=== PATIENT | male | born 1950 | race Caucasian/White ===

== ENCOUNTER 2016-10-12 15:13 | Inpatient (IN) | payer MEDICARE, MEDICAID ==
[~2016-10-12] VITALS: Ht 172.7 cm; Wt 69.0 kg
[~2016-10-12 15:13] MED LIST: ACET325 PO; CLIN1CAP5 PO; DEPA500T3 PO; DIVA500 PO; GENT TOPICAL; HALO20TA PO; HALO5 PO; RANI150 PO; RISP1 PO; RISP2TAB2 PO; TRIH5TAB2 PO
[2016-10-12 16:02] VITALS: BP 131/63; PULSE 50; RESP 16; TEMP 98; O2SAT 97
--- NOTE | 2016-10-12 16:13 | PD ---
HPI Chief Complaint: Psychiatric Symptoms Time Seen by Provider: 16:12 Travel History International Travel<30 days: No Contact w/Intl Traveler<30days: No Traveled to known affect area: No History of Present Illness HPI 66-year-old male was sent from his [place] [facility] [place] [facility] to [facility] for not taking care of himself and taking his psych medication. He has history of schizophrenia. He has been acting bizarre. At [facility] they noticed that he had swollen scrotum and sent him to the emergency room to be evaluated medically. Patient was brought in as a Meehan act by EMS at this point. Patient is awake and talking but not making any sense. He looks extremely disheveled and not taking care of himself. He has a very poor hygienic condition. Patient was bradycardic but rest of his vitals were stable. [facility] Past Medical History Narrative Medical List of his past medical, surgical, social and family history is reviewed from the nursing note. Medical History: Unable to Obtain Arthritis: No Asthma: No Autoimmune Disease: No Blood Disorders: No Anxiety: No Depression: No Heart Rhythm Problems: No High Cholesterol: No Chemotherapy: No Chest Pain: No Congestive Heart Failure: No COPD: No Cerebrovascular Accident: No Diminished Hearing: No Endocrine: Yes Gastrointestinal Disorders: Yes (hep b) GERD: No Glaucoma: No Genitourinary: No Hepatitis: Yes (hx. of hep B per medical record) Hiatal Hernia: No Hypertension: Yes Immune Disorder: No Kidney Stones: No Musculoskeletal: No Neurologic: Yes (parkinson's) Parkinson's Disease: Yes Psychiatric: Yes Reproductive: No Respiratory: No Myocardial Infarction: No Radiation Therapy: No Renal Failure: No Schizophrenia: Yes (PARANOID) Sickle Cell Disease: No Sleep Apnea: No Thyroid Disease: No Ulcer: No Influenza Vaccination: No Past Surgical History Abdominal Surgery: No AICD: No Cardiac Surgery: No Ear Surgery: No Endocrine Surgery: No Eye Surgery: No Genitourinary Surgery: No Gynecologic Surgery: No Joint Replacement: No Neurologic Surgery: No Oral Surgery: No Pacemaker: No Thoracic Surgery: No Tonsillectomy: Yes Other Surgery: Yes Social History Alcohol Use: No Tobacco Use: No (ONE PPD X 46 YEARS; uto if still does) Substance Use: No Allergies-Medications (Allergen,Severity, Reaction): Coded Allergies: Tetanus Toxoid (Verified Allergy, Severe, swelling, 10/13/16) Per SHANNON Aguilar, Gisselle Torres [phone] & Jolie, (Admin?) Gisselle Torres. *MDRO Multi-Drug Resistant Organism (Verified Adverse Reaction, Unknown, ) MRSA (buttock wound) 2004 MRSA PCR Screen negative 03/15/15 and 03/17/15. Cleared per Infection Control. Comments List of his allergies reviewed from the nursing note. Reported Meds & Prescriptions Reported Meds & Active Scripts Active Reported Diphenhydramine HCl (Diphenhydramine HCl (Sleep)) 50 Mg Tab 1 Cap PO HS PRN Ibuprofen 800 Mg Tab 800 Mg PO TID Mapap (Acetaminophen) 500 Mg Cap 500 Mg PO Q4HR PRN Seroquel (Quetiapine Fumarate) 200 Mg Tab 200 Mg PO BID Depakote ER (Divalproex Sodium) 500 Mg Blaire 1,000 Mg PO BID Fluphenazine (Fluphenazine HCl) 10 Mg Tab 20 Mg PO BID Trihexyphenidyl (Trihexyphenidyl HCl) 5 Mg Tab 5 Mg PO BID Narrative Medication List of his home medications reviewed from the nursing note. Review of Systems Except as stated in HPI: all other systems reviewed are Neg Physical Exam Narrative GENERAL: Awake, alert, disheveled, poor skin hygiene, not making any sense when talking SKIN: Focused skin assessment warm/dry. HEAD: Atraumatic. Normocephalic. EYES: Pupils equal and round. No scleral icterus. No injection or drainage. ENT: No nasal bleeding or discharge. Mucous membranes pink and moist. NECK: Trachea midline. No JVD. CARDIOVASCULAR: Regular rate and rhythm. No murmur appreciated. RESPIRATORY: No accessory muscle use. Clear to auscultation. Breath sounds equal bilaterally. GASTROINTESTINAL: Abdomen soft, non-tender, nondistended. Hepatic and splenic margins not palpable. Enlarged scrotum with massive left inguinal hernia MUSCULOSKELETAL: No obvious deformities. No clubbing. No cyanosis. No edema. NEUROLOGICAL: Awake and alert. Lower jaw again, psychotic, no obvious motor deficit PSYCHIATRIC: Psychotic, poor insight and judgment Data Data Last Documented VS Vital Signs Date Time Temp Pulse Resp B/P Pulse Ox O2 Delivery O2 Flow Rate FiO2 10/13/16 10:01 77 16 142/78 100 Room Air 10/12/16 16:02 98.0 Orders Complete Blood Count With Diff (10/12/16 16:13) Comprehensive Metabolic Panel (10/12/16 16:13) Psych Screen (10/12/16 16:13) Drug Screen, Random Urine (10/12/16 16:13) Alcohol (Ethanol) (10/12/16 16:13) Haloperidol Inj (Haldol Inj) (10/12/16 16:30) Lorazepam Inj (Ativan Inj) (10/12/16 16:30) Diphenhydramine Inj (Benadryl Inj) (10/12/16 16:30) Restraints Violent (10/12/16 16:23) Ct Brain W/O Iv Contrast(Rout) (10/12/16 ) Electrocardiogram (10/12/16 ) Troponin I (10/12/16 18:33) Admit Order (Ed Use Only) (10/13/16 ) Admit To Inpatient Psych (10/13/16 ) Code Status (10/13/16 13:49) Vital Signs (Adult) [id number] (10/13/16 13:49) Activity Oob Ad Justa (10/13/16 13:49) Level Of Observation (Psych) (10/13/16 13:49) Aims-Abnormal Invol Move Scale ONCE (10/13/16 13:49) Acetaminophen (Tylenol) (10/13/16 14:00) Magnesium Hydroxide Liq (Milk Of Magnesi (10/13/16 14:00) Al-Mag Hy-Si 40-40-4 Mg/Ml Liq (Mag-Al P (10/13/16 14:00) Basic Metabolic Panel (Bmp) (10/14/16 06:00) Lipid Profile (10/14/16 06:00) Hemoglobin (Hgb) A1c (10/14/16 06:00) Valproic Acid (Depakene) (10/14/16 06:00) Labs Laboratory Tests Test 10/12/16 10/12/16 16:40 20:00 White Blood Count 5.0 TH/MM3 Red Blood Count 3.34 MIL/MM3 Hemoglobin 12.0 GM/DL Hematocrit 35.2 % Mean Corpuscular Volume 105.3 FL Mean Corpuscular Hemoglobin 36.0 PG Mean Corpuscular Hemoglobin 34.2 % Concent Red Cell Distribution Width 13.9 % Platelet Count 209 TH/MM3 Mean Platelet Volume 8.3 FL Neutrophils (%) (Auto) 59.6 % Lymphocytes (%) (Auto) 21.0 % Monocytes (%) (Auto) 16.5 % Eosinophils (%) (Auto) 2.4 % Basophils (%) (Auto) 0.5 % Neutrophils # (Auto) 3.0 TH/MM3 Lymphocytes # (Auto) 1.0 TH/MM3 Monocytes # (Auto) 0.8 TH/MM3 Eosinophils # (Auto) 0.1 TH/MM3 Basophils # (Auto) 0.0 TH/MM3 CBC Comment DIFF FINAL Differential Comment Sodium Level 134 MEQ/L Potassium Level 3.8 MEQ/L Chloride Level 97 MEQ/L Carbon Dioxide Level 29.0 MEQ/L Anion Gap 8 MEQ/L Blood Urea Nitrogen 10 MG/DL Creatinine 0.70 MG/DL Estimat Glomerular Filtration 112 ML/MIN Rate Random Glucose 100 MG/DL Calcium Level 8.7 MG/DL Total Bilirubin 0.7 MG/DL Aspartate Amino Transf 19 U/L (AST/SGOT) Alanine Aminotransferase 23 U/L (ALT/SGPT) Alkaline Phosphatase 79 U/L Troponin I LESS THAN 0.02 NG/ML Total Protein 6.7 GM/DL Albumin 3.1 GM/DL Ethyl Alcohol Level 6 MG/DL Urine Opiates Screen NEG Urine Barbiturates Screen NEG Urine Amphetamines Screen NEG Urine Benzodiazepines Screen NEG Urine Cocaine Screen NEG Urine Cannabinoids Screen NEG MDM Medical Decision Making Medical Screen Exam Complete: Yes Emergency Medical Condition: Yes Medical Record Reviewed: Yes Differential Diagnosis Psychosis, substance abuse, intracranial abnormality Narrative Course 5:11 PM patient had to be tranquilized with IM Haldol, Ativan and Benadryl since she was getting very escalating and violent. Awaiting for the blood test to be done. Case has been signed over to the oncoming ER physician. I'll order a head CT as well. Procedures EKG Prior to Arrival: Khanh Robledo MD Oct 12, 2016 16:13
[2016-10-12] MEDS ORDERED: HALOPERIDOL LACTATE 5 MG/ML AMP IM ONE (16:30)
[2016-10-12] MEDS ORDERED: LORazepam 2 MG/ML VIAL IM ONE (16:30)
[2016-10-12] MEDS ORDERED: diphenhydrAMINE HCL 50 MG/ML VIAL IM ONE (16:30)
[2016-10-12 17:18] LABS: BASOPHIL % 0.5 % (0.0-2.0); EOSINOPHIL # 0.1 TH/MM3 (0-0.4); EOSINOPHIL % 2.4 % (0.0-4.0); HEMATOCRIT 35.2 % (39.0-51.0); HEMO FLAGS DIFF FINAL; MEAN CELL VOLUME 105.3 FL (80.0-100.0); MEAN CORPUSCULAR HGB CONC 34.2 % (32.0-36.0); MONO % 16.5 % (0.0-8.0); NEUT % 59.6 % (16.0-70.0); PLATELET COUNT 209 TH/MM3 (150-450); RED BLOOD COUNT 3.34 MIL/MM3 (4.50-5.90); RED CELL DISTRIBUTION WIDTH 13.9 % (11.6-17.2)
[2016-10-12 17:35] LABS: ANION GAP 8 MEQ/L (5-15); AST (GOT) 19 U/L (15-37); BLOOD UREA NITROGEN 10 MG/DL (7-18); CHLORIDE 97 MEQ/L (98-107); GLOMERULAR FILTRATION RATE 112 ML/MIN (>89); POTASSIUM 3.8 MEQ/L (3.5-5.1); SODIUM (NA) 134 MEQ/L (136-145)
[2016-10-12 17:38] LABS: ALKALINE PHOSPHATASE 79 U/L (45-117); ALT (GPT) 23 U/L (12-78); TOTAL BILIRUBIN ADULT 0.7 MG/DL (0.2-1.0)
--- NOTE | 2016-10-12 17:55 | RADRPT ---
EXAM DATE/TIME: 10/12/2016 17:29 [place] COMPARISON: CT BRAIN W/O CONTRAST, October 25, 2012, 18:52. INDICATIONS : Altered mental status. RADIATION DOSE: 52.06 CTDIvol (mGy) MEDICAL HISTORY : Non-responsive. SURGICAL HISTORY : Non-responsive. ENCOUNTER: Initial ACUITY: 1 day PAIN SCALE: Non-responsive LOCATION: cranial TECHNIQUE: Multiple contiguous axial images were obtained of the head. Using automated exposure control and adj ustment of the mA and/or kV according to patient size, radiation dose was kept as low as reasonably a chievable to obtain optimal diagnostic quality images. FINDINGS: CEREBRUM: The ventricles are normal for age. No evidence of midline shift, mass lesion, hemorrhage or acute in farction. No extra-axial fluid collections are seen. POSTERIOR FOSSA: The cerebellum and brainstem are intact. The 4th ventricle is midline. The cerebellopontine angle i s unremarkable. EXTRACRANIAL: The visualized portion of the orbits is intact. SKULL: The calvaria is intact. No evidence of skull fracture. CONCLUSION: Normal examination. Alonso Castellon Jr., MD on October 12, 2016 at 17:49 Board Certified Radiologist. This report was verified electronically.
--- NOTE | 2016-10-12 18:23 | PD ---
Data Data Last Documented VS Vital Signs Date Time Temp Pulse Resp B/P Pulse Ox O2 Delivery O2 Flow Rate FiO2 10/12/16 19:57 55 22 10/12/16 19:57 136/72 96 Room Air 10/12/16 16:02 98.0 Orders Complete Blood Count With Diff (10/12/16 16:13) Comprehensive Metabolic Panel (10/12/16 16:13) Psych Screen (10/12/16 16:13) Drug Screen, Random Urine (10/12/16 16:13) Alcohol (Ethanol) (10/12/16 16:13) Haloperidol Inj (Haldol Inj) (10/12/16 16:30) Lorazepam Inj (Ativan Inj) (10/12/16 16:30) Diphenhydramine Inj (Benadryl Inj) (10/12/16 16:30) Restraints Violent (10/12/16 16:23) Ct Brain W/O Iv Contrast(Rout) (10/12/16 ) Electrocardiogram (10/12/16 ) Troponin I (10/12/16 18:33) Labs Laboratory Tests Test 10/12/16 10/12/16 16:40 20:00 White Blood Count 5.0 TH/MM3 Red Blood Count 3.34 MIL/MM3 Hemoglobin 12.0 GM/DL Hematocrit 35.2 % Mean Corpuscular Volume 105.3 FL Mean Corpuscular Hemoglobin 36.0 PG Mean Corpuscular Hemoglobin 34.2 % Concent Red Cell Distribution Width 13.9 % Platelet Count 209 TH/MM3 Mean Platelet Volume 8.3 FL Neutrophils (%) (Auto) 59.6 % Lymphocytes (%) (Auto) 21.0 % Monocytes (%) (Auto) 16.5 % Eosinophils (%) (Auto) 2.4 % Basophils (%) (Auto) 0.5 % Neutrophils # (Auto) 3.0 TH/MM3 Lymphocytes # (Auto) 1.0 TH/MM3 Monocytes # (Auto) 0.8 TH/MM3 Eosinophils # (Auto) 0.1 TH/MM3 Basophils # (Auto) 0.0 TH/MM3 CBC Comment DIFF FINAL Differential Comment Sodium Level 134 MEQ/L Potassium Level 3.8 MEQ/L Chloride Level 97 MEQ/L Carbon Dioxide Level 29.0 MEQ/L Anion Gap 8 MEQ/L Blood Urea Nitrogen 10 MG/DL Creatinine 0.70 MG/DL Estimat Glomerular Filtration 112 ML/MIN Rate Random Glucose 100 MG/DL Calcium Level 8.7 MG/DL Total Bilirubin 0.7 MG/DL Aspartate Amino Transf 19 U/L (AST/SGOT) Alanine Aminotransferase 23 U/L (ALT/SGPT) Alkaline Phosphatase 79 U/L Troponin I LESS THAN 0.02 NG/ML Total Protein 6.7 GM/DL Albumin 3.1 GM/DL Ethyl Alcohol Level 6 MG/DL Urine Opiates Screen NEG Urine Barbiturates Screen NEG Urine Amphetamines Screen NEG Urine Benzodiazepines Screen NEG Urine Cocaine Screen NEG Urine Cannabinoids Screen NEG MDM Supervised Visit with NADEEN: Yes Narrative Course Patient care assumed from Dr. Parnell at 1900. Patient was placed under a Meehan act taken to [facility] act and then referred to our facility for left scrotal swelling. Patient has a left direct inguinal hernia which is partially reduced by me. He does have EKG consistent with early repolarization. Troponin negative. Labs are reassuring. He is medically stable for psychiatric evaluation and disposition. As far as his hernia he can follow up outpatient with general surgeon. For his abnormal EKG can follow-up with primary care provider. Diagnosis Primary Impression: Inguinal hernia Qualified Code: K40.90 - Unilateral inguinal hernia without obstruction or gangrene, recurrence not specified Additional Impression: Medical clearance for psychiatric admission Scripts Unable to Obtain Active Prescriptions or Reported Meds Condition: Stable Terell Garner MD Oct 12, 2016 18:23
[2016-10-12 19:57] VITALS: BP 136/72; PULSE 55; RESP 22; O2SAT 96
[2016-10-12 21:12] LABS: AMPHETAMINE, URINE NEG (NEG); BARBITURATES, URINE NEG (NEG); COCAINE, URINE NEG (NEG)
[2016-10-13 10:01] VITALS: BP 142/78; PULSE 77; RESP 16; O2SAT 100
[2016-10-13] MEDS ORDERED: TRIH5TAB2 PO (13:26)
--- NOTE | 2016-10-13 13:26 | PD ---
History of Present Illness Chief Complaint: Psychiatric Symptoms Time Seen by Provider: 13:10 Travel History International Travel<30 Days: No Contact w/Intl Traveler<30days: No Known affected area: No Legal Status Legal Status: Meehan Act Meehan Act Comment: BY: DR OLMAN CARREON AT [facility] History of Present Illness: History of Present Illness 66-year-old male with hx of schizophrenia who was sent from his custodial, [facility] to [facility] for not taking care of himself, aggressive towards staff , increase in auditory hallucinations, and refusing to take his medications for several days. At [facility] they noticed that he had swollen scrotum and sent him to the emergency room to be evaluated medically. Patient is under a BA. Patient was bradycardic while in Ed but rest of his vitals were stable. He was medically cleared and transferred to [facility]. The patient is awake. He has a long evans and long hair. He is extremely disheveled with dirty black feet. He is awake. responds to his name but is unable to engage in conversation. His speech is nonsensical. He has not been aggresive or agitated here in [facility]. I am unable to obtain any clinical information from this patient. EMR is reviewed. He has had at least 12 admissions to [facility] since [facility]. His last admission was in Feb 2015. He has had admissions to the [facility] as well. As per his record he has a remote history of substance use. Current toxicology is negative. [facility] Past Medical History Medical History: Unable to Obtain Arthritis: No Asthma: No Autoimmune Disease: No Blood Disorders: No Anxiety: No Depression: No Heart Rhythm Problems: No High Cholesterol: No Chemotherapy: No Chest Pain: No Congestive Heart Failure: No COPD: No Cerebrovascular Accident: No Diminished Hearing: No Endocrine: Yes Gastrointestinal Disorders: Yes (hep b) GERD: No Glaucoma: No Genitourinary: No Hepatitis: Yes (hx. of hep B per medical record) Hiatal Hernia: No Hypertension: Yes Immune Disorder: No Kidney Stones: No Musculoskeletal: No Neurologic: Yes (parkinson's) Parkinson's Disease: Yes Psychiatric: Yes Reproductive: No Respiratory: No Myocardial Infarction: No Radiation Therapy: No Renal Failure: No Schizophrenia: Yes (PARANOID) Sickle Cell Disease: No Sleep Apnea: No Thyroid Disease: No Ulcer: No Influenza Vaccination: No Past Surgical History Abdominal Surgery: No AICD: No Cardiac Surgery: No Ear Surgery: No Endocrine Surgery: No Eye Surgery: No Genitourinary Surgery: No Gynecologic Surgery: No Joint Replacement: No Neurologic Surgery: No Oral Surgery: No Pacemaker: No Thoracic Surgery: No Tonsillectomy: Yes Other Surgery: Yes Psychiatric History Psychiatric History Hx Psychiatric Treatment: Patient is known to us here at [facility] dating back to 2004.Patient has a reported diagnosis of Schizophrenia and has been diagnosis with Dementia with psychosis in the past. Patient resides in an [facility] placement which provides on sight mental health services. Patient has a history of non-compliant with medication, services and treatment. History of Inpatient Treatment: Yes (multiple) Guns or firearms in home: No Social History As per record single and has never . Lives in a custodial. Hx Alcohol Use: No Hx Tobacco Use: No (ONE PPD X 46 YEARS; uto if still does) Hx Substance Use: No Substance Use Type: Nicotine/Cigarettes Hx of Substance Use Treatment: No Family Psychiatric History unable to obtain Allergies-Medications (Allergen,Severity, Reaction): Coded Allergies: Tetanus Toxoid (Verified Allergy, Severe, swelling, 10/12/16) *MDRO Multi-Drug Resistant Organism (Verified Adverse Reaction, Unknown, ) MRSA (buttock wound) 2004 MRSA PCR Screen negative 03/15/15 and 03/17/15. Cleared per Infection Control. Reported Meds & Prescriptions Reported Meds & Active Scripts Active Active Prescriptions or Reported Medications Unobtainable Review of Systems ROS Limitations: Psychotic Integumentary: COMPLAINS OF: Abnormal pigmentation (left foot) Psychiatric: COMPLAINS OF: Hallucinations Exam Alert: Yes Haugen: Person (responds to name only) Mood: Calm Affect: Other (inapropriatte) Speech: Illogical Eye Contact: None Memory Intact: Comment (unable to assess) Hallucinations: Auditory (appears to be responding tointernal stimuli) Delusions: No Suicidal: Ideation (unable to determine) Homicidal: Ideation (unable to determine) Insight/Judgement non existent. impaired MDM Medical Decision Making Medical Record Reviewed: Yes Assessment/Plan 66 year old male with hx of schizophrenia , resident of a custodial who is under a BA for inability to care for self, aggressive behavior, increase in hallucinations, refusing medications. At this time this patient requires increase in level of care provided on inpatient psychiatric unit in order to restart medication, stabilize current symptoms and maintain his safety. Orders Complete Blood Count With Diff (10/12/16 16:13) Comprehensive Metabolic Panel (10/12/16 16:13) Psych Screen (10/12/16 16:13) Drug Screen, Random Urine (10/12/16 16:13) Alcohol (Ethanol) (10/12/16 16:13) Haloperidol Inj (Haldol Inj) (10/12/16 16:30) Lorazepam Inj (Ativan Inj) (10/12/16 16:30) Diphenhydramine Inj (Benadryl Inj) (10/12/16 16:30) Restraints Violent (10/12/16 16:23) Ct Brain W/O Iv Contrast(Rout) (10/12/16 ) Electrocardiogram (10/12/16 ) Troponin I (10/12/16 18:33) Results Vital Signs Date Time Temp Pulse Resp B/P Pulse Ox O2 Delivery O2 Flow Rate FiO2 10/13/16 10:01 77 16 142/78 100 Room Air 10/12/16 19:57 55 22 10/12/16 19:57 55 22 136/72 96 Room Air 10/12/16 16:02 98.0 50 16 131/63 97 Laboratory Tests Test 10/12/16 10/12/16 16:40 20:00 White Blood Count 5.0 Red Blood Count 3.34 Hemoglobin 12.0 Hematocrit 35.2 Mean Corpuscular Volume 105.3 Mean Corpuscular Hemoglobin 36.0 Mean Corpuscular Hemoglobin 34.2 Concent Red Cell Distribution Width 13.9 Platelet Count 209 Mean Platelet Volume 8.3 Neutrophils (%) (Auto) 59.6 Lymphocytes (%) (Auto) 21.0 Monocytes (%) (Auto) 16.5 Eosinophils (%) (Auto) 2.4 Basophils (%) (Auto) 0.5 Neutrophils # (Auto) 3.0 Lymphocytes # (Auto) 1.0 Monocytes # (Auto) 0.8 Eosinophils # (Auto) 0.1 Basophils # (Auto) 0.0 CBC Comment DIFF FINAL Differential Comment Sodium Level 134 Potassium Level 3.8 Chloride Level 97 Carbon Dioxide Level 29.0 Anion Gap 8 Blood Urea Nitrogen 10 Creatinine 0.70 Estimat Glomerular Filtration 112 Rate Random Glucose 100 Calcium Level 8.7 Total Bilirubin 0.7 Aspartate Amino Transf 19 (AST/SGOT) Alanine Aminotransferase 23 (ALT/SGPT) Alkaline Phosphatase 79 Troponin I LESS THAN 0.02 Total Protein 6.7 Albumin 3.1 Ethyl Alcohol Level 6 Urine Opiates Screen NEG Urine Barbiturates Screen NEG Urine Amphetamines Screen NEG Urine Benzodiazepines Screen NEG Urine Cocaine Screen NEG Urine Cannabinoids Screen NEG Diagnosis Primary Impression: Inguinal hernia Additional Impression: Schizophrenia Admitting Information Admitting Physician Requests: Admit Condition: Stable Problem Qualifiers Primary Impression: Inguinal hernia Qualified Code: K40.90 - Unilateral inguinal hernia without obstruction or gangrene, recurrence not specified Additional Impression: Schizophrenia Qualified Code: F20.0 - Paranoid schizophrenia Courtney Muller Oct 13, 2016 13:26
[2016-10-13] MEDS ORDERED: FLUP10TA PO (13:27)
[2016-10-13] MEDS ORDERED: DEPA500T3 PO (13:28)
[2016-10-13] MEDS ORDERED: SERO200T PO (13:29)
[2016-10-13] MEDS ORDERED: MAPA500C PO (13:30)
[2016-10-13] MEDS ORDERED: IBUP800T23 PO (13:31)
[2016-10-13] MEDS ORDERED: DIPH50TA3 PO (13:38)
[2016-10-13] MEDS ORDERED: MAGNESIUM HYDROXIDE SUSP 30 ML CUP PO PRN (14:00)
[2016-10-13] MEDS ORDERED: ACETAMINOPHEN 325 MG TAB PO PRN (14:00)
[2016-10-13] MEDS ORDERED: ALUMINUM/MAGNESIUM/SIMETH 30 ML CUP PO PRN (14:00)
--- NOTE | 2016-10-13 16:53 | EKG ---
Date Performed: 10/12/2016 Time Performed: 18:17:37 PTAGE: 66 years EKG: SINUS BRADYCARDIA POSSIBLE RIGHT VENTRICULAR CONDUCTION DELAY SEPTAL MYOCARDIAL INFARCTION ABNORMAL ECG INTERPRETATION BASED ON A DEFAULT AGE OF 40 YEARS Compared to prior tracing no significa nt change PREVIOUS TRACING : 03/11/2015 08.46 DOCTOR: Duong Moses Interpretating Date/Time 10/13/2016 16:52:27
[2016-10-13 18:36] VITALS: BP 133/61; PULSE 56; RESP 18; TEMP 97.7; O2SAT 100
[2016-10-14 06:36] VITALS: BP 149/74; PULSE 59; RESP 18; TEMP 97.4; O2SAT 99
[2016-10-14 07:31] LABS: HDL CHOLESTEROL 62.8 MG/DL (40.0-60.0)
[2016-10-14 07:32] LABS: ANION GAP 7 MEQ/L (5-15); BICARBONATE 29.5 MEQ/L (21.0-32.0); BLOOD UREA NITROGEN 4 MG/DL (7-18); CHLORIDE 100 MEQ/L (98-107); GLOMERULAR FILTRATION RATE 145 ML/MIN (>89); LDL CHOLESTEROL 72 MG/DL (0-99); POTASSIUM 4.2 MEQ/L (3.5-5.1); SODIUM (NA) 136 MEQ/L (136-145)
[2016-10-14] MEDS ORDERED: LORazepam 2 MG/ML VIAL IM PRN (11:30)
[2016-10-14] MEDS ORDERED: HALOPERIDOL LACTATE 5 MG/ML AMP IM PRN (11:30)
[2016-10-14] MEDS ORDERED: diphenhydrAMINE HCL 50 MG/ML VIAL IM PRN (11:30)
--- NOTE | 2016-10-14 12:26 | MH ---
cc: CCList DATE OF ADMISSION: 10/13/2016 ADMISSION DIAGNOSES 1. Schizophrenia, disorganized type, acute exacerbation LEGAL STATUS: The patient is presently not capacitated to consent for admission or for medications. I have initiated a petition for involuntary psychiatric hospitalization and have requested a healthcare surrogate and guardian advocate. HISTORY OF PRESENT ILLNESS Mr. Pineda is 66-year-old male with a history of schizophrenia who presents in transfer from his [facility] facility under a [facility] ACT initiated by Dr. Bandar Pedro alleging that the patient is delusional and has been refusing medications. The patient was evaluated yesterday by the psychiatric nurse practitioner in the emergency department who recommended ongoing psychiatric hospitalization. Reviewing the electronic medical record, I note the patient was admitted most recently in February into March [address] Ho and before that in [address] Christie. It appears that he has previously stabilized on Depakote and Haldol along with Artane for a side effect management. The patient seen and examined with nurse. Chart reviewed. Case discussed with nursing staff. There is no documentation from the patient's facility on the chart to indicate prior to admission medications. On my evaluation today, I note the patient has a oral lingual dyskinesias. He is extremely disorganized. He says "ATP she had highly suspicious of that. I need my heart meds to be corrected." He repeatedly covers and uncover as his head in a disorganized fashion. He says "treat me for my heart and gonorrhea and will talk." He appears frankly internally stimulated. Somewhat paranoid. No real affective symptoms at this time. Psychiatric interview is somewhat limited because of the patient's degree of thought disorganization. PAST PSYCHIATRIC HISTORY The patient is unable to provide much in the way of details regarding his history. He says when I inquire about his diagnosis, he says "my father owns a [facility], I can go there." The patient has prior medication trials as noted above. FAMILY HISTORY The patient is really unable to provide saying "I had Gonorrhea over a [facility]." When I ask about his family history of psychiatric illness. CHEMICAL DEPENDENCY HISTORY: The patient denies any abuse of drugs or alcohol. Toxicology was negative and alcohol level was six on arrival here. SOCIAL HISTORY The patient is at [facility]. Beyond that, I am unable to obtain from the patient any meaningful social history. PAST MEDICAL HISTORY: It appears that the patient may have a history of hepatitis as well as some degree of parkinsonism although it is unclear if this is medication induced. REVIEW OF SYSTEMS Unable to obtain from the patient today any meaningful detail because of his thought disorganization. PHYSICAL EXAMINATION VITAL SIGNS: Temperature 97.4, pulse 59, respirations 18, blood pressure 149/74, pulse oximetry 99% on room air. IN GENERAL: Physical examination completed by the ED provider. On my examination today, the patient appears to be in no acute physical distress. He is extremely disheveled. He does have the whirling will dyskinesias. No other motor abnormalities noted. LABORATORY Reviewed: CBC is significant for macrocytic anemia with a hemoglobin of 12. CMP is significant for mildly decreased for mildly low glucose at 66. He hemoglobin A1c is pending. Toxicological results as above. Depakote level 54. RADIOLOGIC: Head CT is read as normal examination. Electrocardiogram sinus bradycardia with QTC OF 374 Milliseconds. MENTAL STATUS EXAM The patient is in hospital gown. He is disheveled. He is awake, alert and oriented to person at least. Motor exam as above. Speech is rambling and disjointed. Language and fund of knowledge are difficult to assess. Mood difficult to assess because of thought disorganization. Affect is somewhat blunted. Thought process disorganized. Associations loose. Possibly some paranoid delusions present. The patient appears frankly internally preoccupied. Unable to contract for safety or denies suicidal or homicidal ideation. Insight and judgment presently quite poor. ASSESSMENT/PLAN This is 66-year-old male with psychiatric history as detailed above who presents under Meehan ACT. The patient presents to me as frankly disorganized. He is unable to provide much in the way of meaningful history. He certainly requires psychiatric hospitalization at this time for safety, observation and stabilization. Admit inpatient. Involuntary status. I have completed first opinion. Consult for second opinion. Request health care surrogate and guardian advocate. I will consult hospitalist to assess the patient's medical status. I will resume this haloperidol and Depakote as these were reportedly previously efficacious for the patient. Liver function tests and platelets okay. QTC is not prolonged. Ativan as needed for anxiety, Benadryl as needed for sleep for EPS. Vitals every shift. Counselor to see. PT bing. Disposition planning. Estimated length of stay: 9-13 days. Thank you very much for this dictation. Tyrel Lebron /11:24 AM /11:44 AM MTDPeter
--- NOTE | 2016-10-14 14:04 | PD.CONS ---
[facility] By Psychiatry team Reason for Consult Assist with medical management, lesion on left great toe Primary Care Physician Unknown Diagnoses: History of Present Illness Patient is a 66-year-old male with primary medical history of HTN, DM, seizure, Parkinson's, hep B, schizophrenia who was sent from his care home to [facility] for not taking care of himself and taking his psych medication. As per records, patient has been acting desire at [facility] they noticed that he had swollen scrotum and sent him to the emergency room to have evaluated medically. In the ED, patient has escalating agitation and violence. He was given Haldol, Ativan, and Benadryl. Patient is now admitted to inpatient psychiatry unit. Consulted for medical management. Patient seen today. Agitated. Talking to himself. Does not respond to any questions or commands. Review of Systems ROS Limitations: Psychotic Past Family Social History Allergies: Coded Allergies: Tetanus Toxoid (Verified Allergy, Severe, swelling, 10/13/16) Per SHANNON Aguilar, [facility] [phone] & Jolie, (Admin?) Gisselle Torres. *MDRO Multi-Drug Resistant Organism (Verified Adverse Reaction, Unknown, ) MRSA (buttock wound) 2004 MRSA PCR Screen negative 03/15/15 and 03/17/15. Cleared per Infection Control. Past Medical History Review of records Parkinson's Seizure HTN DM 2 Schizophrenia Past Surgical History Review of records left side nose skin cancer removed Active Ordered Medications Last Impressions Head CT 10/12/16 0000 Signed Impressions: Service Date/Time: September 17:29 - CONCLUSION: Normal examination. Alonso Castellon Jr., MD Family History Unable to obtain Social History As per review of records, 2014 patient is a smoker 1 pack per day 46 years, questionable if he had quit Physical Exam Vital Signs Vital Signs Date Time Temp Pulse Resp B/P Pulse Ox O2 Delivery O2 Flow Rate FiO2 10/14/16 06:36 97.4 59 18 149/74 99 10/13/16 18:36 97.7 56 18 133/61 100 Physical Exam GENERAL: This is a male, on older than stated age, disheveled, in no apparent distress. SKIN: Left great toe and second toe with scab wounds. HEAD: Normocephalic EYES: No scleral icterus. No injection or drainage. ENT: Nose without bleeding. Airway patent. NECK: Trachea midline. CARDIOVASCULAR: Regular rate and rhythm without murmurs, gallops, or rubs. RESPIRATORY: Moderate air entry. Coarse breath sounds. GASTROINTESTINAL: Abdomen soft, non-tender, nondistended. Bowel sounds active 4. : Unilateral inguinal hernia MUSCULOSKELETAL: Extremities without clubbing, cyanosis, or edema. No joint tenderness, effusion, or edema noted. NEUROLOGICAL: Awake and alert. Unable to follow commands, unable to have meaningful conversation. Patient is agitated talking to himself hyperactive inside the room. Laboratory Laboratory Tests Test 10/14/16 05:50 Sodium Level 136 Potassium Level 4.2 Chloride Level 100 Carbon Dioxide Level 29.5 Anion Gap 7 Blood Urea Nitrogen 4 Creatinine 0.56 Estimat Glomerular Filtration 145 Rate Random Glucose 66 Calcium Level 9.3 Triglycerides Level 76 Cholesterol Level 150 LDL Cholesterol 72 HDL Cholesterol 62.8 Cholesterol/HDL Ratio 2.38 Valproic Acid (Depakene) Level 54 Result Diagram: 10/12/16 1640 10/14/16 0550 Assessment and Plan Problem List: (1) Schizophrenia ICD Code: F20.9 Status: Chronic Assessment and Plan Patient is a 66-year-old male with primary medical history of HTN, seizure, Parkinson's, hep B, schizophrenia who was sent from his care home to [facility] for not taking care of himself and taking his psych medication. As per records, patient has been acting desire at [facility] they noticed that he had swollen scrotum and sent him to the emergency room to have evaluated medically. In the ED, patient has escalating agitation and violence. He was given Haldol, Ativan, and Benadryl. Patient is now admitted to inpatient psychiatry unit. Consulted for medical management. Schizophrenia, agitation - managed by psychiatry team - CT of the head showed normal examination Macrocytic anemia - thiamine and folate - Chronic Unilateral inguinal hernia - Reduced in the ED Seizure Parkinson's - Continue Depakote HTN - No BP meds. BP appears to be within normal. - Monitor BP trend. Bradycardia - Heart rate 50-68 - Possibly secondary to psychotropic medication and anxiolytics. - Monitor heart rate. DVT prop ambulatory Written by Sofiya Uribe, acting as scribe for Dr. Greene on 10/14/16 at 17:57. All or portions of this note were transcribed by elif Uribe. I, Dr. Pradeep Greene personally performed the history, physical exam, and medical decision making; and confirmed the accuracy of the information in the transcribed note. Authenticated by Dr. Pradeep Greene on 10/14/16 at 18:48. Code Status Full code Discussed Condition With Patient, nursing Problem Qualifiers (1) Schizophrenia: Qualified Code: F20.0 - Paranoid schizophrenia Sofiya Jeong Oct 14, 2016 14:04 Pradeep Greene MD Oct 14, 2016 18:48
[2016-10-14 16:24] LABS: BLOOD, URINE NEG (NEG); GLUCOSE,URINE NEG (NEG); KETONE, URINE NEG (NEG); MUCUS URINE FEW /lpf (OCC); NITRITE,URINE NEG (NEG); PH, URINE 8.5 (5.0-8.5); URINE COLOR YELLOW (YELLW/STRAW)
[2016-10-14 16:25] LABS: COMMENT (UR) CULT NOT INDICATED; CULTURE IF INDICATED CULT NOT INDICATED
[2016-10-14 17:23] VITALS: BP 107/62; PULSE 68; RESP 17; TEMP 98.3; O2SAT 97
[2016-10-14] MEDS ORDERED: DIVALPROEX SODIUM E.R. 500 MG TAB PO SCH (21:00)
[2016-10-15] MEDS: THIAMINE HCL 100 MG TAB PO SCH ×2 (08:33→08:35)
[2016-10-15] MEDS: FOLIC ACID 1 MG TAB PO SCH ×2 (08:33→08:35)
[2016-10-15 10:42] LABS: HEMOGLOBIN A1b 0.7 %; HEMOGLOBIN Ao 86.5 %; HEMOGLOBIN F 1.1 %; HEMOGLOBIN LA1C 1.6 %; HEMOGLOBIN P3 3.4 %
[2016-10-15] MEDS: DIVALPROEX SODIUM E.R. 500 MG TAB PO SCH (12:55)
--- NOTE | 2016-10-15 14:16 | PD.CONS ---
Provisional Diagnosis Admission Date Oct 13, 2016 at 13:53 [place] I. Schizophrenia, Disorganized type History of Present Illness Service Psychiatry Consult Requested By Psychiatry Reason for Consult 2nd opinion Primary Care Physician Unknown HPI Pt is a 66 YOWM with a hx of schizophrenia who was admitted to [facility] under a BA alleging that pt had stopped taking psychiatric medications at [facility] and decompensated. Pt was seen and discussed with RN and chart was reviewed. Upon approach for interview, pt pulls covers over his head and because engaging in bizarre movements. He is disorganized in thought process and behaviors. He engages in echolalia at times and then growls fiercely when asked if he would be willing to allow MD and RN to see his face. RN reports that pt has been urinating in room and actively responding to internal stimuli. He has been aggressive recently. Review of Systems Psychiatric: COMPLAINS OF: Hallucinations Past Family Social History Coded Allergies: Tetanus Toxoid (Verified Allergy, Severe, swelling, 10/13/16) Per SHANNON Aguilar, Gisselle Torres [phone] & Jolie, (Admin?) Gisselle Torres. *MDRO Multi-Drug Resistant Organism (Verified Adverse Reaction, Unknown, ) MRSA (buttock wound) 2004 MRSA PCR Screen negative 03/15/15 and 03/17/15. Cleared per Infection Control. Past Medical History hx of seizures Reported Medications Diphenhydramine HCl (Sleep) (Diphenhydramine HCl)50 Mg Tab1 Cap PO HS PRN ( INSOMNIA) 10/13/16 Ibuprofen 800 Mg Ajj514 Mg PO TID Ref 0 10/13/16 Acetaminophen (Mapap)500 Mg Mem063 Mg PO Q4HR PRN (PAIN) Ref 0 10/13/16 Quetiapine (Seroquel)200 Mg Fks812 Mg PO BID 10/13/16 Divalproex ER (Depakote ER)500 Mg Taber1,000 Mg PO BID 10/13/16 Fluphenazine 10 Mg Tab20 Mg PO BID 10/13/16 Trihexyphenidyl 5 Mg Tab5 Mg PO BID 10/13/16 Current Medications Medications (Trade) Dose Ordered Sig/Marce Route Start Time Stop Time Status Last Admin (Tylenol) 650 mg Q4H PRN PO 10/13/16 14:00 (Milk Of Magnesia Liq) 30 ml DAILY PRN PO 10/13/16 14:00 (Mag-Al Plus Susp Liq) 30 ml Q6H PRN PO 10/13/16 14:00 (Ativan) 1 mg Q6H PRN PO 10/14/16 11:30 (Ativan Inj) 1 mg Q6H PRN IM 10/14/16 11:30 (Benadryl) 50 mg Q6H PRN PO 10/14/16 11:30 (Benadryl Inj) 50 mg Q6H PRN IM 10/14/16 11:30 (Haldol) 5 mg Taper BID PO 10/14/16 21:00 10/26/16 20:59 (Haldol Inj) 7.5 mg Taper BID PRN IM 10/14/16 11:30 10/26/16 11:29 (Folate) 1 mg DAILY PO 10/15/16 09:00 (Vitamin B1) 100 mg DAILY PO 10/15/16 09:00 (Depakote Er) 1,000 mg DAILY PO 10/15/16 12:00 10/15/16 12:55 Social History Lives at [facility]. Adult brother is involved in care Patient's Strengths (min. 2) family involvement, access to care Physical Exam Vital Signs Vital Signs Date Time Temp Pulse Resp B/P Pulse Ox O2 Delivery O2 Flow Rate FiO2 10/14/16 17:23 98.3 68 17 107/62 97 10/13/16 10:01 Room Air Mental Status Examination Pt covers self with blanket during interview. Appearance disheveled matted hair peeking under blanket. Speech: Incoherent Orientation: Person Memory: Impaired (describe) (unable to complete formal assessment due to severe disorganization of thought process) Thought Process: Other (disorganized) Thought Content: Bizarre thinking, Other Language echolalia, growls and hisses Hallucination Type: Auditory Attention and Concentration: Easily Distracted (very poor) Suicidal Ideation: No (none voiced, unable to assess fully due to disorganization) Homicidal Ideation: No (none voiced, unable to assess fully due to disorganzation. ) Insight: Poor Judgement: Poor Affect: Other (unable to assess as pt keeps face covered with blanket) Mood: Irritable (as evidenced by bartolo fiercely at MD) Motor Activity: Normal gait Assessment & Plan Problem List: (1) Disorganized schizophrenia ICD Code: F20.1 Assessment & Plan I agree that pt meets BA criteria. 2nd opinion paper work completed. Estimated LOS: days Claudette Vivas MD Oct 15, 2016 14:16
[2016-10-15 18:36] VITALS: BP 124/59; PULSE 51; RESP 16; TEMP 98.4; O2SAT 97
[2016-10-15] MEDS ORDERED: DIVALPROEX SODIUM E.R. 500 MG TAB PO SCH (21:00)
[2016-10-15] MEDS: HALOPERIDOL 5 MG TAB PO SCH ×2 (21:23→21:26)
[2016-10-16] MEDS: FOLIC ACID 1 MG TAB PO SCH (09:00)
[2016-10-16] MEDS: HALOPERIDOL 5 MG TAB PO SCH ×2 (09:00→20:07)
[2016-10-16] MEDS: DIVALPROEX SODIUM E.R. 500 MG TAB PO SCH (09:00)
[2016-10-16] MEDS: THIAMINE HCL 100 MG TAB PO SCH (09:00)
--- NOTE | 2016-10-16 10:50 | HHI.PYPN ---
Subjective Remarks Patient seen and examined with nurse. Chart reviewed. Case discussed with nursing staff. Patient refused oral Haldol overnight but was not administered IM Haldol as ordered. He is accepting the Depakote and did accept oral Haldol this morning. For me today, patient is disorganized and rambling. Behavior remains disorganized as well. He says "I don't need no psych meds. Glucose diabetes." Irritable and unable to tolerate extended interview. Says, "we're done" and covers his head with an air of finality. No evident side effects from meds. Review of Systems ROS Limitations: Psychotic, Poor Historian Except as stated in HPI: all other systems reviewed are Neg Objective Alert: Yes [place]: Person Mood: Other (irritable) Affect: Restricted Memory Intact: Comment (Not formally assessed) Hallucinations: Other (internally stimulated) Delusions: No Delusion Type: Other (None elicited) Suicidal: Ideation (No SI voiced) Homicidal: Ideation (No HI voiced) Insight/Judgement Poor Remarks TP disorganized. Speech rambling. Grooming and hygiene poor. Labs Labs reviewed. Vitals/IOs Vital Signs Date Time Temp Pulse Resp B/P Pulse Ox O2 Delivery O2 Flow Rate FiO2 10/15/16 18:36 98.4 51 16 124/59 97 10/13/16 10:01 Room Air Assessment & Plan Problem List: (1) Disorganized schizophrenia ICD Code: F20.1 Assessment & Plan Continue Haldol titration to target psychosis. Continue Depakote as ordered; plan to check a level mid-week. Continue to monitor on the inpatient unit. Continue other medications and care as ordered. Justification for Cont. Inpt. Impairment in reality construction. Impairment social function. Impairment in self-care. High risk for decompensation pending psychiatric stabilization. Discharge Planning Return to facility once psychiatrically stabilized Request HC Surrog/Guard Advoc?: Yes Tyrel Yap MD Oct 16, 2016 10:50
[2016-10-17 05:57] VITALS: BP 131/92; PULSE 66; RESP 18; TEMP 97.4
[2016-10-17] MEDS: HALOPERIDOL 5 MG TAB PO SCH ×2 (09:46→20:26)
[2016-10-17] MEDS: FOLIC ACID 1 MG TAB PO SCH (09:46)
[2016-10-17] MEDS: DIVALPROEX SODIUM E.R. 500 MG TAB PO SCH (09:46)
[2016-10-17] MEDS: THIAMINE HCL 100 MG TAB PO SCH (09:47)
--- NOTE | 2016-10-17 12:18 | HHI.PYPN ---
Subjective Remarks Patient seen and examined with nurse. Chart reviewed. Case discussed in treatment team with nurse, counselor and occupational therapist. Per nursing staff, patient remains disorganized and is exhibiting polyuria and urinary incontinence. On my examination today, patient remains disorganized and rambling. He insists that a small scab on the side of his nose, which was present at admission, was caused by the Haldol. Speech is difficult to follow at times. He does endorse polyuria and urinary incontinence. He is visibly disheveled. No evidence side effects from medications. Review of Systems Except as stated in HPI: all other systems reviewed are Neg Objective Alert: Yes [place]: Person Mood: Other (remains a little irritable) Affect: Restricted Memory Intact: Comment (Not formally assessed) Hallucinations: Other (remains internally stimulated) Delusions: No Delusion Type: Other (None elicited) Suicidal: Ideation (No SI voiced) Homicidal: Ideation (No HI voiced) Insight/Judgement Poor Remarks No new motor abnormalities noted. Thought process disorganized. Speech rambling. Labs Labs reviewed. Vitals/IOs Vital Signs Date Time Temp Pulse Resp B/P Pulse Ox O2 Delivery O2 Flow Rate FiO2 10/17/16 05:57 97.4 66 18 131/92 10/15/16 18:36 97 10/13/16 10:01 Room Air Assessment & Plan Problem List: (1) Disorganized schizophrenia ICD Code: F20.1 Assessment & Plan Continue Haldol and Depakote as ordered. Depakote and ammonia level ordered for tomorrow evening. Consult to the hospitalist for complaints of polyuria. Check a urinalysis. Continue to monitor on the high acuity unit. Continue other medications and care as ordered. Justification for Cont. Inpt. Impairment in self-care. Impairment in reality construction. High risk for decompensation pending psychiatric stabilization. Discharge Planning I have asked the counselor to reach out the patient's facility to get a better sense of what his recent psychiatric baseline is like so that we will know when he is close to being ready for discharge. Request HC Surrog/Guard Advoc?: Yes Tyrel Yap MD Oct 17, 2016 12:18
--- NOTE | 2016-10-17 16:50 | HHI.PR ---
Subjective Remarks Follow-up visit HTN, schizophrenia. Patient seen today. Continues to be agitated. Complaints of difficulty urinating, reports dribbling, and burning sensation when he urinates. Denies fevers. As per staff, patient is complaining today of dysuria, continues to be combative and agitated when approached. Objective Vitals Vital Signs Date Time Temp Pulse Resp B/P Pulse Ox O2 Delivery O2 Flow Rate FiO2 10/17/16 05:57 97.4 66 18 131/92 Result Diagram: 10/14/16 0550 Imaging Last Impressions Head CT 10/12/16 0000 Signed Impressions: Service Date/Time: September 17:29 - CONCLUSION: Normal examination. Alonso Castellon Jr., MD Objective Remarks GENERAL: This is a male, on older than stated age, disheveled, agitated. SKIN: Left great toe and second toe with scab wounds. HEAD: Normocephalic EYES: No scleral icterus. No injection or drainage. ENT: Nose without bleeding. Airway patent. NECK: Trachea midline. CARDIOVASCULAR: Regular rate and rhythm without murmurs, gallops, or rubs. RESPIRATORY: Moderate air entry. Coarse breath sounds. GASTROINTESTINAL: Abdomen soft, non-tender, nondistended. Bowel sounds active 4. : Refused to be examined MUSCULOSKELETAL: Extremities without clubbing, cyanosis, or edema. No joint tenderness, effusion, or edema noted. NEUROLOGICAL: Awake and alert. Patient is agitated but answers questions. A/P Problem List: (1) Schizophrenia ICD Code: F20.9 Status: Chronic Assessment and Plan Patient is a 66-year-old male with primary medical history of HTN, seizure, Parkinson's, hep B, schizophrenia who was sent from his [place] [facility] to [facility] for not taking care of himself and taking his psych medication. As per records, patient has been acting desire at [facility] they noticed that he had swollen scrotum and sent him to the emergency room to have evaluated medically. In the ED, patient has escalating agitation and violence. He was given Haldol, Ativan, and Benadryl. Patient is now admitted to inpatient psychiatry unit. Consulted for medical management. Schizophrenia, agitation - managed by psychiatry team - CT of the head showed normal examination UTI symptoms, possible UTI - UA and CS, follow-up cultures. However, patient is most of the time agitated and combative with staff, may not get sample - We'll start treatment, Cipro 7 days Urobilinogen with normal LFTs. Denies abdominal pain. Monitor Macrocytic anemia - thiamine and folate - Chronic Unilateral inguinal hernia - Reduced in the ED Seizure Parkinson's - Continue Depakote HTN - No BP meds. BP appears to be within normal. - Monitor BP trend. Bradycardia - Heart rate 50-68 - Possibly secondary to psychotropic medication and anxiolytics. - Monitor heart rate. DVT prop ambulatory Written by Sofiya Uribe, acting as scribe for Dr. Greene on 10/17/16 at 16:50. All or portions of this note were transcribed by scrcate Sofiya Uribe. I, Dr. Pradeep Greene personally performed the history, physical exam, and medical decision making; and confirmed the accuracy of the information in the transcribed note. Authenticated by Dr. Pradeep Greene on 10/17/16 at 17:37. Problem Qualifiers (1) Schizophrenia: Qualified Code: F20.0 - Paranoid schizophrenia Sofiya Jeong Oct 17, 2016 16:50 Pradeep Greene MD Oct 17, 2016 17:37
[2016-10-17 17:39] LABS: BLOOD, URINE NEG (NEG); COMMENT (UR) CULT NOT INDICATED; CULTURE IF INDICATED CULT NOT INDICATED; GLUCOSE,URINE NEG (NEG); KETONE, URINE NEG (NEG); NITRITE,URINE NEG (NEG); URINE COLOR YELLOW (YELLW/STRAW)
[2016-10-17 17:49] VITALS: BP 111/59; PULSE 74; RESP 18; TEMP 98.2; O2SAT 92
[2016-10-17] MEDS ORDERED: CIPROFLOXACIN 250 MG TAB PO SCH (21:00)
[2016-10-18 06:23] VITALS: BP 138/76; PULSE 49; RESP 16; TEMP 98; O2SAT 99
[2016-10-18] MEDS: THIAMINE HCL 100 MG TAB PO SCH (09:34)
[2016-10-18] MEDS: FOLIC ACID 1 MG TAB PO SCH (09:34)
[2016-10-18] MEDS: HALOPERIDOL 5 MG TAB PO SCH ×2 (09:34→20:31)
[2016-10-18] MEDS: DIVALPROEX SODIUM E.R. 500 MG TAB PO SCH (09:34)
--- NOTE | 2016-10-18 10:45 | HHI.PYPN ---
Subjective Remarks Patient seen and examined with nurse. Chart reviewed. Case discussed with nursing staff. No reported issues with incontinence overnight. On my examination today, patient insists "Haldol hurts me physically," but here again he is referring only to the small lesion, a scab really, on the bridge of his nose. No other reported side effects from medications. I try to discuss alternatives, since patient seems to have an animus to Haldol, but all patient will say on the matter is "Dr. Christie prescribe dme Riboflavin!" Thought process more organized. Speech remains a little rambling. Review of Systems ROS Limitations: Poor Historian Except as stated in HPI: all other systems reviewed are Neg Objective Alert: Yes [place]: Person, Place Mood: Anxious (irritable) Affect: Restricted Memory Intact: Comment (Not formally assessed) Hallucinations: Other (again somewhat internally stimulated) Delusions: No Delusion Type: Other (none) Suicidal: Ideation (No SI voiced) Homicidal: Ideation (No HI voiced) Insight/Judgement Poor Remarks Grooming and hygiene poor. No new motoric abnormalities noted. Labs Labs reviewed. Repeat urinalysis is bland. Vitals/IOs Vital Signs Date Time Temp Pulse Resp B/P Pulse Ox O2 Delivery O2 Flow Rate FiO2 10/18/16 06:23 98.0 49 16 138/76 99 Assessment & Plan Problem List: (1) Disorganized schizophrenia ICD Code: F20.1 Assessment & Plan Continue oral Haldol and Depakote as ordered. Check a Depakote level tomorrow morning. Patient does seem to be deriving some benefit from the Haldol. Consider Haldol Decanoate. Continue to monitor on the inpatient psychiatric unit. Appreciate hospitalist network security consultant input. Continue other medications and care as ordered. Justification for Cont. Inpt. Impairment in self-care. Impairment in social function. High risk for decompensation in a less restrictive environment. Discharge Planning Return to facility once psychiatrically stabilized. Request HC Surrog/Guard Advoc?: Yes Tyrel Yap MD Oct 18, 2016 10:45
--- NOTE | 2016-10-18 14:45 | HHI.PR ---
Subjective Remarks Follow-up on patient with hypertension and schizophrenia. Patient seen and examined today. Patient remains agitated. Reports he no longer has any issues with urination. Denies any other complaints. States he does not want to talk today. Refuses examination. Discussed with nursing staff, patient urinating well. Objective Vitals Vital Signs Date Time Temp Pulse Resp B/P Pulse Ox O2 Delivery O2 Flow Rate FiO2 10/18/16 06:23 98.0 49 16 138/76 99 10/17/16 17:49 98.2 74 18 111/59 92 Result Diagram: 10/14/16 0550 Imaging Last Impressions Head CT 10/12/16 0000 Signed Impressions: Service Date/Time: September 17:29 - CONCLUSION: Normal examination. Alonso Castellon Jr., MD Objective Remarks GENERAL: This is a male, on older than stated age, disheveled. Sleeping but arousable. He became agitated after waking. Pulls covers up over his head. Refuses examination. Medications and IVs Current Medications Medications (Trade) Dose Ordered Sig/Marce Route Start Time Stop Time Status Last Admin (Tylenol) 650 mg Q4H PRN PO 10/13/16 14:00 (Milk Of Magnesia Liq) 30 ml DAILY PRN PO 10/13/16 14:00 (Mag-Al Plus Susp Liq) 30 ml Q6H PRN PO 10/13/16 14:00 (Ativan) 1 mg Q6H PRN PO 10/14/16 11:30 (Ativan Inj) 1 mg Q6H PRN IM 10/14/16 11:30 (Benadryl) 50 mg Q6H PRN PO 10/14/16 11:30 (Benadryl Inj) 50 mg Q6H PRN IM 10/14/16 11:30 (Haldol) 10 mg Taper BID PO 10/14/16 21:00 10/26/16 20:59 10/18/16 09:34 (Haldol Inj) 10 mg Taper BID PRN IM 10/14/16 11:30 10/26/16 11:29 (Folate) 1 mg DAILY PO 10/15/16 09:00 10/18/16 09:34 (Vitamin B1) 100 mg DAILY PO 10/15/16 09:00 10/18/16 09:34 (Depakote Er) 1,000 mg DAILY PO 10/15/16 12:00 10/18/16 09:34 A/P Problem List: (1) Schizophrenia ICD Code: F20.9 Status: Chronic Assessment and Plan Patient is a 66-year-old male with primary medical history of HTN, seizure disorder, Parkinson's, hep B, schizophrenia who was sent from his [facility] to [facility] for not taking care of himself and taking his psych medication. As per records, patient has been acting delusional at [facility] they noticed that he had swollen scrotum and sent him to the emergency room to have evaluated medically. In the ED, patient has escalating agitation and violence. He was given Haldol, Ativan, and Benadryl. Patient is now admitted to inpatient psychiatry unit. Consulted for medical management. Schizophrenia, agitation - managed by psychiatry team - CT of the head showed normal examination - Ammonia level pending for tomorrow. UTI symptoms - Resolved per patient report - UA negative - Discontinue Cipro - Discussed with nursing staff, patient urinating well. Macrocytic anemia - thiamine and folate - check B12/folate level - monitor with repeat CBC Unilateral inguinal hernia - Reduced in the ED - Patient refusing examination Seizure Parkinson's - Continue Depakote - Depakote level pending for tomorrow HTN - Well-controlled at present - No BP meds. - Monitor BP trend. Bradycardia - Heart rate 49 - Possibly secondary to psychotropic medication and anxiolytics. - Contiue to monitor heart rate. DVT prop ambulatory Written by Aparna Anthony PA-C acting as scribe for Dr. Greene on 10/18/16 at 12:43. All or portions of this note were transcribed by scribe Aparna Anthony PA-C. I, Dr. Pradeep Greene personally performed the history, physical exam, and medical decision making; and confirmed the accuracy of the information in the transcribed note. Authenticated by Dr. Pradeep Greene on 10/18/16 at 16:15. Problem Qualifiers (1) Schizophrenia: Qualified Code: F20.0 - Paranoid schizophrenia Aparna Anthony Oct 18, 2016 14:45 Pradeep Greene MD Oct 18, 2016 16:15
[2016-10-18 18:00] VITALS: BP 133/58; PULSE 79; RESP 16; TEMP 97.8; O2SAT 97
[2016-10-19 08:08] LABS: AUTOMATED NEUTROPHIL # 1.9 TH/MM3 (1.8-7.7); BASOPHIL % 0.7 % (0.0-2.0); EOSINOPHIL # 0.1 TH/MM3 (0-0.4); EOSINOPHIL % 2.7 % (0.0-4.0); HEMATOCRIT 38.6 % (39.0-51.0); HEMO FLAGS DIFF FINAL; LYMPHOCYTE # 1.5 TH/MM3 (1.0-4.8); MEAN CORPUSCULAR HEMOGLOBIN 36.3 PG (27.0-34.0); MEAN CORPUSCULAR HGB CONC 34.9 % (32.0-36.0); MONO % 17.4 % (0.0-8.0); NEUT % 44.2 % (16.0-70.0); PLATELET COUNT 239 TH/MM3 (150-450); RED BLOOD COUNT 3.71 MIL/MM3 (4.50-5.90); RED CELL DISTRIBUTION WIDTH 13.5 % (11.6-17.2); WHITE BLOOD COUNT 4.3 TH/MM3 (4.0-11.0)
[2016-10-19] MEDS: FOLIC ACID 1 MG TAB PO SCH ×2 (09:00→09:11)
[2016-10-19] MEDS: THIAMINE HCL 100 MG TAB PO SCH ×2 (09:00→09:11)
[2016-10-19] MEDS: HALOPERIDOL 5 MG TAB PO SCH ×2 (09:11→20:12)
[2016-10-19] MEDS: DIVALPROEX SODIUM E.R. 500 MG TAB PO SCH (09:11)
--- NOTE | 2016-10-19 10:26 | HHI.PYPN ---
Subjective Remarks Patient seen and case discussed with nursing staff. Chart reviewed. On my examination today, patient seems marginally more organized. He remains somewhat internally stimulated, but this is lessened versus earlier in the admission. No SI or HI voiced. No evident side effects from medications. Review of Systems ROS Limitations: Psychotic, Poor Historian Except as stated in HPI: all other systems reviewed are Neg Objective Alert: Yes [place]: Person, Place Mood: Calm Affect: Flat Memory Intact: Comment (Not formally assessed) Hallucinations: Other (remains somewhat internally stimulated) Delusions: No Delusion Type: Other (none) Suicidal: Ideation (no SI) Homicidal: Ideation (no HI) Insight/Judgement Poor Remarks No new motor abnormalities noted. Thought process somewhat more organized today. Speech more coherent and relevant. Labs Test 10/19/16 07:47 White Blood Count 4.3 TH/MM3 Red Blood Count 3.71 MIL/MM3 Hemoglobin 13.5 GM/DL Hematocrit 38.6 % Mean Corpuscular Volume 104.0 FL Mean Corpuscular Hemoglobin 36.3 PG Mean Corpuscular Hemoglobin 34.9 % Concent Red Cell Distribution Width 13.5 % Platelet Count 239 TH/MM3 Mean Platelet Volume 8.1 FL Neutrophils (%) (Auto) 44.2 % Lymphocytes (%) (Auto) 35.0 % Monocytes (%) (Auto) 17.4 % Eosinophils (%) (Auto) 2.7 % Basophils (%) (Auto) 0.7 % Neutrophils # (Auto) 1.9 TH/MM3 Lymphocytes # (Auto) 1.5 TH/MM3 Monocytes # (Auto) 0.7 TH/MM3 Eosinophils # (Auto) 0.1 TH/MM3 Basophils # (Auto) 0.0 TH/MM3 CBC Comment DIFF FINAL Differential Comment Ammonia 37 MCMOL/L Vitamin B12 Level 998 PG/ML Folate GREATER THAN 20.0 NG/ML Valproic Acid (Depakene) Level 60 MCG/ML Labs reviewed. Depakote level within the therapeutic range. Ammonia level mildly elevated although there are no signs of hyperammonemic encephalopathy. 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 I will administer Haldol Decanoate 100 mg IM today with plans to administer the balance after the weekend with a target dose of 10- 20x oral daily dose of 20mg/day. Continue oral Haldol supplementation. Add Carnitor for hyperammonemia and recheck an ammonia level after the weekend. Continue to monitor on the inpatient unit. Continue other medications and care as ordered. Patient's case was presented to the [place] [facility] and was placed in continuance for a period of 2 weeks. Justification for Cont. Inpt. Medication changes in process. Impairment in reality construction. Discharge Planning Possible discharge back to facility after patient has received the balance of the Haldol Decanoate injection, beginning or middle of next week. Request HC Surrog/Guard Advoc?: Yes Tyrel Yap MD Oct 19, 2016 10:26
[2016-10-19] MEDS ORDERED: HALOPERIDOL DECANOATE 50 MG/ML VIAL IM SCH (13:08)
[2016-10-19] MEDS: levOCARNitine 10% ORAL SOLN 118 ML BTL PO SCH (17:52)
[2016-10-19] MEDS: diphenhydrAMINE HCL 50 MG CAP PO PRN (20:12)
[2016-10-20] MEDS: FOLIC ACID 1 MG TAB PO SCH (09:09)
[2016-10-20] MEDS: HALOPERIDOL 5 MG TAB PO SCH ×2 (09:09→20:38)
[2016-10-20] MEDS: levOCARNitine 10% ORAL SOLN 118 ML BTL PO SCH ×4 (09:09→17:53)
[2016-10-20] MEDS: DIVALPROEX SODIUM E.R. 500 MG TAB PO SCH (09:10)
[2016-10-20] MEDS: THIAMINE HCL 100 MG TAB PO SCH (09:10)
--- NOTE | 2016-10-20 12:58 | HHI.PYPN ---
Subjective Remarks Told this physician he is not who we think he has. Will not respond to his name. 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 Inpt. Psychotic and unable to care for self Request HC Surrog/Guard Advoc?: Yes Khoa Paz MD Oct 20, 2016 12:57
[2016-10-21 06:00] VITALS: BP 120/57; PULSE 40; RESP 16; TEMP 98.7; O2SAT 97
[2016-10-21] MEDS: FOLIC ACID 1 MG TAB PO SCH (08:34)
[2016-10-21] MEDS: HALOPERIDOL 5 MG TAB PO SCH ×2 (08:34→21:49)
[2016-10-21] MEDS: THIAMINE HCL 100 MG TAB PO SCH (08:34)
[2016-10-21] MEDS: DIVALPROEX SODIUM E.R. 500 MG TAB PO SCH (08:34)
[2016-10-21] MEDS: levOCARNitine 10% ORAL SOLN 118 ML BTL PO SCH ×3 (08:34→18:00)
[2016-10-21 11:27] LABS: AUTOMATED NEUTROPHIL # 3.4 TH/MM3 (1.8-7.7); BASOPHIL % 0.5 % (0.0-2.0); EOSINOPHIL % 0.7 % (0.0-4.0); HEMATOCRIT 37.4 % (39.0-51.0); HEMO FLAGS DIFF FINAL; LYMPH % 19.4 % (9.0-44.0); LYMPHOCYTE # 1.1 TH/MM3 (1.0-4.8); MEAN CELL VOLUME 103.3 FL (80.0-100.0); MEAN CORPUSCULAR HEMOGLOBIN 36.5 PG (27.0-34.0); MEAN CORPUSCULAR HGB CONC 35.4 % (32.0-36.0); MONO % 15.7 % (0.0-8.0); NEUT % 63.7 % (16.0-70.0); PLATELET COUNT 231 TH/MM3 (150-450); RED BLOOD COUNT 3.62 MIL/MM3 (4.50-5.90); RED CELL DISTRIBUTION WIDTH 13.8 % (11.6-17.2); WHITE BLOOD COUNT 5.4 TH/MM3 (4.0-11.0)
[2016-10-21 11:52] LABS: POTASSIUM 4.1 MEQ/L (3.5-5.1)
--- NOTE | 2016-10-21 14:46 | EKG ---
Date Performed: 10/21/2016 Time Performed: 10:19:03 PTAGE: 66 years EKG: SINUS BRADYCARDIA SEPTAL MYOCARDIAL INFARCTION , OF INDETERMINATE AGE Compared to prior tra cing no significant change ABNORMAL ECG PREVIOUS TRACING : 10/12/2016 18.17 DOCTOR: Duong Moses Interpretating Date/Time 10/21/2016 14:42:36
[2016-10-21 17:00] VITALS: BP 141/56; PULSE 98; RESP 17; TEMP 98.8; O2SAT 97
--- NOTE | 2016-10-21 17:05 | HHI.PYPN ---
Subjective Remarks Patient was seen and case discussed with nursing. Patient is animated and hyperactive. Irritable, disorganized, loose. Is behaving relatively well on the unit and has not had any outbursts. Compliant with his medications. EKG done yesterday showed sinus bradycardia heart rate of 49. Vitals stable at this time. Patient is not complaining of any pain Objective Alert: Yes [place]: Person, Place Mood: Angry Affect: Labile Memory Intact: Comment (Not formally assessed) Hallucinations: Other (internally preoccupied) Delusions: Yes Delusion Type: Other (none) Suicidal: Ideation (denies) Homicidal: Ideation (denies) Insight/Judgment Poor Labs Test 10/21/16 10:49 White Blood Count 5.4 TH/MM3 Red Blood Count 3.62 MIL/MM3 Hemoglobin 13.2 GM/DL Hematocrit 37.4 % Mean Corpuscular Volume 103.3 FL Mean Corpuscular Hemoglobin 36.5 PG Mean Corpuscular Hemoglobin 35.4 % Concent Red Cell Distribution Width 13.8 % Platelet Count 231 TH/MM3 Mean Platelet Volume 8.1 FL Neutrophils (%) (Auto) 63.7 % Lymphocytes (%) (Auto) 19.4 % Monocytes (%) (Auto) 15.7 % Eosinophils (%) (Auto) 0.7 % Basophils (%) (Auto) 0.5 % Neutrophils # (Auto) 3.4 TH/MM3 Lymphocytes # (Auto) 1.1 TH/MM3 Monocytes # (Auto) 0.9 TH/MM3 Eosinophils # (Auto) 0.0 TH/MM3 Basophils # (Auto) 0.0 TH/MM3 CBC Comment DIFF FINAL Differential Comment Sodium Level 134 MEQ/L Potassium Level 4.1 MEQ/L Chloride Level 96 MEQ/L Carbon Dioxide Level 32.0 MEQ/L Anion Gap 6 MEQ/L Blood Urea Nitrogen 15 MG/DL Creatinine 0.65 MG/DL Estimat Glomerular Filtration 122 ML/MIN Rate Random Glucose 72 MG/DL Calcium Level 8.9 MG/DL Magnesium Level 2.0 MG/DL Vitals/IOs Vital Signs Date Time Temp Pulse Resp B/P Pulse Ox O2 Delivery O2 Flow Rate FiO2 10/21/16 06:00 98.7 40 16 120/57 97 Assessment & Plan Problem List: (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 Inpt. Patient will decompensate in a less restrictive setting Request HC Surrog/Guard Advoc?: Yes Linus Webb DO Oct 21, 2016 17:05
[2016-10-21] MEDS: diphenhydrAMINE HCL 50 MG CAP PO PRN (21:50)
[2016-10-22] MEDS: HALOPERIDOL 5 MG TAB PO SCH ×2 (08:45→20:33)
[2016-10-22] MEDS: DIVALPROEX SODIUM E.R. 500 MG TAB PO SCH (08:45)
[2016-10-22] MEDS: THIAMINE HCL 100 MG TAB PO SCH (08:45)
[2016-10-22] MEDS: FOLIC ACID 1 MG TAB PO SCH (08:45)
[2016-10-22] MEDS: levOCARNitine 10% ORAL SOLN 118 ML BTL PO SCH ×3 (08:45→18:00)
--- NOTE | 2016-10-22 12:31 | HHI.PR ---
Subjective Remarks Reconsulted for bradycardia, heart rate 40s yesterday Patient seen today. Continues to be disheveled. Does not want to be touched or examined. Spoke with patient and explained purpose of exam. Able to be convinced. Discussed heart rate being low but patient states he is doing well. Denies pain and discomfort. Denies SOB/ dyspnea. Denies chest pain, palpitations, headaches, dizziness. Denies fevers, chills, n/v/d. Objective Vitals Vital Signs Date Time Temp Pulse Resp B/P Pulse Ox O2 Delivery O2 Flow Rate FiO2 10/21/16 17:00 98.8 98 17 141/56 97 Result Diagram: 10/21/16 1049 10/21/16 1049 Objective Remarks GENERAL: This is a male, on older than stated age, disheveled, agitated. SKIN: Left great toe and second toe with scab wounds. HEAD: Normocephalic EYES: No scleral icterus. No injection or drainage. ENT: Nose without bleeding. Airway patent. NECK: Trachea midline. CARDIOVASCULAR: Regular rate and rhythm without murmurs, gallops, or rubs. RESPIRATORY: Moderate air entry. Coarse breath sounds. GASTROINTESTINAL: Abdomen soft, non-tender, nondistended. Bowel sounds active 4. : Unilateral inguinal hernia MUSCULOSKELETAL: Extremities without clubbing, cyanosis, or edema. No joint tenderness, effusion, or edema noted. NEUROLOGICAL: Awake and alert. Confusion. Moves all extremities. A/P Problem List: (1) Schizophrenia ICD Code: F20.9 Status: Chronic Assessment and Plan Patient is a 66-year-old male with primary medical history of HTN, seizure, Parkinson's, hep B, schizophrenia who was sent from his retirement to [facility] for not taking care of himself and taking his psych medication. As per records, patient has been acting desire at [facility] they noticed that he had swollen scrotum and sent him to the emergency room to have evaluated medically. In the ED, patient has escalating agitation and violence. He was given Haldol, Ativan, and Benadryl. Patient is now admitted to inpatient psychiatry unit. Consulted for medical management. Schizophrenia, agitation - managed by psychiatry team - CT of the head showed normal examination UTI symptoms, possible UTI - possible Escherichia coli UTI - UA and CS, follow-up cultures. However, patient is most of the time agitated and combative with staff, may not get sample - Completed Cipro Macrocytic anemia - thiamine and folate - Chronic Unilateral inguinal hernia - Reduced in the ED Seizure Parkinson's - Continue Depakote HTN - No BP meds. BP appears to be within normal. - Monitor BP trend. Bradycardia - Heart rate 50-60s. Episode of heart rate being in the 40s but heart rate today was 98 recorded. On exam patient's heart rate in the 60s. - Possibly secondary to psychotropic medication and anxiolytics. - EKG done sinus bradycardia with septal myocardial infarction, of indeterminate age. QT interval within normal no prolongation noted. - Patient is asymptomatic. May need cardiology consult as an outpatient to continue to monitor. DVT prop ambulatory Stable from Hospitalist standpoint. We will sign off. Reconsult as needed. Written by Sofiya Uribe, acting as scribe for Dr. Hauser on 10/22/16 at 12:31. All or portions of this note were transcribed by elif CLEARY. I, Dr. Chary Hauser personally performed the history, physical exam, and medical decision making; and confirmed the accuracy of the information in the transcribed note. Authenticated by Dr. Chary Hauser on 10/22/16 at 12:31. Problem Qualifiers (1) Schizophrenia: Qualified Code: F20.0 - Paranoid schizophrenia Sofiya Jeong Oct 22, 2016 12:31 Chary Hauser MD Oct 24, 2016 18:00
--- NOTE | 2016-10-22 19:38 | HHI.PYPN ---
Subjective Remarks Patient was seen and case discussed with nursing. Patient is disheveled, sarcastic, and rude. Says he was rude to the medical doctor and is laughing and proud of it. He refused his levocarnitine. Continues to be to be loose and disorganized. 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 Inpt. Patient will decompensate in a less restrictive setting Request HC Surrog/Guard Advoc?: Yes Linus Webb DO Oct 22, 2016 19:38
[2016-10-22] MEDS: diphenhydrAMINE HCL 50 MG CAP PO PRN (20:33)
[2016-10-23] MEDS: FOLIC ACID 1 MG TAB PO SCH (09:13)
[2016-10-23] MEDS: HALOPERIDOL 5 MG TAB PO SCH ×2 (09:14→20:51)
[2016-10-23] MEDS: DIVALPROEX SODIUM E.R. 500 MG TAB PO SCH (09:14)
[2016-10-23] MEDS: THIAMINE HCL 100 MG TAB PO SCH (09:14)
--- NOTE | 2016-10-23 10:50 | HHI.PYPN ---
Subjective Remarks Patient seen and examined with counselor and nurse. Chart reviewed. Case discussed with nursing staff reports patient is improving and making more sense in conversation. On my examination today, patient is in good spirits. He says that his medications are "perfect for me." He denies side effects from medications. Thought process is considerably more organized versus before the weekend. No SI or HI. No physical complaints at this time. Review of Systems Except as stated in HPI: all other systems reviewed are Neg Objective Alert: Yes [place]: Person, Place Mood: Calm Affect: Euthymic Memory Intact: Comment (Not formally assessed) Hallucinations: Other (no AVH) Delusions: No Delusion Type: Other (no delusions) Suicidal: Ideation (no SI) Homicidal: Ideation (no HI) Insight/Judgment Poor Remarks No motor abnormalities noted. Thought process considerably more linear today versus before the weekend. Speech more coherent and organized. Labs Test 10/23/16 05:22 Ammonia 49 MCMOL/L Labs reviewed. Ammonia level increased over the weekend despite Carnitor. No signs of hyperammonemic encephalopathy though. 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 I will replace Carnitor with lactulose and order a follow- up ammonia level, this could possibly be done after discharge. Continue oral Haldol supplementing Haldol Decanoate. I will order an additional 100 mg of Haldol Decanoate IM for tomorrow to bring patient's total intramuscular dose to 200 mg, or 10 times the oral dose. I have selected the lower end of the dosing range for the decanoate since there is some concern that patient's psychotropics may be exacerbating bradycardia although QTC is not prolonged. Continue to monitor on the inpatient unit. Continue other medications and care as ordered. Justification for Cont. Inpt. Final discharge planning Discharge Planning Hopeful for return to facility within the next day or 2. Counselor to liaison with facility today. Request HC Surrog/Guard Advoc?: Yes Tyrel Yap MD Oct 23, 2016 10:50
[2016-10-23 17:46] VITALS: BP 131/75; PULSE 56; RESP 18; TEMP 98; O2SAT 98
[2016-10-23] MEDS: diphenhydrAMINE HCL 50 MG CAP PO PRN (20:51)
[2016-10-23] MEDS: LORazepam 1 MG TAB PO PRN ×2 (22:27→22:29)
[2016-10-24] MEDS: FOLIC ACID 1 MG TAB PO SCH (08:35)
[2016-10-24] MEDS: DIVALPROEX SODIUM E.R. 500 MG TAB PO SCH (08:35)
[2016-10-24] MEDS: LACTULOSE SYRUP 20 GM/30 ML CUP PO SCH ×2 (08:35→08:50)
[2016-10-24] MEDS: THIAMINE HCL 100 MG TAB PO SCH (08:36)
[2016-10-24] MEDS: HALOPERIDOL 5 MG TAB PO SCH (08:36)
[2016-10-24] MEDS ORDERED: HALOPERIDOL DECANOATE 50 MG/ML VIAL IM SCH (09:00)
[2016-10-24] MEDS ORDERED: FOLI1TAB4 PO (12:01)
[2016-10-24] MEDS ORDERED: DEPA500T3 PO (12:01)
[2016-10-24] MEDS ORDERED: VITA100T2 PO (12:01)
[2016-10-24] MEDS ORDERED: LACT10SO PO (12:01)
[2016-10-24] MEDS ORDERED: DIPH50CA PO (12:01)
[2016-10-24] MEDS ORDERED: HALO100P IM (12:01)
[2016-10-24] MEDS ORDERED: HALO5TAB PO (12:01)
--- NOTE | 2016-10-24 12:01 | HHI.DS ---
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 Pineda is 66-year-old male with a history of schizophrenia who presents in transfer from his [facility] facility under a Meehan ACT initiated by Dr. Bandar Pedro alleging that the patient is delusional and has been refusing medications. The patient was evaluated yesterday by the psychiatric nurse practitioner in the emergency department who recommended ongoing psychiatric hospitalization. Reviewing the electronic medical record, I note the patient was admitted most recently in February into March [address] Ho and before that in [address] Christie. It appears that he has previously stabilized on Depakote and Haldol along with Artane for a side effect management. The patient seen and examined with nurse. Chart reviewed. Case discussed with nursing staff. There is no documentation from the patient's facility on the chart to indicate prior to admission medications. On my evaluation today, I note the patient has a oral lingual dyskinesias. He is extremely disorganized. He says "ATP she had highly suspicious of that. I need my heart meds to be corrected." He repeatedly covers and uncover as his head in a disorganized fashion. He says "treat me for my heart and gonorrhea and will talk." He appears frankly internally stimulated. Somewhat paranoid. No real affective symptoms at this time. Psychiatric interview is somewhat limited because of the patient's degree of thought disorganization. Tobacco Use In Past 30 Days: No Tobacco Past 30 Days Alcohol Use: Never Hospital Course Patient was admitted to a locked, inpatient psychiatric unit. A general medical consultation was obtained and the patient was medically cleared by the hospitalist. Appropriate precautions were in place throughout patient's hospital stay. Patient was seen and examined daily on the unit by psychiatry and also visited by counselor. Medications were adjusted. Patient tolerated medications well without side effects. Patient was started on long-acting injectable Haldol Decanoate. Patient had improvement in his presenting psychiatric symptomatology. His thought process became much more linear and his psychosis improved. There was no evidence of any suicidality or homicidality on the inpatient unit. Counselor has been in contact with patient' s facility and they are willing to accept the patient back. On the day of discharge: Patient seen and examined. Chart reviewed. Case discussed in treatment team with nurse, counselor and occupational therapist. No behavioral issues noted. On my examination today, the patient is in good spirits. He feels ready for discharge back to his facility. He denies any suicidal or homicidal ideation. He denies any audiovisual hallucinations and I can elicit no delusional material. No affective symptoms noted. He denies side effects from medications. He has no physical complaints. Weighing the acute, chronic, and protective factors and based on the available evidence, I judged to a reasonable degree of medical certainty that the patient is at low imminent risk of harm to self or others from a mental illness as defined under the Meehan act and his level of function is adequate for outpatient care. The patient has maximized benefit from this inpatient psychiatric hospital stay and will be discharged back to his facility today with psychiatric follow-up as arranged by counselor. Patient is also to follow-up with primary care. Patient to return to the psychiatric emergency room for any concerning symptoms as part of a general safety plan. Results Blood Pressure 131 / 75 Vital Signs Date Time Temp Pulse Resp B/P Pulse Ox O2 Delivery O2 Flow Rate FiO2 10/23/16 17:46 98.0 56 18 131/75 98 Laboratory Tests Test 10/23/16 05:22 Ammonia 49 MCMOL/L (11-32) Summary of Procedures None done Imaging Last Impressions Head CT 10/12/16 0000 Signed Impressions: Service Date/Time: September 17:29 - CONCLUSION: Normal examination. Alonso Castellon Jr., MD Pending results at discharge: No Medications # of Antipsychotic meds at D/C: 1 Approp Antipsych med options 1 - Minimum of three failed multiple trials of monotherapy. 2 - Documented plan to taper to monotherapy due to previous use of multiple meds OR cross-taper in progress at D/C. 3 - Documentation of augmentation of Clozapine. 4 - Justification other than those listed in allowable values 1-3, document here : Discharge Discharge Date: Oct 24, 2016 Discharge Diagnosis: (1) Disorganized schizophrenia Diagnosis: Principal (stabilized) ICD Code: F20.1 GAF on discharge is 55 Mental Status Exam at Disch Patient is casually dressed. Grooming is improved versus admission and he is maintaining basic hygiene. He is awake and alert and oriented to person and hospital at least. No evidence of delirium or encephalopathy. No hand tremor, no cogwheeling, no dystonia, no dyskinesia noted. Speech is within normal limits for rate, tone and volume. Mood is good and affect is full and reactive. Thought process much more linear versus admission. No evident delusions. Denies audiovisual hallucinations. Denies suicidal or homicidal ideation. Insight and judgment are likely chronically poor. Pt Condition on Discharge: Stable Discharge Disposition: ACLF/RACHEL Discharge Instructions Diet Instructions: Diabetic Diet Activities you can perform: Weight Bearing as Louise Scheduled Appointment: as per counselor's notes New Orders: AMMONIA - 1 Week New Medications: Haloperidol Decanoate Inj (Haldol Decanoate Inj) 100 Mg/Ml Inj 200 MG IM Q28D This dose of Haldol Decanoate is due on 11/16/2016. Mental Health # 2 Ref 0 VIAL Diphenhydramine HCl (Diphenhydramine HCl) 50 Mg Cap 50 MG PO Q6H PRN EPS, insomnia Days 15 Ref 1 CAP Divalproex ER (Depakote ER) 500 Mg Blaire 1000 MG PO DAILY Mental Health Days 15 Ref 1 TAB Folic Acid (Folate) 1 Mg Tab 1 MG PO DAILY Nutritional Supplement Days 15 Ref 1 TAB Haloperidol (Haloperidol) 5 Mg Tab 10 MG PO BID Take oral Haldol at least until your next Haldol decanoate injection, or as directed by your outpatient provider. Mental Health Days 15 Ref 1 TAB Lactulose Liq (Lactulose Liq) 10 Gm/15 Ml Soln 30 ML PO DAILY Hyperammonemia Days 15 Ref 1 ML Thiamine (Vitamin B-1) 100 Mg Tab 100 MG PO DAILY Nutritional Supplement Days 15 Ref 1 TAB Discontinued Medications: Acetaminophen (Mapap) 500 Mg Cap 500 MG PO Q4HR PRN PAIN Ref 0 CAP Diphenhydramine HCl (Sleep) (Diphenhydramine HCl) 50 Mg Tab 1 CAP PO HS PRN INSOMNIA Divalproex ER (Depakote ER) 500 Mg Blaire 1000 MG PO BID Control Seizures TAB Fluphenazine (Fluphenazine) 10 Mg Tab 20 MG PO BID Ibuprofen (Ibuprofen) 800 Mg Tab 800 MG PO TID Arthritis Pain Ref 0 TAB Quetiapine (Seroquel) 200 Mg Tab 200 MG PO BID TAB Trihexyphenidyl (Trihexyphenidyl) 5 Mg Tab 5 MG PO BID Parkinson Disease Mgmt TAB Discharge Time > 30 minutes Discharge/Advance Care Plan Health Problems: (1) Disorganized schizophrenia Goals to promote your health * To prevent worsening of your condition and complications * To maintain your health at the optimal level Directions to meet your goals Take your medications as prescribed Follow your dietary instruction Follow activity as directed Keep your appointments as scheduled Take your immunizations and boosters as scheduled If your symptoms worsen call your PCP, if no PCP go to Urgent Care Center or Emergency Room For 05/02 questions related to your inpatient stay or results of tests pending at discharge, please contact Dr. Tyrel Yap at Smoking is Dangerous to Your Health. Avoid second hand smoking Tyrel Yap MD Oct 24, 2016 12:01
== END 2016-10-24 14:15 | DRG 885 ==
LOC: NEPA 15:13 → NEDA 10-13 13:53 → H270 10-13 17:00
PROVIDERS: ADMIT Psychiatry & Neurology Psychiatry; ATTEND Psychiatry & Neurology Psychiatry
DX: F20.1 Disorganized schizophrenia (principal); G20 Parkinson's disease; R56.9 Unspecified convulsions; E11.9 Type 2 diabetes mellitus without complications; R00.1 Bradycardia, unspecified; I10 Essential (primary) hypertension; K40.90 Unilateral inguinal hernia, without obstruction or gangrene, not specified as recurrent; N50.89 Other specified disorders of the male genital organs; D53.9 Nutritional anemia, unspecified; R32 Unspecified urinary incontinence; R35.8 Other polyuria; Z91.14 Patient's other noncompliance with medication regimen; Z86.19 Personal history of other infectious and parasitic diseases; Z85.828 Personal history of other malignant neoplasm of skin; Z87.891 Personal history of nicotine dependence
CPT/HCPCS: 70450; 80048; 80053; 80061; 80164; 80307; 81001; 82140; 82607; 82746; 83036; 83735; 84484; 85025; 93005; 96372; 96374; J1200; J1630; J1631; J2060; Q0163

== ENCOUNTER 2016-12-04 23:08 | Inpatient (IN) | payer MEDICARE, MEDICAID ==
[~2016-12-04] VITALS: Ht 182.9 cm; Wt 79.6 kg
[~2016-12-04 23:08] MED LIST changes: -ACET325 PO; -CLIN1CAP5 PO; +DIPH50CA PO; -DIVA500 PO; +FOLI1TAB4 PO; -GENT TOPICAL; +HALO100P IM; -HALO20TA PO; -HALO5 PO; +HALO5TAB PO; +LACT10SO PO; -RANI150 PO; -RISP1 PO; -RISP2TAB2 PO; -TRIH5TAB2 PO; +VITA100T2 PO
[2016-12-04 23:17] VITALS: BP 145/89; PULSE 65; RESP 16; TEMP 97.6; O2SAT 100
--- NOTE | 2016-12-04 23:25 | PD ---
HPI . Altered mental status Chief Complaint: Psychiatric Symptoms Time Seen by Provider: 23:16 Travel History International Travel<30 days: No Contact w/Intl Traveler<30days: No Traveled to known affect area: No History of Present Illness HPI Patient was sent to us from [facility]. He reportedly became aggressive with another patient. They then medicated him. Following their medication, the patient had altered mental status. He was then deemed to be out of their scope practice. He was subsequently sent to us. The patient offers no complaints. PFSH Past Medical History Arthritis: No Asthma: No Autoimmune Disease: No Blood Disorders: No Anxiety: No Depression: No Heart Rhythm Problems: No High Cholesterol: No Chemotherapy: No Chest Pain: No Congestive Heart Failure: No COPD: No Cerebrovascular Accident: No Diminished Hearing: No Endocrine: Yes Gastrointestinal Disorders: Yes (hep b) GERD: No Glaucoma: No Genitourinary: No Hepatitis: Yes (hx. of hep B per medical record) Hiatal Hernia: No Hypertension: Yes Immune Disorder: No Kidney Stones: No Musculoskeletal: No Neurologic: Yes (parkinson's) Parkinson's Disease: Yes Psychiatric: Yes (patient has history of schizophrenia) Reproductive: No Respiratory: No Myocardial Infarction: No Radiation Therapy: No Renal Failure: No Schizophrenia: Yes (PARANOID) Sickle Cell Disease: No Sleep Apnea: No Thyroid Disease: No Ulcer: No Past Surgical History Abdominal Surgery: No AICD: No Cardiac Surgery: No Ear Surgery: No Endocrine Surgery: No Eye Surgery: No Genitourinary Surgery: No Gynecologic Surgery: No Joint Replacement: No Neurologic Surgery: No Oral Surgery: No Pacemaker: No Thoracic Surgery: No Tonsillectomy: Yes Other Surgery: Yes Social History Alcohol Use: No Tobacco Use: No (ONE PPD X 46 YEARS; uto if still does) Substance Use: No Allergies-Medications (Allergen,Severity, Reaction): Coded Allergies: Tetanus Toxoid (Verified Allergy, Severe, swelling, 10/13/16) Per SHANNON Aguilar, Gisselle Torres [phone] & Jolie (Admin?) Gisselle Torres. *MDRO Multi-Drug Resistant Organism (Verified Adverse Reaction, Unknown, ) MRSA (buttock wound) 2004 MRSA PCR Screens NEGATIVE - 03/15/15 & 03/17/15 CLEARED PER INFECTION CONTROL PROTOCOL Reported Meds & Prescriptions Reported Meds & Active Scripts Active Vitamin B-1 (Thiamine HCl) 100 Mg Tab 100 Mg PO DAILY 15 Days Folate (Folic Acid) 1 Mg Tab 1 Mg PO DAILY 15 Days Haldol Decanoate Inj (Haloperidol Decanoate) 100 Mg/Ml Inj 200 Mg IM Q28D This dose of Haldol Decanoate is due on 11/16/2016. Lactulose Liq (Lactulose) 10 Gm/15 Ml Soln 30 Ml PO DAILY 15 Days Haloperidol 5 Mg Tab 10 Mg PO BID 15 Days Take oral Haldol at least until your next Haldol decanoate injection, or as directed by your outpatient provider. Depakote ER (Divalproex Sodium) 500 Mg Blaire 1,000 Mg PO DAILY 15 Days Diphenhydramine HCl 50 Mg Cap 50 Mg PO Q6H PRN 15 Days Review of Systems ROS Limitations: Altered Mental Status Except as stated in HPI: all other systems reviewed are Neg Physical Exam Narrative GENERAL: Patient is sleeping and does not want to be disturbed. SKIN: Warm and dry. HEAD: Atraumatic. Normocephalic. EYES: Pupils equal and round. Extraocular movements are intact. NECK: Trachea midline. Neck is supple. CARDIOVASCULAR: Regular rate and rhythm. RESPIRATORY: No accessory muscle use. MUSCULOSKELETAL: No obvious deformities. No edema. NEUROLOGICAL: Moving all 4 extremities equally. PSYCHIATRIC: Unable to assess. Data Data Last Documented VS Vital Signs Date Time Temp Pulse Resp B/P Pulse Ox O2 Delivery O2 Flow Rate FiO2 12/04/16 23:17 97.6 65 16 145/89 100 MDM Medical Decision Making Medical Screen Exam Complete: Yes Emergency Medical Condition: Yes Differential Diagnosis Differential diagnosis of altered mental status includes but is not limited to infection, electrolyte abnormality, neurological event, intoxication Narrative Course Patient presents to us from [facility] with altered mental status after being medicated there with Ativan, Haldol and Benadryl. He is sleeping it off. Diagnosis Primary Impression: Altered mental status Qualified Code: R41.82 - Altered mental status, unspecified altered mental status type Disposition: 01 DISCHARGE HOME Condition: Stable Janae Carter MD December 04, 2016 23:25
[2016-12-05 08:30] VITALS: BP 120/84; PULSE 94; RESP 24; O2SAT 99
[2016-12-05 16:52] LABS: BLOOD, URINE NEG (NEG); COMMENT (UR) CULT NOT INDICATED; CULTURE IF INDICATED CULT NOT INDICATED; GLUCOSE,URINE NEG (NEG); KETONE, URINE 10 mg/dL (NEG); MUCUS URINE FEW /lpf (OCC); NITRITE,URINE NEG (NEG); PH, URINE 6.5 (5.0-8.5); URINE COLOR YELLOW (YELLW/STRAW)
[2016-12-05 16:53] LABS: AUTOMATED NEUTROPHIL # 4.3 TH/MM3 (1.8-7.7); BASOPHIL % 0.4 % (0.0-2.0); EOSINOPHIL % 0.4 % (0.0-4.0); HEMATOCRIT 40.2 % (39.0-51.0); HEMO FLAGS DIFF FINAL; LYMPH % 18.1 % (9.0-44.0); LYMPHOCYTE # 1.2 TH/MM3 (1.0-4.8); MEAN CELL VOLUME 103.6 FL (80.0-100.0); MEAN CORPUSCULAR HEMOGLOBIN 35.1 PG (27.0-34.0); MEAN CORPUSCULAR HGB CONC 33.8 % (32.0-36.0); MONO % 16.7 % (0.0-8.0); NEUT % 64.4 % (16.0-70.0); PLATELET COUNT 274 TH/MM3 (150-450); RED BLOOD COUNT 3.88 MIL/MM3 (4.50-5.90); RED CELL DISTRIBUTION WIDTH 12.8 % (11.6-17.2); WHITE BLOOD COUNT 6.6 TH/MM3 (4.0-11.0)
[2016-12-05 17:17] LABS: ALT (GPT) 20 U/L (12-78); ANION GAP 6 MEQ/L (5-15); AST (GOT) 27 U/L (15-37); BICARBONATE 29.1 MEQ/L (21.0-32.0); BLOOD UREA NITROGEN 9 MG/DL (7-18); CHLORIDE 101 MEQ/L (98-107); GLOMERULAR FILTRATION RATE 116 ML/MIN (>89); SODIUM (NA) 136 MEQ/L (136-145)
[2016-12-05 17:19] LABS: ALKALINE PHOSPHATASE 103 U/L (45-117); TOTAL BILIRUBIN ADULT 0.5 MG/DL (0.2-1.0)
[2016-12-05] MEDS ORDERED: MAGNESIUM HYDROXIDE SUSP 30 ML CUP PO PRN (20:30)
[2016-12-05] MEDS ORDERED: LORazepam 2 MG/ML VIAL - age > 65 yrs IM PRN (20:30)
[2016-12-05] MEDS ORDERED: ALUMINUM/MAGNESIUM/SIMETH 30 ML CUP PO PRN (20:30)
[2016-12-05] MEDS ORDERED: LORazepam 0.5 MG TAB age > 65 yrs PO PRN (20:30)
[2016-12-05] MEDS: REMOVE OLD NICOTINE PATCH T-DERMAL SCH (20:52)
[2016-12-06 01:33] LABS: AMPHETAMINE, URINE NEG (NEG); BARBITURATES, URINE NEG (NEG); COCAINE, URINE NEG (NEG)
[2016-12-06 06:02] VITALS: BP 106/52; PULSE 62; RESP 16; TEMP 100.6; O2SAT 93
[2016-12-06] MEDS: NICOTINE 21 MG/24 HR PATCH T-DERMAL SCH (09:00)
[2016-12-06] MEDS ORDERED: BENZTROPINE MESYLATE 2 MG/2 ML VIAL IM PRN (10:00)
--- NOTE | 2016-12-06 10:11 | HHI.HP ---
Provisional Diagnosis Admission Date December 05, 2016 at 18:10 [place] I. 1. Schizophrenia, disorganized type, acute exacerbation [place] II. Deferred [place] V. GAF is 30 presently Certification of Person's Competence To Provide Express and Informed Consent I have personally examined Rosalio Pineda Jr , a person being served at [facility] on, December 06, 2016 09:47. Express and informed consent means consent voluntarily given in writing, by a competent person, after sufficient explanation and disclosure of the subject matter involved to enable the person to make a knowing and willful decision without any element of force, fraud, deceit, duress, or other form of constraint or coercion. This person is 18 years of age or older, is not now known to be incompetent to consent to treatment with a guardian advocate, and does not have a health care surrogate or proxy currently making medical treatment decisions. I have found this person to be one of the following: [] Competent to provide express and informed consent, as defined above, for voluntary admission to this facility and is competent to provide express and informed consent for treatment. He/she has the consistent capacity to make well reasoned, willful, and knowing decisions concerning his or her medical or mental health treatment. The person fully and consistently understands the purpose of the admission for examination/placement and is fully capable of personally exercising all rights [place] [x] Incompetent to provide express and informed consent to voluntary admission, and this is incompetent to provide express and informed consent to treatment. The person must be transferred to involuntary status and a petition for a guardian advocate filed with the Circuit Court. [] Refusing to provide express and informed consent to voluntary admission but is competent to provide express and informed consent for treatment. The person must be discharged or transferred to involuntary status. Form shall be completed within 24 hours of a person's arrival at the receiving facility and filed in the clinical record of each person: 1. Admitted on a voluntary basis 2. Permitted to provide express and informed consent to his/her own treatment 3. Allowed to transfer from involuntary to voluntary status 4. Prior to permitting a person to consent to his or her own treatment after having been previously found incompetent to consent to treatment. History of Present Illness Capacity: Lacks Capacity HPI Mr. Pineda is a 66 year-old male with a history of schizophrenia who is presently admitted under a Meehan Act by Psy. Roxane Soliz, alleging aggression and medication refusal at his facility. Patient was initially sent to [facility], and I have reviewed the documentation that accompanies the patient from there. Patient was apparently agitated and was complaining of right shoulder pain and was given an ETO of Haldol, Ativan and Benadryl. According to our ER doctor's note, the patient became altered at [facility] and was sent here to [facility] as he was beyond the scope of care. Electronic medical record reviewed. Patient was admitted here most recently under my care, having been discharged at the beginning of October on Haldol Decanoate and Depakote along other medications. Patient seen and examined with counselor and nurse. Chart reviewed. Case discussed with nurse on the inpatient psychiatric unit reports that the patient has been fairly calm and cooperative here. Nursing staff also notifies me that the patient has a large groin mass. On my examination today, the patient is sitting in the day area. He refuses to go to his room for further evaluation and so the interview was conducted in the day area. He is not presently physically aggressive but does yell out on one occasion. Thought process is extremely disorganized, and it is difficult to assess mental status given the degree of thought disorganization. He appears internally stimulated. He rambles about "cocaine" and "el agustina." He presents as fairly dysphoric. He complains of groin pain, but it is difficult to obtain additional history from the patient on account of his thought disorganization. I am unable to obtain any meaningful past psychiatric, family, chemical dependency or social history from this patient on account of his thought disorganization. Reviewing the electronic medical record, I note the patient has numerous prior inpatient psychiatric admissions for decompensated schizophrenia. Previous medication trials within our system include Geodon, Risperdal and Haldol as well as Depakote. Review of Systems ROS Limitations: Psychotic, Poor Historian Except as stated in HPI: all other systems reviewed are Neg Past Psych History Psychological trauma history Unable to obtain because of patient's mental status. Violence risk - others (6 mos) Indeterminate. Patient is psychotic and unpredictable. Violence risk - self (6 mos) Indeterminate. Patient is psychotic and unpredictable. Substance Abuse History Drugs/Alcohol past 12 months Unable to obtain from patient because of degree of thought disorganization. Urine toxicology negative. Alcohol level undetectable. Past Family Social History Coded Allergies: Tetanus Toxoid (Verified Allergy, Severe, swelling, 12/04/16) Per SHANNON Aguilar, Gisselle Torres [phone] & Jolie, (Admin?) Gisselle [place]. *MDRO Multi-Drug Resistant Organism (Verified Adverse Reaction, Unknown, ) MRSA (buttock wound) 2004 MRSA PCR Screens NEGATIVE - 03/15/15 & 03/17/15 CLEARED PER INFECTION CONTROL PROTOCOL Past Medical History See electronic medical record. Patient now with groin mass per nursing staff. Active Scripts Thiamine (Vitamin B-1)100 Mg Qas880 Mg PO DAILY 15 Days Ref 1 Prov:Tyrel Yap MD 10/24/16 Folic Acid (Folate)1 Mg Tab1 Mg PO DAILY 15 Days Ref 1 Prov:Tyrel Yap MD 10/24/16 Haloperidol Decanoate Inj (Haldol Decanoate Inj)100 Mg/Ml Ogn057 Mg IM Q28D #2 VIAL Ref 0 This dose of Haldol Decanoate is due on 11/16/2016. Prov:Tyrel Yap MD 10/24/16 Lactulose Liq 10 Gm/15 Ml Soln30 Ml PO DAILY 15 Days Ref 1 Prov:Tyrel Yap MD 10/24/16 Haloperidol 5 Mg Tab10 Mg PO BID 15 Days Ref 1 Take oral Haldol at least until your next Haldol decanoate injection, or as directed by your outpatient provider. Prov:Tyrel Yap MD 10/24/16 Divalproex ER (Depakote ER)500 Mg Taber1,000 Mg PO DAILY 15 Days Ref 1 Prov:Tyrel Yap MD 10/24/16 Diphenhydramine HCl 50 Mg Cap50 Mg PO Q6H PRN (EPS, insomnia) 15 Days Ref 1 Prov:Tyrel Yap MD 10/24/16 Current Medications Medications (Trade) Dose Ordered Sig/Marce Route Start Time Stop Time Status Last Admin (Ativan) 0.5 mg Q12H PRN PO 12/05/16 20:30 Hold (Ativan Inj) 0.5 mg Q12H PRN IM 12/05/16 20:30 Hold (Tylenol) 650 mg Q4H PRN PO 12/05/16 20:30 (Milk Of Magnesia Liq) 30 ml DAILY PRN PO 12/05/16 20:30 (Mag-Al Plus Susp Liq) 30 ml Q6H PRN PO 12/05/16 20:30 (Habitrol 21 Mg Patch.24 Hr) 1 patch DAILY T-DERMAL 12/06/16 09:00 Miscellaneous Information 1 HS T-DERMAL 12/05/16 21:00 Family History See above Social History See above Patient's Strengths (min. 2) In a monitored setting. Verbally fluent. Physical Exam Physical examination was completed by ED provider. On my examination today, the patient appears to be in no acute physical distress. No signs of stiffness , no hand tremor, no dystonias, no dyskinesias. Unable to examine the groin mass as the patient refuses to go to his room or to another location other than the day area to permit physical exam. Laboratories and vital signs reviewed. Vital Signs Vital Signs Date Time Temp Pulse Resp B/P Pulse Ox O2 Delivery O2 Flow Rate FiO2 12/06/16 06:02 100.6 62 16 106/52 93 12/05/16 08:30 Room Air Temp rechecked this morning 98.0F. Lab Results Item Value Date Time White Blood Count 6.6 TH/MM3 12/05/16 1620 Hemoglobin 13.6 GM/DL 12/05/16 1620 Platelet Count 274 TH/MM3 12/05/16 1620 Sodium Level 136 MEQ/L 12/05/16 1620 Potassium Level 4.0 MEQ/L 12/05/16 1620 Chloride Level 101 MEQ/L 12/05/16 1620 Carbon Dioxide Level 29.1 MEQ/L 12/05/16 1620 Blood Urea Nitrogen 9 MG/DL 12/05/16 1620 Creatinine 0.68 MG/DL 12/05/16 1620 Random Glucose 86 MG/DL 12/05/16 1620 Aspartate Amino Transf (AST/SGOT) 27 U/L 12/05/16 1620 Alanine Aminotransferase (ALT/SGPT) 20 U/L 12/05/16 1620 Alkaline Phosphatase 103 U/L 12/05/16 1620 Urine toxicology and alcohol level negative. Urinalysis results reviewed. Depakote level subtherapeutic at 38. Level had previously been therapeutic prior to discharge from the inpatient unit last time. Mental Status Examination Patient is in hospital gown. He is somewhat disheveled but did recently shower. He is awake and alert and oriented to person at least. Further mental status testing limited by degree of thought disorganization. No motor abnormalities noted. Speech is rambling and disjointed. Language, memory and fund of knowledge are difficult to assess on account of degree of thought disorganization. Mood and affect seemed restricted and dysphoric. Thought process disorganized. Associations loose. Possibly some delusional material underlying, once again difficult to assess because of degree of thought disorganization. Patient appears frankly internally stimulated. He is presently unable to deny suicidal or homicidal ideation and is unreliable to contract for safety in his present state in any case. Insight and judgment are poor. Assessment & Plan Problem List: (1) Schizophrenia ICD Code: F20.9 Assessment & Plan This is a 66-year-old male with psychiatric history as detailed above who presents under a Meehan act alleging aggression at his facility as well as medication nonadherence. On my examination today, the patient presents as extremely disorganized. He complains of groin pain and was noted by nursing staff to have a groin mass. Patient's Depakote level is subtherapeutic, suggesting at least some degree of nonadherence. Patient requires psychiatric admission at this time for safety, observation and stabilization. Admit inpatient. Involuntary status. I've completed first opinion. Consult for second opinion. Request healthcare surrogate and guardian advocate. Consult to the hospitalist for groin mass. Patient was reportedly somewhat altered at [facility] and had elevated temp this morning, although the elevated temp has since normalized. No examination findings to suggest, e.g. NMS, but I will hold his antipsychotic for now out of an abundance of caution. I will recheck a CBC and also check CK. If the patient passes an uneventful night, to consider restarting antipsychotic tomorrow as I suspect the patient is in need of antipsychotic action. I will resume his Depakote and lactulose. Ativan as needed for anxiety, Cogentin as needed for EPS. Vitals every shift. Counselor to see. Disposition planning. Estimated length of stay: One to 2 weeks, longer if new placement as required. Discharge Planning Pending psychiatric stabilization. Request HC Surrog/Guard Advoc?: Yes Problem Qualifiers (1) Schizophrenia: Qualified Code: F20.1 - Disorganized schizophrenia Tyrel Yap MD December 06, 2016 10:11
[2016-12-06] MEDS: levOCARNitine 10% ORAL SOLN 118 ML BTL PO SCH ×2 (13:00→17:21)
--- NOTE | 2016-12-06 13:16 | PD.CONS ---
Provisional Diagnosis Admission Date December 05, 2016 at 18:10 [place] I. 1. Schizophrenia, disorganized type, acute exacerbation [place] II. Deferred [place] V. GAF is 30 presently History of Present Illness Service Psychiatry Consult Requested By Primary Care Physician Unknown HPI Mr. Pineda is a 66 year-old male with a history of schizophrenia who is presently admitted under a Meehan Act by Psy. Roxane Soliz, alleging aggression and medication refusal at his facility. Patient was initially sent to [facility], and I have reviewed the documentation that accompanies the patient from there. Patient was apparently agitated and was complaining of right shoulder pain and was given an ETO of Haldol, Ativan and Benadryl. According to our ER doctor's note, the patient became altered at [facility] and was sent here to [facility] as he was beyond the scope of care. Electronic medical record reviewed. Patient was admitted here most recently under my care, having been discharged at the beginning of October on Haldol Decanoate and Depakote along other medications. Patient seen and examined with counselor and nurse. Chart reviewed. Case discussed with nurse on the inpatient psychiatric unit reports that the patient has been fairly calm and cooperative here. Nursing staff also notifies me that the patient has a large groin mass. On my examination today, the patient is sitting in the day area. He refuses to go to his room for further evaluation and so the interview was conducted in the day area. He is not presently physically aggressive but does yell out on one occasion. Thought process is extremely disorganized, and it is difficult to assess mental status given the degree of thought disorganization. He appears internally stimulated. He rambles about "cocaine" and "el agustina." He presents as fairly dysphoric. He complains of groin pain, but it is difficult to obtain additional history from the patient on account of his thought disorganization. I am unable to obtain any meaningful past psychiatric, family, chemical dependency or social history from this patient on account of his thought disorganization. Reviewing the electronic medical record, I note the patient has numerous prior inpatient psychiatric admissions for decompensated schizophrenia. Previous medication trials within our system include Geodon, Risperdal and Haldol as well as Depakote. 12/06/16 Above note dictated by Dr. yap reviewed and agreed with. Patient is a 66- year-old white male admitted to his service under the Meehan act. Patient seen by me in the [place] with nurse Migdalia. Patient is loud disorganized intrusive male odorous. And psychotic. Dr. Yap is signed first opinion petition supporting Meehan act. I agree. Patient meets criteria for involuntary psychiatric hospitalization. Thus I will sign second opinion petition supporting Meehan act Past Family Social History Coded Allergies: Tetanus Toxoid (Verified Allergy, Severe, swelling, 12/04/16) Per SHANNON Aguilar, Gisselle Melissa [phone] & Jolie, (Admin?) Gisselle Torres. *MDRO Multi-Drug Resistant Organism (Verified Adverse Reaction, Unknown, ) MRSA (buttock wound) 2004 MRSA PCR Screens NEGATIVE - 03/15/15 & 03/17/15 CLEARED PER INFECTION CONTROL PROTOCOL Active Scripts Thiamine (Vitamin B-1)100 Mg [id number] Mg PO DAILY 15 Days Ref 1 Prov:Tyrel Yap MD 10/24/16 Folic Acid (Folate)1 Mg Tab1 Mg PO DAILY 15 Days Ref 1 Prov:Tyrel Yap MD 10/24/16 Haloperidol Decanoate Inj (Haldol Decanoate Inj)100 Mg/Ml [id number] Mg IM Q28D #2 VIAL Ref 0 This dose of Haldol Decanoate is due on 11/16/2016. Prov:Tyrel Yap MD 10/24/16 Lactulose Liq 10 Gm/15 Ml Soln30 Ml PO DAILY 15 Days Ref 1 Prov:Tyrel Yap MD 10/24/16 Haloperidol 5 Mg Tab10 Mg PO BID 15 Days Ref 1 Take oral Haldol at least until your next Haldol decanoate injection, or as directed by your outpatient provider. Prov:Tyrel Yap MD 10/24/16 Divalproex ER (Depakote ER)500 Mg Taber1,000 Mg PO DAILY 15 Days Ref 1 Prov:Tyrel Yap MD 10/24/16 Diphenhydramine HCl 50 Mg Cap50 Mg PO Q6H PRN (EPS, insomnia) 15 Days Ref 1 Prov:Tyrel Yap MD 10/24/16 Current Medications Medications (Trade) Dose Ordered Sig/Marce Route Start Time Stop Time Status Last Admin (Tylenol) 650 mg Q4H PRN PO 12/05/16 20:30 (Milk Of Magnesia Liq) 30 ml DAILY PRN PO 12/05/16 20:30 (Mag-Al Plus Susp Liq) 30 ml Q6H PRN PO 12/05/16 20:30 (Habitrol 21 Mg Patch.24 Hr) 1 patch DAILY T-DERMAL 12/06/16 09:00 Miscellaneous Information 1 HS T-DERMAL 12/05/16 21:00 (Ativan) 1 mg Q12H PRN PO 12/06/16 20:30 (Ativan Inj) 1 mg Q12H PRN IM 12/06/16 20:30 (Cogentin) 1 mg Q12HR PRN PO 12/06/16 10:00 (Cogentin Inj) 1 mg Q12HR PRN IM 12/06/16 10:00 (Depakote Er) 1,000 mg HS PO 12/06/16 21:00 (Carnitor 10% Liq) 3 ml TID PO 12/06/16 13:00 Patient's Strengths (min. 2) In a monitored setting. Verbally fluent. Physical Exam Vital Signs Vital Signs Date Time Temp Pulse Resp B/P Pulse Ox O2 Delivery O2 Flow Rate FiO2 12/06/16 06:02 100.6 62 16 106/52 93 12/05/16 08:30 Room Air Mental Status Examination Speech: Rapid, Hesitant, Other (disorganized) Orientation: Person Memory: Impaired (describe) Thought Process: Loose Association Thought Content: Other (markedly disorganized) Language Confusing poor Fund of Knowledge Poor Hallucination Type: None (denies appears to be responding to internal stimuli) Attention and Concentration: Easily Distracted Suicidal Ideation: No (difficult to ascertain due to psychosis) Previous Suicide Attempts: No Homicidal Ideation: No Previous Homicide Attempts: No Insight: Poor Judgment: Poor Affect: Other (slight increase range and intensity) Mood: Euthymic, Irritable Motor Activity: Normal gait Assessment & Plan Problem List: (1) Schizophrenia ICD Code: F20.9 Assessment & Plan Estimated LOS: days Request HC Surrog/Guard Advoc?: Yes Problem Qualifiers (1) Schizophrenia: Qualified Code: F20.1 - Disorganized schizophrenia Momo Duarte MD December 06, 2016 13:16
--- NOTE | 2016-12-06 15:20 | PD.CONS ---
HPI Service [facility] Hospitalists Consult Requested By Psychiatric services Reason for Consult Medical management Evaluation of groin mass Primary Care Physician Unknown Diagnoses: History of Present Illness Written by Aparna Anthony PA-C acting as scribe for Dr. Ulloa on 12/06/16 at 15:30. This is a 66-year-old male with a past medical history of schizophrenia, hypertension, Parkinson's and hepatitis B he was admitted to the psychiatric unit under Meehan Act due to becoming aggressive with another resident and refusing his medication.. Hospitalist services were consulted for medical management and specifically for evaluation of groin mass. Patient seen and examined today. Due to the patients cognitive impairment, all the history is obtained from review of the medical record. Patient is unable to provide any history whatsoever. Review of Systems Unable to obtain due to patient's cognitive impairment Past Family Social History Allergies: Coded Allergies: Tetanus Toxoid (Verified Allergy, Severe, swelling, 12/04/16) Per SHANNON Aguilar, Gisselle Torres [phone] & Jolie, (Admin?) Gisselle Torres. *MDRO Multi-Drug Resistant Organism (Verified Adverse Reaction, Unknown, ) MRSA (buttock wound) 2004 MRSA PCR Screens NEGATIVE - 03/15/15 & 03/17/15 CLEARED PER INFECTION CONTROL PROTOCOL Past Medical History All medical history obtained from review of the medical record due to patient's cognitive impairment Review of medical record reveals history of hep B, hypertension, Parkinson's, schizophrenia Past Surgical History Review of medical record reveals previous tonsillectomy Reported Medications Thiamine (Vitamin B-1)100 Mg Pcm119 Mg PO DAILY 15 Days Ref 1 Prov:Tyrel Yap MD 10/24/16 Folic Acid (Folate)1 Mg Tab1 Mg PO DAILY 15 Days Ref 1 Prov:Tyrel Yap MD 10/24/16 Haloperidol Decanoate Inj (Haldol Decanoate Inj)100 Mg/Ml Avl122 Mg IM Q28D #2 VIAL Ref 0 This dose of Haldol Decanoate is due on 11/16/2016. Prov:Tyrel Yap MD 10/24/16 Lactulose Liq 10 Gm/15 Ml Soln30 Ml PO DAILY 15 Days Ref 1 Prov:Tyrel Ypa MD 10/24/16 Haloperidol 5 Mg Tab10 Mg PO BID 15 Days Ref 1 Take oral Haldol at least until your next Haldol decanoate injection, or as directed by your outpatient provider. Prov:Tyrel Yap MD 10/24/16 Divalproex ER (Depakote ER)500 Mg Taber1,000 Mg PO DAILY 15 Days Ref 1 Prov:Tyrel Yap MD 10/24/16 Diphenhydramine HCl 50 Mg Cap50 Mg PO Q6H PRN (EPS, insomnia) 15 Days Ref 1 Prov:Tyrel Yap MD 10/24/16 Active Ordered Medications Current Medications Medications (Trade) Dose Ordered Sig/Marce Route Start Time Stop Time Status Last Admin (Tylenol) 650 mg Q4H PRN PO 12/05/16 20:30 (Milk Of Magnesia Liq) 30 ml DAILY PRN PO 12/05/16 20:30 (Mag-Al Plus Susp Liq) 30 ml Q6H PRN PO 12/05/16 20:30 (Habitrol 21 Mg Patch.24 Hr) 1 patch DAILY T-DERMAL 12/06/16 09:00 Miscellaneous Information 1 HS T-DERMAL 12/05/16 21:00 (Ativan) 1 mg Q12H PRN PO 12/06/16 20:30 (Ativan Inj) 1 mg Q12H PRN IM 12/06/16 20:30 (Cogentin) 1 mg Q12HR PRN PO 12/06/16 10:00 (Cogentin Inj) 1 mg Q12HR PRN IM 12/06/16 10:00 (Depakote Er) 1,000 mg HS PO 12/06/16 21:00 (Carnitor 10% Liq) 3 ml TID PO 12/06/16 13:00 Family History Unable to obtain due to patients cognitive impairment Social History Unable to obtain due to patients cognitive impairment but per chart review h/o tobacco use of 1ppd x 46yrs. Physical Exam Vital Signs Vital Signs Date Time Temp Pulse Resp B/P Pulse Ox O2 Delivery O2 Flow Rate FiO2 12/06/16 06:02 100.6 62 16 106/52 93 Physical Exam GENERAL: This is a well-nourished, well-developed patient, in no apparent distress. Unkempt. Awake and alert. Demented. SKIN: No rashes, ecchymoses or lesions. Cool and dry. HEAD: Atraumatic. Normocephalic. No temporal or scalp tenderness. EYES: Pupils equal round and reactive. Extraocular motions intact. No scleral icterus. No injection or drainage. ENT: Nose without bleeding, purulent drainage or septal hematoma. Throat without erythema, tonsillar hypertrophy or exudate. Uvula midline. Airway patent. NECK: Trachea midline. No JVD or lymphadenopathy. Supple, nontender, no meningeal signs. CARDIOVASCULAR: Regular rate and rhythm without murmurs, gallops, or rubs. RESPIRATORY: Clear to auscultation. Breath sounds equal bilaterally. No wheezes , rales, or rhonchi. GASTROINTESTINAL: Abdomen soft, non-tender, nondistended. No hepato-splenomegaly , or palpable masses. No guarding. GENITOURINARY: Normal phallus. No drainage appreciated. Severely swollen left scrotal sac with mild dependent erythema. Soft. Appears nontender to palpation. No warmth appreciated on exam. MUSCULOSKELETAL: Extremities without clubbing, cyanosis, or edema. No joint tenderness, effusion, or edema noted. No calf tenderness. NEUROLOGICAL: Awake and alert. Demented. Able to move all extremities. Tangential speech. Laboratory Laboratory Tests Test 12/05/16 12/05/16 16:20 16:47 White Blood Count 6.6 Red Blood Count 3.88 Hemoglobin 13.6 Hematocrit 40.2 Mean Corpuscular Volume 103.6 Mean Corpuscular Hemoglobin 35.1 Mean Corpuscular Hemoglobin 33.8 Concent Red Cell Distribution Width 12.8 Platelet Count 274 Mean Platelet Volume 7.3 Neutrophils (%) (Auto) 64.4 Lymphocytes (%) (Auto) 18.1 Monocytes (%) (Auto) 16.7 Eosinophils (%) (Auto) 0.4 Basophils (%) (Auto) 0.4 Neutrophils # (Auto) 4.3 Lymphocytes # (Auto) 1.2 Monocytes # (Auto) 1.1 Eosinophils # (Auto) 0.0 Basophils # (Auto) 0.0 CBC Comment DIFF FINAL Differential Comment Sodium Level 136 Potassium Level 4.0 Chloride Level 101 Carbon Dioxide Level 29.1 Anion Gap 6 Blood Urea Nitrogen 9 Creatinine 0.68 Estimat Glomerular Filtration 116 Rate Random Glucose 86 Calcium Level 9.0 Total Bilirubin 0.5 Aspartate Amino Transf 27 (AST/SGOT) Alanine Aminotransferase 20 (ALT/SGPT) Alkaline Phosphatase 103 Total Protein 7.5 Albumin 3.7 Valproic Acid (Depakene) Level 38 Ethyl Alcohol Level LESS THAN 3 Urine Color YELLOW Urine Turbidity CLEAR Urine pH 6.5 Urine Specific Robertson 1.015 Urine Protein NEG Urine Glucose (UA) NEG Urine Ketones 10 Urine Occult Blood NEG Urine Nitrite NEG Urine Bilirubin NEG Urine Urobilinogen 2.0 Urine Leukocyte Esterase NEG Urine RBC 2 Urine WBC 1 Urine Mucus FEW Microscopic Urinalysis Comment CULT NOT INDICATED Urine Opiates Screen NEG Urine Barbiturates Screen NEG Urine Amphetamines Screen NEG Urine Benzodiazepines Screen NEG Urine Cocaine Screen NEG Urine Cannabinoids Screen NEG Result Diagram: 12/05/16 1620 12/05/16 1620 Assessment and Plan Assessment and Plan 66-year-old male with a past medical history of schizophrenia, hypertension, Parkinson's and hepatitis B he was admitted to the psychiatric unit under Meehan Act due to becoming aggressive with another resident and refusing his medication.. Hospitalist services were consulted for medical management and specifically for evaluation of groin mass. Disorganized schizophrenia Management per psychiatric team Low Depakote level, likely due to medication refusal Groin mass Possible inguinal hernia Obtain ultrasound for further evaluation Consult general surgery Hypertension No antihypertensive noted in med rec Currently patient is hypotensive with a blood pressure 106/52 Will continue to monitor and initiate treatment as indicated Febrile White count within normal limits, UA negative no obvious source of infection - groin mass does not appear to be infected will continue to monitor temp DVT prophylaxis Encourage ambulation Discussed Condition With Patient and nursing staff This note was transcribed by elif Anthony. I, Dr. David Inman personally performed the history, physical exam, and medical decision making; and confirmed the accuracy of the information in the transcribed note. Authenticated by Dr. David Inman on 12/06/16 at 15:30. Aparna Anthony December 06, 2016 15:20 David Garcia MD Dec 14, 2016 13:22
[2016-12-06 17:30] VITALS: BP 102/61; PULSE 69; RESP 18; TEMP 98.3; O2SAT 99
[2016-12-06] MEDS ORDERED: LORazepam 2 MG/ML VIAL IM PRN (20:30)
[2016-12-06] MEDS: REMOVE OLD NICOTINE PATCH T-DERMAL SCH (20:39)
[2016-12-06] MEDS: DIVALPROEX SODIUM E.R. 500 MG TAB PO SCH (20:39)
[2016-12-07 05:28] VITALS: BP 151/76; PULSE 55; RESP 18; TEMP 97.5; O2SAT 95
[2016-12-07 07:27] LABS: AUTOMATED NEUTROPHIL # 3.6 TH/MM3 (1.8-7.7); BASOPHIL % 0.5 % (0.0-2.0); EOSINOPHIL # 0.1 TH/MM3 (0-0.4); HEMATOCRIT 38.9 % (39.0-51.0); HEMO FLAGS DIFF FINAL; LYMPH % 19.3 % (9.0-44.0); LYMPHOCYTE # 1.1 TH/MM3 (1.0-4.8); MEAN CELL VOLUME 103.7 FL (80.0-100.0); MEAN CORPUSCULAR HEMOGLOBIN 34.8 PG (27.0-34.0); MEAN CORPUSCULAR HGB CONC 33.5 % (32.0-36.0); MONO % 17.9 % (0.0-8.0); NEUT % 61.3 % (16.0-70.0); PLATELET COUNT 291 TH/MM3 (150-450); RED BLOOD COUNT 3.75 MIL/MM3 (4.50-5.90); RED CELL DISTRIBUTION WIDTH 12.4 % (11.6-17.2); WHITE BLOOD COUNT 5.9 TH/MM3 (4.0-11.0)
[2016-12-07] MEDS: levOCARNitine 10% ORAL SOLN 118 ML BTL PO SCH ×3 (09:00→18:00)
[2016-12-07] MEDS: NICOTINE 21 MG/24 HR PATCH T-DERMAL SCH (09:00)
--- NOTE | 2016-12-07 13:20 | HHI.PYPN ---
Subjective Remarks Patient seen and examined with counselor and nurse. Chart reviewed. Case discussed with nursing staff who reports patient remains labile and somewhat disorganized. On my examination today, the patient is sitting in the day area. He initially appears fairly flat but then once engaged begins laughing and giggling. Thought process remains extremely disorganized, and the patient rambles, "not in [place]. By [place]. I've forgot the name. I believe you're the doctor today. Modules in the kneecap. Bar bar bar bar." Remains internally preoccupied. No new physical complaints. Review of Systems ROS Limitations: Psychotic, Poor Historian Except as stated in HPI: all other systems reviewed are Neg Objective Alert: Yes [place]: Person Mood: Happy Affect: Labile Memory Intact: Comment (Psychosis interferes with assessment) Hallucinations: Auditory (Appears int stim) Delusions: No Delusion Type: Other (Difficult to assess under thought disorganization) Suicidal: Ideation (No SI voiced) Homicidal: Ideation (No HI voiced) Insight/Judgment Poor Remarks No motor abnormalities noted. In particular no upper or lower extremity hypertonia. No other signs of NMS. No tremor. Thought process remains extremely disorganized. Speech rambling. Grooming and hygiene fair to poor at best. Labs Test 12/07/16 06:56 White Blood Count 5.9 TH/MM3 Red Blood Count 3.75 MIL/MM3 Hemoglobin 13.0 GM/DL Hematocrit 38.9 % Mean Corpuscular Volume 103.7 FL Mean Corpuscular Hemoglobin 34.8 PG Mean Corpuscular Hemoglobin 33.5 % Concent Red Cell Distribution Width 12.4 % Platelet Count 291 TH/MM3 Mean Platelet Volume 7.6 FL Neutrophils (%) (Auto) 61.3 % Lymphocytes (%) (Auto) 19.3 % Monocytes (%) (Auto) 17.9 % Eosinophils (%) (Auto) 1.0 % Basophils (%) (Auto) 0.5 % Neutrophils # (Auto) 3.6 TH/MM3 Lymphocytes # (Auto) 1.1 TH/MM3 Monocytes # (Auto) 1.1 TH/MM3 Eosinophils # (Auto) 0.1 TH/MM3 Basophils # (Auto) 0.0 TH/MM3 CBC Comment DIFF FINAL Differential Comment Ammonia 29 MCMOL/L Total Creatine Kinase 217 U/L Labs reviewed. CBC unremarkable. Ammonia level not elevated. CK within normal limits. Vitals/IOs Vital Signs Date Time Temp Pulse Resp B/P Pulse Ox O2 Delivery O2 Flow Rate FiO2 12/07/16 05:28 97.5 55 18 151/76 95 12/05/16 08:30 Room Air Vital signs reviewed. No further elevated temperatures. Assessment & Plan Problem List: (1) Schizophrenia ICD Code: F20.9 Assessment & Plan No evidence of elevated temperatures, nor does laboratory or physical examination suggest NMS. Patient remains extremely disorganized and requires antipsychotic. Given that he did not remain stable on the Haldol started last time-- although med non-adherence may have contributed to this--I will select a different agent with a corresponding QUAN. Start Abilify 10mg/day with plans to titrate to effect. To consider Maintena. Hospitalist input noted and appreciated. Hospitalist has ordered ultrasound of the testicles. Continue to monitor on the high acuity unit. Continue other medications and care as ordered. Justification for Cont. Inpt. Medication changes in process. Impairment in reality construction. High risk for decompensation in a less restrictive environment. Discharge Planning Pending psychiatric stabilization. I have asked counselor to liaison with facility field marketing representative regarding return there once stabilized. Request HC Surrog/Guard Advoc?: Yes Problem Qualifiers (1) Schizophrenia: Qualified Code: F20.1 - Disorganized schizophrenia Tyrel Yap MD December 07, 2016 13:20
[2016-12-07 15:15] VITALS: BP 122/67; PULSE 57; RESP 18; TEMP 98.2; O2SAT 97
[2016-12-07] MEDS: ARIPiprazole 10 MG TAB PO SCH (16:00)
[2016-12-07] MEDS ORDERED: DIATRIZOATE MEGLUM/DIATRIZOATE SOD 9 ML CUP PO ONE (18:30)
[2016-12-07] MEDS: DIVALPROEX SODIUM E.R. 500 MG TAB PO SCH (21:00)
[2016-12-07] MEDS: REMOVE OLD NICOTINE PATCH T-DERMAL SCH (21:00)
--- NOTE | 2016-12-07 23:22 | HHI.PR ---
Subjective Remarks Deferred entry - patient seen at 4:45 pm patient thought is very disorganized denies pain no fevers reported Objective Vitals Vital Signs Date Time Temp Pulse Resp B/P Pulse Ox O2 Delivery O2 Flow Rate FiO2 12/07/16 15:15 98.2 57 18 122/67 97 12/07/16 05:28 97.5 55 18 151/76 95 Result Diagram: 12/07/16 0656 12/05/16 1620 Objective Remarks GENERAL: This is a well-nourished, well-developed patient, in no apparent distress. Unkempt. Awake and alert. Demented. SKIN: No rashes, ecchymoses or lesions. Cool and dry. HEAD: Atraumatic. Normocephalic. No temporal or scalp tenderness. EYES: Pupils equal round and reactive. Extraocular motions intact. No scleral icterus. No injection or drainage. ENT: Nose without bleeding, purulent drainage or septal hematoma. Throat without erythema, tonsillar hypertrophy or exudate. Uvula midline. Airway patent. NECK: Trachea midline. No JVD or lymphadenopathy. Supple, nontender, no meningeal signs. CARDIOVASCULAR: Regular rate and rhythm without murmurs, gallops, or rubs. RESPIRATORY: Clear to auscultation. Breath sounds equal bilaterally. No wheezes , rales, or rhonchi. GASTROINTESTINAL: Abdomen soft, non-tender, nondistended. No hepato-splenomegaly , or palpable masses. No guarding. GENITOURINARY: Normal phallus. No drainage appreciated. Severely swollen left scrotal sac with mild dependent erythema. Soft. Appears nontender to palpation. No warmth appreciated on exam. MUSCULOSKELETAL: Extremities without clubbing, cyanosis, or edema. No joint tenderness, effusion, or edema noted. No calf tenderness. NEUROLOGICAL: Awake and alert. Demented. Able to move all extremities. Tangential speech. Medications and IVs Current Medications Medications (Trade) Dose Ordered Sig/Marce Route Start Time Stop Time Status Last Admin (Tylenol) 650 mg Q4H PRN PO 12/05/16 20:30 (Milk Of Magnesia Liq) 30 ml DAILY PRN PO 12/05/16 20:30 (Mag-Al Plus Susp Liq) 30 ml Q6H PRN PO 12/05/16 20:30 (Habitrol 21 Mg Patch.24 Hr) 1 patch DAILY T-DERMAL 12/06/16 09:00 Miscellaneous Information 1 HS T-DERMAL 12/05/16 21:00 (Ativan) 1 mg Q12H PRN PO 12/06/16 20:30 (Ativan Inj) 1 mg Q12H PRN IM 12/06/16 20:30 (Cogentin) 1 mg Q12HR PRN PO 12/06/16 10:00 (Cogentin Inj) 1 mg Q12HR PRN IM 12/06/16 10:00 (Depakote Er) 1,000 mg HS PO 12/06/16 21:00 12/06/16 20:39 (Carnitor 10% Liq) 3 ml TID PO 12/06/16 13:00 12/07/16 13:00 (Abilify) 10 mg DAILY PO 12/07/16 16:00 A/P Assessment and Plan 66-year-old male with a past medical history of schizophrenia, hypertension, Parkinson's and hepatitis B he was admitted to the psychiatric unit under [place] Act due to becoming aggressive with another resident and refusing his medication.. Hospitalist services were consulted for medical management and specifically for evaluation of groin mass. Disorganized schizophrenia Management per psychiatric team Low Depakote level, likely due to medication refusal Groin mass Suspect inguinal hernia GS surgery consulted Discussed case with with GS EVIN Mcdermott DC ultrasound and order CT scan abdomen and pelvis. Hypertension No antihypertensive noted in med rec Bp seems to be stable Will continue to monitor and initiate treatment as indicated Low grade temp White count within normal limits, UA negative no obvious source of infection - groin mass does not appear to be infected No further elevated tempeatures will continue to monitor temp DVT prophylaxis Encourage ambulation David Garcia MD December 07, 2016 23:22
[2016-12-08] MEDS: ACETAMINOPHEN 325 MG TAB PO PRN ×2 (04:25→23:29)
[2016-12-08 06:06] VITALS: BP 141/63; PULSE 56; RESP 16; TEMP 98; O2SAT 97
[2016-12-08] MEDS: NICOTINE 21 MG/24 HR PATCH T-DERMAL SCH (08:58)
[2016-12-08] MEDS: ARIPiprazole 10 MG TAB PO SCH (08:58)
[2016-12-08] MEDS: levOCARNitine 10% ORAL SOLN 118 ML BTL PO SCH ×3 (08:59→18:00)
--- NOTE | 2016-12-08 12:10 | HHI.PYPN ---
Subjective Remarks Patient seen and examined with counselor and nurse. Chart reviewed. Case discussed with nursing staff who reports that the patient remains quite disorganized and disheveled. He became somewhat agitated when he was noted to be rummaging through the trash and was redirected by staff. He did refuse his Abilify yesterday but accepted it this morning. For me today, patient remains rambling, disorganized, and easily irritated. He appears frankly internally stimulated. Speech is word salad. No evident physical distress. Review of Systems ROS Limitations: Psychotic, Poor Historian Other ROS severely limited because of thought disorganization. Objective Alert: Yes [place]: Person Mood: Agitated Affect: Labile Memory Intact: Comment (Not able to assess at present) Hallucinations: Auditory (Frankly internally stimulated) Delusions: No Delusion Type: Other (Remains difficult to assess under thought disorganization ) Suicidal: Ideation (No SI voiced) Homicidal: Ideation (No HI voiced) Insight/Judgment Poor Remarks TP extremely disorganized. Speech word salad. No motor abnormalities noted. Grooming and hygiene poor. Labs Labs reviewed. Vitals/IOs Vital Signs Date Time Temp Pulse Resp B/P Pulse Ox O2 Delivery O2 Flow Rate FiO2 12/08/16 06:06 98.0 56 16 141/63 97 12/05/16 08:30 Room Air Nutritional intake noted; pt continues to eat 100% of meals. Assessment & Plan Problem List: (1) Schizophrenia ICD Code: F20.9 Assessment & Plan Patient's psychosis remains decompensated to a severe degree. Haldol IM backup should patient refuse PO Abilify. I have ordered that patient receive 2 doses of IM Haldol (i.e. Haldol 5mg BID IM x 1 day) if he should refuse PO Abilify. Please consider titrating Abilify and corresponding Haldol dose over the weekend to target psychosis. Gen Surg has ordered CT A/P with contrast to evaluate scrotal mass, but I am pessimistic that we will be able to obtain this study in patient's present state. To continue to attempt to do so should patient's behavior improve over the weekend. Customs Consultant input appreciated. Continue to monitor on high acuity unit. Continue other medications and care as ordered. Justification for Cont. Inpt. Impairment in reality construction. Impairment in self-care. Impairment in social function. Med changes in process. Very high risk for decompensation in a less restrictive environment. Discharge Planning Pending psychiatric stabilization. Request HC Surrog/Guard Advoc?: Yes Problem Qualifiers (1) Schizophrenia: Qualified Code: F20.1 - Disorganized schizophrenia Tyrel Yap MD December 08, 2016 12:09
[2016-12-08 15:30] VITALS: BP_SYST 69; PULSE 54; RESP 18; TEMP 97.9; O2SAT 99
[2016-12-08] MEDS ORDERED: HALOPERIDOL LACTATE 5 MG/ML AMP IM PRN (15:30)
[2016-12-08] MEDS: REMOVE OLD NICOTINE PATCH T-DERMAL SCH (21:00)
[2016-12-08] MEDS: DIVALPROEX SODIUM E.R. 500 MG TAB PO SCH (21:00)
--- NOTE | 2016-12-08 23:12 | HHI.PR ---
Subjective Subjective Notes stable, no evidence of nausea or vomiting, or constipation Objective Vitals/I&O Vital Signs Date Time Temp Pulse Resp B/P Pulse Ox O2 Delivery O2 Flow Rate FiO2 12/08/16 15:30 97.9 54 18 69/ 99 12/05/16 08:30 Room Air Abdomen: Other (limited exam based on patient refusal) A/P Assessment and Plan scrotal mass/hernia PLAN Hernia does not appear obstructive and no evidence of compromised bowel- but limited exam due to patient psy issues and non compliance attempt CT if able likely non operative management this is likely a chronic hernia will continue to observe- pt will need operation if obstruction occurs or bowel strangulation Neil Encarnacion MD December 08, 2016 23:12
[2016-12-09] MEDS: ACETAMINOPHEN 325 MG TAB PO PRN ×4 (03:38→23:38)
[2016-12-09] MEDS: ARIPiprazole 10 MG TAB PO SCH (08:39)
[2016-12-09] MEDS: NICOTINE 21 MG/24 HR PATCH T-DERMAL SCH (08:40)
[2016-12-09] MEDS: levOCARNitine 10% ORAL SOLN 118 ML BTL PO SCH ×3 (08:40→16:51)
--- NOTE | 2016-12-09 13:23 | HHI.PYPN ---
Subjective Remarks Pt seen and discussed with staff. He remains paranoid and easily agitated. He tells "No information for you today. Go Away!" Staff state that pt was agitated with medicine team this morning. He was compliant with medications this morning. Objective Alert: Yes [place]: Person Mood: Agitated Affect: Labile Memory Intact: Comment (Not able to assess at present) Hallucinations: Auditory (appears internally stimulated) Delusions: No Delusion Type: Other (Remains difficult to assess under thought disorganization ) Suicidal: Ideation (No SI voiced) Homicidal: Ideation (No HI voiced) Insight/Judgment poor Vitals/IOs Vital Signs Date Time Temp Pulse Resp B/P Pulse Ox O2 Delivery O2 Flow Rate FiO2 12/09/16 08:42 18 12/08/16 15:30 97.9 54 69/ 99 12/05/16 08:30 Room Air Assessment & Plan Problem List: (1) Schizophrenia ICD Code: F20.9 Assessment & Plan Continue current tx plan. Estimated LOS: days Justification for Cont. Inpt. 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
--- NOTE | 2016-12-09 13:30 | HHI.PR ---
Subjective Subjective Notes attempted to see patient and examine him - he told me to "fuck off and go away" . refused any exam at all Objective Vitals/I&O Vital Signs Date Time Temp Pulse Resp B/P Pulse Ox O2 Delivery O2 Flow Rate FiO2 12/09/16 08:42 18 12/08/16 15:30 97.9 54 69/ 99 12/05/16 08:30 Room Air A/P Assessment and Plan chronic large LEFT inguinal/scrotal hernia no evidence of acute incarceration at this time. pt noncompliant. will not allow exam and will therefore not allow any surgical intervention will see prn if the need arises - distended abdomen, fever, profuse vomiting, etc Fady Grubbs MD December 09, 2016 13:30
[2016-12-09] MEDS: LORazepam 0.5 MG TAB PO PRN (13:37)
[2016-12-09] MEDS ORDERED: LORazepam 2 MG/ML VIAL IV PUSH PRN (15:00)
[2016-12-09] MEDS ORDERED: IOHEXOL 350 MG/ML 10 ML VIAL (for RAD DIAG) IV ONE (15:14)
--- NOTE | 2016-12-09 15:30 | RADRPT ---
EXAM DATE/TIME: 12/09/2016 15:07 [place] COMPARISON: No previous studies available for comparison. INDICATIONS : Lower abdominal pain. IV CONTRAST: 75 cc Omnipaque 350 (iohexol) IV ORAL CONTRAST: Patient refused oral contrast. RADIATION DOSE: 9.96 CTDIvol (mGy) MEDICAL HISTORY : Diabetes mellitus type 2. Hepatitis B. Hypertension. SURGICAL HISTORY : None. ENCOUNTER: Initial ACUITY: 3 days PAIN SCALE: 6/10 LOCATION: Bilateral lower quadrant TECHNIQUE: Volumetric scanning of the abdomen and pelvis was performed. Using automated exposure control and ad justment of the mA and/or kV according to patient size, radiation dose was kept as low as reasonably achievable to obtain optimal diagnostic quality images. FINDINGS: The lung base is are clear. There are moderate coronary calcification is noted without pericardial effusion. The liver is free of focal defects. Trace ascites is noted around the liver. The spleen, pancreas and adrenal glands are unremarkable Small cyst is seen in the right kidney The left kidney is unremarkable There is no adenopathy appreciated The large amount of solid stool is seen in the descending colon In the pelvis there is no intra-diverticulitis. There is inguinal hernia on the left this does not a ppear to be incarcerated, containing both large and small bowel. There does not appear to be obstruc tion associated with this. There is enlarged cystic component measuring 7 cm associated with this. I am not sure what this is bowel or hydrocele. that contains both large and small bowel There are no inflammatory changes evident CONCLUSION: Large hernia on the right without obvious incarceration however there is a cystic component with infl ammatory changes evident. No other etiology of abdominal pain is noted. Correlation is suggested. Omero Conner MD FACR on December 09, 2016 at 15:24 Board Certified Radiologist. This report was verified electronically.
[2016-12-09 17:23] VITALS: BP 136/63; PULSE 66; RESP 18; TEMP 97.6; O2SAT 96
[2016-12-09 19:19] LABS: BLOOD, URINE TRACE (NEG); COMMENT (UR) CULT NOT INDICATED; CULTURE IF INDICATED CULT NOT INDICATED; GLUCOSE,URINE NEG (NEG); KETONE, URINE NEG (NEG); MUCUS URINE FEW /lpf (OCC); NITRITE,URINE NEG (NEG); SQUAMOUS EPITHELIAL CELL URINE <1 /hpf (0-5); URINE COLOR YELLOW (YELLW/STRAW)
[2016-12-09] MEDS: REMOVE OLD NICOTINE PATCH T-DERMAL SCH (21:00)
[2016-12-09] MEDS: DIVALPROEX SODIUM E.R. 500 MG TAB PO SCH (21:59)
[2016-12-10] MEDS: ACETAMINOPHEN 325 MG TAB PO PRN (04:32)
[2016-12-10 06:38] VITALS: BP 132/64; PULSE 65; RESP 20; TEMP 97.7; O2SAT 95
[2016-12-10] MEDS: NICOTINE 21 MG/24 HR PATCH T-DERMAL SCH (08:51)
[2016-12-10] MEDS: ARIPiprazole 10 MG TAB PO SCH (08:51)
[2016-12-10] MEDS: levOCARNitine 10% ORAL SOLN 118 ML BTL PO SCH ×3 (08:51→17:35)
--- NOTE | 2016-12-10 11:49 | HHI.PYPN ---
Subjective Remarks Pt seen and discussed with staff. He remains disorganized and delusional. He again refuses interview with MD stating that he does not talk to doctors and instead talks about cranberry juice. He exhibits bizarre mannerisms. However, he is compliant with medications and is less agitated today. Objective Alert: Yes [place]: Person Mood: Other (irritable) Affect: Labile Memory Intact: Comment (Not able to assess at present) Hallucinations: Auditory (appears internally stimulated) Delusions: No Delusion Type: Other (Remains difficult to assess under thought disorganization ) Suicidal: Ideation (No SI voiced) Homicidal: Ideation (No HI voiced) Insight/Judgment poor Labs Test 12/09/16 18:18 Urine Color YELLOW Urine Turbidity CLEAR Urine pH 7.0 Urine Specific [place] 1.034 Urine Protein NEG mg/dL Urine Glucose (UA) NEG mg/dL Urine Ketones NEG mg/dL Urine Occult Blood TRACE Urine Nitrite NEG Urine Bilirubin NEG Urine Urobilinogen LESS THAN 2.0 MG/DL Urine Leukocyte Esterase NEG Urine RBC LESS THAN 1 /hpf Urine WBC LESS THAN 1 /hpf Urine Squamous Epithelial <1 /hpf Cells Urine Mucus FEW /lpf Microscopic Urinalysis Comment CULT NOT INDICATED Vitals/IOs Vital Signs Date Time Temp Pulse Resp B/P Pulse Ox O2 Delivery O2 Flow Rate FiO2 12/10/16 06:38 97.7 65 20 132/64 95 Assessment & Plan Problem List: (1) Schizophrenia ICD Code: F20.9 Assessment & Plan Titrate Abilify to 15mg PO Qdaily. Continue hospitalization Estimated LOS: days Justification for Cont. Inpt. florid psychosis and self neglect Request HC Surrog/Guard Advoc?: Yes Problem Qualifiers (1) Schizophrenia: Qualified Code: F20.1 - Disorganized schizophrenia Claudette Vivas MD December 10, 2016 11:49
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
[2016-12-10 18:17] VITALS: BP 121/67; PULSE 63; TEMP 97.6; O2SAT 96
[2016-12-10] MEDS: REMOVE OLD NICOTINE PATCH T-DERMAL SCH (21:00)
[2016-12-10] MEDS: DIVALPROEX SODIUM E.R. 500 MG TAB PO SCH (21:47)
[2016-12-10] MEDS: LORazepam 0.5 MG TAB PO PRN (22:26)
[2016-12-11 05:51] VITALS: BP 127/60; PULSE 55; RESP 16; TEMP 97.4; O2SAT 99
[2016-12-11] MEDS: NICOTINE 21 MG/24 HR PATCH T-DERMAL SCH (08:52)
[2016-12-11] MEDS: ARIPiprazole 15 MG TAB PO SCH ×2 (08:53→09:00)
[2016-12-11] MEDS: levOCARNitine 10% ORAL SOLN 118 ML BTL PO SCH ×3 (08:53→18:00)
--- NOTE | 2016-12-11 10:10 | HHI.PYPN ---
Subjective Remarks Patient seen and examined with counselor and nurse. Chart reviewed. Case discussed with nursing staff who reports that the patient remains quite disorganized and internally preoccupied. On my examination today, I find the patient pacing the halls. He does indeed remain frankly internally stimulated. He reports, "Why not depart? Up, down. In the morning." Thought process remains quite disorganized. Speech rambling. Unable to tolerate extended interview and storms off, muttering to himself. No evident side effects from medications. Review of Systems ROS Limitations: Psychotic, Poor Historian Except as stated in HPI: all other systems reviewed are Neg (ROS limited by above) Objective Alert: Yes [place]: Person Mood: Other (remains irritable, somewhat oppositional) Affect: Labile Memory Intact: Comment (Unable to assess) Hallucinations: Auditory (remains internally stimulated) Delusions: No Delusion Type: Other (thought content remains difficult to assess because of degree of thought disorganization) Suicidal: Ideation (No SI voiced) Homicidal: Ideation (No HI voiced) Insight/Judgment Poor Remarks No motor abnormalities noted. Speech rambling. Grooming and hygiene poor. Thought process disorganized. Labs Labs reviewed. No new labs. Vitals/IOs Vital Signs Date Time Temp Pulse Resp B/P Pulse Ox O2 Delivery O2 Flow Rate FiO2 12/11/16 05:51 97.4 55 16 127/60 99 Assessment & Plan Problem List: (1) Schizophrenia ICD Code: F20.9 Assessment & Plan Inadequate response to therapy with respect to his psychosis. Titrate Abilify to 20 mg daily with plans for further titration. Titrate corresponding Haldol IM backup. Hospitalist and general surgery input appreciated. Continue to monitor on the inpatient unit. Continue other medications and care as ordered. Justification for Cont. Inpt. Impairment in reality construction. Impairment in self-care. Medication changes in process. High risk for decompensation in a less restrictive environment. Discharge Planning Pending psychiatric stabilization. Request HC Surrog/Guard Advoc?: Yes Problem Qualifiers (1) Schizophrenia: Qualified Code: F20.1 - Disorganized schizophrenia Tyrel Yap MD December 11, 2016 10:10
[2016-12-11] MEDS: LORazepam 0.5 MG TAB PO PRN (12:39)
[2016-12-11] MEDS ORDERED: HALOPERIDOL LACTATE 5 MG/ML AMP IM PRN (16:15)
[2016-12-11 17:12] VITALS: BP 130/63; PULSE 60; RESP 18; TEMP 98.6; O2SAT 96
[2016-12-11] MEDS: ACETAMINOPHEN 325 MG TAB PO PRN (18:18)
[2016-12-11] MEDS: DIVALPROEX SODIUM E.R. 500 MG TAB PO SCH (20:03)
[2016-12-11] MEDS: REMOVE OLD NICOTINE PATCH T-DERMAL SCH (21:00)
[2016-12-12] MEDS: ACETAMINOPHEN 325 MG TAB PO PRN ×3 (03:51→21:20)
[2016-12-12] MEDS: LORazepam 0.5 MG TAB PO PRN ×2 (03:51→21:20)
[2016-12-12 06:03] VITALS: BP 135/67; PULSE 82; RESP 18; TEMP 97.9; O2SAT 96
[2016-12-12] MEDS: NICOTINE 21 MG/24 HR PATCH T-DERMAL SCH (09:00)
[2016-12-12] MEDS: levOCARNitine 10% ORAL SOLN 118 ML BTL PO SCH ×3 (10:07→18:00)
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
[2016-12-12] MEDS ORDERED: PILL SPLITTER OTHER PRN (13:00)
--- NOTE | 2016-12-12 14:27 | PD.TTN ---
Present for Treatment Team Treatment Team Staff: Provider (Dr. Yap), Nurse (Vineet Nathan), Psych Therapist (Polo Noguera), Occupational Therapist (Raulito Savage) Patient Problems 1. Discharge planning 2. Medication compliance 3. Knowledge deficit 4. Lack of coping skills Progress Toward Goals Provider Input: Psychiatrist will be working to adjust medication regiment to achieve further stabilization. Nurse Input: Nurse reports that client has been uncooperative, requires redirection, has poor insight, is cooperative with medication regiment, disorganized, incoherent and paranoid. Psych Therapist Input: Client remains largely disorganized, confused and with poor insight. He struggles to remain on topic and speech is fairly unintelligable. Pt remains easily agitated, impulsive and uncooperative. Occupational Therapist Input: Client is not attending groups as he appears unable to tolerate attending groups. Documentation Scribe: KARLI Rodrigues Date Resolved: December 12, 2016 Polo Noguera December 12, 2016 14:27
[2016-12-12 18:25] VITALS: BP 140/70; PULSE 87; RESP 19; TEMP 98.2; O2SAT 97
[2016-12-12] MEDS: REMOVE OLD NICOTINE PATCH T-DERMAL SCH (21:00)
[2016-12-12] MEDS: risperiDONE 1 MG TAB PO SCH ×2 (21:00→21:16)
[2016-12-12] MEDS: DIVALPROEX DR 500 MG TABEC PO SCH (21:15)
[2016-12-13] MEDS: ACETAMINOPHEN 325 MG TAB PO PRN (05:35)
[2016-12-13 06:02] VITALS: BP 130/65; PULSE 55; RESP 17; TEMP 97.5; O2SAT 100
[2016-12-13] MEDS: NICOTINE 21 MG/24 HR PATCH T-DERMAL SCH (09:00)
[2016-12-13] MEDS: risperiDONE 1 MG TAB PO SCH ×3 (09:00→21:00)
[2016-12-13] MEDS: levOCARNitine 10% ORAL SOLN 118 ML BTL PO SCH ×3 (10:07→18:00)
[2016-12-13] MEDS: DIVALPROEX DR 500 MG TABEC PO SCH ×2 (10:07→21:00)
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
[2016-12-13] MEDS ORDERED: HALOPERIDOL LACTATE 5 MG/ML AMP IM PRN (11:30)
[2016-12-13] MEDS: LORazepam 0.5 MG TAB PO PRN (17:03)
[2016-12-13 18:10] VITALS: BP 130/64; PULSE 57; RESP 18; TEMP 98; O2SAT 98
[2016-12-13] MEDS: REMOVE OLD NICOTINE PATCH T-DERMAL SCH (21:00)
[2016-12-14 06:06] VITALS: BP 125/57; PULSE 72; RESP 17; TEMP 98.2; O2SAT 99
[2016-12-14] MEDS: DIVALPROEX DR 500 MG TABEC PO SCH ×2 (08:27→20:23)
[2016-12-14] MEDS: NICOTINE 21 MG/24 HR PATCH T-DERMAL SCH (08:27)
[2016-12-14] MEDS: levOCARNitine 10% ORAL SOLN 118 ML BTL PO SCH ×3 (08:28→17:44)
[2016-12-14] MEDS: ACETAMINOPHEN 325 MG TAB PO PRN ×2 (08:29→15:04)
[2016-12-14] MEDS: risperiDONE 1 MG TAB PO SCH (09:00)
--- NOTE | 2016-12-14 13:12 | HHI.PYPN ---
Subjective Remarks Patient seen and examined with nurse, Kelin. Chart reviewed. Case discussed with nursing staff who reports the patient urinated on the floor of his room, was noted to be peering out of windows and is largely nonsensical. On my examination today, I find the patient staring out the window of his room. He appears to be about to urinate in his room again. He says "I'm trying to take a leak. It's too late now. Go see he." Thought process remains quite disorganized. Grooming and hygiene poor. No evidence side effects from medications. No physical complaints. Review of Systems ROS Limitations: Psychotic, Poor Historian Except as stated in HPI: all other systems reviewed are Neg Objective Alert: Yes [place]: Person Mood: Other (remains somewhat irritable) Affect: Blunted Memory Intact: Comment (difficult to assess because of degree of thought disorganization) Hallucinations: Auditory (remains internally preoccupied) Delusions: No Delusion Type: Other (ongoing possibility of some underlying paranoia) Suicidal: Ideation (no suicidal ideation) Homicidal: Ideation (no homicidal ideation) Insight/Judgment Poor Remarks No motor abnormalities noted. Thought process disorganized. Grooming and hygiene poor. Speech rambling. Labs Test 12/13/16 14:38 Ammonia 54 MCMOL/L Valproic Acid (Depakene) Level 54 MCG/ML Labs reviewed. Hyperammonemia noted. Depakote level at the low end of the therapeutic range. Vitals/IOs Vital Signs Date Time Temp Pulse Resp B/P Pulse Ox O2 Delivery O2 Flow Rate FiO2 12/14/16 06:06 98.2 72 17 125/57 99 Assessment & Plan Problem List: (1) Schizophrenia ICD Code: F20.9 Assessment & Plan Patient had responded well to Haldol previously. I will go ahead and stop Risperdal and change the patient over to Haldol 10 mg twice daily PO/IM. Continue Depakote as ordered; could consider titrating this agent if needed. Continue to monitor on the high acuity unit. Continue other medications and care as ordered. Patient's case was presented to the [facility], and the patient was retained on the unit by the sports activities foul judge. A ADAM guardian was appointed. Justification for Cont. Inpt. Impairment in reality construction. Impairment in self-care. Medication changes in process. High risk for decompensation in a less restrictive environment. Discharge Planning Pending psychiatric stabilization. Request HC Surrog/Guard Advoc?: Yes Problem Qualifiers (1) Schizophrenia: Qualified Code: F20.1 - Disorganized schizophrenia Tyrel Yap MD Dec 14, 2016 13:12
[2016-12-14 15:23] VITALS: BP 149/65; PULSE 81; RESP 16; TEMP 98.4; O2SAT 98
[2016-12-14] MEDS: HALOPERIDOL 10 MG TAB PO SCH (20:23)
[2016-12-14] MEDS: REMOVE OLD NICOTINE PATCH T-DERMAL SCH (21:00)
[2016-12-14] MEDS: LORazepam 0.5 MG TAB PO PRN (23:29)
[2016-12-15] MEDS: ACETAMINOPHEN 325 MG TAB PO PRN ×2 (04:07→21:53)
[2016-12-15 05:51] VITALS: BP 149/63; PULSE 51; RESP 18; TEMP 97.4; O2SAT 96
[2016-12-15] MEDS: HALOPERIDOL 10 MG TAB PO SCH ×4 (09:00→20:44)
[2016-12-15] MEDS: levOCARNitine 10% ORAL SOLN 118 ML BTL PO SCH ×3 (09:00→17:28)
[2016-12-15] MEDS: DIVALPROEX DR 500 MG TABEC PO SCH ×2 (09:24→20:31)
[2016-12-15] MEDS: NICOTINE 21 MG/24 HR PATCH T-DERMAL SCH (09:24)
--- NOTE | 2016-12-15 09:41 | HHI.PYPN ---
Subjective Remarks Patient seen and examined with counselor. Chart reviewed. Case discussed with nursing staff who reports that the patient was up until 5 AM constantly talking. He did subsequently have a period of increased lucidity. Nursing staff does bring to my attention patient's nose lesion, which is chronic but which is somewhat irritated and bleeding today. On my examination today, the patient presents as fairly disorganized. Affect dysphoric. Remains internally preoccupied. No evidence side effects from medications. No physical complaints. Review of Systems ROS Limitations: Psychotic, Poor Historian Except as stated in HPI: all other systems reviewed are Neg Objective Alert: Yes [place]: Person Mood: Other (irritable) Affect: Restricted (dysphoric) Memory Intact: Comment (difficult to assess) Hallucinations: Auditory (internally preoccupied) Delusions: No Delusion Type: Other (difficult to assess) Suicidal: Ideation (no suicidal ideation) Homicidal: Ideation (no homicidal ideation) Insight/Judgment Poor Remarks No motor abnormalities noted. Thought process disorganized. Speech rambling. Grooming and hygiene poor. Labs Labs reviewed. No new labs. Vitals/IOs Vital Signs Date Time Temp Pulse Resp B/P Pulse Ox O2 Delivery O2 Flow Rate FiO2 12/15/16 05:51 97.4 51 18 149/63 96 Intake and Output 12/14/16 12/14/16 12/15/16 08:00 16:00 00:00 Intake Total 480 ml Output Total 500 ml Balance -20 ml Assessment & Plan Problem List: (1) Schizophrenia ICD Code: F20.9 Assessment & Plan Add midday dose of Haldol 10mg PO/IM tomorrow to target patient's ongoing thought disorganization in the setting of his psychotic decompensation. Add Ambien as needed for insomnia. Consult to the wound care nurse for patient's nose lesion. Continue to monitor on the high acuity unit. Continue other medications and care as ordered. Justification for Cont. Inpt. Impairment in reality construction. Impairment in self-care. Medication changes in process. High risk for decompensation in a less restrictive environment. Discharge Planning Pending psychiatric stabilization. Request HC Surrog/Guard Advoc?: Yes Problem Qualifiers (1) Schizophrenia: Qualified Code: F20.1 - Disorganized schizophrenia Tyrel Yap MD Dec 15, 2016 09:41
[2016-12-15] MEDS ORDERED: HALOPERIDOL LACTATE 5 MG/ML AMP ONE (10:17)
[2016-12-15] MEDS: HALOPERIDOL LACTATE 5 MG/ML AMP IM PRN ×2 (10:34→20:45)
[2016-12-15] MEDS ORDERED: HALOPERIDOL 10 MG TAB PO SCH (13:00)
[2016-12-15 15:30] VITALS: BP 120/72; PULSE 56; RESP 18; TEMP 98.7; O2SAT 97
[2016-12-15] MEDS: ZOLPIDEM TARTRATE 5 MG TAB PO PRN (20:31)
[2016-12-15] MEDS: BACITRACIN TOP OINT 15 GM TUBE TOPICAL SCH (21:00)
[2016-12-15] MEDS: REMOVE OLD NICOTINE PATCH T-DERMAL SCH (21:00)
[2016-12-16 06:00] VITALS: BP 104/52; PULSE 55; RESP 18; TEMP 97.5; O2SAT 98
[2016-12-16] MEDS: HALOPERIDOL 10 MG TAB PO SCH ×4 (08:27→20:17)
[2016-12-16] MEDS: DIVALPROEX DR 500 MG TABEC PO SCH ×2 (08:27→20:16)
[2016-12-16] MEDS: levOCARNitine 10% ORAL SOLN 118 ML BTL PO SCH ×3 (08:27→16:50)
[2016-12-16] MEDS: NICOTINE 21 MG/24 HR PATCH T-DERMAL SCH (08:28)
[2016-12-16] MEDS: BACITRACIN TOP OINT 15 GM TUBE TOPICAL SCH ×2 (08:32→20:18)
[2016-12-16] MEDS: HALOPERIDOL LACTATE 5 MG/ML AMP IM PRN ×2 (08:58→12:22)
[2016-12-16] MEDS: ACETAMINOPHEN 325 MG TAB PO PRN ×3 (08:58→20:18)
--- NOTE | 2016-12-16 11:46 | HHI.PYPN ---
Subjective Remarks Pt seen and discussed with staff. He remains disorganized and bizarre. "Supply and demand and you ain't got no demand!" He tells MD and RN that they are highly unattractive and he will not give them the time of day. He dances and exhibits bizarre mannerisms. Staff reports observing him talking to the wall. He refused oral medications and received IM today. Objective Alert: Yes [place]: Person Mood: Other (irritable) Affect: Labile Memory Intact: Comment (difficult to assess due to lack of cooperatation. No gross deficits) Hallucinations: Auditory (internally preoccupied) Delusions: Yes Delusion Type: Other (bizarre) Suicidal: Ideation (no suicidal ideation) Homicidal: Ideation (no homicidal ideation) Insight/Judgment poor Vitals/IOs Vital Signs Date Time Temp Pulse Resp B/P Pulse Ox O2 Delivery O2 Flow Rate FiO2 12/16/16 06:00 97.5 55 18 104/52 98 Intake and Output 12/15/16 12/15/16 12/16/16 08:00 16:00 00:00 Intake Total 1420 ml 820 ml 580 ml Output Total 2100 ml Balance -680 ml 820 ml 580 ml Assessment & Plan Problem List: (1) Schizophrenia ICD Code: F20.9 Assessment & Plan Continue current tx plan. Estimated LOS: days Justification for Cont. Inpt. impairments in reality construction, self care and social functioning Request HC Surrog/Guard Advoc?: Yes Problem Qualifiers (1) Schizophrenia: Qualified Code: F20.1 - Disorganized schizophrenia Claudette Vivas MD Dec 16, 2016 11:46
[2016-12-16 15:20] VITALS: BP 130/83; PULSE 67; RESP 18; TEMP 98.1; O2SAT 97
[2016-12-16] MEDS: ZOLPIDEM TARTRATE 5 MG TAB PO PRN (20:16)
[2016-12-16] MEDS: LORazepam 0.5 MG TAB PO PRN (20:17)
[2016-12-16] MEDS: REMOVE OLD NICOTINE PATCH T-DERMAL SCH (21:00)
[2016-12-17 05:52] VITALS: BP 125/59; PULSE 57; RESP 18; TEMP 98.2; O2SAT 96
[2016-12-17 05:55] VITALS: BP 146/69; PULSE 51; RESP 16; TEMP 98.2; O2SAT 98
[2016-12-17] MEDS: NICOTINE 21 MG/24 HR PATCH T-DERMAL SCH (09:00)
[2016-12-17] MEDS: levOCARNitine 10% ORAL SOLN 118 ML BTL PO SCH ×3 (09:00→17:41)
[2016-12-17] MEDS: HALOPERIDOL 10 MG TAB PO SCH ×3 (09:03→20:06)
[2016-12-17] MEDS: DIVALPROEX DR 500 MG TABEC PO SCH ×2 (09:03→20:06)
[2016-12-17] MEDS: BACITRACIN TOP OINT 15 GM TUBE TOPICAL SCH ×2 (09:04→20:07)
[2016-12-17] MEDS: LORazepam 0.5 MG TAB PO PRN ×2 (09:05→20:06)
--- NOTE | 2016-12-17 13:51 | HHI.PYPN ---
Subjective Remarks Pt seen and discussed with staff. He remains disorganized but has been less agitated. Hygiene is still poor and but he has not been urinating on the floor and pt took his 2nd shower since admission today. He is compliant with medications. Objective Alert: Yes [place]: Person Mood: Other (irritable) Affect: Labile Memory Intact: Comment (difficult to assess due to lack of cooperatation. No gross deficits) Hallucinations: Auditory (internally preoccupied) Delusions: Yes Delusion Type: Other (bizarre) Suicidal: Ideation (no suicidal ideation) Homicidal: Ideation (no homicidal ideation) Insight/Judgment poor Labs Test 12/17/16 09:52 Ammonia 33 MCMOL/L Vitals/IOs Vital Signs Date Time Temp Pulse Resp B/P Pulse Ox O2 Delivery O2 Flow Rate FiO2 12/17/16 05:55 98.2 51 16 146/69 98 Intake and Output 12/16/16 12/16/16 12/17/16 08:00 16:00 00:00 Intake Total 240 ml Balance 240 ml Assessment & Plan Problem List: (1) Schizophrenia ICD Code: F20.9 Assessment & Plan Continue current tx plan. Estimated LOS: days Justification for Cont. Inpt. 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
[2016-12-17 19:23] VITALS: BP 106/58; PULSE 64; TEMP 97.4; O2SAT 100
[2016-12-17] MEDS: ZOLPIDEM TARTRATE 5 MG TAB PO PRN (20:06)
[2016-12-17] MEDS: ACETAMINOPHEN 325 MG TAB PO PRN (20:06)
[2016-12-17] MEDS: REMOVE OLD NICOTINE PATCH T-DERMAL SCH (20:08)
[2016-12-18] MEDS: BENZTROPINE MESYLATE 1 MG TAB PO PRN ×2 (05:09→05:11)
[2016-12-18 05:49] VITALS: BP 121/60; PULSE 54; RESP 18; TEMP 96.6; O2SAT 96
[2016-12-18] MEDS: HALOPERIDOL 10 MG TAB PO SCH ×5 (08:44→20:14)
[2016-12-18] MEDS: ACETAMINOPHEN 325 MG TAB PO PRN ×2 (08:44→17:59)
[2016-12-18] MEDS: DIVALPROEX DR 500 MG TABEC PO SCH (08:44)
[2016-12-18] MEDS: BACITRACIN TOP OINT 15 GM TUBE TOPICAL SCH ×2 (08:45→20:15)
[2016-12-18] MEDS: levOCARNitine 10% ORAL SOLN 118 ML BTL PO SCH ×3 (08:45→17:32)
[2016-12-18] MEDS: NICOTINE 21 MG/24 HR PATCH T-DERMAL SCH (08:51)
--- NOTE | 2016-12-18 09:37 | HHI.PYPN ---
Subjective Remarks Patient seen and examined with counselor and nurse. Chart reviewed. Case discussed with nursing staff who reports that the patient required IM Haldol this morning because he refused Haldol by mouth. He remains incontinent at times. He also reportedly has poor sleep. On my examination today, the patient is perhaps slightly more organized than before the weekend, and we did titrate his Haldol over the weekend. He is fairly irritable and refuses physical exam. He is fixated on obtaining Artane. He says "I told you I need [place]! [sic, I clarify that he means Artane, which he has asked for before]" He says, "I need to see a physician. 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 " Denies side effects from medications. No physical complaints. Review of Systems ROS Limitations: Uncooperative, Psychotic, Poor Historian Except as stated in HPI: all other systems reviewed are Neg Objective Alert: Yes [place]: Person Mood: Oppositional Affect: Other (irritable) Memory Intact: Comment (Not assessed) Hallucinations: Auditory (remains int stim) Delusions: Yes Delusion Type: Paranoid Suicidal: Ideation (No SI) Homicidal: Ideation (No HI) Insight/Judgment Poor Remarks No motor abnormality noted although the patient does refuse physical exam. Thought process disorganized. Grooming and hygiene poor. Labs Test 12/17/16 09:52 Ammonia 33 MCMOL/L Labs reviewed. I note interval improvement in patient's hyperammonemia. Vitals/IOs Vital Signs Date Time Temp Pulse Resp B/P Pulse Ox O2 Delivery O2 Flow Rate FiO2 12/18/16 05:49 96.6 54 18 121/60 96 Intake and Output 12/17/16 12/17/16 12/18/16 08:00 16:00 00:00 Intake Total 320 ml 720 ml Balance 320 ml 720 ml Assessment & Plan Problem List: (1) Schizophrenia ICD Code: F20.9 Assessment & Plan Titrate Depakote to 750 mg twice daily to target irritability. Plan to check a Depakote and ammonia level and of the week. Continue Haldol as ordered: 10mg TID, PO/IM backup. I will check an EKG for QTc if patient will allow before titrating this agent further to target psychosis. I will start Artane 2mg BID. Titrate Ambien to 10 mg at bedtime as needed for sleep. Continue to monitor on the high acuity unit. Continue other medications and care as ordered. Justification for Cont. Inpt. Impairment in self-care. Impairment in reality construction. Impairment in social functioning. Medication changes in process. High risk for decompensation in a less restrictive environment. Discharge Planning Pending psychiatric stabilization. 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
[2016-12-18] MEDS: HALOPERIDOL LACTATE 5 MG/ML AMP IM PRN ×2 (09:46→13:22)
[2016-12-18] MEDS: TRIHEXYPHENIDYL HCL 2 MG TAB PO SCH ×2 (09:47→20:14)
[2016-12-18] MEDS: LORazepam 0.5 MG TAB PO PRN (17:59)
[2016-12-18 18:26] VITALS: BP 131/80; PULSE 69; RESP 18; TEMP 98.2; O2SAT 96
[2016-12-18] MEDS: DIVALPROEX SODIUM DELAYED RELEASE 250 MG TAB PO SCH (20:14)
[2016-12-18] MEDS: REMOVE OLD NICOTINE PATCH T-DERMAL SCH (20:15)
[2016-12-19] MEDS: ACETAMINOPHEN 325 MG TAB PO PRN ×3 (03:30→19:57)
[2016-12-19] MEDS: LORazepam 0.5 MG TAB PO PRN (05:03)
[2016-12-19 05:57] VITALS: BP 115/57; PULSE 53; RESP 18; TEMP 97.5
[2016-12-19] MEDS: BACITRACIN TOP OINT 15 GM TUBE TOPICAL SCH ×2 (08:29→20:19)
[2016-12-19] MEDS: NICOTINE 21 MG/24 HR PATCH T-DERMAL SCH (08:29)
[2016-12-19] MEDS: REMOVE OLD NICOTINE PATCH T-DERMAL SCH (08:29)
[2016-12-19] MEDS: levOCARNitine 10% ORAL SOLN 118 ML BTL PO SCH ×3 (08:30→17:15)
[2016-12-19] MEDS: HALOPERIDOL 10 MG TAB PO SCH ×4 (08:30→20:19)
[2016-12-19] MEDS: TRIHEXYPHENIDYL HCL 2 MG TAB PO SCH ×2 (08:30→20:19)
[2016-12-19] MEDS: DIVALPROEX SODIUM DELAYED RELEASE 250 MG TAB PO SCH ×2 (08:30→20:19)
--- NOTE | 2016-12-19 09:26 | HHI.PYPN ---
Subjective Remarks Patient seen and examined. Chart reviewed. Case discussed in treatment team with counselor, nurse and occupational therapist. Per nursing staff, the patient did accept oral Haldol today. He slept about 4 hours overnight. Nursing staff does request in order to bathe the patient as he is neglecting hygiene. On my examination today, the patient does seem marginally more organized. He is able to engage in a brief but somewhat relevant conversation regarding medications. He remains internally preoccupied and concludes the interview by simply wandering away. No evident side effects from medications. No physical complaints. Review of Systems ROS Limitations: Psychotic, Poor Historian Except as stated in HPI: all other systems reviewed are Neg Objective Alert: Yes [place]: Person Mood: Calm Affect: Flat Memory Intact: Comment (Not assessed) Hallucinations: Auditory (remains internally preoccupied) Delusions: No Delusion Type: Other (no dinorah delusional material) Suicidal: Ideation (No SI) Homicidal: Ideation (No HI) Insight/Judgment Poor Remarks No abnormal motor movements noted. No hand tremor, no dystonia, no dyskinesia. Thought process perhaps slightly less disorganized. Speech remains fairly rambling. Grooming and hygiene poor. Labs Labs reviewed. EKG reviewed. I note this reveals sinus bradycardia with a QTc of 417 ms. Vitals/IOs Vital Signs Date Time Temp Pulse Resp B/P Pulse Ox O2 Delivery O2 Flow Rate FiO2 12/19/16 05:57 97.5 53 18 115/57 12/18/16 18:26 96 Intake and Output 12/18/16 12/18/16 12/19/16 08:00 16:00 00:00 Intake Total 1400 ml Balance 1400 ml Assessment & Plan Problem List: (1) Schizophrenia ICD Code: F20.9 Assessment & Plan Modest response to Haldol 30 mg total daily dose, but this is the best response of all the antipsychotics we have seen so far this admission. Since the QTc is within normal limits and the patient seems to be tolerating Haldol well otherwise, I will titrate Haldol to 10 mg 4 times daily by mouth with IM backup. Continue Depakote as ordered. Depakote level ordered for the end of the week. Continue to monitor on the high acuity unit. I have placed in order to bathe the patient. Continue other medications and care as ordered. Justification for Cont. Inpt. Impairment in self-care. Impairment in reality construction. Medication changes in process. High risk for decompensation in a less restrictive environment. Discharge Planning Return to [facility] once psychiatrically stable. Request HC Surrog/Guard Advoc?: Yes Problem Qualifiers (1) Schizophrenia: Qualified Code: F20.1 - Disorganized schizophrenia Tyrel Yap MD Dec 19, 2016 09:26
--- NOTE | 2016-12-19 15:14 | PD.TTN ---
Present for Treatment Team Treatment Team Staff: Provider (Dr. Yap), Nurse (Kelin Wilcox RN), Psych Therapist (KARLI Rodrigues), Occupational Therapist (RAJIV Crawford) Patient Problems 1. Discharge planning 2. Medication compliance 3. Knowledge deficit 4. Lack of coping skills Progress Toward Goals Provider Input: Medication regiment will be adjusted to assist with further stabilization. Nurse Input: Pt remains easily agitated, disorganized, bizarre, is resistant to ADLs, is not sleeping well but has increased compliance with medication. Psych Therapist Input: Pt continues to appear easily agitated, paranoid, to be responding to internal stimuli, disorganized and with poor coping skills. Pt presents with limited insight into condition and need for care. Pt is likely to return to [facility] after discahrge. Occupational Therapist Input: Pt is not attending group as he is not able to tolerate at this time. Documentation Scribe: KARLI Rodrigues Date Resolved: Dec 19, 2016 Polo Noguera Dec 19, 2016 15:14
[2016-12-19] MEDS ORDERED: HALOPERIDOL LACTATE 5 MG/ML AMP IM PRN (18:00)
--- NOTE | 2016-12-19 21:55 | EKG ---
Date Performed: 12/18/2016 Time Performed: 22:52:10 PTAGE: 66 years EKG: SINUS BRADYCARDIA POSSIBLE RIGHT VENTRICULAR CONDUCTION DELAY Since previous tracing, no si gnificant change noted BORDERLINE ECG PREVIOUS TRACING : 10/21/2016 10.19 DOCTOR: Duong Moses Interpretating Date/Time 12/19/2016 21:53:36
[2016-12-20] MEDS: ACETAMINOPHEN 325 MG TAB PO PRN ×3 (02:02→13:41)
[2016-12-20 06:02] VITALS: BP 108/56; PULSE 45; RESP 16; TEMP 96.6; O2SAT 97
[2016-12-20] MEDS: NICOTINE 21 MG/24 HR PATCH T-DERMAL SCH (09:11)
[2016-12-20] MEDS: HALOPERIDOL 10 MG TAB PO SCH ×4 (09:12→20:19)
[2016-12-20] MEDS: DIVALPROEX SODIUM DELAYED RELEASE 250 MG TAB PO SCH ×2 (09:12→20:20)
[2016-12-20] MEDS: levOCARNitine 10% ORAL SOLN 118 ML BTL PO SCH ×3 (09:12→18:20)
[2016-12-20] MEDS: TRIHEXYPHENIDYL HCL 2 MG TAB PO SCH ×2 (09:12→20:19)
[2016-12-20] MEDS: BACITRACIN TOP OINT 15 GM TUBE TOPICAL SCH ×2 (09:12→20:20)
--- NOTE | 2016-12-20 09:55 | HHI.PYPN ---
Subjective Remarks Patient seen and examined with counselor and nurse. Chart reviewed. Case discussed with nursing staff reports that the patient is more or less unchanged. He refused his Ambien last night, slept poorly and urinated all over his room. On my examination today, the patient is standing in the hallway. He sees me coming and says "leave me alone, you charlatan, you shyster !" Seeing the nurse he rambles, "she's perfectly willing to dispense to me but is not willing." He remains disorganized and paranoid. He tells me, "the LEONARDO, FBI, they're all going to ." No side effects from medications. No physical complaints. Review of Systems ROS Limitations: Psychotic, Poor Historian Except as stated in HPI: all other systems reviewed are Neg Objective Alert: Yes [place]: Person Mood: Agitated Affect: Blunted Memory Intact: Comment (Not assessed) Hallucinations: Auditory (internally stimulated) Delusions: Yes Delusion Type: Paranoid Suicidal: Ideation (No SI) Homicidal: Ideation (No HI) Insight/Judgment Poor Remarks Thought process disorganized. Speech rambling. Grooming and hygiene poor. Refuses physical exam but no obvious motor abnormalities noted. Labs Labs reviewed. Vitals/IOs Vital Signs Date Time Temp Pulse Resp B/P Pulse Ox O2 Delivery O2 Flow Rate FiO2 12/20/16 06:02 96.6 45 16 108/56 97 Assessment & Plan Problem List: (1) Schizophrenia ICD Code: F20.9 Assessment & Plan Patient does not seem to be deriving much benefit from this robust dose of Haldol, 40 mg total daily dose. I will continue this dose for another day or perhaps to but then at that point we may need to consider alternative therapy once again. I am loath to titrate the dose of the Haldol higher even though his intervals are okay as he does seem to be experiencing more bradycardia as the dose of this medication is increased. Continue the Depakote as ordered. Plan to check a level at the end of the week. Continue to monitor on the high acuity unit. Continue other medications and care as ordered. Justification for Cont. Inpt. Impairment in self-care. Impairment in reality construction. High risk for decompensation in a less restrictive environment. Discharge Planning Pending psychiatric stabilization. We may need to seriously consider initiating a state psychiatric Hospital referral as patient's case seems more resistant this time than during his previous psychiatric admission. Request HC Surrog/Guard Advoc?: Yes Problem Qualifiers (1) Schizophrenia: Qualified Code: F20.1 - Disorganized schizophrenia Tyrel Yap MD Dec 20, 2016 09:55
[2016-12-20 18:10] VITALS: BP 122/60; PULSE 59; RESP 16; TEMP 98.3; O2SAT 98
[2016-12-20] MEDS: REMOVE OLD NICOTINE PATCH T-DERMAL SCH (20:39)
[2016-12-21] MEDS: ACETAMINOPHEN 325 MG TAB PO PRN ×2 (05:20→15:59)
[2016-12-21 06:06] VITALS: BP 117/87; PULSE 62; RESP 16; TEMP 98.5; O2SAT 96
[2016-12-21] MEDS: NICOTINE 21 MG/24 HR PATCH T-DERMAL SCH (09:00)
[2016-12-21] MEDS: levOCARNitine 10% ORAL SOLN 118 ML BTL PO SCH ×3 (09:00→18:00)
[2016-12-21] MEDS: BACITRACIN TOP OINT 15 GM TUBE TOPICAL SCH ×2 (09:00→20:38)
[2016-12-21] MEDS: DIVALPROEX SODIUM DELAYED RELEASE 250 MG TAB PO SCH ×2 (09:30→20:38)
[2016-12-21] MEDS: TRIHEXYPHENIDYL HCL 2 MG TAB PO SCH ×2 (09:30→20:37)
[2016-12-21] MEDS: HALOPERIDOL 10 MG TAB PO SCH ×5 (09:30→21:00)
[2016-12-21] MEDS: LORazepam 0.5 MG TAB PO PRN (09:33)
--- NOTE | 2016-12-21 09:50 | HHI.PYPN ---
Subjective Remarks Patient seen and examined with nurse. Chart reviewed. Case discussed with nursing staff reports that the patient's speech is perhaps a little bit clearer. On my examination today, the patient is affecting a [place]ron[place] accent. He says, "I need Lithobid. I don't care how much sugar. I got to have a tablet of Lithobid. [To the nurse:] She hasn't even given me tablet one." Thought process remains disorganized. He remains internally preoccupied. Very mild hand tremor noted. Otherwise no evident side effects. Review of Systems ROS Limitations: Poor Historian Except as stated in HPI: all other systems reviewed are Neg Objective Alert: Yes [place]: Person Mood: Oppositional Affect: Restricted Memory Intact: Comment (Not assessed) Hallucinations: Auditory (internally preoccupied) Delusions: Yes Delusion Type: Paranoid Suicidal: Ideation (No SI) Homicidal: Ideation (No HI) Insight/Judgment Poor Remarks Grooming and hygiene poor. Besides and tremor, no abnormal motor movements noted. Thought process disorganized. Speech rambling and speaking with a [place]ron[place] accent today. Labs Labs reviewed. Vitals/IOs Vital Signs Date Time Temp Pulse Resp B/P Pulse Ox O2 Delivery O2 Flow Rate FiO2 12/21/16 06:06 98.5 62 16 117/87 96 Assessment & Plan Problem List: (1) Schizophrenia ICD Code: F20.9 Assessment & Plan Increase Artane to 2 mg 3 times daily to manage hand tremor. Bradycardia improved today. If this improvement persists, could consider further titration of patient's Haldol. Continue Depakote as ordered, and a Depakote level is ordered for tomorrow. Continue to monitor on the high acuity unit. Continue other medications and care as ordered. Justification for Cont. Inpt. Impairment in reality construction. Impairment in self-care. Medication changes in process. High risk for decompensation in a less restrictive environment. Discharge Planning I have initiated a [facility] psychiatric hospital referral. Alternative disposition may be considered if the patient can be psychiatrically stabilized on the inpatient unit. Request HC Surrog/Guard Advoc?: Yes Problem Qualifiers (1) Schizophrenia: Qualified Code: F20.1 - Disorganized schizophrenia Tyrel Yap MD Dec 21, 2016 09:50
[2016-12-21 15:55] VITALS: BP 110/56; PULSE 47; RESP 16; TEMP 98.4; O2SAT 97
[2016-12-21] MEDS: REMOVE OLD NICOTINE PATCH T-DERMAL SCH (20:39)
[2016-12-22] MEDS: ACETAMINOPHEN 325 MG TAB PO PRN ×3 (05:04→21:30)
[2016-12-22 06:15] VITALS: BP 102/58; PULSE 55; RESP 18; TEMP 97.4; O2SAT 95
[2016-12-22] MEDS: LORazepam 0.5 MG TAB PO PRN ×2 (07:33→21:30)
[2016-12-22] MEDS: NICOTINE 21 MG/24 HR PATCH T-DERMAL SCH (09:00)
[2016-12-22] MEDS: BACITRACIN TOP OINT 15 GM TUBE TOPICAL SCH ×2 (09:00→21:27)
[2016-12-22] MEDS: levOCARNitine 10% ORAL SOLN 118 ML BTL PO SCH ×3 (09:00→18:00)
[2016-12-22] MEDS: TRIHEXYPHENIDYL HCL 2 MG TAB PO SCH ×3 (09:21→21:26)
[2016-12-22] MEDS: HALOPERIDOL 10 MG TAB PO SCH ×3 (09:21→18:00)
[2016-12-22] MEDS: DIVALPROEX SODIUM DELAYED RELEASE 250 MG TAB PO SCH ×2 (09:22→21:26)
[2016-12-22 09:31] VITALS: BP 112/86; PULSE 71; RESP 18; O2SAT 96
--- NOTE | 2016-12-22 10:28 | HHI.PYPN ---
Subjective Remarks Patient seen and examined with counselor and nurse. Chart reviewed. Case discussed with nursing staff reports that the patient was able to get a shower today. He is noted by nursing staff to be more relevant at times. On my examination today, the patient continues to affect a [place] accent. He tries to close his door on us but in the process almost inadvertently slams his hand in the door but is prevented from doing so by the nursing staff. Wants us to "take away the Epokeen [?Depakene?] and the Haldol." From Epokeen, rambles about Ovaltine for a while. Calls the nurse a "bull dyke." No evident side effects from medications. No physical complaints. Review of Systems ROS Limitations: Psychotic, Poor Historian Except as stated in HPI: all other systems reviewed are Neg Objective Alert: Yes [place]: Person Mood: Oppositional Affect: Blunted Memory Intact: Comment (Not assessed) Hallucinations: Auditory (remains int stim) Delusions: Yes Delusion Type: Paranoid Suicidal: Ideation (No SI) Homicidal: Ideation (No HI) Insight/Judgment Poor Remarks No motor abnormalities noted. TP disorganized. Speech rambling. Labs Test 12/22/16 08:55 Ammonia 29 MCMOL/L Valproic Acid (Depakene) Level 64 MCG/ML Labs reviewed. VPA level within therapeutic range. Ammonia level not elevated. Vitals/IOs Vital Signs Date Time Temp Pulse Resp B/P Pulse Ox O2 Delivery O2 Flow Rate FiO2 12/22/16 09:31 71 18 112/86 96 12/22/16 06:15 97.4 Assessment & Plan Problem List: (1) Schizophrenia ICD Code: F20.9 Assessment & Plan Remains quite disorganized despite robust dose of Haldol, which previous was efficacious for him. Looking back at previous med trials, it does not appear patient has tried Zyprexa. I will drop the dose of Haldol to 10mg TID and add Zyprexa 5mg qHS. Might consider treating with 2 antipsychotics as patient seems not to have had adequate response to single agent, or else we might cross- taper. Continue Depakote as ordered. Continue to monitor on the high acuity unit. Continue other medications and care as ordered. Justification for Cont. Inpt. Impairment in reality construction. Impairment in self-care. Impairment in social function. Medication changes in process. High risk for decompensation in a less restrictive environment. Discharge Planning [facility] psychiatric hospital referral Request HC Surrog/Guard Advoc?: Yes Problem Qualifiers (1) Schizophrenia: Qualified Code: F20.1 - Disorganized schizophrenia Tyrel Yap MD Dec 22, 2016 10:28
[2016-12-22] MEDS ORDERED: OLANZapine IM 10 MG VIAL IM PRN (16:00)
[2016-12-22 17:00] VITALS: BP 131/58; PULSE 61; RESP 16; TEMP 98.1; O2SAT 95
[2016-12-22] MEDS: REMOVE OLD NICOTINE PATCH T-DERMAL SCH (21:00)
[2016-12-22] MEDS: OLANZapine ODT 5 MG TAB PO SCH (21:26)
[2016-12-23] MEDS: ACETAMINOPHEN 325 MG TAB PO PRN ×4 (03:58→15:08)
[2016-12-23 06:06] VITALS: BP 96/50; PULSE 61; RESP 18; TEMP 97.6; O2SAT 97
[2016-12-23] MEDS: TRIHEXYPHENIDYL HCL 2 MG TAB PO SCH ×3 (08:49→21:02)
[2016-12-23] MEDS: HALOPERIDOL 10 MG TAB PO SCH ×4 (08:50→17:46)
[2016-12-23] MEDS: DIVALPROEX SODIUM DELAYED RELEASE 250 MG TAB PO SCH ×2 (08:50→21:03)
[2016-12-23] MEDS: levOCARNitine 10% ORAL SOLN 118 ML BTL PO SCH ×3 (08:54→17:46)
[2016-12-23] MEDS: NICOTINE 21 MG/24 HR PATCH T-DERMAL SCH (08:55)
[2016-12-23] MEDS: BACITRACIN TOP OINT 15 GM TUBE TOPICAL SCH ×2 (09:00→21:03)
[2016-12-23] MEDS: HALOPERIDOL LACTATE 5 MG/ML AMP IM PRN ×2 (09:40→13:51)
--- NOTE | 2016-12-23 16:43 | HHI.PYPN ---
Subjective Remarks Patient was seen and case discussed with nursing. Patient is oppositional during the interview refusing to remove his sheet from his head while laying in bed. Thought process is loose, disorganized, and difficult to understand. Continues to refuse medical care per nursing. Patient has been irritable at times refuses by mouth Haldol because it is green in color. Objective Alert: Yes [place]: Person Mood: Oppositional Affect: Flat Memory Intact: Comment (Not assessed) Hallucinations: Auditory (remains int stim) Delusions: Yes Delusion Type: Paranoid Suicidal: Ideation (No SI) Homicidal: Ideation (No HI) Insight/Judgment Poor Vitals/IOs Vital Signs Date Time Temp Pulse Resp B/P Pulse Ox O2 Delivery O2 Flow Rate FiO2 12/23/16 08:56 18 12/23/16 06:06 97.6 61 96/50 97 Assessment & Plan Problem List: (1) Schizophrenia ICD Code: F20.9 Assessment & Plan Continue current treatment plan Justification for Cont. Inpt. Patient will decompensate in a less restrictive setting Request HC Surrog/Guard Advoc?: Yes Problem Qualifiers (1) Schizophrenia: Qualified Code: F20.1 - Disorganized schizophrenia Linus Webb DO Dec 23, 2016 16:43
[2016-12-23 17:00] VITALS: BP 114/57; PULSE 62; RESP 18; TEMP 97.5; O2SAT 96
[2016-12-23] MEDS: REMOVE OLD NICOTINE PATCH T-DERMAL SCH (21:00)
[2016-12-23] MEDS: OLANZapine ODT 5 MG TAB PO SCH (21:03)
[2016-12-24] MEDS: ACETAMINOPHEN 325 MG TAB PO PRN ×2 (05:02→17:26)
[2016-12-24 05:54] VITALS: BP 160/68; PULSE 50; RESP 18; TEMP 98; O2SAT 95
[2016-12-24] MEDS: NICOTINE 21 MG/24 HR PATCH T-DERMAL SCH (09:00)
[2016-12-24] MEDS: BACITRACIN TOP OINT 15 GM TUBE TOPICAL SCH ×2 (09:03→21:00)
[2016-12-24] MEDS: HALOPERIDOL 10 MG TAB PO SCH ×3 (09:04→17:25)
[2016-12-24] MEDS: TRIHEXYPHENIDYL HCL 2 MG TAB PO SCH ×3 (09:04→21:00)
[2016-12-24] MEDS: DIVALPROEX SODIUM DELAYED RELEASE 250 MG TAB PO SCH ×2 (09:04→21:00)
[2016-12-24] MEDS: levOCARNitine 10% ORAL SOLN 118 ML BTL PO SCH ×3 (09:04→17:25)
--- NOTE | 2016-12-24 16:36 | HHI.PYPN ---
Subjective Remarks Patient was seen and case discussed with nursing. Patient remains oppositional largely nonsensical. Not agitated per nursing. Behaving well on the unit. Religiously preoccupied. Continues to have poor insight into his need for medical care. Compliant with medications Objective Alert: Yes [place]: Person Mood: Oppositional Affect: Flat Memory Intact: Comment (Not assessed) Hallucinations: Auditory (remains int stim) Delusions: Yes Delusion Type: Paranoid Suicidal: Ideation (No SI) Homicidal: Ideation (No HI) Insight/Judgment Poor Vitals/IOs Vital Signs Date Time Temp Pulse Resp B/P Pulse Ox O2 Delivery O2 Flow Rate FiO2 12/24/16 05:54 98.0 50 18 160/68 95 Assessment & Plan Problem List: (1) Schizophrenia ICD Code: F20.9 Assessment & Plan Continue current treatment plan Justification for Cont. Inpt. Patient will decompensate in a less restrictive setting Request HC Surrog/Guard Advoc?: Yes Problem Qualifiers (1) Schizophrenia: Qualified Code: F20.1 - Disorganized schizophrenia Linus Webb DO Dec 24, 2016 16:36
[2016-12-24 19:46] VITALS: BP 119/64; PULSE 68; RESP 18; TEMP 98; O2SAT 98
[2016-12-24] MEDS: REMOVE OLD NICOTINE PATCH T-DERMAL SCH (21:00)
[2016-12-24] MEDS: OLANZapine ODT 5 MG TAB PO SCH (21:00)
[2016-12-24] MEDS: ZOLPIDEM TARTRATE 5 MG TAB PO PRN (21:24)
[2016-12-25 05:43] VITALS: BP 133/70; PULSE 56; RESP 18; TEMP 97.4; O2SAT 98
[2016-12-25] MEDS: ACETAMINOPHEN 325 MG TAB PO PRN ×2 (07:28→20:51)
[2016-12-25] MEDS: levOCARNitine 10% ORAL SOLN 118 ML BTL PO SCH ×3 (08:52→17:51)
[2016-12-25] MEDS: HALOPERIDOL 10 MG TAB PO SCH ×3 (08:53→18:00)
[2016-12-25] MEDS: TRIHEXYPHENIDYL HCL 2 MG TAB PO SCH ×3 (08:53→20:49)
[2016-12-25] MEDS: NICOTINE 21 MG/24 HR PATCH T-DERMAL SCH (08:53)
[2016-12-25] MEDS: DIVALPROEX SODIUM DELAYED RELEASE 250 MG TAB PO SCH ×2 (08:53→20:49)
[2016-12-25] MEDS: BACITRACIN TOP OINT 15 GM TUBE TOPICAL SCH ×2 (08:57→20:52)
--- NOTE | 2016-12-25 11:20 | HHI.PYPN ---
Subjective Remarks Patient seen and examined with counselor and nurse. Chart reviewed. Case discussed with nursing staff reports the patient remains largely nonsensical and disorganized. On my examination today, the patient indeed does present as fairly disorganized. No discernible benefit so far from addition of Zyprexa to his existing Haldol/Depakote regimen. Remains irritable with poor frustration tolerance. Remains internally preoccupied. Continues to refuse physical examination. No evident side effects from medications. No new physical complaints. Review of Systems ROS Limitations: Psychotic, Poor Historian Except as stated in HPI: all other systems reviewed are Neg Objective Alert: Yes [place]: Person Mood: Oppositional Affect: Restricted (dysphoric irritable) Memory Intact: Comment (Not assessed) Hallucinations: Auditory (internally preoccupied) Delusions: Yes Delusion Type: Paranoid Suicidal: Ideation (No SI) Homicidal: Ideation (No HI) Insight/Judgment Poor Remarks No motor abnormalities noted that the patient does refuse physical exam. Speech rambling. Thought process remains disorganized. Grooming and hygiene poor. Labs Labs reviewed. Vitals/IOs Vital Signs Date Time Temp Pulse Resp B/P Pulse Ox O2 Delivery O2 Flow Rate FiO2 12/25/16 05:43 97.4 56 18 133/70 98 Intake and Output 12/24/16 12/24/16 12/25/16 08:00 16:00 00:00 Intake Total 100 ml 360 ml Balance 100 ml 360 ml Assessment & Plan Problem List: (1) Schizophrenia ICD Code: F20.9 Assessment & Plan Titrate Zyprexa to 10 mg at bedtime. Continue other psychotropics as ordered. Continue to monitor on the high acuity unit. Continue other medications and care as ordered. Justification for Cont. Inpt. Impairment in self-care. Impairment in reality construction. Medication changes in process. High risk for decompensation in a less restrictive environment. Discharge Planning [facility] Placement might represent an alternative if the patient is able to stabilize adequately for successful placement. Request HC Surrog/Guard Advoc?: Yes Problem Qualifiers (1) Schizophrenia: Qualified Code: F20.1 - Disorganized schizophrenia Tyrel Yap MD Dec 25, 2016 11:20
[2016-12-25] MEDS ORDERED: OLANZapine IM 10 MG VIAL IM PRN (13:00)
[2016-12-25 17:54] VITALS: BP 147/64; PULSE 88; RESP 18; TEMP 98.3; O2SAT 97
[2016-12-25] MEDS: REMOVE OLD NICOTINE PATCH T-DERMAL SCH (20:53)
[2016-12-25] MEDS ORDERED: OLANZapine ODT 10 MG TAB PO SCH (21:00)
[2016-12-25] MEDS: LORazepam 0.5 MG TAB PO PRN (22:18)
[2016-12-26] MEDS: ACETAMINOPHEN 325 MG TAB PO PRN ×4 (02:07→19:46)
[2016-12-26 05:49] VITALS: BP 115/58; PULSE 51; RESP 17; TEMP 98.3; O2SAT 98
[2016-12-26] MEDS: DIVALPROEX SODIUM DELAYED RELEASE 250 MG TAB PO SCH ×2 (08:31→21:26)
[2016-12-26] MEDS: NICOTINE 21 MG/24 HR PATCH T-DERMAL SCH (08:31)
[2016-12-26] MEDS: levOCARNitine 10% ORAL SOLN 118 ML BTL PO SCH ×3 (08:31→18:00)
[2016-12-26] MEDS: TRIHEXYPHENIDYL HCL 2 MG TAB PO SCH ×3 (08:31→21:25)
[2016-12-26] MEDS: HALOPERIDOL 10 MG TAB PO SCH ×3 (08:31→18:15)
[2016-12-26] MEDS: BACITRACIN TOP OINT 15 GM TUBE TOPICAL SCH ×2 (09:00→21:28)
--- NOTE | 2016-12-26 11:36 | HHI.PYPN ---
Subjective Remarks Patient seen and examined with counselor and nurse. Chart reviewed. Case discussed with nurse, counselor and occupational therapist in treatment team. Nurse notes that the patient is somewhat more appropriate and participating in more self-care. On my examination today, the patient remains fairly disorganized. He tells me, "I hear that all the time from comic books. With my hands, that's how I feel." He is irritable and cannot tolerate extended questioning. He remains internally stimulated. He finally dismisses me, saying , "go now, boy, go." No evident side effects from medications. No physical complaints. Review of Systems ROS Limitations: Psychotic, Poor Historian Except as stated in HPI: all other systems reviewed are Neg Objective Alert: Yes [place]: Person Mood: Oppositional Affect: Restricted (irritable and dysphoric) Memory Intact: Comment (Not assessed) Hallucinations: Auditory (remains internally stimulated) Delusions: Yes Delusion Type: Paranoid (ongoing) Suicidal: Ideation (No SI) Homicidal: Ideation (No HI) Insight/Judgment Poor Remarks Thought process disorganized in speech remains rambling. Grooming and hygiene poor although nursing staff does say that he is participating in more self- care. No motoric abnormalities noted. Labs Labs reviewed. Vitals/IOs Vital Signs Date Time Temp Pulse Resp B/P Pulse Ox O2 Delivery O2 Flow Rate FiO2 12/26/16 05:49 98.3 51 17 115/58 98 Assessment & Plan Problem List: (1) Schizophrenia ICD Code: F20.9 Assessment & Plan Continue to titrate Zyprexa to target ongoing psychosis/thought disorganization. I will titrate in smaller increments now given that the patient is already on robust dose of Haldol. Zyprexa 12.5 mg this evening. Continue Haldol, Depakote and Artane as ordered. Continue to monitor on the inpatient unit. Continue other medications and care as ordered. Justification for Cont. Inpt. Impairment in self-care. Impairment in reality construction. Medication changes in process. High risk for decompensation in a less restrictive environment. Discharge Planning Patient has been referred to the [facility], but I remain hopeful that we will be to stabilize his psychiatric condition enough to allow for discharge to assisted living facility, although progress so far has been slow. Request HC Surrog/Guard Advoc?: Yes Problem Qualifiers (1) Schizophrenia: Qualified Code: F20.1 - Disorganized schizophrenia Tyrel Yap MD Dec 26, 2016 11:36
--- NOTE | 2016-12-26 13:50 | PD.TTN ---
Present for Treatment Team Treatment Team Staff: Provider (Dr. Yap), Nurse (Carrol Nathan RN) Patient Problems 1. Discharge planning 2. Medication compliance 3. Knowledge deficit 4. Lack of coping skills Progress Toward Goals Provider Input: Pt has been referred for [facility] but possiblity of placement options should be explored. Nurse Input: Pt appears to show improvement in self care, is medication compliant, presents with less response to internal stimuli, is improving with organization of thoughts and has not had any behavioral outbursts. Psych Therapist Input: Pt continues to appear easily agitated, guarded, disorganized, to be responding to internal stimuli, nonsensical and uncooperative with discussion at times. Occupational Therapist Input: Pt is not attending groups as he appears unable to tolerate at this time. Documentation Scribe: KARLI Rodrigues Date Resolved: Dec 26, 2016 Polo Noguera Dec 26, 2016 13:50
[2016-12-26] MEDS: LORazepam 0.5 MG TAB PO PRN (13:54)
[2016-12-26 18:50] VITALS: BP 100/66; PULSE 83; RESP 17; TEMP 98.5; O2SAT 97
[2016-12-26] MEDS: REMOVE OLD NICOTINE PATCH T-DERMAL SCH (21:00)
[2016-12-26] MEDS ORDERED: OLANZapine 2.5 MG TAB PO SCH (21:00)
[2016-12-26] MEDS ORDERED: OLANZapine ODT 5 MG TAB PO SCH ×2 (21:00)
[2016-12-27] MEDS: ACETAMINOPHEN 325 MG TAB PO PRN ×2 (03:36→20:29)
[2016-12-27 05:59] VITALS: BP 125/57; PULSE 57; RESP 18; TEMP 97.9; O2SAT 98
[2016-12-27] MEDS: NICOTINE 21 MG/24 HR PATCH T-DERMAL SCH (09:00)
[2016-12-27] MEDS: levOCARNitine 10% ORAL SOLN 118 ML BTL PO SCH ×3 (09:00→17:55)
[2016-12-27] MEDS: BACITRACIN TOP OINT 15 GM TUBE TOPICAL SCH ×2 (09:00→20:54)
[2016-12-27] MEDS: TRIHEXYPHENIDYL HCL 2 MG TAB PO SCH ×3 (09:00→20:28)
[2016-12-27] MEDS: DIVALPROEX SODIUM DELAYED RELEASE 250 MG TAB PO SCH ×2 (09:37→20:28)
[2016-12-27] MEDS: HALOPERIDOL 10 MG TAB PO SCH ×3 (09:37→17:55)
--- NOTE | 2016-12-27 10:07 | HHI.PYPN ---
Subjective Remarks Patient seen and examined with counselor and nurse. Chart reviewed. Case discussed with nursing staff who reports that the patient is slowly but steadily improving. Nursing staff notes that the patient is more interactive and initiates more self-care. On my examination today, the patient remains disorganized. He says "I need twice the eep in the morning. The eep-o-cone. The riboflavin. I should get oxypone. I've had that before but my father changed his mind. [place] and arrow. Fuck. [place]." Remains internally preoccupied. No side effects from medications. No physical complaints. Review of Systems ROS Limitations: Psychotic, Poor Historian Except as stated in HPI: all other systems reviewed are Neg Objective Alert: Yes [place]: Person Mood: Oppositional (remains somewhat oppositional) Affect: Restricted Memory Intact: Comment (not formally assessed) Hallucinations: Auditory (internally preoccupied) Delusions: Yes Delusion Type: Paranoid Suicidal: Ideation (No SI) Homicidal: Ideation (No HI) Insight/Judgment Poor Remarks Thought disorganization persists. Grooming and hygiene poor. No motor abnormalities noted. Speech rambling. Labs Labs reviewed. Vitals/IOs Vital Signs Date Time Temp Pulse Resp B/P Pulse Ox O2 Delivery O2 Flow Rate FiO2 12/27/16 05:59 97.9 57 18 125/57 98 Assessment & Plan Problem List: (1) Schizophrenia ICD Code: F20.9 Assessment & Plan Continue slow Zyprexa titration to target ongoing psychosis. Zyprexa 15 mg this evening. Continue Haldol and other medications as ordered. Continue to monitor on the inpatient unit. Continue other medications and care as ordered. Justification for Cont. Inpt. Impairment in reality construction. Medication changes in process. High risk for decompensation in a less restrictive environment. Discharge Planning Hopeful for adequate stabilization for return to facility. [facility] represents an alternative should the patient not achieve adequate stabilization on the inpatient unit. Anticipate patient will require at least another 1-2 weeks of inpatient stabilization given his current presentation. 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
[2016-12-27 18:19] VITALS: BP 110/67; PULSE 57; RESP 18; TEMP 98.4; O2SAT 97
[2016-12-27] MEDS: OLANZapine ODT 15 MG TAB PO SCH (20:29)
[2016-12-27] MEDS: REMOVE OLD NICOTINE PATCH T-DERMAL SCH (20:54)
[2016-12-28] MEDS: ACETAMINOPHEN 325 MG TAB PO PRN ×4 (03:08→21:21)
[2016-12-28 06:12] VITALS: BP 123/65; PULSE 51; RESP 16; TEMP 96.5; O2SAT 98
[2016-12-28] MEDS: levOCARNitine 10% ORAL SOLN 118 ML BTL PO SCH ×3 (09:00→18:00)
[2016-12-28] MEDS: NICOTINE 21 MG/24 HR PATCH T-DERMAL SCH (09:39)
[2016-12-28] MEDS: BACITRACIN TOP OINT 15 GM TUBE TOPICAL SCH ×2 (09:39→21:00)
[2016-12-28] MEDS: HALOPERIDOL 10 MG TAB PO SCH ×3 (09:40→18:44)
[2016-12-28] MEDS: TRIHEXYPHENIDYL HCL 2 MG TAB PO SCH ×3 (09:40→21:17)
[2016-12-28] MEDS: DIVALPROEX SODIUM DELAYED RELEASE 250 MG TAB PO SCH ×2 (09:40→21:17)
--- NOTE | 2016-12-28 11:50 | HHI.PYPN ---
Subjective Remarks Patient seen and examined with nurse. Chart reviewed. Case discussed with nursing staff who reports that patient has been rambling about [place]. On my examination today, the patient remains extremely disorganized. He is standing in the hallway staring into the nursing station at some of the office equipment. He says with a [place] accent "I can't speak today. Apple juice. I went to national. [place]." No evident side effects from medications. No physical complaints, although nursing staff does note that patient has been making liberal use of APAP. Review of Systems ROS Limitations: Psychotic, Poor Historian Except as stated in HPI: all other systems reviewed are Neg Objective Alert: Yes [place]: Person Mood: Oppositional Affect: Flat Memory Intact: Comment (not formally assessed) Hallucinations: Auditory (internally stimulated) Delusions: Yes Delusion Type: Paranoid Suicidal: Ideation (no suicidal ideation) Homicidal: Ideation (no homicidal ideation) Insight/Judgment Poor Remarks No motor abnormalities noted. Grooming and hygiene remained poor. Thought process disorganized. Speech rambling and largely nonsensical. Labs Labs reviewed. Vitals/IOs Vital Signs Date Time Temp Pulse Resp B/P Pulse Ox O2 Delivery O2 Flow Rate FiO2 12/28/16 06:12 96.5 51 16 123/65 98 Assessment & Plan Problem List: (1) Schizophrenia ICD Code: F20.9 Assessment & Plan Continue slow titration of Zyprexa, 17.5 mg this evening. Continue Haldol and Depakote as ordered. I will check an updated set of basic laboratories in the morning. Given the fact that the patient is a poor historian but has been making liberal use of his Tylenol, I will ask the hospitalist to return to reassess the patient. Main concern would be his hernia. Continue to monitor on the inpatient unit. Continue other medications and care as ordered. Justification for Cont. Inpt. Impairment in self-care. Impairment in reality construction. Medication changes in process. High risk for decompensation in a less restrictive environment [facility]charge Planning [facility] versus return to facility if patient stabilizes adequately for safe return. Request HC Surrog/Guard Advoc?: Yes Problem Qualifiers (1) Schizophrenia: Qualified Code: F20.1 - Disorganized schizophrenia Tyrel Yap MD Dec 28, 2016 11:50
[2016-12-28 16:47] VITALS: BP 106/55; PULSE 54; RESP 18; TEMP 99.3; O2SAT 97
--- NOTE | 2016-12-28 17:33 | HHI.PR ---
Subjective Remarks Reconsulted for increase pain in right groin where he has a large inguinal hernia, according to RN patient has been taking a lot of Tylenol and it does not seem to be helping him. Patient is sitting eating dinner. I tried to examine the patient but he was not very corporative. When I asked if he was in pain he just mumbled un comprehensible words. Surgery last saw him on 12/09/16 for the same hernia and stated he was not a surgical candidate due to mental issues and non compliance. Patient was unable to provide any other information at this time. Objective Vitals Vital Signs Date Time Temp Pulse Resp B/P Pulse Ox O2 Delivery O2 Flow Rate FiO2 12/28/16 16:47 99.3 54 18 106/55 97 12/28/16 06:12 96.5 51 16 123/65 98 12/27/16 18:19 98.4 57 18 110/67 97 Objective Remarks Patient wound not let me examine him Medications and IVs Current Medications Medications (Trade) Dose Ordered Sig/Marce Route Start Time Stop Time Status Last Admin (Tylenol) 650 mg Q4H PRN PO 12/05/16 20:30 12/28/16 13:13 (Milk Of Magnesia Liq) 30 ml DAILY PRN PO 12/05/16 20:30 (Mag-Al Plus Susp Liq) 30 ml Q6H PRN PO 12/05/16 20:30 (Habitrol 21 Mg Patch.24 Hr) 1 patch DAILY T-DERMAL 12/06/16 09:00 12/28/16 09:39 Miscellaneous Information 1 HS T-DERMAL 12/05/16 21:00 12/25/16 20:53 (Ativan) 1 mg Q12H PRN PO 12/06/16 20:30 12/26/16 13:54 (Ativan Inj) 1 mg Q12H PRN IM 12/06/16 20:30 (Cogentin) 1 mg Q12HR PRN PO 12/06/16 10:00 (Cogentin Inj) 1 mg Q12HR PRN IM 12/06/16 10:00 (Pill Splitter) 1 ea UNSCH PRN OTHER 12/12/16 13:00 (Carnitor 10% Liq) 6 ml TID PO 12/14/16 18:00 12/28/16 13:00 (Baciguent Oint) 1 applic Q12HR TOPICAL 12/15/16 21:00 12/28/16 09:39 (Depakote Dr) 750 mg BID PO 12/18/16 21:00 12/28/16 09:40 (Ambien) 10 mg HS PRN PO 12/18/16 13:00 12/24/16 21:24 (Artane) 2 mg DAILY@,, PO 12/21/16 21:00 12/28/16 13:13 (Haldol) 10 mg TID PO 12/22/16 18:00 12/28/16 13:13 (Haldol Inj) 10 mg TID PRN IM 12/22/16 18:00 12/23/16 13:51 (ZyPREXA INJ) 10 mg HS PRN IM 12/25/16 13:00 (ZyPREXA ZYDIS ODT) 15 mg HS PO 12/27/16 21:00 12/27/16 20:29 (ZyPREXA) 2.5 mg HS PO 12/28/16 21:00 A/P Problem List: (1) Schizophrenia ICD Code: F20.9 Status: Chronic (2) Inguinal hernia ICD Code: K40.90 Status: Acute Assessment and Plan 66-year-old male with a past medical history of schizophrenia, hypertension, Parkinson's and hepatitis B he was admitted to the psychiatric unit under [place] [facility] due to becoming aggressive with another resident and refusing his medication. Hospitalist services were consulted for specifically increased pain from inguinal hernia. Disorganized schizophrenia -Management per psychiatric team HTN, chronic, stable -Cont to monitor Groin mass, Due to large chronic left inguinal hernia -Was seen by surgery and was told he was not a candidate for surgery due to mental issues and non compliance -Will start [place] 5/325 Q4hr PRN for better pain management before reconsulting surgery, adjust as needed DVT prophylaxis: Low risk, Encourage ambulation Problem Qualifiers (1) Schizophrenia: Qualified Code: F20.1 - Disorganized schizophrenia Lisy Guillen Dec 28, 2016 17:33
[2016-12-28] MEDS: ACETAMINOPHEN/HYDROcodone 325 MG/5 MG TAB PO PRN (18:45)
[2016-12-28] MEDS ORDERED: OLANZapine 2.5 MG TAB PO SCH (21:00)
[2016-12-28] MEDS: REMOVE OLD NICOTINE PATCH T-DERMAL SCH (21:00)
[2016-12-28] MEDS: OLANZapine ODT 15 MG TAB PO SCH (21:17)
[2016-12-29 05:33] VITALS: BP 132/61; PULSE 47; RESP 18; TEMP 97.6; O2SAT 99
[2016-12-29] MEDS: levOCARNitine 10% ORAL SOLN 118 ML BTL PO SCH ×3 (09:00→17:35)
[2016-12-29] MEDS: BACITRACIN TOP OINT 15 GM TUBE TOPICAL SCH ×3 (09:00→20:59)
[2016-12-29] MEDS: DIVALPROEX SODIUM DELAYED RELEASE 250 MG TAB PO SCH (09:25)
[2016-12-29] MEDS: HALOPERIDOL 10 MG TAB PO SCH ×3 (09:25→17:35)
[2016-12-29] MEDS: NICOTINE 21 MG/24 HR PATCH T-DERMAL SCH (09:25)
[2016-12-29] MEDS: TRIHEXYPHENIDYL HCL 2 MG TAB PO SCH ×3 (09:25→20:59)
[2016-12-29] MEDS: ACETAMINOPHEN/HYDROcodone 325 MG/5 MG TAB PO PRN (09:26)
[2016-12-29 10:10] LABS: AUTOMATED NEUTROPHIL # 2.3 TH/MM3 (1.8-7.7); BASOPHIL % 0.7 % (0.0-2.0); EOSINOPHIL # 0.1 TH/MM3 (0-0.4); EOSINOPHIL % 2.4 % (0.0-4.0); HEMATOCRIT 35.2 % (39.0-51.0); HEMO FLAGS DIFF FINAL; LYMPH % 25.9 % (9.0-44.0); MEAN CELL VOLUME 102.4 FL (80.0-100.0); MEAN CORPUSCULAR HEMOGLOBIN 34.6 PG (27.0-34.0); MEAN CORPUSCULAR HGB CONC 33.8 % (32.0-36.0); MONO % 12.3 % (0.0-8.0); NEUT % 58.7 % (16.0-70.0); PLATELET COUNT 261 TH/MM3 (150-450); RED BLOOD COUNT 3.44 MIL/MM3 (4.50-5.90); RED CELL DISTRIBUTION WIDTH 13.2 % (11.6-17.2)
--- NOTE | 2016-12-29 10:28 | HHI.PYPN ---
Subjective Remarks Patient seen and examined with counselor and a nurse. Chart reviewed. Case discussed with nursing staff who brings to my attention that the patient's feet are somewhat swollen and erythematous. On my examination today, the patient remains disorganized. It is difficult to make much sense of his speech. He seems to say something like, "she spanks a lot, she drinks, she stirs up the whole lobby." He remains fairly dysphoric. He concludes the interview by saying, "you're dismissed." Review of Systems ROS Limitations: Psychotic, Poor Historian Except as stated in HPI: all other systems reviewed are Neg Objective Alert: Yes [place]: Person Mood: Oppositional Affect: Restricted (dyshphoric) Memory Intact: Comment (not formally assessed) Hallucinations: Auditory (internally preoccupied) Delusions: Yes Delusion Type: Paranoid Suicidal: Ideation (No SI) Homicidal: Ideation (No HI) Insight/Judgment Poor Remarks Trace pitting edema in LE. Mild erythema on feet b/l. No motor abnormalities noted. TP disorganized. Grooming and hygiene poor. Labs Test 12/29/16 09:27 White Blood Count 4.0 TH/MM3 Red Blood Count 3.44 MIL/MM3 Hemoglobin 11.9 GM/DL Hematocrit 35.2 % Mean Corpuscular Volume 102.4 FL Mean Corpuscular Hemoglobin 34.6 PG Mean Corpuscular Hemoglobin 33.8 % Concent Red Cell Distribution Width 13.2 % Platelet Count 261 TH/MM3 Mean Platelet Volume 8.2 FL Neutrophils (%) (Auto) 58.7 % Lymphocytes (%) (Auto) 25.9 % Monocytes (%) (Auto) 12.3 % Eosinophils (%) (Auto) 2.4 % Basophils (%) (Auto) 0.7 % Neutrophils # (Auto) 2.3 TH/MM3 Lymphocytes # (Auto) 1.0 TH/MM3 Monocytes # (Auto) 0.5 TH/MM3 Eosinophils # (Auto) 0.1 TH/MM3 Basophils # (Auto) 0.0 TH/MM3 CBC Comment DIFF FINAL Differential Comment Ammonia 40 MCMOL/L Labs reviewed. Mild macrocytic anemia noted. Mild hyponatremia noted. Mild hyperammonemia noted. Vitals/IOs Vital Signs Date Time Temp Pulse Resp B/P Pulse Ox O2 Delivery O2 Flow Rate FiO2 12/29/16 05:33 97.6 47 18 132/61 99 Assessment & Plan Problem List: (1) Schizophrenia ICD Code: F20.9 Assessment & Plan Patient with ongoing thought disorganization resistant to antipsychotic treatment. I wonder if hyperammonemia, which may be Depakote related, is contributing to disorganization. The Depakote is not helping to stabilize patient's mood or lessen dysphoria. I will hold the Depakote. I will also titrate Zyprexa to 20mg qHS. Check follow up ammonia and sodium levels. Check a B12 in light of macrocytic anemia. I will ask the hospitalist to return to evaluate patient's lower extremity edema and erythema. Continue to monitor on the inpatient unit. Continue other medications and care as ordered. Justification for Cont. Inpt. Impairment in reality construction. Medication changes in process. High risk for decompensation in a less restrictive environment. Discharge Planning Pending psychiatric stabilization. State hospital referral initiated. Request HC Surrog/Guard Advoc?: Yes Problem Qualifiers (1) Schizophrenia: Qualified Code: F20.1 - Disorganized schizophrenia Tyrel Yap MD Dec 29, 2016 10:28
[2016-12-29 10:37] LABS: ANION GAP 7 MEQ/L (5-15); AST (GOT) 20 U/L (15-37); BICARBONATE 30.6 MEQ/L (21.0-32.0); BLOOD UREA NITROGEN 9 MG/DL (7-18); CHLORIDE 95 MEQ/L (98-107); GLOMERULAR FILTRATION RATE 145 ML/MIN (>89); POTASSIUM 4.3 MEQ/L (3.5-5.1); SODIUM (NA) 133 MEQ/L (136-145)
[2016-12-29 10:38] LABS: ALT (GPT) 36 U/L (12-78)
[2016-12-29 10:40] LABS: ALKALINE PHOSPHATASE 104 U/L (45-117); TOTAL BILIRUBIN ADULT 0.6 MG/DL (0.2-1.0)
[2016-12-29] MEDS: OLANZapine ODT 20 MG TAB PO SCH (20:59)
[2016-12-29] MEDS: REMOVE OLD NICOTINE PATCH T-DERMAL SCH (21:00)
[2016-12-30 06:05] VITALS: BP 136/64; PULSE 50; RESP 17; TEMP 97.3; O2SAT 95
[2016-12-30] MEDS: ACETAMINOPHEN/HYDROcodone 325 MG/5 MG TAB PO PRN ×2 (06:05→22:33)
[2016-12-30] MEDS: BACITRACIN TOP OINT 15 GM TUBE TOPICAL SCH ×2 (08:10→20:51)
[2016-12-30] MEDS: TRIHEXYPHENIDYL HCL 2 MG TAB PO SCH ×3 (08:10→20:50)
[2016-12-30] MEDS: levOCARNitine 10% ORAL SOLN 118 ML BTL PO SCH ×3 (08:10→17:06)
[2016-12-30] MEDS: NICOTINE 21 MG/24 HR PATCH T-DERMAL SCH (08:10)
[2016-12-30] MEDS: HALOPERIDOL 10 MG TAB PO SCH ×3 (08:10→17:06)
[2016-12-30] MEDS: LACTULOSE SYRUP 20 GM/30 ML CUP PO SCH ×2 (09:00→11:26)
--- NOTE | 2016-12-30 14:26 | HHI.PR ---
Subjective Remarks Follow-up visit for right groin pain, inguinal hernia. As per staff, patient continues to have increased frequency and incontinence possibly secondary to inguinal hernia. He is peeing in his room and in the toilet often. Patient continues to be irritable and agitated. Upon approach he needs to be examined patient threatened me his states "I am going to hose you down" " I don't want to be seen by anyone." Patient walk away and closed his room. Objective Vitals Vital Signs Date Time Temp Pulse Resp B/P Pulse Ox O2 Delivery O2 Flow Rate FiO2 12/30/16 06:05 97.3 50 17 136/64 95 I/O 12/29/16 12/29/16 12/29/16 12/30/16 12/30/16 12/30/16 07:00 15:00 23:00 07:00 15:00 23:00 Intake Total 0 ml Balance 0 ml Intake Oral 0 ml # Voids 2 Result Diagram: 12/29/1627 12/29/16 0927 Imaging Last Impressions Abdomen/Pelvis CT 12/09/16 0000 Signed Impressions: Service Date/Time: Friday, December 09, 2016 15:07 - CONCLUSION: Large hernia on the right without obvious incarceration however there is a cystic component with inflammatory changes evident. No other etiology of abdominal pain is noted. Correlation is suggested. Omero Conner MD FACR Objective Remarks GENERAL: This is a disheveled, well-developed patient, in no apparent distress. MUSCULOSKELETAL: Ambulatory NEUROLOGICAL: Awake and alert. Agitated. Moves all extremities. Normal speech. A/P Problem List: (1) Schizophrenia ICD Code: F20.9 Status: Chronic (2) Inguinal hernia ICD Code: K40.90 Status: Acute Assessment and Plan 66-year-old male with a past medical history of schizophrenia, hypertension, Parkinson's and hepatitis B he was admitted to the psychiatric unit under [place] due to becoming aggressive with another resident and refusing his medication. Hospitalist services were consulted for specifically increased pain from inguinal hernia. Disorganized schizophrenia -Management per psychiatric team HTN, chronic, stable - No medications. Within normal Groin mass, Due to large chronic left inguinal hernia -Was seen by surgery and was told he was not a candidate for surgery due to mental issues and non compliance. - On [place] 5/325 Q4hr PRN for better pain management. Elevated ammonia level - Lactulose daily - Check ammonia level monthly DVT prophylaxis ambulatory Discuss with patikya, nursing, Dr. Abbasi Patient has been noncompliant continues to threaten staff and me on exam. Stable from Hospitalist standpoint. We will sign off. Reconsult as needed. Problem Qualifiers (1) Schizophrenia: Qualified Code: F20.1 - Disorganized schizophrenia Sofiya Jeong Dec 30, 2016 14:26
--- NOTE | 2016-12-30 16:05 | HHI.PYPN ---
Subjective Remarks Pateint was seen and case discussed with nursing. Patient remains disorganized and loose. No outbursts today. Compliant with medication. Objective Alert: Yes [place]: Person Mood: Oppositional Affect: Restricted (dyshphoric) Memory Intact: Comment (not formally assessed) Hallucinations: Auditory (internally preoccupied) Delusions: Yes Delusion Type: Paranoid Suicidal: Ideation (No SI) Homicidal: Ideation (No HI) Insight/Judgment poor Vitals/IOs Vital Signs Date Time Temp Pulse Resp B/P Pulse Ox O2 Delivery O2 Flow Rate FiO2 12/30/16 06:05 97.3 50 17 136/64 95 Intake and Output 12/29/16 12/29/16 12/30/16 08:00 16:00 00:00 Intake Total 0 ml Balance 0 ml Assessment & Plan Problem List: (1) Schizophrenia ICD Code: F20.9 Assessment & Plan Continue current treatment plan Justification for Cont. Inpt. Patient will decompensate in a less restrictive setting Request HC Surrog/Guard Advoc?: Yes Problem Qualifiers (1) Schizophrenia: Qualified Code: F20.1 - Disorganized schizophrenia Linus Webb DO Dec 30, 2016 16:05
[2016-12-30 18:37] VITALS: PULSE 60; RESP 17; TEMP 98; O2SAT 95
[2016-12-30] MEDS: OLANZapine ODT 20 MG TAB PO SCH (20:50)
[2016-12-30] MEDS: REMOVE OLD NICOTINE PATCH T-DERMAL SCH (20:50)
[2016-12-30] MEDS: LORazepam 0.5 MG TAB PO PRN (22:33)
[2016-12-31] MEDS: ACETAMINOPHEN/HYDROcodone 325 MG/5 MG TAB PO PRN (05:05)
[2016-12-31] MEDS: NICOTINE 21 MG/24 HR PATCH T-DERMAL SCH (09:00)
[2016-12-31] MEDS: levOCARNitine 10% ORAL SOLN 118 ML BTL PO SCH ×3 (09:00→18:00)
[2016-12-31] MEDS: BACITRACIN TOP OINT 15 GM TUBE TOPICAL SCH ×2 (09:00→21:04)
[2016-12-31] MEDS: HALOPERIDOL 10 MG TAB PO SCH ×3 (09:02→18:00)
[2016-12-31] MEDS: LACTULOSE SYRUP 20 GM/30 ML CUP PO SCH (09:02)
[2016-12-31] MEDS: TRIHEXYPHENIDYL HCL 2 MG TAB PO SCH ×3 (09:02→21:04)
[2016-12-31 10:49] LABS: SODIUM (NA) 137 MEQ/L (136-145)
[2016-12-31] MEDS: ACETAMINOPHEN 325 MG TAB PO PRN ×2 (16:18→22:10)
--- NOTE | 2016-12-31 16:19 | HHI.PYPN ---
Subjective Remarks Patient was seen and case discussed with nursing. Patient remains delusional and disheveled. Speech is mumbling and loose. Behaving well and the unit and compliant with medications Objective Alert: Yes [place]: Person Mood: Oppositional Affect: Blunted Memory Intact: Comment (not formally assessed) Hallucinations: Auditory (internally preoccupied) Delusions: Yes Delusion Type: Paranoid Suicidal: Ideation (No SI) Homicidal: Ideation (No HI) Insight/Judgment Poor Labs Test 12/31/16 10:11 Sodium Level 137 MEQ/L Ammonia 34 MCMOL/L Vitamin B12 Level 575 PG/ML Vitals/IOs Vital Signs Date Time Temp Pulse Resp B/P Pulse Ox O2 Delivery O2 Flow Rate FiO2 12/30/16 18:37 98.0 60 17 95 12/30/16 06:05 136/64 Intake and Output 12/30/16 12/30/16 12/31/16 08:00 16:00 00:00 Intake Total 550 ml Balance 550 ml Assessment & Plan Problem List: (1) Schizophrenia ICD Code: F20.9 Assessment & Plan Continue current treatment plan Justification for Cont. Inpt. Patient will decompensate and less restrictive setting Request HC Surrog/Guard Advoc?: Yes Problem Qualifiers (1) Schizophrenia: Qualified Code: F20.1 - Disorganized schizophrenia Linus Webb DO Dec 31, 2016 16:19
[2016-12-31] MEDS: REMOVE OLD NICOTINE PATCH T-DERMAL SCH (21:00)
[2016-12-31] MEDS: OLANZapine ODT 20 MG TAB PO SCH (21:04)
[2017-01-01] MEDS: LORazepam 0.5 MG TAB PO PRN (04:54)
[2017-01-01 06:05] VITALS: BP 109/67; PULSE 75; RESP 16; TEMP 97.5; O2SAT 97
[2017-01-01] MEDS: TRIHEXYPHENIDYL HCL 2 MG TAB PO SCH ×3 (08:30→21:25)
[2017-01-01] MEDS: HALOPERIDOL 10 MG TAB PO SCH ×4 (08:30→17:14)
[2017-01-01] MEDS: LACTULOSE SYRUP 20 GM/30 ML CUP PO SCH (08:30)
[2017-01-01] MEDS: levOCARNitine 10% ORAL SOLN 118 ML BTL PO SCH ×3 (08:31→17:14)
[2017-01-01] MEDS: ACETAMINOPHEN/HYDROcodone 325 MG/5 MG TAB PO PRN ×2 (08:31→18:14)
[2017-01-01] MEDS: BACITRACIN TOP OINT 15 GM TUBE TOPICAL SCH ×2 (09:00→21:00)
[2017-01-01] MEDS: NICOTINE 21 MG/24 HR PATCH T-DERMAL SCH (09:00)
[2017-01-01] MEDS: HALOPERIDOL LACTATE 5 MG/ML AMP IM PRN (09:05)
--- NOTE | 2017-01-01 11:50 | HHI.PYPN ---
Subjective Remarks Patient seen and examined with nurse. Chart reviewed. Case discussed with nursing staff who reports patient remains behaviorally disorganized and urinating on the floor. On my examination today, the patient remains irritable. Thought process and behavior remained disorganized. He is internally preoccupied. He is unable to tolerate extended interview. No evident sedation or other side effects from medications. No physical complaints. Review of Systems ROS Limitations: Psychotic, Poor Historian Except as stated in HPI: all other systems reviewed are Neg Objective Alert: Yes [place]: Person Mood: Angry, Oppositional Affect: Restricted Memory Intact: Comment (not formally assessed) Hallucinations: Auditory (internally stimulated) Delusions: Yes Delusion Type: Paranoid Suicidal: Ideation (No SI) Homicidal: Ideation (No HI) Insight/Judgment Poor Remarks No motor abnormalities noted. Thought process disorganized. Grooming and hygiene poor. Speech rambling. Labs Labs reviewed. Vitals/IOs Vital Signs Date Time Temp Pulse Resp B/P Pulse Ox O2 Delivery O2 Flow Rate FiO2 01/01/17 06:05 97.5 75 16 109/67 97 Intake and Output 12/31/16 12/31/16 01/01/17 08:00 16:00 00:00 Intake Total 440 ml Balance 440 ml Assessment & Plan Problem List: (1) Schizophrenia ICD Code: F20.9 Assessment & Plan No discernible difference off of the Depakote. Patient does remain fairly irritable and psychotic. Titrate Zyprexa 25 mg at bedtime. Continue Haldol as ordered. Continue to monitor on the high acuity unit. Appreciate hospitalist attempts to examine the patient. Continue other medications and care as ordered. Justification for Cont. Inpt. Medication changes in process. Impairment in self-care. Impairment in reality construction. High risk for decompensation in a less restrictive environment. Discharge Planning [facility] referral. Consider alternative disposition plan, such as to assisted living, should the patient stabilize adequately for safety discharge. Request HC Surrog/Guard Advoc?: Yes Problem Qualifiers (1) Schizophrenia: Qualified Code: F20.1 - Disorganized schizophrenia Tyrel Yap MD Jan 01, 2017 11:50
[2017-01-01] MEDS ORDERED: OLANZapine ODT 20 MG TAB PO SCH (21:00)
[2017-01-01] MEDS ORDERED: OLANZapine ODT 5 MG TAB PO SCH (21:00)
[2017-01-01] MEDS: REMOVE OLD NICOTINE PATCH T-DERMAL SCH (21:00)
[2017-01-01] MEDS: ZOLPIDEM TARTRATE 5 MG TAB PO PRN (21:24)
[2017-01-02] MEDS: LORazepam 0.5 MG TAB PO PRN ×2 (05:12→20:39)
[2017-01-02] MEDS: ACETAMINOPHEN/HYDROcodone 325 MG/5 MG TAB PO PRN ×2 (05:13→20:40)
[2017-01-02 05:40] VITALS: BP 118/5; PULSE 59; RESP 18; TEMP 98.1; O2SAT 95
[2017-01-02] MEDS: LACTULOSE SYRUP 20 GM/30 ML CUP PO SCH (09:00)
[2017-01-02] MEDS: TRIHEXYPHENIDYL HCL 2 MG TAB PO SCH ×3 (09:00→21:23)
[2017-01-02] MEDS: NICOTINE 21 MG/24 HR PATCH T-DERMAL SCH (09:00)
[2017-01-02] MEDS: HALOPERIDOL 10 MG TAB PO SCH ×3 (09:00→17:50)
[2017-01-02] MEDS: levOCARNitine 10% ORAL SOLN 118 ML BTL PO SCH ×3 (09:00→17:50)
[2017-01-02] MEDS: BACITRACIN TOP OINT 15 GM TUBE TOPICAL SCH ×2 (09:00→21:00)
[2017-01-02] MEDS: REMOVE OLD NICOTINE PATCH T-DERMAL SCH (09:05)
--- NOTE | 2017-01-02 11:03 | PD.TTN ---
Present for Treatment Team Treatment Team Staff: Provider (Dr. Yap), Nurse (Jesus Beth RN), Psych Therapist (KARLI Rodrigues), Occupational Therapist (Sen Savage OT) Patient Problems 1. Discharge planning 2. Medication compliance 3. Knowledge deficit 4. Lack of coping skills Progress Toward Goals Provider Input: Pt has been referred to [facility] and medication regiment will continue to be evaluated to assist with further stabilization. Nurse Input: Pt appears confused, disorganized, needing assistance with ADLs, compliant with medication regiment and cooperative. Psych Therapist Input: Pt presents with poor insight, confused, incoherent at times, to be responding to internal stimuli, seclusive to self, bizarre and easily irritated. Occupational Therapist Input: Pt is attending select groups but appears to be internally stimulated and mainly nonsensical. Documentation Scribe: KARLI Rodrigues Date Resolved: Jan 02, 2017 Polo Noguera Jan 02, 2017 11:03
--- NOTE | 2017-01-02 15:25 | HHI.PYPN ---
Subjective Remarks Patient seen and examined with nurse. Chart reviewed. Case discussed in treatment team. Nursing staff reports that the patient is attending to basic self-care such as showering. Occupational therapist notes that the patient comes to groups and perhaps seems a little bit more relevant in conversation. On my examination today, however, the patient remains disorganized. He is staring into the nursing station at some of the office equipment and says "any orange juice today?" He then rambles about ball gowns. Remains irritable and unable to tolerate extended interview. No evidence side effects from medications. No physical complaints. Review of Systems ROS Limitations: Psychotic, Poor Historian Except as stated in HPI: all other systems reviewed are Neg Objective Alert: Yes [place]: Person Mood: Oppositional, Other (irritable) Affect: Restricted (dysphoric) Memory Intact: Comment (not formally assessed) Hallucinations: Auditory (remains internally preoccupied) Delusions: Yes Delusion Type: Paranoid Suicidal: Ideation (no SI voiced) Homicidal: Ideation (no HI voiced) Insight/Judgment Poor Remarks No motor abnormalities noted. Thought process disorganized. Grooming and hygiene remain fairly poor. Labs Labs reviewed. No new labs. Vitals/IOs Vital Signs Date Time Temp Pulse Resp B/P Pulse Ox O2 Delivery O2 Flow Rate FiO2 01/02/17 05:40 98.1 59 18 118/5 95 Assessment & Plan Problem List: (1) Schizophrenia ICD Code: F20.9 Assessment & Plan Titrate Zyprexa to 30 mg at bedtime. Continue Haldol as ordered. Continue to monitor on the high acuity unit. Continue other medications and care as ordered. Justification for Cont. Inpt. Medication changes in process. Impairment in reality construction. High risk for decompensation in a less restrictive environment. Discharge Planning [facility] referral. Request HC Surrog/Guard Advoc?: Yes Problem Qualifiers (1) Schizophrenia: Qualified Code: F20.1 - Disorganized schizophrenia Tyrel Yap MD Jan 02, 2017 15:25
[2017-01-02] MEDS: ACETAMINOPHEN 325 MG TAB PO PRN (17:49)
[2017-01-02 17:54] VITALS: BP 127/61; PULSE 54; RESP 18; TEMP 98.7; O2SAT 97
[2017-01-02] MEDS: OLANZapine ODT 15 MG TAB PO SCH (20:39)
[2017-01-03] MEDS: levOCARNitine 10% ORAL SOLN 118 ML BTL PO SCH ×3 (09:00→17:27)
[2017-01-03] MEDS: BACITRACIN TOP OINT 15 GM TUBE TOPICAL SCH ×2 (09:00→21:00)
[2017-01-03] MEDS: HALOPERIDOL 10 MG TAB PO SCH ×3 (09:47→17:27)
[2017-01-03] MEDS: TRIHEXYPHENIDYL HCL 2 MG TAB PO SCH ×3 (09:47→21:36)
[2017-01-03] MEDS: NICOTINE 21 MG/24 HR PATCH T-DERMAL SCH (09:47)
[2017-01-03] MEDS: LACTULOSE SYRUP 20 GM/30 ML CUP PO SCH (09:47)
--- NOTE | 2017-01-03 11:07 | HHI.PYPN ---
Subjective Remarks Patient seen and examined with nurse. Chart reviewed. Case discussed with nursing staff. On my examination today, the patient is laying in his room with the covers pulled tightly over his head. When I ask if he could pull down the covers to speak with me, patient says, "you can take the covers and put 'em over your dirty face. Beat the heap out of here!" Remains irascible and disorganized. For example, rambles about "sperm out of joint" in a fashion that is exceedingly difficult to follow. No side effects from medications. No physical complaints. Review of Systems ROS Limitations: Poor Historian Except as stated in HPI: all other systems reviewed are Neg Objective Alert: Yes [place]: Person Mood: Angry, Other (remains irritable) Affect: Restricted (ongoing dysphoria) Memory Intact: Comment (not formally assessed) Hallucinations: Auditory (internally stimulated) Delusions: Yes Delusion Type: Paranoid Suicidal: Ideation (none) Homicidal: Ideation (none) Insight/Judgment Poor Remarks No motor abnormalities noted. Thought process remains quite disorganized. Labs Labs reviewed. No new labs. Vitals/IOs Vital Signs Date Time Temp Pulse Resp B/P Pulse Ox O2 Delivery O2 Flow Rate FiO2 01/02/17 17:54 98.7 54 18 127/61 97 Assessment & Plan Problem List: (1) Schizophrenia ICD Code: F20.9 Assessment & Plan Continue Zyprexa as ordered, this was just titrated yesterday. Continue Haldol as ordered. May consider changing either of these antipsychotic medications if they aren't sufficient to manage the patient's psychosis and disorganization. Continue to monitor on the high acuity unit. Continue other medications and care as ordered. Justification for Cont. Inpt. High risk for decompensation in a less restrictive environment. Impairment in self-care. Discharge Planning Pending psychiatric stabilization. State psychiatric referral. Request HC Surrog/Guard Advoc?: Yes Problem Qualifiers (1) Schizophrenia: Qualified Code: F20.1 - Disorganized schizophrenia Tyrel Yap MD Jan 03, 2017 11:07
[2017-01-03 18:00] VITALS: BP 117/74; PULSE 86; RESP 16; TEMP 97.8; O2SAT 96
[2017-01-03] MEDS: REMOVE OLD NICOTINE PATCH T-DERMAL SCH (21:00)
[2017-01-03] MEDS: OLANZapine ODT 15 MG TAB PO SCH (21:36)
[2017-01-04] MEDS: ACETAMINOPHEN 325 MG TAB PO PRN ×3 (03:39→17:56)
[2017-01-04] MEDS: ACETAMINOPHEN/HYDROcodone 325 MG/5 MG TAB PO PRN ×3 (03:39→20:56)
[2017-01-04 06:15] VITALS: BP 136/64; PULSE 77; RESP 18; TEMP 97.2; O2SAT 97
[2017-01-04] MEDS: TRIHEXYPHENIDYL HCL 2 MG TAB PO SCH ×3 (08:32→20:54)
[2017-01-04] MEDS: NICOTINE 21 MG/24 HR PATCH T-DERMAL SCH (08:33)
[2017-01-04] MEDS: levOCARNitine 10% ORAL SOLN 118 ML BTL PO SCH ×3 (08:35→17:57)
[2017-01-04] MEDS: BACITRACIN TOP OINT 15 GM TUBE TOPICAL SCH ×2 (08:35→20:55)
[2017-01-04] MEDS: HALOPERIDOL 10 MG TAB PO SCH ×3 (08:35→17:57)
[2017-01-04] MEDS: LACTULOSE SYRUP 20 GM/30 ML CUP PO SCH (08:35)
--- NOTE | 2017-01-04 11:40 | HHI.PYPN ---
Subjective Remarks Patient seen and case discussed with nursing staff. Chart reviewed. Per nursing staff, the patient remains irritable but did allow nursing staff to assist him some overnight. For me today, patient remains irascible and disorganized. He is internally preoccupied and muttering to himself. No evident side effects from medications. No physical complaints. Review of Systems ROS Limitations: Psychotic, Poor Historian Except as stated in HPI: all other systems reviewed are Neg Objective Alert: Yes [place]: Person Mood: Angry Affect: Restricted (dysphoric) Memory Intact: Comment (not formally assessed) Hallucinations: Auditory (muttering to self) Delusions: Yes Delusion Type: Paranoid Suicidal: Ideation (No SI voiced) Homicidal: Ideation (No HI voiced) Insight/Judgment Poor Remarks No motor abnormalities noted. Thought process disorganized. Speech rambling. Grooming and hygiene poor. Labs Labs reviewed. Vitals/IOs Vital Signs Date Time Temp Pulse Resp B/P Pulse Ox O2 Delivery O2 Flow Rate FiO2 01/04/17 06:15 97.2 77 18 136/64 97 Assessment & Plan Problem List: (1) Schizophrenia ICD Code: F20.9 Assessment & Plan Ongoing prominent thought disorganization despite robust doses of Haldol and Zyprexa. This may represent new psychiatric baseline, although consulting old notes it seems that he has previously been discharged (e.g. to [facility]) in a state only modestly improved from his present one. I will try to replace the Zyprexa with Seroquel to see if this can offer additional benefit. D/c Zyprexa. Start Seroquel 100mg BID as patient is not antipsychotic naive with plans to titrate to effect. Continue Haldol as ordered. Continue to monitor on the inpatient unit. Continue other medications and care as ordered. Justification for Cont. Inpt. Impairment in reality construction. Impairment in self-care. Medication changes in process. High risk for decompensation in a less restrictive environment. Discharge Planning Pending psychiatric stabilization. State hospital referral has been initiated. 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
[2017-01-04 17:44] VITALS: PULSE 55; RESP 17; TEMP 97.5; O2SAT 98
[2017-01-04] MEDS: REMOVE OLD NICOTINE PATCH T-DERMAL SCH (20:54)
[2017-01-04] MEDS: QUEtiapine FUMARATE 100 MG TAB PO SCH (20:54)
[2017-01-05 06:05] VITALS: BP 121/80; PULSE 74; RESP 16; TEMP 97.3; O2SAT 95
[2017-01-05] MEDS: levOCARNitine 10% ORAL SOLN 118 ML BTL PO SCH ×3 (09:00→17:50)
[2017-01-05] MEDS: BACITRACIN TOP OINT 15 GM TUBE TOPICAL SCH ×2 (09:00→21:00)
[2017-01-05] MEDS: QUEtiapine FUMARATE 100 MG TAB PO SCH (09:47)
[2017-01-05] MEDS: TRIHEXYPHENIDYL HCL 2 MG TAB PO SCH ×3 (09:47→21:29)
[2017-01-05] MEDS: HALOPERIDOL 10 MG TAB PO SCH ×3 (09:47→17:50)
[2017-01-05] MEDS: LACTULOSE SYRUP 20 GM/30 ML CUP PO SCH (09:47)
[2017-01-05] MEDS: NICOTINE 21 MG/24 HR PATCH T-DERMAL SCH (09:48)
--- NOTE | 2017-01-05 13:45 | HHI.PYPN ---
Subjective Remarks Patient seen and examined. Chart reviewed. Case discussed with nursing staff who reports the patient is significantly calmer and less irritable since initiation of Seroquel. On my examination today, I find the patient sitting calmly in the day area. He remains fairly disorganized but is generally more cooperative. He tells me " I have systematized. I've got to back my stereo." He is speaking in a [place] accent today. Remains somewhat internally preoccupied. Denies side effects from medications. No other issues noted. Review of Systems ROS Limitations: Psychotic, Poor Historian Except as stated in HPI: all other systems reviewed are Neg Objective Alert: Yes [place]: Person Mood: Calm Affect: Blunted Memory Intact: Comment (not formally assessed) Hallucinations: Auditory (remains internally stimulated) Delusions: No Delusion Type: Other (no dinorah delusions) Suicidal: Ideation (no SI) Homicidal: Ideation (no HI) Insight/Judgment Poor Remarks No motor abnormalities noted. Thought process remains disorganized. Grooming and hygiene remain fairly poor. Labs Labs reviewed. No new labs. Vitals/IOs Vital Signs Date Time Temp Pulse Resp B/P Pulse Ox O2 Delivery O2 Flow Rate FiO2 01/05/17 06:05 97.3 74 16 121/80 95 Assessment & Plan Problem List: (1) Schizophrenia ICD Code: F20.9 Assessment & Plan Patient seems improved today following initiation of Seroquel replacing Zyprexa. I will plan to slowly titrate Seroquel through the weekend. Continue other psychotropics as ordered. Continue to monitor on the inpatient unit. Continue other medications and care as ordered. Justification for Cont. Inpt. Medication changes in process. High risk for decompensation in a less restrictive environment. Discharge Planning Pending psychiatric stabilization. If the patient continues to improve, we may be able to divert from state psychiatric hospitalization. 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
[2017-01-05 16:15] VITALS: BP 96/52; PULSE 64; RESP 18; TEMP 98; O2SAT 97
[2017-01-05] MEDS: REMOVE OLD NICOTINE PATCH T-DERMAL SCH (21:00)
[2017-01-05] MEDS ORDERED: QUEtiapine FUMARATE 100 MG TAB PO SCH (21:00)
[2017-01-05] MEDS ORDERED: QUEtiapine FUMARATE 25 MG TAB PO SCH (21:00)
[2017-01-05] MEDS: ACETAMINOPHEN/HYDROcodone 325 MG/5 MG TAB PO PRN (21:31)
[2017-01-06 05:47] VITALS: BP 122/57; PULSE 50; RESP 16; TEMP 97.1; O2SAT 97
[2017-01-06] MEDS: levOCARNitine 10% ORAL SOLN 118 ML BTL PO SCH ×3 (09:00→17:53)
[2017-01-06] MEDS: NICOTINE 21 MG/24 HR PATCH T-DERMAL SCH (09:00)
[2017-01-06] MEDS: BACITRACIN TOP OINT 15 GM TUBE TOPICAL SCH ×2 (09:00→21:00)
[2017-01-06] MEDS: TRIHEXYPHENIDYL HCL 2 MG TAB PO SCH ×3 (09:27→21:00)
[2017-01-06] MEDS: LACTULOSE SYRUP 20 GM/30 ML CUP PO SCH (09:27)
[2017-01-06] MEDS: QUEtiapine FUMARATE 100 MG TAB PO SCH (09:27)
[2017-01-06] MEDS: HALOPERIDOL 10 MG TAB PO SCH ×3 (09:27→17:52)
[2017-01-06] MEDS: ACETAMINOPHEN/HYDROcodone 325 MG/5 MG TAB PO PRN ×3 (09:30→20:04)
--- NOTE | 2017-01-06 15:29 | HHI.PYPN ---
Subjective Remarks Pt seen and discussed with staff. He remains disorganized but is less irritable. He has been more interactive in milieu. He states "Only [employer] will do. Riboflavin is essential. 3 days to [facility]" when MD introduces self. He is compliant with medications and has not complained of side effects. Objective Alert: Yes [place]: Person Mood: Other (elevated) Affect: Other (laughing inappropriately) Memory Intact: Comment (not formally assessed) Hallucinations: Auditory (remains internally stimulated) Delusions: No Delusion Type: Other (no dinorah delusions) Suicidal: Ideation (no SI) Homicidal: Ideation (no HI) Insight/Judgment poor Remarks disorganized behavior and thought process Vitals/IOs Vital Signs Date Time Temp Pulse Resp B/P Pulse Ox O2 Delivery O2 Flow Rate FiO2 01/06/17 05:47 97.1 50 16 122/57 97 Assessment & Plan Problem List: (1) Schizophrenia ICD Code: F20.9 Assessment & Plan Continue current tx plan. Estimated LOS: days Justification for Cont. Inpt. 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
[2017-01-06 18:01] VITALS: BP 109/60; PULSE 53; RESP 16; TEMP 95.9; O2SAT 99
[2017-01-06] MEDS: LORazepam 0.5 MG TAB PO PRN (20:06)
[2017-01-06] MEDS: REMOVE OLD NICOTINE PATCH T-DERMAL SCH (21:00)
[2017-01-06] MEDS ORDERED: QUEtiapine FUMARATE 100 MG TAB PO SCH (21:00)
[2017-01-06] MEDS ORDERED: QUEtiapine FUMARATE 25 MG TAB PO SCH (21:00)
[2017-01-06] MEDS: ZOLPIDEM TARTRATE 5 MG TAB PO PRN (21:05)
[2017-01-07] MEDS: ACETAMINOPHEN/HYDROcodone 325 MG/5 MG TAB PO PRN ×4 (01:23→13:49)
[2017-01-07 06:01] VITALS: BP 105/56; PULSE 50; RESP 18; TEMP 97.4; O2SAT 98
[2017-01-07] MEDS: LACTULOSE SYRUP 20 GM/30 ML CUP PO SCH (09:09)
[2017-01-07] MEDS: TRIHEXYPHENIDYL HCL 2 MG TAB PO SCH ×3 (09:10→20:38)
[2017-01-07] MEDS: QUEtiapine FUMARATE 100 MG TAB PO SCH (09:10)
[2017-01-07] MEDS: NICOTINE 21 MG/24 HR PATCH T-DERMAL SCH (09:10)
[2017-01-07] MEDS: levOCARNitine 10% ORAL SOLN 118 ML BTL PO SCH ×3 (09:11→18:11)
[2017-01-07] MEDS: BACITRACIN TOP OINT 15 GM TUBE TOPICAL SCH ×2 (09:11→20:41)
[2017-01-07] MEDS: HALOPERIDOL 10 MG TAB PO SCH ×3 (09:12→18:11)
--- NOTE | 2017-01-07 13:03 | HHI.PYPN ---
Subjective Remarks Pt seen and discussed with staff. He remains disorganized and uncooperative with care. He refuses to talk to MD stating, "I'm not talking to no doctor. I spoke to you yesterday!" Later he disrupts MD on rounds and begans having an animated conversation with an unknown person. Compliant with medications. No agitation or aggression. Objective Alert: Yes [place]: Person Mood: Other (elevated) Affect: Labile Memory Intact: Comment (not formally assessed) Hallucinations: Auditory (remains internally stimulated) Delusions: No Delusion Type: Other (no dinorah delusions) Suicidal: Ideation (no SI) Homicidal: Ideation (no HI) Insight/Judgment poor Vitals/IOs Vital Signs Date Time Temp Pulse Resp B/P Pulse Ox O2 Delivery O2 Flow Rate FiO2 01/07/17 06:01 97.4 50 18 105/56 98 Intake and Output 01/06/17 01/06/17 01/07/17 08:00 16:00 00:00 Intake Total 480 ml Balance 480 ml Assessment & Plan Problem List: (1) Schizophrenia ICD Code: F20.9 Assessment & Plan Continue current tx plan. Estimated LOS: days Justification for Cont. Inpt. 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
[2017-01-07] MEDS: ZOLPIDEM TARTRATE 5 MG TAB PO PRN (20:38)
[2017-01-07] MEDS: REMOVE OLD NICOTINE PATCH T-DERMAL SCH (20:40)
[2017-01-07] MEDS ORDERED: QUEtiapine FUMARATE 25 MG TAB PO SCH (21:00)
[2017-01-07] MEDS ORDERED: QUEtiapine FUMARATE 100 MG TAB PO SCH (21:00)
[2017-01-07 21:29] VITALS: BP 122/62; PULSE 54; RESP 18; TEMP 97.9; O2SAT 97
[2017-01-08] MEDS: ACETAMINOPHEN/HYDROcodone 325 MG/5 MG TAB PO PRN ×3 (03:36→20:40)
[2017-01-08 06:02] VITALS: BP 109/59; PULSE 55; RESP 18; TEMP 97.8; O2SAT 97
[2017-01-08] MEDS: HALOPERIDOL 10 MG TAB PO SCH ×3 (09:00→18:41)
[2017-01-08] MEDS: TRIHEXYPHENIDYL HCL 2 MG TAB PO SCH ×3 (09:00→20:40)
[2017-01-08] MEDS: BACITRACIN TOP OINT 15 GM TUBE TOPICAL SCH ×2 (09:00→21:00)
[2017-01-08] MEDS: levOCARNitine 10% ORAL SOLN 118 ML BTL PO SCH ×3 (09:00→18:00)
[2017-01-08] MEDS: NICOTINE 21 MG/24 HR PATCH T-DERMAL SCH (09:00)
[2017-01-08] MEDS: LACTULOSE SYRUP 20 GM/30 ML CUP PO SCH (09:00)
[2017-01-08] MEDS: QUEtiapine FUMARATE 100 MG TAB PO SCH (09:00)
--- NOTE | 2017-01-08 10:27 | HHI.PYPN ---
Subjective Remarks Patient seen and examined. Chart reviewed. Case discussed with nursing staff reports that the patient continues to be less agitated since he was switched to Seroquel. He is noted to be medication compliant. On my examination today, the patient remains fairly disorganized. He says "I don't care. I just retired from the [employer]. If I come back again you can." He then rambles about bicycles and the NAACP. When I ask about AVH, he blows me the raspberry. No evidence side effects from medications. No physical complaints. Review of Systems ROS Limitations: Psychotic, Poor Historian Except as stated in HPI: all other systems reviewed are Neg Objective Alert: Yes [place]: Person Mood: Other (calmer) Affect: Blunted Memory Intact: Comment (Not assessed) Hallucinations: Auditory (Int stim) Delusions: Yes Delusion Type: Paranoid Suicidal: Ideation (no SI) Homicidal: Ideation (no HI) Insight/Judgment Poor Remarks No motor abnormalities noted. Thought process disorganized. Grooming and hygiene poor. Labs Labs reviewed. No new labs. Vitals/IOs Vital Signs Date Time Temp Pulse Resp B/P Pulse Ox O2 Delivery O2 Flow Rate FiO2 01/08/17 06:02 97.8 55 18 109/59 97 Intake and Output 01/07/17 01/07/17 01/08/17 08:00 16:00 00:00 Intake Total 240 ml Balance 240 ml Assessment & Plan Problem List: (1) Schizophrenia ICD Code: F20.9 Assessment & Plan Continue Seroquel titration, 100/200 mg today. Continue Haldol as ordered. Continue to monitor on the high acuity unit. Continue other medications and care as ordered. Justification for Cont. Inpt. Impairment in reality construction. Impairment in self-care. High risk for decompensation and a less restrictive environment. Discharge Planning Pending psychiatric stabilization. 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
[2017-01-08 18:41] VITALS: BP 133/60; PULSE 53; RESP 18; TEMP 96.9; O2SAT 98
[2017-01-08] MEDS: ZOLPIDEM TARTRATE 5 MG TAB PO PRN (20:39)
[2017-01-08] MEDS: REMOVE OLD NICOTINE PATCH T-DERMAL SCH (20:40)
[2017-01-08] MEDS ORDERED: QUEtiapine FUMARATE 200 MG TAB PO SCH ×2 (21:00)
[2017-01-09] MEDS: ACETAMINOPHEN/HYDROcodone 325 MG/5 MG TAB PO PRN ×2 (03:41→14:22)
[2017-01-09 06:03] VITALS: BP 114/56; PULSE 56; RESP 20; TEMP 97.6; O2SAT 100
[2017-01-09] MEDS: TRIHEXYPHENIDYL HCL 2 MG TAB PO SCH ×3 (08:54→20:51)
[2017-01-09] MEDS: LACTULOSE SYRUP 20 GM/30 ML CUP PO SCH (08:54)
[2017-01-09] MEDS: QUEtiapine FUMARATE 100 MG TAB PO SCH (08:54)
[2017-01-09] MEDS: HALOPERIDOL 10 MG TAB PO SCH ×3 (08:54→17:51)
[2017-01-09] MEDS: levOCARNitine 10% ORAL SOLN 118 ML BTL PO SCH ×3 (08:54→17:51)
[2017-01-09] MEDS: NICOTINE 21 MG/24 HR PATCH T-DERMAL SCH (08:57)
[2017-01-09] MEDS: BACITRACIN TOP OINT 15 GM TUBE TOPICAL SCH ×2 (09:00→20:51)
--- NOTE | 2017-01-09 09:35 | HHI.PYPN ---
Subjective Remarks Patient seen and examined. Chart reviewed. Case discussed in treatment team. Per nursing staff, the patient is somewhat more relevant in conversation. On my examination today, the patient is wandering around the unit. He remains fairly internally stimulated. He is irritable, although this remains somewhat attenuated versus earlier this admission. Speech a little more sensible. He seems to be discharge focused and asks, "Why not [discharge me] today, doc? Or do you want to send me up to state?" I emphasize that it is my hope that we can stabilize him adequately to avoid State psychiatric hospitalization. He snorts in derision at this and walks off in a groves. No evidence side effects from medications. No physical complaints. Review of Systems ROS Limitations: Psychotic, Poor Historian Except as stated in HPI: all other systems reviewed are Neg Objective Alert: Yes [place]: Person, Place Mood: Oppositional Affect: Other (mildly irritable) Memory Intact: Comment (Not assessed) Hallucinations: Auditory (remains little internally stimulated) Delusions: Yes Delusion Type: Paranoid Suicidal: Ideation (no SI voiced) Homicidal: Ideation (no HI voiced) Insight/Judgment Poor Remarks No motor abnormalities noted. Thought process remains fairly disorganized. Speech a little more sensible at times. Grooming and hygiene poor. Labs Labs reviewed. No new labs. Vitals/IOs Vital Signs Date Time Temp Pulse Resp B/P Pulse Ox O2 Delivery O2 Flow Rate FiO2 01/09/17 06:03 97.6 56 20 114/56 100 Assessment & Plan Problem List: (1) Schizophrenia ICD Code: F20.9 Assessment & Plan Titrate Seroquel to 100/250 mg to target psychosis. Continue Haldol as ordered. Check and updated set of basic laboratories. Continue to monitor on the high acuity unit. Continue other medications and care as ordered. Justification for Cont. Inpt. Impairment in reality construction. Medication changes in process. High risk for decompensation in a less restrictive environment. Discharge Planning I remain hopeful that we can stabilize the patient to allow for return to his assisted living facility, [facility]. Alternatively [facility] referral has been initiated. 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
[2017-01-09] MEDS ORDERED: PILL SPLITTER OTHER PRN (15:15)
--- NOTE | 2017-01-09 15:16 | PD.TTN ---
Patient Problems 1. Discharge planning 2. Medication compliance 3. Knowledge deficit 4. Lack of coping skills Progress Toward Goals Provider Input: Pt medication regiment will continue to be adjusted to assist with stabilization. Pt will be evaluated by placement for possible return to [facility] if he is able to continue to progress and stabilize. Nurse Input: Pt appears uncooperative with checks, disorganized, confused, with less frequent agitation, compliant with medication and is no behavioral problem on the unit. Psych Therapist Input: Pt appears with some improvement in coherency but remains easily agitated, responding to internal stimuli, withdrawn to self, uncooperative, disorganized and appropriate. Occupational Therapist Input: Pt attends groups related to food but does not participate or engage with peers. Documentation Scribe: KARLI Rodrigues Date Resolved: Jan 09, 2017 Polo Noguera Jan 09, 2017 15:16
[2017-01-09] MEDS: LORazepam 0.5 MG TAB PO PRN (16:06)
[2017-01-09 18:07] VITALS: BP 106/55; PULSE 52; RESP 16; TEMP 97.3; O2SAT 97
[2017-01-09] MEDS: REMOVE OLD NICOTINE PATCH T-DERMAL SCH (20:55)
[2017-01-09] MEDS ORDERED: QUEtiapine FUMARATE 100 MG TAB PO SCH (21:00)
[2017-01-10] MEDS: ACETAMINOPHEN/HYDROcodone 325 MG/5 MG TAB PO PRN ×2 (03:39→14:27)
[2017-01-10 06:05] VITALS: BP 102/57; PULSE 65; RESP 20; TEMP 96.3; O2SAT 96
[2017-01-10 08:54] LABS: AUTOMATED NEUTROPHIL # 2.7 TH/MM3 (1.8-7.7); BASOPHIL % 0.8 % (0.0-2.0); EOSINOPHIL # 0.2 TH/MM3 (0-0.4); EOSINOPHIL % 4.2 % (0.0-4.0); HEMO FLAGS DIFF FINAL; LYMPH % 31.5 % (9.0-44.0); LYMPHOCYTE # 1.8 TH/MM3 (1.0-4.8); MEAN CELL VOLUME 102.1 FL (80.0-100.0); MEAN CORPUSCULAR HEMOGLOBIN 35.3 PG (27.0-34.0); MEAN CORPUSCULAR HGB CONC 34.6 % (32.0-36.0); MONO % 17.6 % (0.0-8.0); NEUT % 45.9 % (16.0-70.0); PLATELET COUNT 277 TH/MM3 (150-450); RED BLOOD COUNT 3.33 MIL/MM3 (4.50-5.90); RED CELL DISTRIBUTION WIDTH 13.4 % (11.6-17.2); WHITE BLOOD COUNT 5.8 TH/MM3 (4.0-11.0)
[2017-01-10 08:58] LABS: ALT (GPT) 89 U/L (12-78); ANION GAP 6 MEQ/L (5-15); AST (GOT) 44 U/L (15-37); BICARBONATE 31.5 MEQ/L (21.0-32.0); BLOOD UREA NITROGEN 13 MG/DL (7-18); CHLORIDE 100 MEQ/L (98-107); GLOMERULAR FILTRATION RATE 118 ML/MIN (>89); POTASSIUM 4.3 MEQ/L (3.5-5.1); SODIUM (NA) 137 MEQ/L (136-145)
[2017-01-10] MEDS: HALOPERIDOL 10 MG TAB PO SCH ×4 (09:00→16:58)
[2017-01-10] MEDS: BACITRACIN TOP OINT 15 GM TUBE TOPICAL SCH ×4 (09:00→21:11)
[2017-01-10] MEDS: levOCARNitine 10% ORAL SOLN 118 ML BTL PO SCH ×3 (09:00→16:58)
[2017-01-10 09:01] LABS: ALKALINE PHOSPHATASE 137 U/L (45-117); TOTAL BILIRUBIN ADULT 0.5 MG/DL (0.2-1.0)
[2017-01-10] MEDS: LACTULOSE SYRUP 20 GM/30 ML CUP PO SCH (09:25)
[2017-01-10] MEDS: NICOTINE 21 MG/24 HR PATCH T-DERMAL SCH (09:25)
[2017-01-10] MEDS: TRIHEXYPHENIDYL HCL 2 MG TAB PO SCH ×3 (09:25→21:03)
[2017-01-10] MEDS: QUEtiapine FUMARATE 100 MG TAB PO SCH (09:25)
[2017-01-10] MEDS: HALOPERIDOL LACTATE 5 MG/ML AMP IM PRN (10:19)
--- NOTE | 2017-01-10 11:34 | HHI.PYPN ---
Subjective Remarks Patient seen and examined with counselor. Chart reviewed. Case discussed with nursing staff who reports patient refused oral Haldol this morning and will receive IM. On my examination today, the patient asks a few relevant questions about his discharge and we discussed his medication some. He remains fairly disorganized overall. He is staring out the window and appears internally preoccupied. He is calm with the Seroquel though. No side effects from medications. No physical complaints. Review of Systems ROS Limitations: Psychotic, Poor Historian Except as stated in HPI: all other systems reviewed are Neg Objective Alert: Yes [place]: Person, Place Mood: Calm Affect: Blunted Memory Intact: Comment (Not assessed) Hallucinations: Other (remains internally stimulated) Delusions: No Delusion Type: Other (no delusions elicited) Suicidal: Ideation (no SI) Homicidal: Ideation (no HI) Insight/Judgment Poor Remarks No motor abnormalities noted. Grooming and hygiene poor. Labs Test 01/10/17 08:26 White Blood Count 5.8 TH/MM3 Red Blood Count 3.33 MIL/MM3 Hemoglobin 11.8 GM/DL Hematocrit 34.0 % Mean Corpuscular Volume 102.1 FL Mean Corpuscular Hemoglobin 35.3 PG Mean Corpuscular Hemoglobin 34.6 % Concent Red Cell Distribution Width 13.4 % Platelet Count 277 TH/MM3 Mean Platelet Volume 7.9 FL Neutrophils (%) (Auto) 45.9 % Lymphocytes (%) (Auto) 31.5 % Monocytes (%) (Auto) 17.6 % Eosinophils (%) (Auto) 4.2 % Basophils (%) (Auto) 0.8 % Neutrophils # (Auto) 2.7 TH/MM3 Lymphocytes # (Auto) 1.8 TH/MM3 Monocytes # (Auto) 1.0 TH/MM3 Eosinophils # (Auto) 0.2 TH/MM3 Basophils # (Auto) 0.0 TH/MM3 CBC Comment DIFF FINAL Differential Comment Sodium Level 137 MEQ/L Potassium Level 4.3 MEQ/L Chloride Level 100 MEQ/L Carbon Dioxide Level 31.5 MEQ/L Anion Gap 6 MEQ/L Blood Urea Nitrogen 13 MG/DL Creatinine 0.67 MG/DL Estimat Glomerular Filtration 118 ML/MIN Rate Random Glucose 121 MG/DL Calcium Level 9.1 MG/DL Total Bilirubin 0.5 MG/DL Aspartate Amino Transf 44 U/L (AST/SGOT) Alanine Aminotransferase 89 U/L (ALT/SGPT) Alkaline Phosphatase 137 U/L Ammonia 35 MCMOL/L Total Protein 7.3 GM/DL Albumin 3.6 GM/DL Labs reviewed. Anemia stable. Mild transaminitis noted. Vitals/IOs Vital Signs Date Time Temp Pulse Resp B/P Pulse Ox O2 Delivery O2 Flow Rate FiO2 01/10/17 06:05 96.3 65 20 102/57 96 Intake and Output 01/09/17 01/09/17 01/10/17 08:00 16:00 00:00 Intake Total 240 ml Balance 240 ml Assessment & Plan Problem List: (1) Schizophrenia ICD Code: F20.9 Assessment & Plan Titrate Seroquel to 100/300 mg to target psychosis. Continue Haldol as ordered. Tentative plan for Haldol Decanoate. Trend LFTs. Continue to monitor on the high acuity unit. Continue other medications and care as ordered. Justification for Cont. Inpt. Medication changes in process. High risk for decompensation in a less restrictive environment. 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
[2017-01-10 18:11] VITALS: BP 112/58; PULSE 60; RESP 18; TEMP 100.5; O2SAT 98
[2017-01-10] MEDS ORDERED: QUEtiapine FUMARATE 100 MG TAB PO SCH (21:00)
[2017-01-10] MEDS: REMOVE OLD NICOTINE PATCH T-DERMAL SCH (21:00)
[2017-01-11] MEDS: ACETAMINOPHEN/HYDROcodone 325 MG/5 MG TAB PO PRN ×3 (05:01→20:24)
[2017-01-11 05:57] VITALS: BP 127/72; PULSE 56; RESP 17; TEMP 97.7; O2SAT 97
[2017-01-11] MEDS: BACITRACIN TOP OINT 15 GM TUBE TOPICAL SCH ×2 (09:00→20:25)
[2017-01-11] MEDS: QUEtiapine FUMARATE 100 MG TAB PO SCH ×2 (09:17→20:23)
[2017-01-11] MEDS: HALOPERIDOL 10 MG TAB PO SCH ×3 (09:17→18:06)
[2017-01-11] MEDS: NICOTINE 21 MG/24 HR PATCH T-DERMAL SCH (09:17)
[2017-01-11] MEDS: TRIHEXYPHENIDYL HCL 2 MG TAB PO SCH ×3 (09:17→20:24)
[2017-01-11] MEDS: LACTULOSE SYRUP 20 GM/30 ML CUP PO SCH (09:17)
[2017-01-11] MEDS: levOCARNitine 10% ORAL SOLN 118 ML BTL PO SCH ×3 (09:18→18:06)
--- NOTE | 2017-01-11 12:02 | HHI.PYPN ---
Subjective Remarks Patient seen and examined with nurse. Chart reviewed. Case discussed with nursing staff who reports the patient was able to get a shower today. On my examination today, the patient remains a little disorganized, although we are able to hold a brief relevant conversation. He says that "I'm doing really well , well fairly well, well not too well." He remains internally preoccupied. He is insistent on returning to [facility], exclaiming "there's none better!" Denies side effects from medications. No new physical complaints. Review of Systems ROS Limitations: Psychotic, Poor Historian Except as stated in HPI: all other systems reviewed are Neg Objective Alert: Yes [place]: Person, Place Mood: Calm (remains calm) Affect: Blunted Memory Intact: Comment (not formally assessed) Hallucinations: Other (remains a little internally preoccupied) Delusions: No Delusion Type: Other (no delusions) Suicidal: Ideation (none) Homicidal: Ideation (none) Insight/Judgment Poor Remarks No motor abnormalities noted. Patient is little better groomed today than usual. Labs Labs reviewed. Vitals/IOs Vital Signs Date Time Temp Pulse Resp B/P Pulse Ox O2 Delivery O2 Flow Rate FiO2 01/11/17 05:57 97.7 56 17 127/72 97 Assessment & Plan Problem List: (1) Schizophrenia ICD Code: F20.9 Assessment & Plan Continued to titrate Seroquel to 100/350 mg. Patient seems to be deriving real benefit from this agent, although overall trajectory of patient's recovery seems to be approaching somewhat of a plateau. Continue to monitor on the inpatient unit. Continue other medications and care as ordered. Justification for Cont. Inpt. Medication changes in process. Impairment in reality construction. Discharge Planning Possible return to assisted living facility sometime next week. May consider Haldol Decanoate before he goes. 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
[2017-01-11 16:55] VITALS: BP 163/98; PULSE 58; RESP 16; TEMP 97.1; O2SAT 100
[2017-01-11] MEDS: REMOVE OLD NICOTINE PATCH T-DERMAL SCH (20:25)
[2017-01-12] MEDS: ACETAMINOPHEN/HYDROcodone 325 MG/5 MG TAB PO PRN ×3 (05:21→20:47)
[2017-01-12 05:53] VITALS: TEMP 97.6
[2017-01-12 05:54] VITALS: BP 140/96; RESP 18; O2SAT 99
[2017-01-12] MEDS: BACITRACIN TOP OINT 15 GM TUBE TOPICAL SCH ×2 (09:00→20:48)
[2017-01-12] MEDS: QUEtiapine FUMARATE 100 MG TAB PO SCH ×2 (09:54→20:47)
[2017-01-12] MEDS: NICOTINE 21 MG/24 HR PATCH T-DERMAL SCH (09:54)
[2017-01-12] MEDS: LACTULOSE SYRUP 20 GM/30 ML CUP PO SCH (09:55)
[2017-01-12] MEDS: levOCARNitine 10% ORAL SOLN 118 ML BTL PO SCH ×3 (09:55→18:16)
[2017-01-12] MEDS: TRIHEXYPHENIDYL HCL 2 MG TAB PO SCH ×3 (09:55→20:46)
[2017-01-12] MEDS: HALOPERIDOL 10 MG TAB PO SCH ×3 (09:55→18:16)
--- NOTE | 2017-01-12 12:18 | HHI.PYPN ---
Subjective Remarks Patient seen and examined with counselor and nurse. Chart reviewed. Case discussed with nursing staff. Patient noted to be significantly more lucid this morning. On my examination today, the patient is standing in the day area , staring out the window. He does indeed seem more organized. He is hopeful for discharge soon back to his assisted living facility noting "I miss my radio. I miss my study." He says that he has several books in his room that he is looking forward to getting back to. He does remain somewhat paranoid regarding the medications. Nursing staff does say that they have to crush his meds and put them in juice, and I have asked counselor to see if this can be done at [facility]. No evident side effects from medications. No physical complaints. Review of Systems ROS Limitations: Psychotic, Poor Historian Except as stated in HPI: all other systems reviewed are Neg Objective Alert: Yes [place]: Person, Place Mood: Calm Affect: Blunted Memory Intact: Comment (fair) Hallucinations: Other (less int stim) Delusions: Yes Delusion Type: Paranoid (mild, regarding meds) Suicidal: Ideation (No SI) Homicidal: Ideation (No HI) Insight/Judgment Poor Remarks No motor abnormalities noted. TP more linear. Labs Labs reviewed. Vitals/IOs Vital Signs Date Time Temp Pulse Resp B/P Pulse Ox O2 Delivery O2 Flow Rate FiO2 01/12/17 05:54 18 140/96 99 01/12/17 05:53 97.6 01/11/17 16:55 58 Assessment & Plan Problem List: (1) Schizophrenia ICD Code: F20.9 Assessment & Plan Patient seems to continue to accrue benefit from Seroquel/Haldol combination. I will order Haldol Decanoate 100mg IM given high risk for non-adherence. Patient would likely benefit from additional Decanoate next week to bring him to at least 10 times the oral dose (i.e. a total of 300mg IM). Continue oral Haldol/Seroquel as ordered. Continue to monitor on the inpatient unit. Continue other medications and care as ordered. Justification for Cont. Inpt. Medication changes in process. Risk for decompensation. Discharge Planning Possible return to assisted living facility sometime next week. Request HC Surrog/Guard Advoc?: Yes Problem Qualifiers (1) Schizophrenia: Qualified Code: F20.1 - Disorganized schizophrenia Tyrel Yap MD Jan 12, 2017 12:18
[2017-01-12 17:49] VITALS: BP 116/61; PULSE 72; RESP 18; TEMP 98.2; O2SAT 98
[2017-01-12] MEDS: REMOVE OLD NICOTINE PATCH T-DERMAL SCH (20:48)
[2017-01-13] MEDS: ACETAMINOPHEN/HYDROcodone 325 MG/5 MG TAB PO PRN ×2 (02:34→21:23)
[2017-01-13 05:45] VITALS: BP 116/57; PULSE 54; RESP 16; TEMP 97.4; O2SAT 95
[2017-01-13] MEDS: NICOTINE 21 MG/24 HR PATCH T-DERMAL SCH (08:50)
[2017-01-13] MEDS: BACITRACIN TOP OINT 15 GM TUBE TOPICAL SCH ×2 (08:50→21:00)
[2017-01-13] MEDS: LACTULOSE SYRUP 20 GM/30 ML CUP PO SCH (08:50)
[2017-01-13] MEDS: TRIHEXYPHENIDYL HCL 2 MG TAB PO SCH ×3 (08:50→21:21)
[2017-01-13] MEDS: HALOPERIDOL 10 MG TAB PO SCH ×3 (08:50→18:00)
[2017-01-13] MEDS: QUEtiapine FUMARATE 100 MG TAB PO SCH ×2 (08:50→21:21)
[2017-01-13] MEDS: levOCARNitine 10% ORAL SOLN 118 ML BTL PO SCH ×3 (08:50→18:00)
[2017-01-13] MEDS ORDERED: HALOPERIDOL DECANOATE 50 MG/ML VIAL IM SCH (09:00)
[2017-01-13] MEDS: LORazepam 0.5 MG TAB PO PRN ×2 (10:59→21:21)
[2017-01-13] MEDS: ACETAMINOPHEN 325 MG TAB PO PRN (13:56)
--- NOTE | 2017-01-13 17:50 | HHI.PYPN ---
Subjective Remarks Patient was seen and case discussed with nursing. Patient refuses the interview after 30 seconds. He is intrusive and insists on talking over me. Remains disorganized and grossly psychotic with poor insight. Behaving well and tolerating his medications Objective Alert: Yes [place]: Person, Place Mood: Calm Affect: Blunted Memory Intact: Comment (fair) Hallucinations: Other (less int stim) Delusions: Yes Delusion Type: Paranoid (mild, regarding meds) Suicidal: Ideation (No SI) Homicidal: Ideation (No HI) Insight/Judgment Poor Vitals/IOs Vital Signs Date Time Temp Pulse Resp B/P Pulse Ox O2 Delivery O2 Flow Rate FiO2 01/13/17 05:45 97.4 54 16 116/57 95 Assessment & Plan Problem List: (1) Schizophrenia ICD Code: F20.9 Assessment & Plan Continue current treatment plan Justification for Cont. Inpt. 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
[2017-01-13 17:54] VITALS: BP 126/68; PULSE 62; RESP 16; TEMP 97.6; O2SAT 98
[2017-01-13 20:00] VITALS: BP 104/52; PULSE 62; RESP 18
[2017-01-13] MEDS: REMOVE OLD NICOTINE PATCH T-DERMAL SCH (21:00)
[2017-01-13] MEDS: ZOLPIDEM TARTRATE 5 MG TAB PO PRN (21:20)
[2017-01-14] MEDS: ACETAMINOPHEN/HYDROcodone 325 MG/5 MG TAB PO PRN ×2 (00:26→20:36)
[2017-01-14 05:33] VITALS: BP 130/74; PULSE 73; RESP 18; TEMP 97.6; O2SAT 97
[2017-01-14] MEDS: TRIHEXYPHENIDYL HCL 2 MG TAB PO SCH ×3 (09:00→20:34)
[2017-01-14] MEDS: HALOPERIDOL 10 MG TAB PO SCH ×3 (09:00→18:00)
[2017-01-14] MEDS: LACTULOSE SYRUP 20 GM/30 ML CUP PO SCH (09:00)
[2017-01-14] MEDS: NICOTINE 21 MG/24 HR PATCH T-DERMAL SCH (09:00)
[2017-01-14] MEDS: BACITRACIN TOP OINT 15 GM TUBE TOPICAL SCH ×2 (09:00→20:35)
[2017-01-14] MEDS: QUEtiapine FUMARATE 100 MG TAB PO SCH ×2 (09:00→20:34)
[2017-01-14] MEDS: levOCARNitine 10% ORAL SOLN 118 ML BTL PO SCH ×3 (09:00→18:00)
--- NOTE | 2017-01-14 15:08 | HHI.PYPN ---
Subjective Remarks Patient was seen and case discussed with nursing. Patient remains irritable and disorganized. He did take a shower this morning. Asking for the newspaper. No outbursts. Compliant with medications Objective Alert: Yes [place]: Person, Place Mood: Calm Affect: Blunted Memory Intact: Comment (fair) Hallucinations: Other (less int stim) Delusions: Yes Delusion Type: Paranoid (mild, regarding meds) Suicidal: Ideation (No SI) Homicidal: Ideation (No HI) Insight/Judgment Poor Vitals/IOs Vital Signs Date Time Temp Pulse Resp B/P Pulse Ox O2 Delivery O2 Flow Rate FiO2 01/14/17 05:33 97.6 73 18 130/74 97 Intake and Output 01/13/17 01/13/17 01/14/17 08:00 16:00 00:00 Intake Total 240 ml Balance 240 ml Assessment & Plan Problem List: (1) Schizophrenia ICD Code: F20.9 Assessment & Plan Continue current treatment plan Justification for Cont. Inpt. Patient will decompensate in a less restrictive setting Request HC Surrog/Guard Advoc?: Yes Problem Qualifiers (1) Schizophrenia: Qualified Code: F20.1 - Disorganized schizophrenia Linus Webb DO Jan 14, 2017 15:08
[2017-01-14 18:09] VITALS: BP 132/91; PULSE 97; RESP 17; TEMP 95.9; O2SAT 98
[2017-01-14] MEDS: ZOLPIDEM TARTRATE 5 MG TAB PO PRN (20:35)
[2017-01-14] MEDS: REMOVE OLD NICOTINE PATCH T-DERMAL SCH (20:35)
[2017-01-15] MEDS ORDERED: ONDANSETRON ODT 4 MG TAB PO ONE (01:00)
[2017-01-15 02:21] VITALS: BP 139/111; PULSE 88; RESP 18; TEMP 97; O2SAT 98
[2017-01-15 05:52] VITALS: BP 124/71; PULSE 63; RESP 19; TEMP 97.2; O2SAT 98
[2017-01-15] MEDS: levOCARNitine 10% ORAL SOLN 118 ML BTL PO SCH ×3 (09:00→17:45)
[2017-01-15] MEDS: LACTULOSE SYRUP 20 GM/30 ML CUP PO SCH (09:00)
[2017-01-15] MEDS: BACITRACIN TOP OINT 15 GM TUBE TOPICAL SCH ×2 (09:00→21:00)
[2017-01-15] MEDS: NICOTINE 21 MG/24 HR PATCH T-DERMAL SCH (09:00)
[2017-01-15] MEDS: TRIHEXYPHENIDYL HCL 2 MG TAB PO SCH ×3 (09:17→22:07)
[2017-01-15] MEDS: QUEtiapine FUMARATE 100 MG TAB PO SCH ×2 (09:17→22:07)
[2017-01-15] MEDS: HALOPERIDOL 10 MG TAB PO SCH ×3 (09:17→17:45)
[2017-01-15] MEDS: ACETAMINOPHEN/HYDROcodone 325 MG/5 MG TAB PO PRN (09:19)
--- NOTE | 2017-01-15 12:44 | HHI.PYPN ---
Subjective Remarks No change Review of Systems Except as stated in HPI: all other systems reviewed are Neg Objective Alert: Yes [place]: Person, Place Mood: Calm Affect: Blunted Memory Intact: Comment (fair) Hallucinations: Other (less int stim) Delusions: Yes Delusion Type: Paranoid (mild, regarding meds) Suicidal: Ideation (No SI) Homicidal: Ideation (No HI) Insight/Judgment Impaired Vitals/IOs Vital Signs Date Time Temp Pulse Resp B/P Pulse Ox O2 Delivery O2 Flow Rate FiO2 01/15/17 05:52 97.2 63 19 124/71 98 Intake and Output 01/14/17 01/14/17 01/15/17 08:00 16:00 00:00 Intake Total 760 ml 990 ml Balance 760 ml 990 ml Assessment & Plan Problem List: (1) Schizophrenia ICD Code: F20.9 Assessment & Plan Estimated LOS: days waiting for response to medication. Justification for Cont. Inpt. Likely to decompensate at lower level of care Request HC Surrog/Guard Advoc?: Yes Problem Qualifiers (1) Schizophrenia: Qualified Code: F20.1 - Disorganized schizophrenia Khoa Paz MD Jan 15, 2017 12:44
--- NOTE | 2017-01-15 16:14 | HHI.PR ---
Subjective Remarks Patient seen this afternoon around 2 PM. Cussed with nursing. Nursing reports patient vomited twice last night. No blood. Patient has been walking around since then. Patient says he feels well. Reports recent bowel movement. Yelling loudly. Threatening tone. Refuses exam. Objective Vital Signs Date Time Temp Pulse Resp B/P Pulse Ox O2 Delivery O2 Flow Rate FiO2 01/15/17 05:52 97.2 63 19 124/71 98 01/15/17 02:21 97.0 88 18 139/111 98 01/14/17 18:09 95.9 97 17 132/91 98 I/O 01/14/17 01/14/17 01/14/17 01/15/17 01/15/17 01/15/17 07:00 15:00 23:00 07:00 15:00 23:00 Intake Total 560 ml 440 ml 440 ml 550 ml Balance 560 ml 440 ml 440 ml 550 ml Intake Oral 560 ml 440 ml 440 ml 550 ml # Voids 2 Objective Remarks GENERAL: Lying in bed. Appears comfortable. Agitated. Refusing exam. A/P Assessment and Plan ======01/15/17 Vomiting overnight. Appears to have resolved. We'll repeat labs. Patient refuses exam, however appears comfortable. Appears at baseline per nursing. -Follow up repeat basic labs. 66-year-old male with a past medical history of schizophrenia, hypertension, Parkinson's and hepatitis B he was admitted to the psychiatric unit under Meehan Act due to becoming aggressive with another resident and refusing his medication. Hospitalist services were consulted for specifically increased pain from inguinal hernia. //Disorganized schizophrenia -Management per psychiatric team //HTN, chronic, stable - No medications. Within normal //Groin mass, Due to large chronic left inguinal hernia -Was seen by surgery and was told he was not a candidate for surgery due to mental issues and non compliance. - On [place] 5/325 Q4hr PRN for better pain management. //Elevated ammonia level - Lactulose daily - Check ammonia level monthly //DVT prophylaxis ambulatory Mayito Corona MD Jan 15, 2017 16:14
[2017-01-15 18:26] VITALS: BP 125/62; PULSE 54; RESP 19; TEMP 98.4; O2SAT 98
[2017-01-15 19:47] LABS: AUTOMATED NEUTROPHIL # 3.8 TH/MM3 (1.8-7.7); BASOPHIL % 0.3 % (0.0-2.0); EOSINOPHIL # 0.2 TH/MM3 (0-0.4); EOSINOPHIL % 3.9 % (0.0-4.0); HEMATOCRIT 31.6 % (39.0-51.0); HEMO FLAGS DIFF FINAL; LYMPH % 20.9 % (9.0-44.0); LYMPHOCYTE # 1.2 TH/MM3 (1.0-4.8); MEAN CELL VOLUME 102.2 FL (80.0-100.0); MEAN CORPUSCULAR HEMOGLOBIN 35.4 PG (27.0-34.0); MEAN CORPUSCULAR HGB CONC 34.7 % (32.0-36.0); MONO % 9.1 % (0.0-8.0); NEUT % 65.8 % (16.0-70.0); PLATELET COUNT 265 TH/MM3 (150-450); RED BLOOD COUNT 3.09 MIL/MM3 (4.50-5.90); RED CELL DISTRIBUTION WIDTH 13.7 % (11.6-17.2); WHITE BLOOD COUNT 5.8 TH/MM3 (4.0-11.0)
[2017-01-15 20:11] LABS: AST (GOT) 31 U/L (15-37); BICARBONATE 29.9 MEQ/L (21.0-32.0); BLOOD UREA NITROGEN 17 MG/DL (7-18); GLOMERULAR FILTRATION RATE 124 ML/MIN (>89)
[2017-01-15 20:13] LABS: ALT (GPT) 83 U/L (12-78)
[2017-01-15 20:28] LABS: ALKALINE PHOSPHATASE 143 U/L (45-117); ANION GAP 4 MEQ/L (5-15); CHLORIDE 101 MEQ/L (98-107); POTASSIUM 4.1 MEQ/L (3.5-5.1); SODIUM (NA) 135 MEQ/L (136-145); TOTAL BILIRUBIN ADULT 0.7 MG/DL (0.2-1.0)
[2017-01-15] MEDS: REMOVE OLD NICOTINE PATCH T-DERMAL SCH (21:00)
[2017-01-16 02:15] VITALS: BP 112/63; PULSE 18; RESP 18; TEMP 75; O2SAT 96
[2017-01-16] MEDS: ZOLPIDEM TARTRATE 5 MG TAB PO PRN ×2 (02:17→20:13)
[2017-01-16] MEDS: ACETAMINOPHEN/HYDROcodone 325 MG/5 MG TAB PO PRN ×2 (02:18→20:13)
[2017-01-16 06:10] VITALS: BP 112/63; PULSE 75; RESP 18; TEMP 97.4
[2017-01-16] MEDS: BACITRACIN TOP OINT 15 GM TUBE TOPICAL SCH ×2 (09:00→20:14)
[2017-01-16] MEDS: levOCARNitine 10% ORAL SOLN 118 ML BTL PO SCH ×3 (09:00→17:16)
[2017-01-16] MEDS: NICOTINE 21 MG/24 HR PATCH T-DERMAL SCH (10:08)
[2017-01-16] MEDS: TRIHEXYPHENIDYL HCL 2 MG TAB PO SCH ×3 (10:08→20:19)
[2017-01-16] MEDS: QUEtiapine FUMARATE 100 MG TAB PO SCH ×2 (10:08→20:13)
[2017-01-16] MEDS: HALOPERIDOL 10 MG TAB PO SCH ×3 (10:08→17:16)
[2017-01-16] MEDS: LACTULOSE SYRUP 20 GM/30 ML CUP PO SCH (10:09)
--- NOTE | 2017-01-16 12:53 | HHI.PYPN ---
Subjective Remarks Continues to be withdrawn, reclusive, mumbling to himself and responding to internal stimuli. Review of Systems Except as stated in HPI: all other systems reviewed are Neg Objective Alert: Yes [place]: Person, Place Mood: Calm Affect: Blunted Memory Intact: Comment (fair) Hallucinations: Other (less int stim) Delusions: Yes Delusion Type: Paranoid (mild, regarding meds) Suicidal: Ideation (No SI) Homicidal: Ideation (No HI) Insight/Judgment Impaired Labs Test 01/15/17 19:11 White Blood Count 5.8 TH/MM3 Red Blood Count 3.09 MIL/MM3 Hemoglobin 11.0 GM/DL Hematocrit 31.6 % Mean Corpuscular Volume 102.2 FL Mean Corpuscular Hemoglobin 35.4 PG Mean Corpuscular Hemoglobin 34.7 % Concent Red Cell Distribution Width 13.7 % Platelet Count 265 TH/MM3 Mean Platelet Volume 7.7 FL Neutrophils (%) (Auto) 65.8 % Lymphocytes (%) (Auto) 20.9 % Monocytes (%) (Auto) 9.1 % Eosinophils (%) (Auto) 3.9 % Basophils (%) (Auto) 0.3 % Neutrophils # (Auto) 3.8 TH/MM3 Lymphocytes # (Auto) 1.2 TH/MM3 Monocytes # (Auto) 0.5 TH/MM3 Eosinophils # (Auto) 0.2 TH/MM3 Basophils # (Auto) 0.0 TH/MM3 CBC Comment DIFF FINAL Differential Comment Sodium Level 135 MEQ/L Potassium Level 4.1 MEQ/L Chloride Level 101 MEQ/L Carbon Dioxide Level 29.9 MEQ/L Anion Gap 4 MEQ/L Blood Urea Nitrogen 17 MG/DL Creatinine 0.64 MG/DL Estimat Glomerular Filtration 124 ML/MIN Rate Random Glucose 113 MG/DL Calcium Level 8.6 MG/DL Total Bilirubin 0.7 MG/DL Aspartate Amino Transf 31 U/L (AST/SGOT) Alanine Aminotransferase 83 U/L (ALT/SGPT) Alkaline Phosphatase 143 U/L Total Protein 6.7 GM/DL Albumin 3.3 GM/DL Vitals/IOs Vital Signs Date Time Temp Pulse Resp B/P Pulse Ox O2 Delivery O2 Flow Rate FiO2 01/16/17 06:10 97.4 75 18 112/63 01/16/17 02:15 96 Assessment & Plan Problem List: (1) Schizophrenia ICD Code: F20.9 Assessment & Plan Estimated LOS: days continues to require more time on current antipsychotic medication to respond. Justification for Cont. Inpt. Will decompensate further at lower level of care. Request HC Surrog/Guard Advoc?: Yes Problem Qualifiers (1) Schizophrenia: Qualified Code: F20.1 - Disorganized schizophrenia Khoa Paz MD Jan 16, 2017 12:53
--- NOTE | 2017-01-16 13:45 | HHI.PR ---
Subjective Remarks Follow up on patient with episode of vomiting. Patient seen and examined today. Patient requesting apple juice. He has no complaints today. He is looking forward to the 16 of January republican. He denies any fever, chills, N/V, diarrhea, chest pain, SOB or abdominal pain. Discussed with nursing staff - no further episodes of N/V and no diarrhea. Objective Vitals Vital Signs Date Time Temp Pulse Resp B/P Pulse Ox O2 Delivery O2 Flow Rate FiO2 01/16/17 06:10 97.4 75 18 112/63 01/16/17 02:15 75.0 18 18 112/63 96 01/15/17 18:26 98.4 54 19 125/62 98 I/O 01/15/17 01/15/17 01/15/17 01/16/17 01/16/17 01/16/17 07:00 15:00 23:00 07:00 15:00 23:00 Intake Total 550 ml 600 ml Output Total 0 ml Balance 550 ml 600 ml Intake Oral 550 ml 600 ml Stool Total 0 ml # Voids 2 2 # Bowel Movements 0 Result Diagram: 01/15/17191001/15/171910 Imaging Last Impressions Abdomen/Pelvis CT 12/09/16 0000 Signed Impressions: Service Date/Time: Friday, December 09, 2016 15:07 - CONCLUSION: Large hernia on the right without obvious incarceration however there is a cystic component with inflammatory changes evident. No other etiology of abdominal pain is noted. Correlation is suggested. Omero Conner MD FACR Procedures GENERAL: Well-nourished, well-developed patient in NAD. Disheveled appearance. Calm and cooperative. Awake, sitting on side of bed. SKIN: Warm and dry. No rash. HEENT: Normocephalic. Atraumatic. EOMI. MMM. CARDIOVASCULAR: Regular rate and rhythm. S1, S2 noted. No murmur appreciated. RESPIRATORY: No accessory muscle use. Clear to auscultation. Breath sounds equal bilaterally. GASTROINTESTINAL: Abdomen soft, non-tender, nondistended. Normoactive bowel sounds x4. MUSCULOSKELETAL: No obvious deformities. Extremities without clubbing, cyanosis , or edema. NEUROLOGICAL: Awake and alert. Able to move all extremities. Normal speech. Medications and IVs Current Medications Medications (Trade) Dose Ordered Sig/Marce Route Start Time Stop Time Status Last Admin (Tylenol) 650 mg Q4H PRN PO 12/05/16 20:30 01/13/17 13:56 (Milk Of Magnesia Liq) 30 ml DAILY PRN PO 12/05/16 20:30 (Mag-Al Plus Susp Liq) 30 ml Q6H PRN PO 12/05/16 20:30 (Habitrol 21 Mg Patch.24 Hr) 1 patch DAILY T-DERMAL 12/06/16 09:00 01/16/17 10:08 Miscellaneous Information 1 HS T-DERMAL 12/05/16 21:00 01/10/17 21:00 (Ativan) 1 mg Q12H PRN PO 12/06/16 20:30 01/13/17 21:21 (Ativan Inj) 1 mg Q12H PRN IM 12/06/16 20:30 (Cogentin) 1 mg Q12HR PRN PO 12/06/16 10:00 (Cogentin Inj) 1 mg Q12HR PRN IM 12/06/16 10:00 (Pill Splitter) 1 ea UNSCH PRN OTHER 12/12/16 13:00 (Carnitor 10% Liq) 6 ml TID PO 12/14/16 18:00 01/16/17 12:45 (Baciguent Oint) 1 applic Q12HR TOPICAL 12/15/16 21:00 01/10/17 09:00 (Ambien) 10 mg HS PRN PO 12/18/16 13:00 01/16/17 02:17 (Artane) 2 mg DAILY@,, PO 12/21/16 21:00 01/16/17 12:45 (Haldol) 10 mg TID PO 12/22/16 18:00 01/16/17 12:45 (Haldol Inj) 10 mg TID PRN IM 12/22/16 18:00 01/10/17 10:19 ([place] 5-325 Mg) 1 tab Q4H PRN PO 12/28/16 17:30 01/16/17 02:18 (Lactulose Liq) 30 ml DAILY PO 12/30/16 09:00 01/16/17 10:09 (SEROquel) 100 mg DAILY PO 01/06/17 09:00 01/16/17 10:08 (Pill Splitter) 1 ea UNSCH PRN OTHER 01/09/17 15:15 (SEROquel) 350 mg HS PO 01/11/17 21:00 01/15/17 22:07 A/P Problem List: (1) Schizophrenia ICD Code: F20.9 Status: Chronic (2) Inguinal hernia ICD Code: K40.90 Status: Acute Assessment and Plan 66-year-old male with a past medical history of schizophrenia, hypertension, Parkinson's and hepatitis B he was admitted to the psychiatric unit under Meehan Act due to becoming aggressive with another resident and refusing his medication. Hospitalist services were consulted for specifically increased pain from inguinal hernia. //Disorganized schizophrenia -Management per psychiatric team //HTN, chronic, stable - No medications. - BP controlled, stable off of meds //Groin mass, Due to large chronic left inguinal hernia - Was seen by surgery and was told he was not a candidate for surgery due to mental issues and non compliance. - On [place] 5/325 Q4hr PRN for better pain management. //Hyponatremia - suspect dehydration - encourage po fluid intake - repeat labs in am //Elevated ammonia level - Lactulose daily - Check ammonia level monthly //DVT prophylaxis ambulatory Discussed with nursing staff, patient and Dr. Corona Problem Qualifiers (1) Schizophrenia: Qualified Code: F20.1 - Disorganized schizophrenia Aparna Anthony Jan 16, 2017 13:45
[2017-01-16 18:56] VITALS: PULSE 79; RESP 18; TEMP 97.8; O2SAT 96
[2017-01-16] MEDS: LORazepam 0.5 MG TAB PO PRN (20:13)
[2017-01-16] MEDS: REMOVE OLD NICOTINE PATCH T-DERMAL SCH (20:13)
[2017-01-17] MEDS: ACETAMINOPHEN/HYDROcodone 325 MG/5 MG TAB PO PRN ×5 (01:58→21:06)
[2017-01-17 05:49] VITALS: BP 133/73; PULSE 65; RESP 18; TEMP 96.4; O2SAT 96
[2017-01-17] MEDS: TRIHEXYPHENIDYL HCL 2 MG TAB PO SCH ×3 (08:25→21:03)
[2017-01-17] MEDS: levOCARNitine 10% ORAL SOLN 118 ML BTL PO SCH ×3 (08:25→17:31)
[2017-01-17] MEDS: LACTULOSE SYRUP 20 GM/30 ML CUP PO SCH (08:26)
[2017-01-17] MEDS: BACITRACIN TOP OINT 15 GM TUBE TOPICAL SCH ×2 (08:26→21:00)
[2017-01-17] MEDS: HALOPERIDOL 10 MG TAB PO SCH ×3 (08:26→17:31)
[2017-01-17] MEDS: NICOTINE 21 MG/24 HR PATCH T-DERMAL SCH (08:26)
[2017-01-17] MEDS: QUEtiapine FUMARATE 100 MG TAB PO SCH ×2 (08:26→21:03)
[2017-01-17 12:43] LABS: AUTOMATED NEUTROPHIL # 3.2 TH/MM3 (1.8-7.7); BASOPHIL % 0.2 % (0.0-2.0); EOSINOPHIL # 0.2 TH/MM3 (0-0.4); HEMATOCRIT 31.8 % (39.0-51.0); HEMO FLAGS DIFF FINAL; LYMPH % 23.8 % (9.0-44.0); LYMPHOCYTE # 1.3 TH/MM3 (1.0-4.8); MEAN CELL VOLUME 101.3 FL (80.0-100.0); MEAN CORPUSCULAR HEMOGLOBIN 34.6 PG (27.0-34.0); MEAN CORPUSCULAR HGB CONC 34.1 % (32.0-36.0); PLATELET COUNT 257 TH/MM3 (150-450); RED BLOOD COUNT 3.14 MIL/MM3 (4.50-5.90); RED CELL DISTRIBUTION WIDTH 13.5 % (11.6-17.2); WHITE BLOOD COUNT 5.7 TH/MM3 (4.0-11.0)
[2017-01-17 13:00] LABS: BICARBONATE 28.1 MEQ/L (21.0-32.0); POTASSIUM 4.5 MEQ/L (3.5-5.1)
[2017-01-17 13:03] LABS: INDIRECT BILIRUBIN 0.4 MG/DL (0.0-0.8); TOTAL BILIRUBIN ADULT 0.5 MG/DL (0.2-1.0)
--- NOTE | 2017-01-17 13:17 | HHI.PYPN ---
Subjective Remarks No change discuss case with nurse. Review chart. Review of Systems Except as stated in HPI: all other systems reviewed are Neg Objective Alert: Yes [place]: Person, Place Mood: Calm Affect: Blunted Memory Intact: Comment (fair) Hallucinations: Other (less int stim) Delusions: Yes Delusion Type: Paranoid (mild, regarding meds) Suicidal: Ideation (No SI) Homicidal: Ideation (No HI) Insight/Judgment Impaired Labs Test 01/17/17 01/17/17 12:00 12:15 White Blood Count 5.7 TH/MM3 Red Blood Count 3.14 MIL/MM3 Hemoglobin 10.9 GM/DL Hematocrit 31.8 % Mean Corpuscular Volume 101.3 FL Mean Corpuscular Hemoglobin 34.6 PG Mean Corpuscular Hemoglobin 34.1 % Concent Red Cell Distribution Width 13.5 % Platelet Count 257 TH/MM3 Mean Platelet Volume 7.7 FL Neutrophils (%) (Auto) 56.0 % Lymphocytes (%) (Auto) 23.8 % Monocytes (%) (Auto) 16.0 % Eosinophils (%) (Auto) 4.0 % Basophils (%) (Auto) 0.2 % Neutrophils # (Auto) 3.2 TH/MM3 Lymphocytes # (Auto) 1.3 TH/MM3 Monocytes # (Auto) 0.9 TH/MM3 Eosinophils # (Auto) 0.2 TH/MM3 Basophils # (Auto) 0.0 TH/MM3 CBC Comment DIFF FINAL Differential Comment Sodium Level 134 MEQ/L Potassium Level 4.5 MEQ/L Chloride Level 100 MEQ/L Carbon Dioxide Level 28.1 MEQ/L Anion Gap 6 MEQ/L Blood Urea Nitrogen 12 MG/DL Creatinine 0.61 MG/DL Estimat Glomerular Filtration 131 ML/MIN Rate Random Glucose 82 MG/DL Calcium Level 8.7 MG/DL Total Bilirubin 0.5 MG/DL Direct Bilirubin 0.1 MG/DL Indirect Bilirubin 0.4 MG/DL Aspartate Amino Transf 24 U/L (AST/SGOT) Alanine Aminotransferase 61 U/L (ALT/SGPT) Alkaline Phosphatase 153 U/L Total Protein 7.1 GM/DL Albumin 3.5 GM/DL Vitals/IOs Vital Signs Date Time Temp Pulse Resp B/P Pulse Ox O2 Delivery O2 Flow Rate FiO2 01/17/17 05:49 96.4 65 18 133/73 96 Intake and Output 01/16/17 01/16/1701/17/17 08:00 16:00 00:00 Intake Total 600 ml 720 ml Output Total 0 ml Balance 600 ml 720 ml Assessment & Plan Problem List: (1) Schizophrenia ICD Code: F20.9 Assessment & Plan Still psychotic. Estimated LOS: days Justification for Cont. Inpt. Will decompensate at lower level of care. Request HC Surrog/Guard Advoc?: Yes Problem Qualifiers (1) Schizophrenia: Qualified Code: F20.1 - Disorganized schizophrenia Khoa Paz MD Jan 17, 2017 13:17
[2017-01-17 18:34] VITALS: BP 122/58; PULSE 63; RESP 16; TEMP 98.6; O2SAT 98
[2017-01-17] MEDS: REMOVE OLD NICOTINE PATCH T-DERMAL SCH (21:00)
[2017-01-18 06:10] VITALS: BP 114/66; PULSE 87; RESP 18; TEMP 97; O2SAT 95
[2017-01-18] MEDS: TRIHEXYPHENIDYL HCL 2 MG TAB PO SCH ×2 (08:32→12:59)
[2017-01-18] MEDS: LACTULOSE SYRUP 20 GM/30 ML CUP PO SCH (08:32)
[2017-01-18] MEDS: QUEtiapine FUMARATE 100 MG TAB PO SCH (08:32)
[2017-01-18] MEDS: HALOPERIDOL 10 MG TAB PO SCH ×2 (08:32→12:59)
[2017-01-18] MEDS: BACITRACIN TOP OINT 15 GM TUBE TOPICAL SCH (08:33)
[2017-01-18] MEDS: levOCARNitine 10% ORAL SOLN 118 ML BTL PO SCH ×2 (08:33→12:59)
[2017-01-18] MEDS: NICOTINE 21 MG/24 HR PATCH T-DERMAL SCH (08:33)
[2017-01-18] MEDS ORDERED: HALOPERIDOL DECANOATE 50 MG/ML VIAL IM SCH (12:00)
[2017-01-18] MEDS ORDERED: TRIH2 PO (12:00)
[2017-01-18] MEDS ORDERED: HYDR-3516 PO (12:00)
[2017-01-18] MEDS ORDERED: HALO100P IM (12:00)
[2017-01-18] MEDS ORDERED: AMBI5TAB PO (12:00)
[2017-01-18] MEDS ORDERED: QUET1TAB8 PO ×2 (12:00)
[2017-01-18] MEDS ORDERED: HALO10TA PO (12:00)
[2017-01-18] MEDS ORDERED: Lactulose Liq PO (12:00)
--- NOTE | 2017-01-18 12:00 | HHI.DS ---
Psychiatry Discharge Summary Inpatient Psychiatric care?: Yes Advance Directive: No Reason Not Provided: none Mental Health AdvanceDirective: No Health Care Proxy: No Admission Admission Date December 05, 2016 at 18:10 Admission Diagnosis: (1) Schizophrenia ICD Code: F20.9 Brief History Mr. Pineda is a 66 year-old male with a history of schizophrenia who is presently admitted under a Meehan Act by Psy. Roxane Soliz, alleging aggression and medication refusal at his facility. Patient was initially sent to [facility], and I have reviewed the documentation that accompanies the patient from there. Patient was apparently agitated and was complaining of right shoulder pain and was given an ETO of Haldol, Ativan and Benadryl. According to our ER doctor's note, the patient became altered at [facility] and was sent here to [place] as he was beyond the scope of care. Electronic medical record reviewed. Patient was admitted here most recently under my care, having been discharged at the beginning of October on Haldol Decanoate and Depakote along other medications. Patient seen and examined with counselor and nurse. Chart reviewed. Case discussed with nurse on the inpatient psychiatric unit reports that the patient has been fairly calm and cooperative here. Nursing staff also notifies me that the patient has a large groin mass. On my examination today, the patient is sitting in the day area. He refuses to go to his room for further evaluation and so the interview was conducted in the day area. He is not presently physically aggressive but does yell out on one occasion. Thought process is extremely disorganized, and it is difficult to assess mental status given the degree of thought disorganization. He appears internally stimulated. He rambles about "cocaine" and "el agustina." He presents as fairly dysphoric. He complains of groin pain, but it is difficult to obtain additional history from the patient on account of his thought disorganization. I am unable to obtain any meaningful past psychiatric, family, chemical dependency or social history from this patient on account of his thought disorganization. Reviewing the electronic medical record, I note the patient has numerous prior inpatient psychiatric admissions for decompensated schizophrenia. Previous medication trials within our system include Geodon, Risperdal and Haldol as well as Depakote. Tobacco Use In Past 30 Days: No Tobacco Past 30 Days Alcohol Use: Never Hospital Course Patient was admitted to a [facility], inpatient psychiatric unit. General medical consultation was obtained. The patient was also seen by surgery with regards to his inguinal hernia but was felt to be a poor surgical candidate on account of his chronic mental illness. Patient was seen and examined on the unit by psychiatry and also visited by counselor. Psychotropic medications were adjusted. The patient responded best to a combination of haloperidol and Seroquel. He tolerated this medication regimen well without side effects. He had significant improvement in his presenting psychiatric symptomatology. In particular, the patient's thought disorganization improved and his irritability lessened once the Seroquel was added to the Haldol. Patient's behavior improved with the benefit of psychopharmacologic treatment. There was no evidence of any suicidality or homicidality on the inpatient unit. On the day of discharge: The patient was seen and examined with counselor and nurse. Chart reviewed. Case discussed with nursing staff reports that the patient has been no behavioral problem overnight. On my examination today, the patient is able to hold a coherent conversation with me regarding his desire to return to his assisted living facility. He says that he is looking forward to reading the [employer] that he keeps there. He denies any suicidal or homicidal ideation, intent or plan on direct questioning. He denies any audiovisual hallucinations, and I can elicit no delusional material. Mood is stable, and I can elicit no depressive or hypomanic/manic symptoms. He denies any side effects from medications. He has no physical complaints and in particular denies complaints of pain. After weighing the relevant factors and looking at the totality of the case, I sales activity manager that the patient has maximized benefit from this inpatient psychiatric hospital stay and presently represents a lower imminent risk of harm to self or others from a mental illness. His level of function appears to be adequate for planned level of outpatient care. The patient will be discharged back to his assisted living facility today with psychiatric follow-up as arranged by counselor. The patient is also to follow- up with primary care. I have elected not to administer additional Haldol Decanoate prior to discharge because he is experiencing mild hyponatremia, and this can be exacerbated by Haldol. If hyponatremia resolves, additional Decanoate may be ordered by his outpatient provider. The patient is to return to the psychiatric emergency room for any concerning psychiatric symptoms. Results Blood Pressure 114 / 66 Vital Signs Date Time Temp Pulse Resp B/P Pulse Ox O2 Delivery O2 Flow Rate FiO2 01/18/17 06:10 97.0 87 18 114/66 95 Laboratory Tests Test 01/15/17 01/17/17 01/17/17 19:11 12:00 12:15 Red Blood Count 3.09 MIL/MM3 3.14 MIL/MM3 (4.50-5.90) (4.50-5.90) Hemoglobin 11.0 GM/DL 10.9 GM/DL (13.0-17.0) (13.0-17.0) Hematocrit 31.6 % 31.8 % (39.0-51.0) (39.0-51.0) Mean Corpuscular Volume 102.2 FL 101.3 FL (80.0-100.0) (80.0-100.0) Mean Corpuscular Hemoglobin 35.4 PG 34.6 PG (27.0-34.0) (27.0-34.0) Monocytes (%) (Auto) 9.1 % (0.0-8.0) 16.0 % (0.0-8.0) Sodium Level 135 MEQ/L 134 MEQ/L (136-145) (136-145) Anion Gap 4 MEQ/L (5-15) Random Glucose 113 MG/DL (74-106) Alanine Aminotransferase 83 U/L (12-78) (ALT/SGPT) Alkaline Phosphatase 143 U/L 153 U/L (45-117) (45-117) Albumin 3.3 GM/DL (3.4-5.0) Summary of Procedures None done Imaging Last Impressions Abdomen/Pelvis CT 12/09/16 0000 Signed Impressions: Service Date/Time: Friday, December 09, 2016 15:07 - CONCLUSION: Large hernia on the right without obvious incarceration however there is a cystic component with inflammatory changes evident. No other etiology of abdominal pain is noted. Correlation is suggested. Omero Conner MD FACR Pending results at discharge: No Medications # of Antipsychotic meds at D/C: 2 Appropriate >1 Antipsych meds?: 4 Approp Antipsych med options 1 - Minimum of three failed multiple trials of monotherapy. 2 - Documented plan to taper to monotherapy due to previous use of multiple meds OR cross-taper in progress at D/C. 3 - Documentation of augmentation of Clozapine. 4 - Justification other than those listed in allowable values 1-3, document here : Required multiple antipsychotics for stabilization Discharge Discharge Date: Jan 18, 2017 Discharge Diagnosis: (1) Schizophrenia Diagnosis: Principal (improved versus admission) ICD Code: F20.9 Mental Status Exam at Disch Patient is in hospital gown. He remains fairly disheveled. He is awake and alert and oriented to person and hospital at least. No evidence of delirium. No motor abnormalities noted. Speech is more coherent versus admission and is within normal limits for rate, tone and volume. Language and fund of knowledge are at least average. Mood is fair and affect is blunted. Thought process significantly more linear versus admission. Denies audiovisual hallucinations. No evident delusional material. Denies suicidal or homicidal ideation, intent or plan. Insight and judgment are chronically poor. Pt Condition on Discharge: Stable Discharge Disposition: [facility]F/[facility] Discharge Instructions Diet Instructions: As Tolerated, No Restrictions Activities you can perform: Weight Bearing as Louise Scheduled Appointment: as per counselor's notes New Orders: AMMONIA - 3 Weeks BASIC METABOLIC PROF - 1 Week New Medications: Haloperidol Decanoate Inj (Haldol Decanoate Inj) 100 Mg/Ml Inj 100 MG IM Q28D This dose of Haldol Dec is due on 02/10/2017. Schizophrenia #1 Ref 0 VIAL Haloperidol (Haloperidol) 10 Mg Tab 10 MG PO TID Continue Haldol by mouth at least until your next Haldol Decanoate injection. Talk with your outpatient provider about how best to taper Haldol by mouth. Mental Health Days 15 Ref 1 TAB Hydrocodone-Acetaminophen (Hydrocodone-Acetaminophen) 5-325 mg Tab 1 TAB PO Q4H PRN pain 6-10 #30 Ref 0 TAB Quetiapine (Quetiapine) 100 Mg Tab 100 MG PO DAILY Mental Health Days 15 Ref 1 TAB Quetiapine (Quetiapine) 100 Mg Tab 350 MG PO HS Mental Health Days 15 Ref 1 TAB Trihexyphenidyl (Trihexyphenidyl) 2 Mg Tab 2 MG PO DAILY@09,13,21 Side effect management Days 15 Ref 1 TAB Zolpidem (Ambien) 5 Mg Tab 10 MG PO HS PRN INSOMNIA Days 15 Ref 1 TAB ([Lactulose Liq]) 30 ML SYRP 30 ML PO DAILY Health Days 15 Ref 1 ML Continued Medications: Folic Acid (Folate) 1 Mg Tab 1 MG PO DAILY Nutritional Supplement Days 15 Ref 1 TAB Lactulose Liq (Lactulose Liq) 10 Gm/15 Ml Soln 30 ML PO DAILY Hyperammonemia Days 15 Ref 1 ML Thiamine (Vitamin B-1) 100 Mg Tab 100 MG PO DAILY Nutritional Supplement Days 15 Ref 1 TAB Discontinued Medications: Diphenhydramine HCl (Diphenhydramine HCl) 50 Mg Cap 50 MG PO Q6H PRN EPS, insomnia Days 15 Ref 1 CAP Divalproex ER (Depakote ER) 500 Mg Blaire 1000 MG PO DAILY Mental Health Days 15 Ref 1 TAB Haloperidol (Haloperidol) 5 Mg Tab 10 MG PO BID Take oral Haldol at least until your next Haldol decanoate injection, or as directed by your outpatient provider. Mental Health Days 15 Ref 1 TAB Haloperidol Decanoate Inj (Haldol Decanoate Inj) 100 Mg/Ml Inj 200 MG IM Q28D This dose of Haldol Decanoate is due on 11/16/2016. Mental Health # 2 Ref 0 VIAL Discharge Time <= 30 minutes Discharge/Advance Care Plan Health Problems: (1) Schizophrenia Goals to promote your health * To prevent worsening of your condition and complications * To maintain your health at the optimal level Directions to meet your goals Take your medications as prescribed Follow your dietary instruction Follow activity as directed Keep your appointments as scheduled Take your immunizations and boosters as scheduled If your symptoms worsen call your PCP, if no PCP go to Urgent Care Center or Emergency Room For 05/02 questions related to your inpatient stay or results of tests pending at discharge, please contact Dr. Tyrel aYp at Smoking is Dangerous to Your Health. Avoid second hand smoking Problem Qualifiers (1) Schizophrenia: Qualified Code: F20.1 - Disorganized schizophrenia Tyrel Yap MD Jan 18, 2017 12:00
[2017-01-18] MEDS: ACETAMINOPHEN/HYDROcodone 325 MG/5 MG TAB PO PRN (12:59)
[2017-01-18 13:00] VITALS: BP 116/80; PULSE 78; RESP 14; TEMP 98.7
== END 2017-01-18 13:10 | DRG 885 ==
LOC: NEPD 23:08 → NEDA 12-05 18:10 → H270 12-05 20:19
PROVIDERS: ADMIT Psychiatry & Neurology Psychiatry; ATTEND Psychiatry & Neurology Psychiatry
DX: F20.1 Disorganized schizophrenia (principal); I95.9 Hypotension, unspecified; G20 Parkinson's disease; B19.10 Unspecified viral hepatitis B without hepatic coma; Z91.14 Patient's other noncompliance with medication regimen; E87.1 Hypo-osmolality and hyponatremia; Z91.19 Patient's noncompliance with other medical treatment and regimen; I10 Essential (primary) hypertension; M25.511 Pain in right shoulder; G47.00 Insomnia, unspecified; R41.82 Altered mental status, unspecified; F17.210 Nicotine dependence, cigarettes, uncomplicated; R50.9 Fever, unspecified; K40.90 Unilateral inguinal hernia, without obstruction or gangrene, not specified as recurrent; R45.4 Irritability and anger; R32 Unspecified urinary incontinence
CPT/HCPCS: 74177; 80048; 80053; 80076; 80164; 80307; 81001; 82140; 82550; 82607; 84295; 85025; 93005; 99285; J1630; J1631; Q9967

== ENCOUNTER 2017-03-02 15:03 | Inpatient (IN) | payer MEDICARE, MEDICAID ==
[2017-03-02] VITALS (7 sets, daily range): BP systolic 112–136; BP diastolic 57–77; PULSE 60–74; RESP 16–46; TEMP 98.1–98.6; O2SAT 95–100
[~2017-03-02] VITALS: Ht 187.5 cm; Wt 76.0 kg
[~2017-03-02 15:03] MED LIST changes: +AMBI5TAB PO; -DEPA500T3 PO; -DIPH50CA PO; +HALO10TA PO; -HALO5TAB PO; +HYDR-3516 PO; +Lactulose Liq PO; +QUET1TAB8 PO; +TRIH2 PO
--- NOTE | 2017-03-02 16:03 | PD ---
HPI Chief Complaint: Psychiatric Symptoms Time Seen by Provider: 15:58 Travel History International Travel<30 days: No Contact w/Intl Traveler<30days: No Traveled to known affect area: No History of Present Illness HPI 66 year old male presents to the emergency department under a Meehan Act for psychiatric evaluation. The Meehan Act states "Rosalio has been decompensating over the past few days. He has been refusing medication, not following staff expectation and making verbal threats to 'kill' other staff and residents. He is oriented x 2 (person and situation). Rosalio has an untreated hernia and is considerable pain. He requires a higher level of care and containment. He is a risk to self and others." Meehan Act was written by clinical psychologist. He apparently has a diagnosis of schizophrenia. The patient does not contribute much to history. He does know his name, he has at [place], the year is 2016 and the president is Thomas. The patient does complain of groin pain from hernia. Otherwise, he has no other complaints. PFSH Past Medical History Arthritis: No Asthma: No Autoimmune Disease: No Blood Disorders: No Anxiety: No Depression: No Heart Rhythm Problems: No Cardiovascular Problems: No High Cholesterol: No Chemotherapy: No Chest Pain: No Congestive Heart Failure: No COPD: No Cerebrovascular Accident: No Diabetes: Yes Diminished Hearing: No Endocrine: Yes Gastrointestinal Disorders: Yes (hep b) GERD: No Glaucoma: No Genitourinary: No Headaches: No Hepatitis: Yes (hx. of hep B per medical record) Hiatal Hernia: No Hypertension: Yes Immune Disorder: No Implanted Vascular Access Dvce: No Kidney Stones: No Musculoskeletal: No Neurologic: Yes (parkinson's) Parkinson's Disease: Yes Psychiatric: Yes (Paranoid Schizophrenia) Reproductive: No Respiratory: No Migraines: No Myocardial Infarction: No Radiation Therapy: No Renal Failure: No Schizophrenia: Yes (PARANOID) Seizures: No Sickle Cell Disease: No Sleep Apnea: No Thyroid Disease: No Ulcer: No Past Surgical History Abdominal Surgery: No AICD: No Arteriovenous Shunt: No Cardiac Surgery: No Ear Surgery: No Endocrine Surgery: No Eye Surgery: No Genitourinary Surgery: No Gynecologic Surgery: No Insulin Pump: No Joint Replacement: No Neurologic Surgery: No Oral Surgery: No Pacemaker: No Thoracic Surgery: No Tonsillectomy: Yes Other Surgery: Yes (tonsillectomy) Social History Alcohol Use: No Tobacco Use: No (ONE PPD X 46 YEARS; uto if still does) Substance Use: No Allergies-Medications (Allergen,Severity, Reaction): Coded Allergies: tetanus toxoid, adsorbed (Unverified Allergy, Severe, swelling, 03/02/17) Per SHANNON Aguilar, Gisselle Torres [phone] & Jolie, (Admin?) Gisselle Torres. *MDRO Multi-Drug Resistant Organism (Verified Adverse Reaction, Unknown, ) MRSA (buttock wound) 2004 MRSA PCR Screens NEGATIVE - 03/15/15 & 03/17/15 CLEARED PER INFECTION CONTROL PROTOCOL Reported Meds & Prescriptions Reported Meds & Active Scripts Active Haldol Decanoate Inj (Haloperidol Decanoate) 100 Mg/Ml Inj 100 Mg IM Q28D This dose of Haldol Dec is due on 02/10/2017. Ambien (Zolpidem Tartrate) 5 Mg Tab 10 Mg PO HS PRN 15 Days Trihexyphenidyl (Trihexyphenidyl HCl) 2 Mg Tab 2 Mg PO DAILY@09,13,21 15 Days Quetiapine (Quetiapine Fumarate) 100 Mg Tab 350 Mg PO HS 15 Days Quetiapine (Quetiapine Fumarate) 100 Mg Tab 100 Mg PO DAILY 15 Days [Lactulose Liq] 30 ML Syrp 30 Ml PO DAILY 15 Days Hydrocodone-Acetaminophen 5-325 mg Tab 1 Tab PO Q4H PRN Haloperidol 10 Mg Tab 10 Mg PO TID 15 Days Continue Haldol by mouth at least until your next Haldol Decanoate injection. Talk with your outpatient provider about how best to taper Haldol by mouth. Vitamin B-1 (Thiamine HCl) 100 Mg Tab 100 Mg PO DAILY 15 Days Folate (Folic Acid) 1 Mg Tab 1 Mg PO DAILY 15 Days Lactulose Liq (Lactulose) 10 Gm/15 Ml Soln 30 Ml PO DAILY 15 Days Review of Systems Except as stated in HPI: all other systems reviewed are Neg Physical Exam Narrative GENERAL: Well-nourished, well-developed male patient. Patient is alert and oriented to person, place, time. SKIN: Focused skin assessment warm/dry. HEAD: Normocephalic. EYES: No scleral icterus. No injection or drainage. NECK: Supple, trachea midline. No JVD or lymphadenopathy. CARDIOVASCULAR: Regular rate and rhythm without murmurs, gallops, or rubs. RESPIRATORY: Breath sounds equal bilaterally. No accessory muscle use. Lungs sounds are clear to auscultation. GASTROINTESTINAL: Abdomen soft, non-tender, nondistended. MUSCULOSKELETAL: No cyanosis, or edema. BACK: Nontender without obvious deformity. No CVA tenderness. Data Data Last Documented VS Vital Signs Date Time Temp Pulse Resp B/P Pulse Ox O2 Delivery O2 Flow Rate FiO2 03/02/17 18:20 60 18 120/77 98 Room Air 03/02/17 15:51 98.6 Orders Complete Blood Count With Diff (03/02/17 15:54) Comprehensive Metabolic Panel (03/02/17 15:54) Urinalysis - C+S If Indicated (03/02/17 15:54) Psych Screen (03/02/17 15:54) Drug Screen, Random Urine (03/02/17 15:54) Alcohol (Ethanol) (03/02/17 15:54) Urine Culture (03/02/17 16:30) Ct Abd/Pel W Iv Contrast(Rout) (03/02/17 ) Sodium Chlor 0.9% 1000 Ml Inj (Ns 1000 M (03/02/17 17:30) Labs Laboratory Tests Test 03/02/17 16:30 White Blood Count 11.9 TH/MM3 Red Blood Count 3.61 MIL/MM3 Hemoglobin 11.9 GM/DL Hematocrit 36.1 % Mean Corpuscular Volume 100.1 FL Mean Corpuscular Hemoglobin 33.1 PG Mean Corpuscular Hemoglobin 33.0 % Concent Red Cell Distribution Width 13.7 % Platelet Count 375 TH/MM3 Mean Platelet Volume 7.1 FL Neutrophils (%) (Auto) 77.0 % Lymphocytes (%) (Auto) 6.0 % Monocytes (%) (Auto) 16.4 % Eosinophils (%) (Auto) 0.4 % Basophils (%) (Auto) 0.2 % Neutrophils # (Auto) 9.2 TH/MM3 Lymphocytes # (Auto) 0.7 TH/MM3 Monocytes # (Auto) 2.0 TH/MM3 Eosinophils # (Auto) 0.1 TH/MM3 Basophils # (Auto) 0.0 TH/MM3 CBC Comment DIFF FINAL Differential Comment Urine Color YELLOW Urine Turbidity HAZY Urine pH 6.0 Urine Specific [place] 1.010 Urine Protein 30 mg/dL Urine Glucose (UA) NEG mg/dL Urine Ketones NEG mg/dL Urine Occult Blood SMALL Urine Nitrite NEG Urine Bilirubin NEG Urine Urobilinogen LESS THAN 2.0 MG/DL Urine Leukocyte Esterase LARGE Urine RBC 6 /hpf Urine WBC 144 /hpf Urine WBC Clumps FEW Urine Bacteria FEW /hpf Urine Hyaline Casts 2 /lpf Urine Mucus FEW /lpf Microscopic Urinalysis Comment CULTURE INDICATED Sodium Level 135 MEQ/L Potassium Level 3.8 MEQ/L Chloride Level 98 MEQ/L Carbon Dioxide Level 27.5 MEQ/L Anion Gap 10 MEQ/L Blood Urea Nitrogen 30 MG/DL Creatinine 1.11 MG/DL Estimat Glomerular Filtration 66 ML/MIN Rate Random Glucose 113 MG/DL Calcium Level 8.4 MG/DL Total Bilirubin 0.5 MG/DL Aspartate Amino Transf 24 U/L (AST/SGOT) Alanine Aminotransferase 36 U/L (ALT/SGPT) Alkaline Phosphatase 152 U/L Total Protein 7.7 GM/DL Albumin 3.0 GM/DL Urine Opiates Screen NEG Urine Barbiturates Screen NEG Urine Amphetamines Screen NEG Urine Benzodiazepines Screen NEG Urine Cocaine Screen NEG Urine Cannabinoids Screen NEG Ethyl Alcohol Level LESS THAN 3 MG/DL MDM Medical Decision Making Medical Screen Exam Complete: Yes Emergency Medical Condition: Yes Medical Record Reviewed: Yes Differential Diagnosis Schizophrenia versus AMS versus depression versus anxiety Narrative Course 58-year-old male presents to the emergency Department under Meehan act by clinical psychologist schizophrenia, aggressive with staff and refusing to take his medications. It also mentions that he has a large hernia. I have seen the patient in the ambulance hallway and am unable to evaluate the hernia at this time. CBC, CMP, alcohol level, urine drug screen, UA are ordered and pending. CT abdomen/pelvis with IV contrast is ordered and pending. Patient will be transferred to medical pod for further evaluation and disposition. Marivel Santos Mar 02, 2017 16:03
[2017-03-02 16:46] LABS: AUTOMATED NEUTROPHIL # 9.2 TH/MM3 (1.8-7.7); BASOPHIL % 0.2 % (0.0-2.0); EOSINOPHIL # 0.1 TH/MM3 (0-0.4); EOSINOPHIL % 0.4 % (0.0-4.0); HEMATOCRIT 36.1 % (39.0-51.0); HEMO FLAGS DIFF FINAL; LYMPHOCYTE # 0.7 TH/MM3 (1.0-4.8); MEAN CELL VOLUME 100.1 FL (80.0-100.0); MEAN CORPUSCULAR HEMOGLOBIN 33.1 PG (27.0-34.0); MONO % 16.4 % (0.0-8.0); PLATELET COUNT 375 TH/MM3 (150-450); RED BLOOD COUNT 3.61 MIL/MM3 (4.50-5.90); RED CELL DISTRIBUTION WIDTH 13.7 % (11.6-17.2); WHITE BLOOD COUNT 11.9 TH/MM3 (4.0-11.0)
[2017-03-02 16:50] LABS: BACTERIA, URINE FEW /hpf; BLOOD, URINE SMALL (NEG); COMMENT (UR) CULTURE INDICATED; CULTURE IF INDICATED CULTURE INDICATED; GLUCOSE,URINE NEG (NEG); HYALINE CAST, URINE 2 /lpf (RARE); KETONE, URINE NEG (NEG); MUCUS URINE FEW /lpf (OCC); NITRITE,URINE NEG (NEG); URINE COLOR YELLOW (YELLW/STRAW)
[2017-03-02 16:53] LABS: ALT (GPT) 36 U/L (12-78); ANION GAP 10 MEQ/L (5-15); AST (GOT) 24 U/L (15-37); BICARBONATE 27.5 MEQ/L (21.0-32.0); BLOOD UREA NITROGEN 30 MG/DL (7-18); CHLORIDE 98 MEQ/L (98-107); GLOMERULAR FILTRATION RATE 66 ML/MIN (>89); POTASSIUM 3.8 MEQ/L (3.5-5.1); SODIUM (NA) 135 MEQ/L (136-145)
[2017-03-02 16:56] LABS: ALKALINE PHOSPHATASE 152 U/L (45-117); TOTAL BILIRUBIN ADULT 0.5 MG/DL (0.2-1.0)
[2017-03-02 17:05] LABS: ALCOHOL LESS THAN 3 MG/DL (0-5)
[2017-03-02] MEDS ORDERED: SODIUM CHLOR 0.9% 1000 ML INJ 1,000 ML IV ONE ×2 (17:30→22:00)
[2017-03-02] MEDS ORDERED: IOHEXOL 350 MG/ML 10 ML VIAL (for RAD DIAG) IV ONE (18:36)
--- NOTE | 2017-03-02 19:02 | RADRPT ---
EXAM DATE/TIME: 03/02/2017 18:32 [facility] COMPARISON: CT ABDOMEN & PELVIS W CONTRAST, December 09, 2016, 15:07. INDICATIONS : Enlarged testicles; evaluate hernia. IV CONTRAST: 99 cc Omnipaque 350 (iohexol) IV ORAL CONTRAST: No oral contrast ingested. RADIATION DOSE: 7.22 CTDIvol (mGy) MEDICAL HISTORY : Parkinson's. Hepatitis B. History of TB, Schizophrenia SURGICAL HISTORY : None. ENCOUNTER: Initial ACUITY: 1 day PAIN SCALE: Non-responsive LOCATION: abdomen TECHNIQUE: Volumetric scanning of the abdomen and pelvis was performed. Using automated exposure control and ad justment of the mA and/or kV according to patient size, radiation dose was kept as low as reasonably achievable to obtain optimal diagnostic quality images. DICOM format image data is available electro nically for review and comparison. FINDINGS: Left inguinal hernia containing segments of small and large bowel and a large portion of the urinary bladder again noted. Urinary bladder, including the herniated portion, is distended. Bilateral hydron ephrosis and hydroureter have developed. There is very edematous and indurated appearing scrotal sac and a small hydrocele. Ureterovesical junctions are above the hernia. No evidence of bowel obstructio n. Liver, spleen, pancreas and adrenal glands are within normal limits. Cyst again seen of the right kid rudy. 2 cm sclerotic focus of the left side of the sacrum present, nonspecific but most likely a benign [place]. CONCLUSION: 1. Large left inguinal hernia containing segments of small and large bowel as well as a large portion of the urinary bladder which is distended and thick walled, of concern for incarceration. Additional ly, hydronephrosis/hydroureter have developed, left more so than right. There is very indurated and e dematous appearing scrotal sac as well as hydrocele fluid. No associated bowel obstruction. Momo Ramos MD on March 02, 2017 at 18:54 Board Certified Radiologist. This report was verified electronically.
--- NOTE | 2017-03-02 19:34 | PD ---
Physical Exam Time Seen by Provider: 19:33 Narrative Patient presents to emergency department under a Meehan act. Please prefer to previous providers documentation for details surrounding the patient's current visit. Patient came to our medical pod pending CT imaging of his abdomen and pelvis for further evaluation of his inguinal hernia. Patient refuses to allow us to visualize the hernia or touch at this time. Patient was seen and evaluation attempted during a hospitalization by Dr. Encarnacion and Dr. Fady zendejas, however these were limited due to his noncompliance and refusal of exam. Data Data Last Documented VS Vital Signs Date Time Temp Pulse Resp B/P Pulse Ox O2 Delivery O2 Flow Rate FiO2 03/02/17 21:44 61 16 136/70 03/02/17 18:20 98 Room Air 03/02/17 15:51 98.6 Orders Complete Blood Count With Diff (03/02/17 15:54) Comprehensive Metabolic Panel (03/02/17 15:54) Urinalysis - C+S If Indicated (03/02/17 15:54) Psych Screen (03/02/17 15:54) Drug Screen, Random Urine (03/02/17 15:54) Alcohol (Ethanol) (03/02/17 15:54) Urine Culture (03/02/17 16:30) Ct Abd/Pel W Iv Contrast(Rout) (03/02/17 ) Sodium Chlor 0.9% 1000 Ml Inj (Ns 1000 M (03/02/17 17:30) Iohexol 350 Inj (Omnipaque 350 Inj) (03/02/17 18:36) Propofol 200 Mg/20 Ml Inj (Diprivan 200 (03/02/17 19:45) Ct Abd/Pel W/O Iv Contrast (03/02/17 ) Cefazolin 2 Gm Premix (Ancef 2 Gm Premix (03/02/17 22:00) Urinary Catheter Insert/Apply (03/02/17 21:59) Sodium Chlor 0.9% 1000 Ml Inj (Ns 1000 M (03/02/17 22:00) Lorazepam Inj (Ativan Inj) (03/02/17 22:15) Haloperidol Inj (Haldol Inj) (03/02/17 22:15) Ceftriaxone Inj (Rocephin Inj) (03/02/17 22:23) Labs Laboratory Tests Test 03/02/17 16:30 White Blood Count 11.9 TH/MM3 Red Blood Count 3.61 MIL/MM3 Hemoglobin 11.9 GM/DL Hematocrit 36.1 % Mean Corpuscular Volume 100.1 FL Mean Corpuscular Hemoglobin 33.1 PG Mean Corpuscular Hemoglobin 33.0 % Concent Red Cell Distribution Width 13.7 % Platelet Count 375 TH/MM3 Mean Platelet Volume 7.1 FL Neutrophils (%) (Auto) 77.0 % Lymphocytes (%) (Auto) 6.0 % Monocytes (%) (Auto) 16.4 % Eosinophils (%) (Auto) 0.4 % Basophils (%) (Auto) 0.2 % Neutrophils # (Auto) 9.2 TH/MM3 Lymphocytes # (Auto) 0.7 TH/MM3 Monocytes # (Auto) 2.0 TH/MM3 Eosinophils # (Auto) 0.1 TH/MM3 Basophils # (Auto) 0.0 TH/MM3 CBC Comment DIFF FINAL Differential Comment Urine Color YELLOW Urine Turbidity HAZY Urine pH 6.0 Urine Specific [place] 1.010 Urine Protein 30 mg/dL Urine Glucose (UA) NEG mg/dL Urine Ketones NEG mg/dL Urine Occult Blood SMALL Urine Nitrite NEG Urine Bilirubin NEG Urine Urobilinogen LESS THAN 2.0 MG/DL Urine Leukocyte Esterase LARGE Urine RBC 6 /hpf Urine WBC 144 /hpf Urine WBC Clumps FEW Urine Bacteria FEW /hpf Urine Hyaline Casts 2 /lpf Urine Mucus FEW /lpf Microscopic Urinalysis Comment CULTURE INDICATED Sodium Level 135 MEQ/L Potassium Level 3.8 MEQ/L Chloride Level 98 MEQ/L Carbon Dioxide Level 27.5 MEQ/L Anion Gap 10 MEQ/L Blood Urea Nitrogen 30 MG/DL Creatinine 1.11 MG/DL Estimat Glomerular Filtration 66 ML/MIN Rate Random Glucose 113 MG/DL Calcium Level 8.4 MG/DL Total Bilirubin 0.5 MG/DL Aspartate Amino Transf 24 U/L (AST/SGOT) Alanine Aminotransferase 36 U/L (ALT/SGPT) Alkaline Phosphatase 152 U/L Total Protein 7.7 GM/DL Albumin 3.0 GM/DL Urine Opiates Screen NEG Urine Barbiturates Screen NEG Urine Amphetamines Screen NEG Urine Benzodiazepines Screen NEG Urine Cocaine Screen NEG Urine Cannabinoids Screen NEG Ethyl Alcohol Level LESS THAN 3 MG/DL [facility] Medical Record Reviewed: Yes Supervised Visit with NADEEN: No Differential Diagnosis Hernia or incarcerated versus nonincarcerated versus follicular abnormality versus sepsis Narrative Course 66-year-old male presents to emergency department under a Meehan act for psychiatric evaluation. Patient does have history of schizophrenia. He is uncooperative, confused,. Disheveled. Tells me that he has been unable to take his meds regularly at the [facility] because he has to walk so far to get them and he is unable to. He states that his hernia is painful he refuses my physical examination of at this time. He is willing to oblige with CT imaging at this point. Laboratory Tests Test 03/02/17 16:30 White Blood Count 11.9 TH/MM3 Red Blood Count 3.61 MIL/MM3 Hemoglobin 11.9 GM/DL Hematocrit 36.1 % Mean Corpuscular Volume 100.1 FL Mean Corpuscular Hemoglobin 33.1 PG Mean Corpuscular Hemoglobin 33.0 % Concent Red Cell Distribution Width 13.7 % Platelet Count 375 TH/MM3 Mean Platelet Volume 7.1 FL Neutrophils (%) (Auto) 77.0 % Lymphocytes (%) (Auto) 6.0 % Monocytes (%) (Auto) 16.4 % Eosinophils (%) (Auto) 0.4 % Basophils (%) (Auto) 0.2 % Neutrophils # (Auto) 9.2 TH/MM3 Lymphocytes # (Auto) 0.7 TH/MM3 Monocytes # (Auto) 2.0 TH/MM3 Eosinophils # (Auto) 0.1 TH/MM3 Basophils # (Auto) 0.0 TH/MM3 CBC Comment DIFF FINAL Differential Comment Urine Color YELLOW Urine Turbidity HAZY Urine pH 6.0 Urine Specific [place] 1.010 Urine Protein 30 mg/dL Urine Glucose (UA) NEG mg/dL Urine Ketones NEG mg/dL Urine Occult Blood SMALL Urine Nitrite NEG Urine Bilirubin NEG Urine Urobilinogen LESS THAN 2.0 MG/DL Urine Leukocyte Esterase LARGE Urine RBC 6 /hpf Urine WBC 144 /hpf Urine WBC Clumps FEW Urine Bacteria FEW /hpf Urine Hyaline Casts 2 /lpf Urine Mucus FEW /lpf Microscopic Urinalysis Comment CULTURE INDICATED Sodium Level 135 MEQ/L Potassium Level 3.8 MEQ/L Chloride Level 98 MEQ/L Carbon Dioxide Level 27.5 MEQ/L Anion Gap 10 MEQ/L Blood Urea Nitrogen 30 MG/DL Creatinine 1.11 MG/DL Estimat Glomerular Filtration 66 ML/MIN Rate Random Glucose 113 MG/DL Calcium Level 8.4 MG/DL Total Bilirubin 0.5 MG/DL Aspartate Amino Transf 24 U/L (AST/SGOT) Alanine Aminotransferase 36 U/L (ALT/SGPT) Alkaline Phosphatase 152 U/L Total Protein 7.7 GM/DL Albumin 3.0 GM/DL Urine Opiates Screen NEG Urine Barbiturates Screen NEG Urine Amphetamines Screen NEG Urine Benzodiazepines Screen NEG Urine Cocaine Screen NEG Urine Cannabinoids Screen NEG Ethyl Alcohol Level LESS THAN 3 MG/DL Patient has significant UTI with pyuria. CT imaging results Last Impressions Abdomen/Pelvis CT 03/02/17 0000 Signed Impressions: Service Date/Time: Thursday, March 02, 2017 18:32 - CONCLUSION: 1. Large left inguinal hernia containing segments of small and large bowel as well as a large portion of the urinary bladder which is distended and thick walled, of concern for incarceration. Additionally, hydronephrosis/hydroureter have developed, left more so than right. There is very indurated and edematous appearing scrotal sac as well as hydrocele fluid. No associated bowel obstruction. Momo Ramos MD I discussed the patient on my attending physician who tempted to evaluate the patient with me. We will do conscious sedation to attempt to reduce the hernia. Reduction was done under conscious sedation I Dr. Parnell. Please refer to her documentation. Repeat CT shows Last Impressions Abdomen/Pelvis CT 03/02/17 0000 Signed Impressions: Service Date/Time: Thursday, March 02, 2017 21:38 - CONCLUSION: 1. Partial reduction of the left inguinal hernia. The urinary bladder herniation persists and the herniated portion of the bladder is markedly thick walled, indurated and trabeculated, probable cystitis and/or incarceration. 2. Bilateral hydronephrosis/hydroureter again noted. Please see above. 3. Heterogeneous bilateral nephrograms worrisome for pyelonephritis, right worse than left. Momo Ramos MD Abdomen/Pelvis CT 03/02/17 0000 Signed Impressions: Service Date/Time: Thursday, March 02, 2017 18:32 - CONCLUSION: 1. Large left inguinal hernia containing segments of small and large bowel as well as a large portion of the urinary bladder which is distended and thick walled, of concern for incarceration. Additionally, hydronephrosis/hydroureter have developed, left more so than right. There is very indurated and edematous appearing scrotal sac as well as hydrocele fluid. No associated bowel obstruction. MD Dr. Parmjit Husain spoke with Dr. Alvarado in regards to the CT results. I have placed a call to Dr. mullen, urologist. A Perez catheter is placed. Patient is given IV antibiotics for scrotal cellulitis as well as pyelonephritis. Diagnosis Primary Impression: Disorganized schizophrenia Additional Impressions: Incarcerated left inguinal hernia Pyelonephritis Cellulitis of scrotum Yeast dermatitis Hydronephrosis due to obstruction of bladder Admitting Information Admitting Physician Requests: Admit Condition: Stable Lucille Stockton Mar 02, 2017 19:33
[2017-03-02] MEDS ORDERED: PROPOFOL 200 MG/20 ML AMP IV ONE (19:45)
[2017-03-02] MEDS ORDERED: ceFAZolin 2 GM PREMIX 50 ML IV ONE (22:00)
--- NOTE | 2017-03-02 22:09 | RADRPT ---
EXAM DATE/TIME: 03/02/2017 21:38 [facility] COMPARISON: CT ABDOMEN & PELVIS W CONTRAST, March 02, 2017, 18:32. INDICATIONS : Post reduction of hernia. ORAL CONTRAST: No oral contrast ingested. RADIATION DOSE: 10.56 CTDIvol (mGy) MEDICAL HISTORY : Parkinson's. Hypertension. SURGICAL HISTORY : None. ENCOUNTER: Subsequent ACUITY: 1 day PAIN SCALE: Non-responsive LOCATION: abdomen TECHNIQUE: Volumetric scanning of the abdomen and pelvis was performed. Using automated exposure control and ad justment of the mA and/or kV according to patient size, radiation dose was kept as low as reasonably achievable to obtain optimal diagnostic quality images. DICOM format image data is available electro nically for review and comparison. FINDINGS: Left inguinal hernia containing thick walled urinary bladder persists. The amount of small and large bowel herniated has decreased. Bilateral hydronephrosis again noted and on these delayed images appea rs to most likely be related to chronic distention of the bladder and/or reflux and/or wall thickenin g/outlet obstruction. The herniated portion of the bladder appears markedly thick walled and trabecul ated. Multiple small foci of urine extending into the thickened wall noted but no extraluminal leak. There are heterogeneous bilateral nephrograms of concern for pyelonephritis, right worse than left. CONCLUSION: 1. Partial reduction of the left inguinal hernia. The urinary bladder herniation persists and the her niated portion of the bladder is markedly thick walled, indurated and trabeculated, probable cystitis and/or incarceration. 2. Bilateral hydronephrosis/hydroureter again noted. Please see above. 3. Heterogeneous bilateral nephrograms worrisome for pyelonephritis, right worse than left. Momo Ramos MD on March 02, 2017 at 22:01 Board Certified Radiologist. This report was verified electronically.
[2017-03-02] MEDS ORDERED: LORazepam 2 MG/ML VIAL IM ONE (22:15)
[2017-03-02] MEDS ORDERED: HALOPERIDOL LACTATE 5 MG/ML AMP IM ONE (22:15)
[2017-03-02] MEDS ORDERED: cefTRIAXone INJ 1,000 MG in SODIUM CHLORIDE 0.9% INJ 100 ML IV STA (22:23)
--- NOTE | 2017-03-02 22:44 | PD ---
Physical Exam Date Seen by Provider: Mar 02, 2017 Time Seen by Provider: 22:39 Narrative 66-year-old male was brought in as a Meehan act. Patient has a psych history and seems confused and psychotic. He is extremely disheveled and poor skin hygiene. He was seen by my nurse practitioner and during the exam it was noticed that patient had a large hernia. A CT scan was ordered which showed possible incarceration of bowel loops as well as bladder. Rest of the workup showed a significant UTI. I was asked to see the patient and reduce the hernia. Patient would not let anybody examine him. This has been an issue in the past as per the records. However given the fact that this could've been an incarcerated hernia and patient not being in capacity a consent was signed by me as well as Dr. Pearl with both of us agreeing that patient needed the hernia to be reduced. Please refer to my procedure note. After significant effort and feeling that the bowel loops going back into the abdomen a repeat CT was done. I discussed the repeat CAT scan with the radiologist and as per him the bowel loops seems to have reduced completely. However there is still a large bladder that seems to be in the hernia sac. Patient was given IV Rocephin for the UTI as well as IV Ancef for significant erythema and cellulitis in the hernia wall as well as the groin area. As per the radiologist the bladder in the hernia is probably causing urinary outlet obstruction since patient has significant bilateral hydronephrosis and hydroureter. I discussed the case with Dr. Alvarado who is on-call for general surgery and as per him since the bowel loops are reduced there is no emergency to take this patient to the operating room. He agreed with the Perez catheter and the antibiotics. A consult has been put out for urology. Waiting for urology to call back. Patient will be admitted to the hospitalist. Data Data Last Documented VS Orders Orders Complete Blood Count With Diff (03/02/17 15:54) Comprehensive Metabolic Panel (03/02/17 15:54) Urinalysis - C+S If Indicated (03/02/17 15:54) Psych Screen (03/02/17 15:54) Drug Screen, Random Urine (03/02/17 15:54) Alcohol (Ethanol) (03/02/17 15:54) Urine Culture (03/02/17 16:30) Ct Abd/Pel W Iv Contrast(Rout) (03/02/17 ) Sodium Chlor 0.9% 1000 Ml Inj (Ns 1000 M (03/02/17 17:30) Iohexol 350 Inj (Omnipaque 350 Inj) (03/02/17 18:36) Propofol 200 Mg/20 Ml Inj (Diprivan 200 (03/02/17 19:45) Ct Abd/Pel W/O Iv Contrast (03/02/17 ) Cefazolin 2 Gm Premix (Ancef 2 Gm Premix (03/02/17 22:00) Urinary Catheter Insert/Apply (03/02/17 21:59) Sodium Chlor 0.9% 1000 Ml Inj (Ns 1000 M (03/02/17 22:00) Lorazepam Inj (Ativan Inj) (03/02/17 22:15) Haloperidol Inj (Haldol Inj) (03/02/17 22:15) Ceftriaxone Inj (Rocephin Inj) (03/02/17 22:23) Nystatin Powder (Mycostatin Powder) (03/03/17 09:00) Admit Order (Ed Use Only) (03/02/17 22:52) Consult Urology (03/02/17 ) Consult General Surgery (03/02/17 ) Consult Psychiatry (03/02/17 ) Labs Laboratory Tests Test 03/02/17 16:30 White Blood Count 11.9 TH/MM3 Red Blood Count 3.61 MIL/MM3 Hemoglobin 11.9 GM/DL Hematocrit 36.1 % Mean Corpuscular Volume 100.1 FL Mean Corpuscular Hemoglobin 33.1 PG Mean Corpuscular Hemoglobin Concent 33.0 % Red Cell Distribution Width 13.7 % Platelet Count 375 TH/MM3 Mean Platelet Volume 7.1 FL Neutrophils (%) (Auto) 77.0 % Lymphocytes (%) (Auto) 6.0 % Monocytes (%) (Auto) 16.4 % Eosinophils (%) (Auto) 0.4 % Basophils (%) (Auto) 0.2 % Neutrophils # (Auto) 9.2 TH/MM3 Lymphocytes # (Auto) 0.7 TH/MM3 Monocytes # (Auto) 2.0 TH/MM3 Eosinophils # (Auto) 0.1 TH/MM3 Basophils # (Auto) 0.0 TH/MM3 CBC Comment DIFF FINAL Differential Comment Urine Color YELLOW Urine Turbidity HAZY Urine pH 6.0 Urine Specific [place] 1.010 Urine Protein 30 mg/dL Urine Glucose (UA) NEG mg/dL Urine Ketones NEG mg/dL Urine Occult Blood SMALL Urine Nitrite NEG Urine Bilirubin NEG Urine Urobilinogen LESS THAN 2.0 MG/DL Urine Leukocyte Esterase LARGE Urine RBC 6 /hpf Urine WBC 144 /hpf Urine WBC Clumps FEW Urine Bacteria FEW /hpf Urine Hyaline Casts 2 /lpf Urine Mucus FEW /lpf Microscopic Urinalysis Comment CULTURE INDICATED Blood Urea Nitrogen 30 MG/DL Creatinine 1.11 MG/DL Random Glucose 113 MG/DL Total Protein 7.7 GM/DL Albumin 3.0 GM/DL Calcium Level 8.4 MG/DL Alkaline Phosphatase 152 U/L Aspartate Amino Transf (AST/SGOT) 24 U/L Alanine Aminotransferase (ALT/SGPT) 36 U/L Total Bilirubin 0.5 MG/DL Sodium Level 135 MEQ/L Potassium Level 3.8 MEQ/L Chloride Level 98 MEQ/L Carbon Dioxide Level 27.5 MEQ/L Anion Gap 10 MEQ/L Estimat Glomerular Filtration Rate 66 ML/MIN Urine Opiates Screen NEG Urine Barbiturates Screen NEG Urine Amphetamines Screen NEG Urine Benzodiazepines Screen NEG Urine Cocaine Screen NEG Urine Cannabinoids Screen NEG Ethyl Alcohol Level LESS THAN 3 MG/DL MDM Supervised Visit with NADEEN: Yes Procedures Procedure Narrative After the risks and benefits were discussed the following procedure was performed: MODERATE SEDATION: The patient was placed on a front line supervisor and pulse oximetry. An ambu bag and suction was immediately available at bedside. The patient was monitored by the nurse. Oxygen saturation , heart rate and blood pressure were monitored. Procedural sedation was acheived using IV propofol 100 mg. The patient was observed until awake and alert. Procedural Sedation time in attendance was 35 minutes. Large left inguinal hernia reduction: Under procedural sedation the hernia was reduced. I could feel the bowel loops going in. I had asked the DEVELOPMENT TRAINER Lucille to put a compression on the hernia ring and take the patient for a repeat CT which was ordered. Patient tolerated the procedure well. Condition: Stable Khanh Parnell MD Mar 02, 2017 22:44
--- NOTE | 2017-03-02 23:23 | HHI.HP ---
HPI Service [facility] Primary Care Physician Unknown Admission Diagnosis Meehna Act;? Incarcerated bladder; pyelonephritis; hydroureter Diagnoses: (1) Schizophrenia Diagnosis: Principal (2) Incarcerated left inguinal hernia Diagnosis: Principal (3) Pyelonephritis Diagnosis: Principal (4) Hydronephrosis due to obstruction of bladder Diagnosis: Principal (5) Cellulitis of scrotum Diagnosis: Principal Travel History International Travel<30 Days: No Contact w/Intl Traveler <30 Da: No Traveled to Known Affected Are: No History of Present Illness This is a 66-year-old male with a PMH of Schizophrenia, Hepatitis B and HTN who was brought to the ER under Meehan Act for psychiatric evaluation as pt refusing to take medications or care for himself, also threatening to hurt staff members and residents at facility. Pt without complaints except for pain at hernia, otherwise does not provide much history. On arrival, BP 136/70, HR 61, O2 sat on her percent on 3 LNC, Temp 101.2. WBC 11.9. Chemistry essentially unremarkable except for GFR 66. Urine Drug Screen negative. Alcohol negative. UA positive for UTI. CT Abd/Pelvis w/ large left inguinal hernia containing small and large bowel as well as large portion of urinary bladder, concern for incarceration, hydronephrosis/hydroureter and edematous scrotal sac. Dr. Alvarado consulted by ER physician, recommended reduction of hernia which was completed successfully in the ER. Dr. Alonso w/ Urology also consulted. Repeat CT Abd/Pelvis w/ partial reduction of inguinal hernia however urinary bladder herniation persists. No surgical intervention from Dr. Alvarado's standpoint. Dr. Alonso will eval in am for further intervention. S/p Perez in ER, IV Abx and Urine Culture. Review of Systems Except as stated in HPI: all other systems reviewed are Neg ROS: Largely unable to obtain from patient Past Family Social History Past Medical History PMH: Schizophrenia, Hepatitis B and HTN Past Surgical History PAST SURGICAL HISTORY: Tonsillectomy Allergies: Coded Allergies: tetanus toxoid, adsorbed (Unverified Allergy, Severe, swelling, 03/02/17) Per SHANNON Aguilar, Gisselle Torres [phone] & Jolie, (Admin?) Gisselle Torres. *MDRO Multi-Drug Resistant Organism (Verified Adverse Reaction, Unknown, ) MRSA (buttock wound) 2004 MRSA PCR Screens NEGATIVE - 03/15/15 & 03/17/15 CLEARED PER INFECTION CONTROL PROTOCOL Family History PAST FAMILY HISTORY: Reviewed. No h/o DM or CAD Social History PAST SOCIAL HISTORY: History of tobacco. Negative for alcohol or drugs per reports. Physical Exam Vital Signs Vital Signs Date Time Temp Pulse Resp B/P Pulse Ox O2 Delivery O2 Flow Rate FiO2 03/02/17 21:44 61 16 136/70 03/02/17 18:20 60 18 120/77 98 Room Air 03/02/17 15:51 98.6 72 16 120/60 98 Physical Exam PE: GENERAL: Middle-aged white male in no acute distress, disheveled. HEENT: PERRLA, EOMI. No scleral icterus or conjunctival pallor. No lid lag or facial droop. CARDIOVASCULAR: Regular rate and rhythm. No obvious murmurs to auscultation. No chest tenderness to palpation. RESPIRATORY: No obvious rhonchi or wheezing. Clear to auscultation. Breath sounds equal bilaterally. GASTROINTESTINAL: Abdomen soft, non-tender, nondistended. BS normal. MUSCULOSKELETAL: Extremities without clubbing, cyanosis, or edema. No obvious deformities. NEUROLOGICAL: Awake, alert and oriented x4. No focal neurologic deficits. Moving both upper and lower extremities spontaneously. Laboratory Laboratory Tests Test 03/02/17 16:30 White Blood Count 11.9 Red Blood Count 3.61 Hemoglobin 11.9 Hematocrit 36.1 Mean Corpuscular Volume 100.1 Mean Corpuscular Hemoglobin 33.1 Mean Corpuscular Hemoglobin 33.0 Concent Red Cell Distribution Width 13.7 Platelet Count 375 Mean Platelet Volume 7.1 Neutrophils (%) (Auto) 77.0 Lymphocytes (%) (Auto) 6.0 Monocytes (%) (Auto) 16.4 Eosinophils (%) (Auto) 0.4 Basophils (%) (Auto) 0.2 Neutrophils # (Auto) 9.2 Lymphocytes # (Auto) 0.7 Monocytes # (Auto) 2.0 Eosinophils # (Auto) 0.1 Basophils # (Auto) 0.0 CBC Comment DIFF FINAL Differential Comment Urine Color YELLOW Urine Turbidity HAZY Urine pH 6.0 Urine Specific [place] 1.010 Urine Protein 30 Urine Glucose (UA) NEG Urine Ketones NEG Urine Occult Blood SMALL Urine Nitrite NEG Urine Bilirubin NEG Urine Urobilinogen LESS THAN 2.0 Urine Leukocyte Esterase LARGE Urine RBC 6 Urine WBC 144 Urine WBC Clumps FEW Urine Bacteria FEW Urine Hyaline Casts 2 Urine Mucus FEW Microscopic Urinalysis Comment CULTURE INDICATED Sodium Level 135 Potassium Level 3.8 Chloride Level 98 Carbon Dioxide Level 27.5 Anion Gap 10 Blood Urea Nitrogen 30 Creatinine 1.11 Estimat Glomerular Filtration 66 Rate Random Glucose 113 Calcium Level 8.4 Total Bilirubin 0.5 Aspartate Amino Transf 24 (AST/SGOT) Alanine Aminotransferase 36 (ALT/SGPT) Alkaline Phosphatase 152 Total Protein 7.7 Albumin 3.0 Urine Opiates Screen NEG Urine Barbiturates Screen NEG Urine Amphetamines Screen NEG Urine Benzodiazepines Screen NEG Urine Cocaine Screen NEG Urine Cannabinoids Screen NEG Ethyl Alcohol Level LESS THAN 3 Date/Time Procedure Status Source Growth 03/02/17 16:30 Urine Culture Received Urine Clean Catch Pending Result Diagram: 03/02/17 1630 03/02/17 1630 Assessment and Plan Problem List: (1) Schizophrenia ICD Code: F20.9 Status: Chronic (2) Incarcerated left inguinal hernia ICD Code: K40.30 Status: Acute (3) Pyelonephritis ICD Code: N12 Status: Acute (4) Hydronephrosis due to obstruction of bladder ICD Code: N13.30 Status: Acute (5) Cellulitis of scrotum ICD Code: N49.2 Status: Acute Assessment and Plan A/P: 1. Schizophrenia: Disorganized/Paranoid Schizophrenia, refusing medications, unable to care for self, arrived to ER under Meehan Act. Consult Psych for further evaluation. 2. Left Inguinal Hernia: large inguinal hernia on exam, CT Abd/Pelvis w/ large left inguinal hernia containing small and large bowel as well as large portion of urinary bladder, concern for incarceration, Dr. Alvarado consulted by ER physician, s/p successful reduction in ER, no emergent surgical intervention from Gen Sx standpoint. 3. Bladder Herniation: Repeat CT Abd/Pelvis w/ partial reduction of inguinal hernia however urinary bladder herniation persists. Dr. Alonso will eval in am for further intervention. S/p Perez in ER, monitor I/O. Keep NPO, IVF, analgesics/antiemetics. 4. Pyelonephritis: U/a positive for UTI, +pyelonephritis on CT, will continue w/ IV Abx. 5. Hydronephrosis: Bilateral. Secondary to bladder outlet obstruction from incarceration, Dr. Alonso to follow, monitor I/o, continue w/ treatment as above. 6. Scrotal Cellulitis: S/p IV Abx, will continue. Temp 101.2, mild leukocytosis. 7. DVT Prophylaxis: SCD/teds. 8. hide worker for DC planning as needed. 9. Case discussed at length with ER physician. Physician Certification 2 Midnight Certification Type: Admission for Inpatient Services Order for Inpatient Services The services are ordered in accordance with Medicare regulations or non- Medicare payer requirements, as applicable. In the case of services not specified as inpatient-only, they are appropriately provided as inpatient services in accordance with the 2-midnight benchmark. Estimated LOS (days): 2 days is the estimated time the patient will need to remain in the hospital, assuming treatment plan goals are met and no additional complications. Post-Hospital Plan: Not yet determined Jojo Lehman MD Mar 02, 2017 23:23
[2017-03-02] MEDS ORDERED: SENNOSIDES 8.6 MG TAB PO PRN (23:30)
[2017-03-02] MEDS ORDERED: SODIUM CHLORIDE 0.9% FLUSH 10 ML FLUSH IV FLUSH PRN (23:30)
[2017-03-02] MEDS ORDERED: ACETAMINOPHEN 325 MG TAB PO PRN (23:30)
[2017-03-02] MEDS ORDERED: ONDANSETRON HCL 4 MG/2 ML VIAL IVP PRN (23:30)
[2017-03-02] MEDS ORDERED: BISACODYL 10 MG SUPP RECTAL PRN (23:30)
[2017-03-02] MEDS ORDERED: MAGNESIUM HYDROXIDE SUSP 30 ML CUP PO PRN (23:30)
[2017-03-02] MEDS ORDERED: LACTULOSE SYRUP 20 GM/30 ML CUP PO PRN (23:30)
[2017-03-03 01:00] VITALS: PULSE 76; RESP 16; O2SAT 96
[2017-03-03 01:57] VITALS: BP 130/69; RESP 20; TEMP 101.2; O2SAT 93
[2017-03-03] MEDS: SODIUM CHLOR 0.9% 1000 ML INJ 1,000 ML IV SCH ×3 (02:17→16:33)
[2017-03-03] MEDS ORDERED: Vancomycin Consult Pharmacy 1 EA OTHER SCH (02:45)
[2017-03-03] MEDS ORDERED: VANCOMYCIN 1,000 MG/NS 250 ML IV ONE ×2 (03:00)
[2017-03-03 07:40] LABS: AUTOMATED NEUTROPHIL # 8.3 TH/MM3 (1.8-7.7); BASOPHIL % 0.2 % (0.0-2.0); EOSINOPHIL % 0.2 % (0.0-4.0); HEMO FLAGS DIFF FINAL; LYMPH % 6.5 % (9.0-44.0); LYMPHOCYTE # 0.7 TH/MM3 (1.0-4.8); MEAN CELL VOLUME 99.3 FL (80.0-100.0); MEAN CORPUSCULAR HEMOGLOBIN 33.9 PG (27.0-34.0); MEAN CORPUSCULAR HGB CONC 34.1 % (32.0-36.0); MONO % 16.1 % (0.0-8.0); PLATELET COUNT 350 TH/MM3 (150-450); RED BLOOD COUNT 3.32 MIL/MM3 (4.50-5.90); RED CELL DISTRIBUTION WIDTH 13.5 % (11.6-17.2); WHITE BLOOD COUNT 10.7 TH/MM3 (4.0-11.0)
[2017-03-03 08:00] VITALS: BP 115/64; PULSE 52; RESP 17; TEMP 97.6; O2SAT 93
[2017-03-03] MEDS: SODIUM CHLORIDE 0.9% FLUSH 10 ML FLUSH IV FLUSH SCH ×2 (08:01→19:51)
[2017-03-03] MEDS: DOCUSATE SODIUM 50 MG/SENNA 8.6 MG TAB PO SCH ×2 (08:03→19:51)
[2017-03-03] MEDS: NYSTATIN 100,000 U/GM PWD 15 GM BTL TOPICAL SCH ×2 (08:03→19:51)
[2017-03-03 08:05] LABS: ALKALINE PHOSPHATASE 139 U/L (45-117); ALT (GPT) 36 U/L (12-78); ANION GAP 8 MEQ/L (5-15); AST (GOT) 33 U/L (15-37); BICARBONATE 24.1 MEQ/L (21.0-32.0); BLOOD UREA NITROGEN 24 MG/DL (7-18); CHLORIDE 109 MEQ/L (98-107); GLOMERULAR FILTRATION RATE 78 ML/MIN (>89); POTASSIUM 3.5 MEQ/L (3.5-5.1); SODIUM (NA) 141 MEQ/L (136-145); TOTAL BILIRUBIN ADULT 0.4 MG/DL (0.2-1.0)
--- NOTE | 2017-03-03 10:01 | RADRPT ---
EXAM DATE/TIME: 03/03/2017 09:16 [facility] COMPARISON: No previous studies available for comparison. INDICATIONS : Hydronephrosis. MEDICAL HISTORY : Parkinson's. Hypertension. Diabetes. Hepatitis B. Schizophrenia. MRSA. SURGICAL HISTORY : Tonsillectomy. ENCOUNTER: Initial ACUITY: 2 days PAIN SCORE: 6/10 LOCATION: Bilateral flank MEASUREMENTS: RIGHT KIDNEY: 12.8 x 7.7 x 8.2 cm LEFT KIDNEY: 12.8 x 7.2 x 6.7 cm FINDINGS: Mild hydronephrosis bilaterally. Cyst in the upper right kidney measures 2.2 cm. Urinary bladder cont ains a Perez catheter. Wall thickening measuring 14 mm. CONCLUSION: 1. Bilateral hydronephrosis. 2. Wall thickening within the urinary bladder. Ajit Mijares MD on March 03, 2017 at 9:57 Board Certified Radiologist. This report was verified electronically.
[2017-03-03 12:00] VITALS: BP 134/71; PULSE 53; RESP 17; TEMP 97.9; O2SAT 93
--- NOTE | 2017-03-03 12:46 | PD.PSY.CON ---
Provisional Diagnosis Admission Date Mar 02, 2017 at 22:59 [place] I. Adjustment disorder with disturbance of conduct [place] II. deferred [place] III. HTN, Hepatitis B, currently: Incarcerated left inguinal hernia, Pyelonephritis, hydronephrosis due to obstruction of bladder, cellulitis of scrotum [place] IV. limited social support, acute medical conditions [place] V. 40 History of Present Illness Service Psychiatry Consult Requested By Medical team Reason for Consult Patient under Meehan Act Primary Care Physician Unknown HPI Patient is a 66 y/o man, domiciled at [facility], unclear past psychiatric history, previous psychiatric hospitalizations, who was brought to the ED under Meehan Act for psychiatric evaluation as per report was threatening to others which psychiatry was consulted for evaluation and currently on the medical floor due inguinal hernia. After discussion with nursing staff, patient has with no behavioral dyscontrol recently. Patient was seen on the medical floor, lying on hospital bed, noted to be irritable and guarded and superficially cooperative with interview. Patient alert and oriented to person, date (month), and person but not to situation. Patient states that he was brought here to the hospital after staff at his residence called EMS. Patient states that he mostly resides in his room because of difficulty with ambulation and doesnt understand why EMT was called. Patient mentions that this is the 2-3rd time he has been sent to the hospital. When informed of the EXO5 act he states Its a lie!. Patient reports his mood lately being stable, no problems with sleep, concentration, some decreased energy, denies feeling sad or depressed, denies any perceptual disturbances or manic symptoms. Patient is a poor historian and superficially cooperative with interview. Patient is NPO and perseverative on asking for water. Past psychiatric history: unclear history but reported denied previous psychiatric diagnosis (as per chart schizophrenia) previous hospitalizations, unknown previous suicide attempts. Family psychiatric history: unable to assess as patient superficially cooperative Past medical history: Incarcerated left inguinal hernia, Pyelonephritis, hydronephrosis due to obstruction of bladder, cellulitis of scrotum Allergies: NKDA Substance use history: unable to assess as patient superficially cooperative Social history: domiciled at [facility]. Review of Systems ROS Limitations: Poor Historian Except as stated in HPI: all other systems reviewed are Neg Past Family Social History Coded Allergies: tetanus toxoid, adsorbed (Unverified Allergy, Severe, swelling, 03/02/17) Per SHANNON Aguilar, Gisselle Torres [phone] & Jolie, (Admin?) Gisselle Torres. *MDRO Multi-Drug Resistant Organism (Verified Adverse Reaction, Unknown, ) MRSA (buttock wound) 2004 MRSA PCR Screens NEGATIVE - 03/15/15 & 03/17/15 CLEARED PER INFECTION CONTROL PROTOCOL Active Scripts Haloperidol Decanoate Inj (Haldol Decanoate Inj)100 Mg/Ml [id number] Mg IM Q28D #1 VIAL Ref 0 This dose of Haldol Dec is due on 02/10/2017. Prov:Tyrel Yap MD 01/18/17 Zolpidem (Ambien)5 Mg Tab10 Mg PO HS PRN (INSOMNIA) 15 Days Ref 1 Prov:Tyrel Yap MD 01/18/17 Trihexyphenidyl 2 Mg Tab2 Mg PO DAILY@09,13,21 15 Days Ref 1 Prov:Tyrel Yap MD 01/18/17 Quetiapine 100 Mg [id number] Mg PO HS 15 Days Ref 1 Prov:Tyrel Yap MD 01/18/17 Quetiapine 100 Mg [id number] Mg PO DAILY 15 Days Ref 1 Prov:Tyrel Yap MD 01/18/17 [Lactulose] (Lactulose Liq)30 ML SYRP No Conflict Check30 Ml PO DAILY 15 Days Ref 1 Prov:Tyrel Yap MD 01/18/17 Hydrocodone-Acetaminophen 5-325 mg Tab1 Tab PO Q4H PRN (pain 6-10) #30 TAB Ref 0 Prov:Tyrel Yap MD 01/18/17 Haloperidol 10 Mg Tab10 Mg PO TID 15 Days Ref 1 Continue Haldol by mouth at least until your next Haldol Decanoate injection. Talk with your outpatient provider about how best to taper Haldol by mouth. Prov:Tyrel Yap MD 01/18/17 Thiamine (Vitamin B-1)100 Mg [id number] Mg PO DAILY 15 Days Ref 1 Prov:Tyrel Yap MD 10/24/16 Folic Acid (Folate)1 Mg Tab1 Mg PO DAILY 15 Days Ref 1 Prov:Tyrel Yap MD 10/24/16 Lactulose Liq 10 Gm/15 Ml Soln30 Ml PO DAILY 15 Days Ref 1 Prov:Tyrel Yap MD 10/24/16 Current Medications Medications (Trade) Dose Ordered Sig/Marce Route Start Time Stop Time Status Last Admin Nystatin 1 applic 1 applic Q12HR TOPICAL 03/03/17 09:00 Ceftriaxone Sodium 1000 mg/ Sodium Chloride 100 ml @ 200 mls/hr Q24H IV 03/03/17 21:00 (NS 1000 ml Inj) 1,000 ml @ 100 mls/hr Q10H IV 03/02/17 23:18 03/03/17 08:01 (NS Flush) 2 ml UNSCH PRN IV FLUSH 03/02/17 23:30 (NS Flush) 2 ml BID IV FLUSH 03/03/17 09:00 (Zofran Inj) 4 mg Q6H PRN IVP 03/02/17 23:30 (Tylenol) 650 mg Q6H PRN PO 03/02/17 23:30 03/03/17 02:26 (Morphine Inj) 2 mg Q3H PRN IV 03/02/17 23:30 (Rowan-Colace) 1 tab BID PO 03/03/17 09:00 (Milk Of Magnesia Liq) 30 ml Q12H PRN PO 03/02/17 23:30 (Senokot) 17.2 mg Q12H PRN PO 03/02/17 23:30 (Dulcolax Supp) 10 mg DAILY PRN RECTAL 03/02/17 23:30 Lactulose 30 ml 30 ml DAILY PRN PO 03/02/17 23:30 (Vancomycin Consult Pharmacy) 0 ml @ 0 mls/hr UNSCH OTHER 03/03/17 02:45 Family History unable to assess as patient superficially cooperative Social History Domiciled at [facility] Patient's Strengths (min. 2) verbal Physical Exam Patient refusing physical examination but no noted psychomotor agitation or retardation no gross motor abnormalities Vital Signs Vital Signs Date Time Temp Pulse Resp B/P Pulse Ox O2 Delivery O2 Flow Rate FiO2 03/03/17 08:00 97.6 52 17 115/64 93 03/03/17 01:00 Room Air 03/02/17 21:45 3.00 22 Mental Status Examination Appearance Appears stated age, poor hygiene and grooming, in hospital gown, superficially cooperative, poor eye contact Speech: Slow Orientation: Person, Place Memory: Impaired (describe) (unable to fully assess) Thought Process: Other (linear, concrete) Thought Content: Unremarkable Language fluent, non spontaneous Fund of Knowledge unable to assess Hallucination Type: None Attention and Concentration: Easily Distracted Suicidal Ideation: No Previous Suicide Attempts: No Homicidal Ideation: No Previous Homicide Attempts: No Insight: Poor Judgment: Poor Affect: Irritable Mood: Irritable Assessment & Plan Problem List: (1) Adjustment disorder with disturbance of conduct ICD Code: F43.24 Assessment & Plan Patient is a 66 y/o man who carries a diagnosis of schizophrenia who presented to the ED under Meehan Act for threatening behavior at residence who is currently admitted on the medical floor for inguinal hernia. Patient at this time with unclear recollection of events which led to implementation of Meehan Act. Patient at this time has not had any behavioral dyscontrol but will remain under Meehan Act for further evaluation of mood and behavior and subsequent follow up for re-evaluation after medical management. Plan: Patient will remain under Meehan Act and will require further observation of mood and behavior. Please re-consult after procedure to re-assess patients mental status Consult [facility] service will continue to follow. Appreciate consult. Ajit Almendarez MD Mar 03, 2017 12:46
[2017-03-03] MEDS: TAMSULOSIN HCL 0.4 MG CAP PO SCH (13:17)
--- NOTE | 2017-03-03 13:30 | MB ---
cc: MOR HAYWARD MD DATE OF CONSULTATION: 03/03/2017. REASON FOR CONSULTATION: 1. Urinary bladder herniation. 2. Bilateral hydronephrosis. 3. Lower urinary tract symptoms. HISTORY OF PRESENT ILLNESS: The patient is a 66-year-old male with past medical history significant for schizophrenia who was brought to the emergency room last night under the [place] Act for evaluation after refusing to take or caring for himself but he also threatened to hurt staff members at the facility. In the emergency room, he was complaining of pain in his left lower abdomen. He is a very poor historian. The patient underwent a CT of the abdomen and pelvis with and without contrast done, which showed a large left inguinal hernia containing small and large bowel as well as a portion of the urinary bladder, and they were concerned for incarceration; also bilateral hydronephrosis and ureter. Dr. Alvarado, general surgeon, was contacted by the emergency room who recommended reduction of the hernia, which apparently was successful in the emergency room. Urology was consulted for this herniation of the bladder. In the emergency room, the patient had a Perez catheter placed and approximately 600 mL of urine was removed. The patient is a poor historian but he does state that he has issues with urination including nocturia three to four times and a weak stream. His only pain that he complains of right now is in the area of the hernia, which he is well aware of. He denies flank pain, nausea or vomiting or fevers or chills. He denies a history of kidney stones or urinary tract infections in the past. REVIEW OF SYSTEMS: See the history of present illness, otherwise all systems reviewed and otherwise were negative. PAST MEDICAL HISTORY: Significant for: 1. Schizophrenia. 2. Hepatitis B. 3. Hypertension. PAST SURGICAL HISTORY: 1. Tonsillectomy. 2. Circumcision. ALLERGIES: NO KNOWN DRUG ALLERGIES. FAMILY HISTORY: Negative for urolithiasis or genitourinary malignancy. SOCIAL HISTORY: History of tobacco use. Negative for illicit drugs or alcohol use. Lives at a nursing facility. MEDICATIONS: His medications include: 1. Rocephin 1 gram every 24 hours. 2. Morphine as needed. 3. Zofran as needed. 4. Lactulose. 5. Haloperidol. 6. Ambien. 7. Seroquel. PHYSICAL EXAMINATION: VITAL SIGNS: Temperature 97.6, T-max 101.2, pulse 53, respiratory rate 17, blood pressure 152/64, satting 97% on room air. GENERAL: He is awake but not oriented and slightly confused. He appears disheveled. He also appears older than his stated age. HEAD, EYES, EARS, NOSE, THROAT: Head is normocephalic and atraumatic. No scleral icterus. Extraocular muscles intact. NECK: The neck is supple. Trachea is midline. No jugular venous distention. LUNGS: Clear to auscultation bilaterally. No wheezes, rales or rhonchi. HEART: Regular rate and rhythm. ABDOMEN: The abdomen is soft, nontender and nondistended. He has a large left palpable mass in his left lower quadrant extending to his groin which is soft, not erythematous but slightly tender consistent with the large hernia. GENITOURINARY EXAM: His penis is circumcised. His right testicle is palpable and normal. His left testicle is not palpable due to the hernia extending into his left hemiscrotum. RECTAL: Not indicated at this time. EXTREMITIES: Nontender. No cyanosis, clubbing or edema. PSYCHIATRIC: Very flat affect but agitated. NEUROLOGIC: Cranial nerves II through XII are grossly intact. Full range of motion in all four extremities. Strength is 5/5 in all four extremities. LABS: White count of 10.7, hemoglobin 11.3, hematocrit 33.0, platelet count 350,000. Chemistries: Sodium 141, potassium 3.5, chloride 109, bicarbonate 24.1, creatinine 0.96, BUN 24, calcium 8.2. Urine showed large leukocyte esterase and small blood. Urine culture currently pending. IMAGING STUDIES: CT abdomen and pelvis with and without contrast images were reviewed. The patient has a large left inguinal hernia with portions of the bladder extending through the hernia. He also has bilateral hydroureteronephrosis and a thickened bladder wall. Renal ultrasound today shows mild bilateral hydronephrosis but a nondistended bladder with Perez catheter in place. ASSESSMENT AND PLAN: The patient is a 66-year-old schizophrenic male admitted under the [place] Act and found to have a large left inguinal hernia with bilateral hydronephrosis, distended bladder with portions of the bladder through the hernia. PLAN: With the Perez catheter in place, the bladder remains decompressed and not part of the hernia contents at this time. As long as the catheter stays in place, it is very unlikely that the bladder is incarcerated. Recommend keeping the Perez catheter in place until the hernia is fixed by general surgery. Once the hernia is fixed, the catheter can be removed and this will likely prevent the bladder from extending through the hernia defect in the future. Will start the patient on Flomax 0.4 milligrams daily for his baseline lower urinary tract symptoms. From a urology standpoint, it is okay for him to be started on a diet, but would recommend clearing it with general surgery first after their evaluation. MD LULÚ Sorensen/FRANCINE /12:46 PM /1:11 PM
[2017-03-03 16:00] VITALS: BP 127/73; PULSE 55; RESP 17; TEMP 98.3; O2SAT 94
[2017-03-03] MEDS: VANCOMYCIN 1,500 MG/NS 500 ML IV SCH ×2 (16:31)
--- NOTE | 2017-03-03 19:39 | HHI.PR ---
Subjective Remarks Per nursing, patient has behaved well relatively speaking. Occasionally gets cranky. Afebrile today. No complaints of genital pain on part of patient. Objective Vital Signs Date Time Temp Pulse Resp B/P Pulse Ox O2 Delivery O2 Flow Rate FiO2 03/03/17 16:00 98.3 55 17 127/73 94 03/03/17 12:00 97.9 53 17 134/71 93 03/03/17 08:00 97.6 52 17 115/64 93 03/03/17 01:57 101.2 20 130/69 93 03/03/17 01:00 76 16 96 Room Air 03/02/17 21:45 100 3.00 22 03/02/17 21:44 61 16 136/70 03/02/17 21:38 100 15.00 100 03/02/17 21:20 98 15.00 03/02/17 21:20 100 Non-Rebreather I/O 03/02/17 03/02/17 03/02/17 03/03/17 03/03/17 03/03/17 07:00 15:00 23:00 07:00 15:00 23:00 Intake Total 450 ml 800 ml Output Total 600 ml 1025 ml Balance -150 ml -225 ml Intake Oral 0 ml IV Total 450 ml 800 ml Output Urine Total 600 ml 1025 ml # Bowel Movements 0 Result Diagram: 03/03/1761703/03/17 0618 Objective Remarks GENERAL: Lying in bed, no acute distress, repeating his words CARDIOVASCULAR: Regular rate and rhythm without murmurs, gallops, or rubs. RESPIRATORY: Breath sounds equal and clear bilaterally. Unlabored breathing GASTROINTESTINAL: Abdomen soft, non-tender, nondistended. : Distended scrotum with Montez MUSCULOSKELETAL: No cyanosis, or edema. A/P Assessment and Plan 1. Schizophrenia: Disorganized/Paranoid Schizophrenia - psych recs to keep pt under [place] Act, will reassess after medical stabilization 2. Left Inguinal Hernia: large inguinal hernia on exam, CT Abd/Pelvis w/ large left inguinal hernia containing small and large bowel as well as large portion of urinary bladder, concern for incarceration, Dr. Alvarado consulted by ER physician, s/p successful reduction in ER, no emergent surgical intervention from Gen Sx standpoint. 3. Bladder Herniation: urology recs to keep montez in place for now until issue hernia is definitively addressed; will await gen surg recs for definitive hernia plans (either conservative or surgical), continue flomax 4. Pyelonephritis: U/a positive for UTI, +pyelonephritis on CT, will continue w/ IV Abx. 5. Hydronephrosis: Bilateral. Secondary to bladder outlet obstruction from incarceration, Dr. Alonso to follow, monitor I/o, continue w/ treatment as above. 6. Scrotal Cellulitis: S/p IV Abx, will continue. afebrile over last 12 hrs, continue abx as above - improving 7. DVT Prophylaxis: SCD/teds. Del Lord MD Mar 03, 2017 19:39
--- NOTE | 2017-03-03 19:42 | MB ---
cc: JAMIR PINEDA M.D. DATE OF CONSULTATION 03/03/2017 REASON FOR CONSULTATION Left inguinal hernia, symptomatic, previously incarcerated. HISTORY OF PRESENT ILLNESS The patient is an interesting 66-year-old male with a history of schizophrenia, hepatitis B and hypertension who was brought to the ER under [place] Act for evaluation. He was placed and [place] Act for threatening to hurt staff members at the facility he was at. The patient had hernia successfully reduced in the emergency department. Post CT scan showed bladder contents within the hernia still and urologist and undersigned recommended a Perez catheter be placed. The patient has been comfortable since that time except for some discomfort from the hernia. PAST MEDICAL HISTORY Significant for schizophrenia, hepatitis B and hypertension. PAST SURGERIES Includes tonsillectomy. 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 SOCIAL HISTORY He has history of tobacco use. PHYSICAL EXAMINATION GENERAL: Reveals a thin white male who appears older than stated age, disheveled. VITALS: BP 134/71, pulse 53, respirations 17, temperature 97.9, 93% sat on room air. HEENT: Sclerae anicteric. CHEST: Clear to auscultation. CARDIAC: Exam reveals regular rate and rhythm. ABDOMEN: Soft. There is a large left inguinal hernia that is reducible on significant manipulation but is able to be reduced. There is no right inguinal defect. GENITOURINARY: Phallus is circumcised. EXTREMITIES: Pulses are present. NEUROLOGIC: Exam is grossly nonfocal. LABORATORY VALUES Demonstrate WBCs of 10.7, platelets are 350,000. BUN and creatinine are 24 and 0.96 which is decreased. Tox screen is negative. Urinalysis demonstrates a significant UTI with 144 WBCs, positive leukocyte esterase. IMAGING STUDIES As indicated above with the urinary bladder still in the hernia. The patient also has a bilateral hydroureter and probable pyelonephritis. Given his current active urinary problems, these need to be treated and then the hernia could be fixed electively. It does not need to be repaired during this hospitalization. I will see the patient again on Sunday in 48 hours to reassess. Thank you for allowing us the opportunity to care for this individual. ASSESSMENT 1. Left inguinal hernia, large but reducible. 2. Pyelonephritis with urinary tract infection. 3. Hypertension. 4. Hepatitis B. 5. Schizophrenia, stable. MD ANJU Orosco /7:01 PM /7:31 PM
[2017-03-03] MEDS: cefTRIAXone INJ 1,000 MG in SODIUM CHLORIDE 0.9% INJ 100 ML IV SCH (19:51)
[2017-03-03 20:00] VITALS: BP 144/65; PULSE 52; RESP 16; TEMP 98.5; O2SAT 93
[2017-03-04] VITALS: BP 127/67; PULSE 52; RESP 16; TEMP 97.3; O2SAT 92
[2017-03-04 04:00] VITALS: BP 134/63; PULSE 57; RESP 16; TEMP 98.3; O2SAT 93
[2017-03-04] MEDS: SODIUM CHLOR 0.9% 1000 ML INJ 1,000 ML IV SCH ×2 (05:33→15:15)
[2017-03-04] MEDS: SODIUM CHLORIDE 0.9% FLUSH 10 ML FLUSH IV FLUSH SCH ×2 (07:43→19:46)
[2017-03-04] MEDS: DOCUSATE SODIUM 50 MG/SENNA 8.6 MG TAB PO SCH ×2 (07:44→19:45)
[2017-03-04] MEDS: TAMSULOSIN HCL 0.4 MG CAP PO SCH (07:44)
[2017-03-04] MEDS: NYSTATIN 100,000 U/GM PWD 15 GM BTL TOPICAL SCH ×2 (07:49→19:46)
[2017-03-04 08:00] VITALS: BP 127/67; PULSE 44; RESP 16; TEMP 98.3; O2SAT 93
[2017-03-04 12:00] VITALS: BP 113/68; PULSE 47; RESP 16; TEMP 97.9; O2SAT 95
--- NOTE | 2017-03-04 13:49 | HHI.PR ---
Subjective Subjective Notes DAILY PROGRESS NOTE FOR SURGICAL ATTENDING, DR. LISBETH LOZANO Doing well no complaints Objective Vitals/I&O Vital Signs Date Time Temp Pulse Resp B/P (MAP) Pulse Ox O2 Delivery O2 Flow Rate FiO2 03/04/17 12:00 97.9 47 16 113/68 (83) 95 03/03/17 01:00 Room Air 03/02/17 21:45 3.00 22 Labs Date/Time Source Procedure Growth Status 03/02/17 16:30 Urine Clean Catch Urine Culture - Preliminary IMMATURE GROWTH - REINCUBATE Resulted Radiology Last Impressions Renal Ultrasound 03/03/17 0000 Signed Impressions: Service Date/Time: Friday, March 03, 2017 09:16 - CONCLUSION: 1. Bilateral hydronephrosis. 2. Wall thickening within the urinary bladder. Ajit Mijares MD Abdomen/Pelvis CT 03/02/17 0000 Signed Impressions: Service Date/Time: Thursday, March 02, 2017 21:38 - CONCLUSION: 1. Partial reduction of the left inguinal hernia. The urinary bladder herniation persists and the herniated portion of the bladder is markedly thick walled, indurated and trabeculated, probable cystitis and/or incarceration. 2. Bilateral hydronephrosis/hydroureter again noted. Please see above. 3. Heterogeneous bilateral nephrograms worrisome for pyelonephritis, right worse than left. Momo Ramos MD Cardiovascular: Regular Lungs: Clear Abdomen: Other (obvious inguinal hernia) A/P Problem List: (1) Incarcerated left inguinal hernia ICD Codes: K40.30 - Unilateral inguinal hernia, with obstruction, without gangrene, not specified as recurrent Status: Chronic Assessment and Plan 66-year-old gentleman with a inguinal hernia Dr. Alvarado plan to repair inguinal hernia once medically stabilized Attending Statement NOTE FOR SURGICAL ATTENDING, DR. LISBETH LOZANO - I attest that I had a [id number] encounter with the patient on the same day, and personally performed and documented my assessment and findings in the medical record. The following services were provided during this hospital visit: Chart data review, vital sign assessments/reviewing monitor data Review of consultations notes if present. Medication orders/review and/or management Ordering and/or reviewing lab tests Ordering and/or interpreting/reviewing x-rays and/or diagnostic studies Care of the patient and discussion of the patient with the care team Documentation time To help prompt me to consider important information that might be impacting today's encounter and assessment, information from prior notes written by myself or my colleagues may have been "brought forward/copy and pasted" into today's note. Lisbeth Lozano MD Mar 04, 2017 13:49
[2017-03-04 16:00] VITALS: BP 115/65; PULSE 58; RESP 19; TEMP 96.9; O2SAT 98
--- NOTE | 2017-03-04 17:06 | HHI.PR ---
Subjective Remarks Per nursing, patient vital signs have been relatively stable, behavior holland gets irritated when nursing staff handles him Objective Vital Signs Date Time Temp Pulse Resp B/P (MAP) Pulse Ox O2 Delivery O2 Flow Rate FiO2 03/04/17 16:00 96.9 58 19 115/65 (82) 98 03/04/17 12:00 97.9 47 16 113/68 (83) 95 03/04/17 08:00 98.3 44 16 127/67 (87) 93 03/04/17 04:00 98.3 57 16 134/63 (86) 93 03/04/17 00:00 97.3 52 16 127/67 (87) 92 03/03/17 20:00 98.5 52 16 144/65 (91) 93 I/O 03/03/17 03/03/17 03/03/17 03/04/17 03/04/17 03/04/17 07:00 15:00 23:00 07:00 15:00 23:00 Intake Total 450 ml 800 ml 780 ml 800 ml Output Total 600 ml 1025 ml 500 ml 375 ml Balance -150 ml -225 ml 280 ml -375 ml 800 ml Intake Oral 0 ml IV Total 450 ml 800 ml 780 ml 800 ml Output Urine Total 600 ml 1025 ml 500 ml 375 ml # Bowel Movements 0 Result Diagram: 03/03/1761703/03/17617 Objective Remarks GENERAL: Lying in bed, no acute distress, repeating his words RESPIRATORY: Unlabored breathing GASTROINTESTINAL: Abdomen soft, non-tender, nondistended. : Distended scrotum with Montez MUSCULOSKELETAL: No cyanosis, or edema. A/P Assessment and Plan 1. Schizophrenia: Disorganized/Paranoid Schizophrenia - psych recs to keep pt under [place] Act, will reassess after medical stabilization 2. Left Inguinal Hernia: large inguinal hernia on exam, CT Abd/Pelvis w/ large left inguinal hernia containing small and large bowel as well as large portion of urinary bladder, concern for incarceration, Dr. Alvarado consulted by ER physician, s/p successful reduction in ER, no emergent surgical intervention from Gen Sx standpoint. 3. Bladder Herniation: urology recs to keep montez in place for now until issue hernia is definitively addressed; will await gen surg recs for definitive hernia plans (either conservative or surgical), continue flomax 4. Pyelonephritis: U/a positive for UTI, +pyelonephritis on CT, will continue w/ IV Abx. 5. Hydronephrosis: Bilateral. Secondary to bladder outlet obstruction from incarceration, Dr. Alonso to follow, monitor I/o, continue w/ treatment as above. 6. Scrotal Cellulitis: S/p IV Abx, will continue. afebrile over last 12 hrs, continue abx as above - improving 7. DVT Prophylaxis: SCD/teds. Del Lord MD Mar 04, 2017 17:06
[2017-03-04] MEDS: VANCOMYCIN 1,500 MG/NS 500 ML IV SCH ×2 (17:11)
[2017-03-04] MEDS: cefTRIAXone INJ 1,000 MG in SODIUM CHLORIDE 0.9% INJ 100 ML IV SCH (19:46)
[2017-03-04 20:00] VITALS: BP 142/69; PULSE 52; RESP 16; TEMP 98.4; O2SAT 97
[2017-03-05] VITALS: BP 130/71; PULSE 51; RESP 16; TEMP 98; O2SAT 92
[2017-03-05] MEDS: SODIUM CHLOR 0.9% 1000 ML INJ 1,000 ML IV SCH ×3 (00:13→21:18)
[2017-03-05 08:00] VITALS: BP 168/83; PULSE 50; RESP 17; TEMP 98.9; O2SAT 94
[2017-03-05] MEDS: TAMSULOSIN HCL 0.4 MG CAP PO SCH (08:12)
[2017-03-05] MEDS: DOCUSATE SODIUM 50 MG/SENNA 8.6 MG TAB PO SCH ×2 (08:12→21:32)
[2017-03-05] MEDS: NYSTATIN 100,000 U/GM PWD 15 GM BTL TOPICAL SCH ×2 (08:13→21:33)
[2017-03-05] MEDS: SODIUM CHLORIDE 0.9% FLUSH 10 ML FLUSH IV FLUSH SCH ×2 (08:14→21:33)
[2017-03-05] MEDS: MORPHINE SULFATE 4 MG/ML INJ IV PRN (11:33)
[2017-03-05 12:00] VITALS: BP 141/75; PULSE 50; RESP 19; TEMP 97.8; O2SAT 96
--- NOTE | 2017-03-05 13:29 | HHI.PR ---
Subjective Remarks Per nursing patient has been stable, no acute calls overnight. Patient lying in bed, watching TV Objective Vital Signs Date Time Temp Pulse Resp B/P (MAP) Pulse Ox O2 Delivery O2 Flow Rate FiO2 03/05/17 12:00 97.8 50 19 141/75 (97) 96 03/05/17 11:38 18 03/05/17 08:00 98.9 50 17 168/83 (111) 94 03/05/17 00:00 98.0 51 16 130/71 (90) 92 03/04/17 20:00 98.4 52 16 142/69 (93) 97 03/04/17 16:00 96.9 58 19 115/65 (82) 98 I/O 03/04/17 03/04/17 03/04/17 03/05/17 03/05/17 03/05/17 06:59 14:59 22:59 06:59 14:59 22:59 Intake Total 800 ml 1855 ml 1000 ml 120 ml Output Total 375 ml 1200 ml 1750 ml Balance -375 ml 800 ml 655 ml -750 ml 120 ml Intake Oral 720 ml 120 ml IV Total 800 ml 1135 ml 1000 ml Output Urine Total 375 ml 1200 ml 1750 ml # Bowel Movements 0 Result Diagram: 03/03/1761703/03/17617 Objective Remarks GENERAL: Lying in bed, no acute distress, repeating his words RESPIRATORY: Unlabored breathing GASTROINTESTINAL: Abdomen soft, minimal tenderness to palpation diffusely of her abdomen, nondistended : Distended scrotum with Montez MUSCULOSKELETAL: No cyanosis, or edema. A/P Assessment and Plan 1. Schizophrenia: Disorganized/Paranoid Schizophrenia - psych recs to keep pt under [place] Act, will reassess after medical stabilization 2. Left Inguinal Hernia: large inguinal hernia on exam, CT Abd/Pelvis w/ large left inguinal hernia containing small and large bowel as well as large portion of urinary bladder, concern for incarceration, Dr. Alvarado consulted by ER physician, s/p successful reduction in ER, Plans for general surgical intervention 3. Bladder Herniation: urology recs to keep montez in place for now until issue hernia is definitively addressed; continue flomax 4. Pyelonephritis: U/a positive for UTI, +pyelonephritis on CT, will continue w/ IV Abx. 5. Hydronephrosis: Bilateral. Secondary to bladder outlet obstruction from incarceration, Dr. Alonso to follow, monitor I/o, continue w/ treatment as above. 6. Scrotal erythema - suspect this is more likely from tissue stretch as oppose to cellulitis 7. DVT Prophylaxis: SCD/teds. Has been afebrile for the last 72 hours, can continue antibiotics, one final urine culture showing no pathogenic bacteria, another one has been re-incubated , otherwise patient has been medically stable on antibiotic therapy with no fever recurrences Del Lord MD Mar 05, 2017 13:29
--- NOTE | 2017-03-05 14:13 | HHI.PR ---
Subjective Subjective Notes Resting in bed Hungry Objective Vitals/I&O Vital Signs Date Time Temp Pulse Resp B/P (MAP) Pulse Ox O2 Delivery O2 Flow Rate FiO2 03/05/17 12:00 97.8 50 19 141/75 (97) 96 03/03/17 01:00 Room Air 03/02/17 21:45 3.00 22 Labs Date/Time Source Procedure Growth Status 03/02/17 16:30 Urine Clean Catch Urine Culture - Final 10-50,000 CFU/ML MIXED CONI... Complete Radiology Last Impressions Renal Ultrasound 03/03/17 0000 Signed Impressions: Service Date/Time: Friday, March 03, 2017 09:16 - CONCLUSION: 1. Bilateral hydronephrosis. 2. Wall thickening within the urinary bladder. Ajit Mijares MD Abdomen/Pelvis CT 03/02/17 0000 Signed Impressions: Service Date/Time: Thursday, March 02, 2017 21:38 - CONCLUSION: 1. Partial reduction of the left inguinal hernia. The urinary bladder herniation persists and the herniated portion of the bladder is markedly thick walled, indurated and trabeculated, probable cystitis and/or incarceration. 2. Bilateral hydronephrosis/hydroureter again noted. Please see above. 3. Heterogeneous bilateral nephrograms worrisome for pyelonephritis, right worse than left. Momo Ramos MD Cardiovascular: Regular Lungs: Clear Abdomen: Non-distended, Non-tender Extremities: No edema Narrative Exam large LEFT inguinal hernia A/P Problem List: (1) Incarcerated left inguinal hernia ICD Codes: K40.30 - Unilateral inguinal hernia, with obstruction, without gangrene, not specified as recurrent Status: Chronic Assessment and Plan 66 year old male with large LEFT inguinal hernia -Plan for open LEFT inguinal hernia repair with mesh on Sunday with Dr. Alvarado -Full liquids -Shower Attending Note - Dr. Alvarado Stable Hernia not very reducible, but no evidence strangulation or obstruction The exam, history, and the medical decision-making described in the above note were completed with the assistance of the mid-level provider. I reviewed and agree with the findings presented. I attest that I had a [id number] encounter with the patient on the same day, and personally performed and documented my assessment and findings in the medical record. Colleen Snyder Mar 05, 2017 14:13 Francis Alvarado MD Mar 13, 2017 18:10
[2017-03-05 16:00] VITALS: BP 165/82; PULSE 50; RESP 19; TEMP 97.8; O2SAT 97
[2017-03-05] MEDS: VANCOMYCIN 1,500 MG/NS 500 ML IV SCH ×2 (16:33)
[2017-03-05 20:00] VITALS: BP 145/75; PULSE 70; RESP 20; TEMP 97.1; O2SAT 96
[2017-03-05] MEDS: cefTRIAXone INJ 1,000 MG in SODIUM CHLORIDE 0.9% INJ 100 ML IV SCH (21:32)
[2017-03-06] VITALS: BP 139/68; PULSE 54; RESP 20; TEMP 98; O2SAT 94
[2017-03-06 08:00] VITALS: BP 150/80; PULSE 50; RESP 16; TEMP 97.7; O2SAT 93
[2017-03-06] MEDS: TAMSULOSIN HCL 0.4 MG CAP PO SCH (08:03)
[2017-03-06] MEDS: SODIUM CHLORIDE 0.9% FLUSH 10 ML FLUSH IV FLUSH SCH ×2 (08:03→21:00)
[2017-03-06] MEDS: DOCUSATE SODIUM 50 MG/SENNA 8.6 MG TAB PO SCH ×2 (08:03→22:06)
[2017-03-06] MEDS: SODIUM CHLOR 0.9% 1000 ML INJ 1,000 ML IV SCH ×2 (08:04→17:12)
[2017-03-06] MEDS: NYSTATIN 100,000 U/GM PWD 15 GM BTL TOPICAL SCH ×2 (08:04→21:00)
--- NOTE | 2017-03-06 11:51 | HHI.PR ---
Subjective Subjective Notes Resting in bed Tolerating fulls Objective Vitals/I&O Vital Signs Date Time Temp Pulse Resp B/P (MAP) Pulse Ox O2 Delivery O2 Flow Rate FiO2 03/06/17 08:00 97.7 50 16 150/80 (103) 93 03/03/17 01:00 Room Air 03/02/17 21:45 3.00 22 Labs Date/Time Source Procedure Growth Status 03/02/17 16:30 Urine Clean Catch Urine Culture - Final 10-50,000 CFU/ML MIXED CONI... Complete Radiology Last Impressions Renal Ultrasound 03/03/17 0000 Signed Impressions: Service Date/Time: Friday, March 03, 2017 09:16 - CONCLUSION: 1. Bilateral hydronephrosis. 2. Wall thickening within the urinary bladder. Ajit Mijares MD Abdomen/Pelvis CT 03/02/17 0000 Signed Impressions: Service Date/Time: Thursday, March 02, 2017 21:38 - CONCLUSION: 1. Partial reduction of the left inguinal hernia. The urinary bladder herniation persists and the herniated portion of the bladder is markedly thick walled, indurated and trabeculated, probable cystitis and/or incarceration. 2. Bilateral hydronephrosis/hydroureter again noted. Please see above. 3. Heterogeneous bilateral nephrograms worrisome for pyelonephritis, right worse than left. Momo Ramos MD Cardiovascular: Regular Lungs: Clear Abdomen: Non-distended, Non-tender Extremities: No edema Narrative Exam gigantic LEFT inguinal hernia A/P Problem List: (1) Incarcerated left inguinal hernia ICD Codes: K40.30 - Unilateral inguinal hernia, with obstruction, without gangrene, not specified as recurrent Status: Chronic Assessment and Plan 66 year old male with large LEFT inguinal hernia -Plan for open LEFT inguinal hernia repair with mesh on this week with Dr. Alvarado -Continue full liquids -Shower daily Attending Note - Dr. Alvarado Scheduling for repair this week The exam, history, and the medical decision-making described in the above note were completed with the assistance of the mid-level provider. I reviewed and agree with the findings presented. I attest that I had a [id number] encounter with the patient on the same day, and personally performed and documented my assessment and findings in the medical record. Colleen Snyder Mar 06, 2017 11:51 Francis Alvarado MD Mar 13, 2017 18:09
[2017-03-06 12:00] VITALS: BP 168/86; PULSE 47; RESP 16; TEMP 98.2; O2SAT 92
[2017-03-06 16:00] VITALS: BP 163/74; PULSE 48; RESP 17; TEMP 97.4; O2SAT 98
[2017-03-06] MEDS ORDERED: PHARMACY ORDERED LAB ONE (16:45)
[2017-03-06] MEDS: VANCOMYCIN 1,500 MG/NS 500 ML IV SCH ×2 (17:57)
[2017-03-06 20:00] VITALS: BP 132/73; PULSE 120; RESP 22; TEMP 97; O2SAT 93
--- NOTE | 2017-03-06 20:30 | HHI.PR ---
Subjective Remarks Per nursing patient has been stable, no acute calls during the day. Objective Vital Signs Date Time Temp Pulse Resp B/P (MAP) Pulse Ox O2 Delivery O2 Flow Rate FiO2 03/06/17 16:00 97.4 48 17 163/74 (103) 98 03/06/17 12:00 98.2 47 16 168/86 (113) 92 03/06/17 08:00 97.7 50 16 150/80 (103) 93 03/06/17 00:00 98.0 54 20 139/68 (91) 94 I/O 03/05/17 03/05/17 03/05/17 03/06/17 03/06/17 03/06/17 06:59 14:59 22:59 06:59 14:59 22:59 Intake Total 1000 ml 120 ml 2617 ml 1100 ml 0 ml 2630 ml Output Total 1750 ml 2300 ml 1000 ml 2450 ml Balance -750 ml 120 ml 317 ml 100 ml 0 ml 180 ml Intake Oral 120 ml 1440 ml 2280 ml IV Total 1000 ml 1177 ml 1100 ml 0 ml 350 ml Output Urine Total 1750 ml 2300 ml 1000 ml 2450 ml # Bowel Movements 0 0 0 Result Diagram: 03/03/1761703/03/17617 Objective Remarks GENERAL: Lying in bed, no acute distress, RESPIRATORY: Unlabored breathing GASTROINTESTINAL: Abdomen ND : Distended scrotum with Montez A/P Assessment and Plan 1. Schizophrenia: Disorganized/Paranoid Schizophrenia - psych recs to keep pt under M[place]han Act, will reassess after medical stabilization 2. Left Inguinal Hernia: large inguinal hernia on exam, CT Abd/Pelvis w/ large left inguinal hernia containing small and large bowel as well as large portion of urinary bladder, concern for incarceration, Dr. Alvarado consulted by ER physician, s/p successful reduction in ER, Plans for general surgical intervention 3. Bladder Herniation: urology recs to keep montez in place for now until issue hernia is definitively addressed; continue flomax 4. Pyelonephritis: U/a positive for UTI, +pyelonephritis on CT, will continue w/ IV Abx. 5. Hydronephrosis: Bilateral. Secondary to bladder outlet obstruction from incarceration, Dr. Alonso to follow, monitor I/o, continue w/ treatment as above. 6. Scrotal erythema - suspect this is more likely from tissue stretch as oppose to cellulitis 7. DVT Prophylaxis: SCD/teds. Has been afebrile for the last 72 hours, can continue antibiotics, one final urine culture showing no pathogenic bacteria, another one has been re-incubated , otherwise patient has been medically stable on antibiotic therapy with no fever recurrences Del Lord MD Mar 06, 2017 20:30
[2017-03-06] MEDS: cefTRIAXone INJ 1,000 MG in SODIUM CHLORIDE 0.9% INJ 100 ML IV SCH (22:07)
[2017-03-07] VITALS: BP 146/70; PULSE 50; RESP 20; TEMP 100.3; O2SAT 95
[2017-03-07] MEDS: SODIUM CHLOR 0.9% 1000 ML INJ 1,000 ML IV SCH ×3 (02:34→21:49)
[2017-03-07] MEDS: VANCOMYCIN INJ 1,250 MG in SODIUM CHLOR 0.9% 250 ML INJ 250 ML IV SCH ×2 (04:56→17:15)
[2017-03-07 08:00] VITALS: BP 147/74; PULSE 53; RESP 17; TEMP 99.5; O2SAT 95
[2017-03-07] MEDS: NYSTATIN 100,000 U/GM PWD 15 GM BTL TOPICAL SCH ×2 (08:42→21:00)
[2017-03-07] MEDS: DOCUSATE SODIUM 50 MG/SENNA 8.6 MG TAB PO SCH ×2 (08:42→21:00)
[2017-03-07] MEDS: TAMSULOSIN HCL 0.4 MG CAP PO SCH (08:42)
[2017-03-07] MEDS: SODIUM CHLORIDE 0.9% FLUSH 10 ML FLUSH IV FLUSH SCH ×2 (08:42→21:00)
[2017-03-07 12:00] VITALS: BP 132/73; PULSE 46; RESP 17; TEMP 98.6; O2SAT 93
--- NOTE | 2017-03-07 13:47 | HHI.PR ---
Subjective Remarks Per nursing patient has been ok, no acute calls during the day. Objective Vital Signs Date Time Temp Pulse Resp B/P (MAP) Pulse Ox O2 Delivery O2 Flow Rate FiO2 03/07/17 12:00 98.6 46 17 132/73 (92) 93 03/07/17 08:00 99.5 53 17 147/74 (98) 95 03/07/17 00:00 100.3 50 20 146/70 (95) 95 03/06/17 20:00 97.0 120 22 132/73 (92) 93 03/06/17 16:00 97.4 48 17 163/74 (103) 98 I/O 03/06/17 03/06/17 03/06/17 03/07/17 03/07/17 03/07/17 07:00 15:00 23:00 07:00 15:00 23:00 Intake Total 1100 ml 0 ml 2630 ml 1873 ml 1000 ml Output Total 1000 ml 2450 ml 300 ml Balance 100 ml 0 ml 180 ml 1573 ml 1000 ml Intake Oral 2280 ml IV Total 1100 ml 0 ml 350 ml 1873 ml 1000 ml Output Urine Total 1000 ml 2450 ml 300 ml # Bowel Movements 0 0 Result Diagram: 03/03/17 0618 03/07/17 0522 Imaging Last Impressions Renal Ultrasound 03/03/17 0000 Signed Impressions: Service Date/Time: Friday, March 03, 2017 09:16 - CONCLUSION: 1. Bilateral hydronephrosis. 2. Wall thickening within the urinary bladder. Ajit Mijares MD Abdomen/Pelvis CT 03/02/17 0000 Signed Impressions: Service Date/Time: Thursday, March 02, 2017 21:38 - CONCLUSION: 1. Partial reduction of the left inguinal hernia. The urinary bladder herniation persists and the herniated portion of the bladder is markedly thick walled, indurated and trabeculated, probable cystitis and/or incarceration. 2. Bilateral hydronephrosis/hydroureter again noted. Please see above. 3. Heterogeneous bilateral nephrograms worrisome for pyelonephritis, right worse than left. Momo Ramos MD Objective Remarks GENERAL: Lying in bed, no acute distress, RESPIRATORY: Unlabored breathing GASTROINTESTINAL: Abdomen ND : Distended scrotum with Montez, nontender to maniuplation, minimal scrotal erythema A/P Assessment and Plan 1. Schizophrenia: Disorganized/Paranoid Schizophrenia - psych recs to keep pt under M[place] Act, will reassess after surgical intervention. 2. Left Inguinal Hernia: large inguinal hernia on exam, CT Abd/Pelvis w/ large left inguinal hernia containing small and large bowel as well as large portion of urinary bladder, concern for incarceration, Dr. Alvarado consulted by ER physician, s/p successful reduction in ER, Plans for general surgical intervention 3 anytime this week. Bladder Herniation: urology recs to keep montez in place for now until issue hernia is definitively addressed; continue flomax 4. Pyelonephritis: clinically improved, +pyelonephritis on CT at time of admission, continue IV Abx. 5. Hydronephrosis: Bilateral. Secondary to bladder outlet obstruction from incarceration, tx #2 6. Scrotal erythema - suspect this is more likely from tissue stretch as oppose to cellulitis 7. DVT Prophylaxis: SCD/teds. Has been afebrile for the last 84 hours, can continue antibiotics, one final urine culture showing no pathogenic bacteria, another one has been re-incubated , otherwise patient has been medically stable on antibiotic therapy with no fever recurrences Del Lord MD Mar 07, 2017 13:47
[2017-03-07 16:00] VITALS: BP 173/86; PULSE 48; RESP 18; TEMP 99.3; O2SAT 97
[2017-03-07 20:00] VITALS: BP 145/71; PULSE 54; RESP 22; TEMP 98.9; O2SAT 95
[2017-03-07] MEDS: cefTRIAXone INJ 1,000 MG in SODIUM CHLORIDE 0.9% INJ 100 ML IV SCH (21:44)
[2017-03-08] VITALS: BP 138/74; PULSE 69; RESP 20; TEMP 98.6; O2SAT 94
[2017-03-08 04:00] VITALS: BP 170/71; PULSE 53; RESP 20; TEMP 100.2; O2SAT 91
[2017-03-08] MEDS ORDERED: PHARMACY ORDERED LAB ONE (05:45)
[2017-03-08] MEDS: VANCOMYCIN INJ 1,250 MG in SODIUM CHLOR 0.9% 250 ML INJ 250 ML IV SCH (05:47)
[2017-03-08 08:00] VITALS: BP 152/79; PULSE 43; RESP 17; TEMP 97.9; O2SAT 94
[2017-03-08] MEDS: NYSTATIN 100,000 U/GM PWD 15 GM BTL TOPICAL SCH ×2 (09:00→20:44)
[2017-03-08] MEDS: SODIUM CHLORIDE 0.9% FLUSH 10 ML FLUSH IV FLUSH SCH ×2 (09:00→20:44)
[2017-03-08] MEDS: SODIUM CHLOR 0.9% 1000 ML INJ 1,000 ML IV SCH ×2 (09:51→20:43)
[2017-03-08] MEDS: TAMSULOSIN HCL 0.4 MG CAP PO SCH (09:51)
[2017-03-08] MEDS: DOCUSATE SODIUM 50 MG/SENNA 8.6 MG TAB PO SCH ×2 (09:51→20:44)
[2017-03-08 12:00] VITALS: BP 160/94; PULSE 49; RESP 17; TEMP 96.7; O2SAT 96
--- NOTE | 2017-03-08 12:55 | HHI.PR ---
Subjective Subjective Notes Resting in bed Ready to have surgery tomorrow Objective Vitals/I&O Vital Signs Date Time Temp Pulse Resp B/P (MAP) Pulse Ox O2 Delivery O2 Flow Rate FiO2 03/08/17 12:00 96.7 49 17 160/94 (116) 96 Labs Laboratory Tests Test 03/08/17 04:45 Vancomycin Level Trough 11.7 Date/Time Source Procedure Growth Status 03/02/17 16:30 Urine Clean Catch Urine Culture - Final 10-50,000 CFU/ML MIXED CONI... Complete Radiology Last Impressions Renal Ultrasound 03/03/17 0000 Signed Impressions: Service Date/Time: Friday, March 03, 2017 09:16 - CONCLUSION: 1. Bilateral hydronephrosis. 2. Wall thickening within the urinary bladder. Ajit Mijares MD Abdomen/Pelvis CT 03/02/17 0000 Signed Impressions: Service Date/Time: Thursday, March 02, 2017 21:38 - CONCLUSION: 1. Partial reduction of the left inguinal hernia. The urinary bladder herniation persists and the herniated portion of the bladder is markedly thick walled, indurated and trabeculated, probable cystitis and/or incarceration. 2. Bilateral hydronephrosis/hydroureter again noted. Please see above. 3. Heterogeneous bilateral nephrograms worrisome for pyelonephritis, right worse than left. Momo Ramos MD Cardiovascular: Regular Lungs: Clear Abdomen: Non-distended, Non-tender Extremities: No edema Narrative Exam gigantic LEFT inguinal hernia A/P Problem List: (1) Incarcerated left inguinal hernia ICD Codes: K40.30 - Unilateral inguinal hernia, with obstruction, without gangrene, not specified as recurrent Status: Chronic Assessment and Plan 66 year old male with large LEFT inguinal hernia -Plan for open LEFT inguinal hernia repair with mesh tomorrow with Dr. Alvarado -Regular diet; NPO after MN -Shower -Obtain consent Attending Note - Dr. Alvarado Discussed repair with patient; he is agreeable to proceed. The exam, history, and the medical decision-making described in the above note were completed with the assistance of the mid-level provider. I reviewed and agree with the findings presented. I attest that I had a [id number] encounter with the patient on the same day, and personally performed and documented my assessment and findings in the medical record. Colleen Snyder Mar 08, 2017 12:55 Francis Alvarado MD Mar 13, 2017 18:08
--- NOTE | 2017-03-08 13:42 | HHI.PR ---
Subjective Remarks Follow-up left incarcerated inguinal hernia/pyelonephritis 03/08/17-patient seen and examined, he has been refusing all of his medications. Complains of back pain. Plan for left inguinal hernia repair tomorrow. Objective Vitals Vital Signs Date Time Temp Pulse Resp B/P (MAP) Pulse Ox O2 Delivery O2 Flow Rate FiO2 03/08/17 12:00 96.7 49 17 160/94 (116) 96 03/08/17 08:00 97.9 43 17 152/79 (103) 94 03/08/17 04:00 100.2 53 20 170/71 (104) 91 03/08/17 00:00 98.6 69 20 138/74 (95) 94 03/07/17 20:00 98.9 54 22 145/71 (95) 95 03/07/17 16:00 99.3 48 18 173/86 (115) 97 I/O 03/07/17 03/07/17 03/07/17 03/08/17 03/08/17 03/08/17 07:00 15:00 23:00 07:00 15:00 23:00 Intake Total 1873 ml 1000 ml 550 ml 784 ml Output Total 300 ml 3300 ml 2000 ml Balance 1573 ml 1000 ml -2750 ml -1216 ml Intake Oral 550 ml IV Total 1873 ml 1000 ml 784 ml Output Urine Total 300 ml 3300 ml 2000 ml # Bowel Movements 2 Result Diagram: 03/07/17 0522 Imaging Last Impressions Renal Ultrasound 03/03/17 0000 Signed Impressions: Service Date/Time: Friday, March 03, 2017 09:16 - CONCLUSION: 1. Bilateral hydronephrosis. 2. Wall thickening within the urinary bladder. Ajit Mijares MD Abdomen/Pelvis CT 03/02/17 0000 Signed Impressions: Service Date/Time: Thursday, March 02, 2017 21:38 - CONCLUSION: 1. Partial reduction of the left inguinal hernia. The urinary bladder herniation persists and the herniated portion of the bladder is markedly thick walled, indurated and trabeculated, probable cystitis and/or incarceration. 2. Bilateral hydronephrosis/hydroureter again noted. Please see above. 3. Heterogeneous bilateral nephrograms worrisome for pyelonephritis, right worse than left. Momo Ramos MD Objective Remarks GENERAL: NAD SKIN: Warm and dry. HEAD: Normocephalic. EYES: No scleral icterus. No injection or drainage. NECK: Supple, trachea midline. No JVD or lymphadenopathy. CARDIOVASCULAR: Regular rate and rhythm without murmurs, gallops, or rubs. RESPIRATORY: Breath sounds equal bilaterally. No accessory muscle use. GASTROINTESTINAL: Abdomen soft, non-tender, nondistended. MUSCULOSKELETAL: No cyanosis, or edema. : Did not allowed BACK: Nontender without obvious deformity. No CVA tenderness. A/P Problem List: (1) Schizophrenia ICD Code: F20.9 - Schizophrenia Status: Chronic (2) Incarcerated left inguinal hernia ICD Code: K40.30 - Unilateral inguinal hernia, with obstruction, without gangrene, not specified as recurrent Status: Chronic (3) Pyelonephritis ICD Code: N12 - Tubulo-interstitial nephritis, not specified as acute or chronic Status: Acute (4) Hydronephrosis due to obstruction of bladder ICD Code: N13.30 - Unspecified hydronephrosis; N32.0 - Bladder-neck obstruction Status: Acute (5) Cellulitis of scrotum ICD Code: N49.2 - Inflammatory disorders of scrotum Status: Acute Assessment and Plan 66 year-old man with 1. Left Inguinal Hernia: Plan for open LEFT inguinal hernia repair with mesh tomorrow 03/09/17 2. Schizophrenia: Disorganized/Paranoid Schizophrenia - psych recs to keep pt under Mee[place] Act 3 anytime this week. Bladder Herniation: urology recs to keep montez in place for now until issue hernia is definitively addressed; continue flomax 4. Pyelonephritis: clinically improved, will de-escalate antibiotic by discontinuing vancomycin and continue Rocephin 5. Hydronephrosis: Bilateral. Secondary to bladder outlet obstruction from incarceration. Appreciate input from urology. Continue with Flomax 6. Scrotal erythema - improving 7. DVT Prophylaxis: SCD/teds. 8. Labile BP: Vasotec when necessary Ajit Phelan MD Mar 08, 2017 13:42
[2017-03-08] MEDS ORDERED: ENALAPRILAT 2.5 MG/2 ML VIAL IV PUSH PRN (14:00)
[2017-03-08] MEDS: MORPHINE SULFATE 4 MG/ML INJ IV PRN (15:15)
[2017-03-08 16:00] VITALS: BP 163/77; PULSE 57; RESP 15; TEMP 97.4; O2SAT 97
[2017-03-08 20:00] VITALS: BP 149/80; PULSE 45; RESP 16; TEMP 98.4; O2SAT 97
[2017-03-08] MEDS: cefTRIAXone INJ 1,000 MG in SODIUM CHLORIDE 0.9% INJ 100 ML IV SCH (20:43)
[2017-03-09] VITALS (7 sets, daily range): BP systolic 126–167; BP diastolic 65–85; PULSE 45–78; RESP 16–18; TEMP 97.1–100.1; O2SAT 93–97
[2017-03-09] MEDS ORDERED: POVIDONE IODINE 5% (ANTISEPSIS KIT) 4 APPLICATIONS EACH NARE PRN (04:00)
[2017-03-09] MEDS ORDERED: LACTATED RINGER'S 1000 ML IV PRN (04:00)
[2017-03-09] MEDS ORDERED: CHLORHEXIDINE GLUCONATE 2 % 1 PACK (2 CLOTHS) TOPICAL PRN (04:00)
[2017-03-09] MEDS: SODIUM CHLOR 0.9% 1000 ML INJ 1,000 ML IV SCH ×3 (04:46→20:47)
[2017-03-09] MEDS: SODIUM CHLORIDE 0.9% FLUSH 10 ML FLUSH IV FLUSH SCH ×2 (07:55→20:41)
[2017-03-09] MEDS: TAMSULOSIN HCL 0.4 MG CAP PO SCH (07:55)
[2017-03-09] MEDS: DOCUSATE SODIUM 50 MG/SENNA 8.6 MG TAB PO SCH ×2 (07:55→20:41)
[2017-03-09] MEDS: NYSTATIN 100,000 U/GM PWD 15 GM BTL TOPICAL SCH ×2 (07:57→21:00)
[2017-03-09] MEDS ORDERED: BUPIVACAINE/EPINEPHRINE 0.25% 50 ML VIAL ONE (09:54)
[2017-03-09] MEDS ORDERED: MIDAZOLAM HCL 2 MG/2 ML VIAL ONE (10:49)
[2017-03-09] MEDS ORDERED: PROPOFOL 200 MG/20 ML AMP IV ONE (12:00)
[2017-03-09] MEDS ORDERED: NEOSTIGMINE 3 MG/3 ML SYR IV ONE (12:00)
[2017-03-09] MEDS ORDERED: LACTATED RINGER'S 1000 ML INJ 1,000 ML IV ONE (12:00)
[2017-03-09] MEDS ORDERED: ONDANSETRON HCL 4 MG/2 ML VIAL IV PUSH ONE (12:00)
--- NOTE | 2017-03-09 12:11 | HHI.PR ---
Subjective Remarks Follow-up left incarcerated inguinal hernia/pyelonephritis 03/08/17-patient seen and examined, he has been refusing all of his medications. Complains of back pain. Plan for left inguinal hernia repair tomorrow. 03/09/17-patient seen and examined, heading to the OR for hernia repair Objective Vitals Vital Signs Date Time Temp Pulse Resp B/P (MAP) Pulse Ox O2 Delivery O2 Flow Rate FiO2 03/09/17 09:11 55 03/09/17 08:00 97.1 45 17 126/65 (85) 93 03/09/17 04:00 98.0 54 16 167/82 (110) 93 03/09/17 00:00 98.7 46 16 143/80 (101) 96 03/08/17 20:00 98.4 45 16 149/80 (103) 97 03/08/17 16:00 97.4 57 15 163/77 (105) 97 I/O 03/08/17 03/08/17 03/08/17 03/09/17 03/09/17 03/09/17 06:59 14:59 22:59 06:59 14:59 22:59 Intake Total 784 ml 1646 ml Output Total 2000 ml 2100 ml 2500 ml Balance -1216 ml -454 ml -2500 ml Intake Oral 480 ml IV Total 784 ml 1166 ml Output Urine Total 2000 ml 2100 ml 2500 ml # Bowel Movements 2 Result Diagram: 03/07/17 0522 Objective Remarks GENERAL: NAD SKIN: Warm and dry. HEAD: Normocephalic. EYES: No scleral icterus. No injection or drainage. NECK: Supple, trachea midline. No JVD or lymphadenopathy. CARDIOVASCULAR: Regular rate and rhythm without murmurs, gallops, or rubs. RESPIRATORY: Breath sounds equal bilaterally. No accessory muscle use. GASTROINTESTINAL: Abdomen soft, non-tender, nondistended. MUSCULOSKELETAL: No cyanosis, or edema. : Did not allowed BACK: Nontender without obvious deformity. No CVA tenderness. A/P Problem List: (1) Schizophrenia ICD Code: F20.9 - Schizophrenia Status: Chronic (2) Incarcerated left inguinal hernia ICD Code: K40.30 - Unilateral inguinal hernia, with obstruction, without gangrene, not specified as recurrent Status: Chronic (3) Pyelonephritis ICD Code: N12 - Tubulo-interstitial nephritis, not specified as acute or chronic Status: Acute (4) Hydronephrosis due to obstruction of bladder ICD Code: N13.30 - Unspecified hydronephrosis; N32.0 - Bladder-neck obstruction Status: Acute (5) Cellulitis of scrotum ICD Code: N49.2 - Inflammatory disorders of scrotum Status: Acute Assessment and Plan 66 year-old man with 1. Left Inguinal Hernia: Plan for open LEFT inguinal hernia repair with mesh today 03/09/17 2. Schizophrenia: Disorganized/Paranoid Schizophrenia - psych recs to keep pt under Mee[place] Act 3 anytime this week. Bladder Herniation: urology recs to keep montez in place for now until issue hernia is definitively addressed; continue Flomax 4. Pyelonephritis: clinically improved, will de-escalate antibiotic by discontinuing vancomycin and continue Rocephin 5. Hydronephrosis: Bilateral. Secondary to bladder outlet obstruction from incarceration. Appreciate input from urology. Continue with Flomax 6. Scrotal erythema - improving 7. DVT Prophylaxis: SCD/teds. 8. Labile BP: Currently normotensive Ajit Phelan MD Mar 09, 2017 12:11
[2017-03-09] MEDS: cefTRIAXone INJ 1,000 MG in SODIUM CHLORIDE 0.9% INJ 100 ML IV SCH ×2 (12:23→20:39)
[2017-03-09] MEDS ORDERED: DO NOT ADM ANY ANTICOAGULANT DRUGS PRN (14:15)
--- NOTE | 2017-03-09 14:25 | HHI.PR ---
cc: Francis Alvarado MD Immediate Post Op Note Procedure Date: Mar 09, 2017 Pre Op Diagnosis: Left inguinal hernia, incarcerated Post Op Diagnosis: Same Surgeon: Francis Alvarado Coping Machine Operator(s): Megan Brooke CFA Procedure: Reduction and repair incarcerated sliding Left inguinal hernia with mesh Findings: Bladder and colon in hernia sac Complications: None Estimated blood loss: 50 ml Anesthesia: General Drains: None IVF (1000 ml) Patient to: PACU Patient Condition: Good Date/Time of Procedure: SEE SURGICAL CARE RECORD Francis Alvarado MD Mar 09, 2017 14:25
[2017-03-09] MEDS ORDERED: fentaNYL CITRATE 250 MCG/5 ML AMP ONE (14:29)
[2017-03-09] MEDS: MORPHINE SULFATE 4 MG/ML INJ IV PRN (20:46)
[2017-03-10] VITALS: BP 127/79; PULSE 77; RESP 16; TEMP 101.2; O2SAT 92
[2017-03-10 01:25] VITALS: TEMP 99.6
[2017-03-10] MEDS ORDERED: ACETAMINOPHEN/HYDROcodone 325 MG/5 MG TAB PO PRN (01:30)
[2017-03-10 08:00] VITALS: BP 138/79; PULSE 58; RESP 14; TEMP 97.9; O2SAT 91
[2017-03-10] MEDS: TAMSULOSIN HCL 0.4 MG CAP PO SCH (08:01)
[2017-03-10] MEDS: SODIUM CHLOR 0.9% 1000 ML INJ 1,000 ML IV SCH ×2 (08:01→22:46)
[2017-03-10] MEDS: SODIUM CHLORIDE 0.9% FLUSH 10 ML FLUSH IV FLUSH SCH ×2 (08:03→21:00)
[2017-03-10] MEDS: DOCUSATE SODIUM 50 MG/SENNA 8.6 MG TAB PO SCH ×2 (08:04→21:00)
[2017-03-10] MEDS: NYSTATIN 100,000 U/GM PWD 15 GM BTL TOPICAL SCH ×2 (08:04→21:00)
--- NOTE | 2017-03-10 10:47 | HHI.PR ---
Subjective Subjective Notes sore, wants morphine Objective Vitals/I&O Vital Signs Date Time Temp Pulse Resp B/P (MAP) Pulse Ox O2 Delivery O2 Flow Rate FiO2 03/10/17 01:25 99.6 03/10/17 00:00 77 16 127/79 (95) 92 03/09/17 16:24 Nasal Cannula 3.00 Labs Date/Time Source Procedure Growth Status 03/02/17 16:30 Urine Clean Catch Urine Culture - Final 10-50,000 CFU/ML MIXED CONI... Complete Radiology Last Impressions Renal Ultrasound 03/03/17 0000 Signed Impressions: Service Date/Time: Friday, March 03, 2017 09:16 - CONCLUSION: 1. Bilateral hydronephrosis. 2. Wall thickening within the urinary bladder. Ajit Mijares MD Abdomen/Pelvis CT 03/02/17 0000 Signed Impressions: Service Date/Time: Thursday, March 02, 2017 21:38 - CONCLUSION: 1. Partial reduction of the left inguinal hernia. The urinary bladder herniation persists and the herniated portion of the bladder is markedly thick walled, indurated and trabeculated, probable cystitis and/or incarceration. 2. Bilateral hydronephrosis/hydroureter again noted. Please see above. 3. Heterogeneous bilateral nephrograms worrisome for pyelonephritis, right worse than left. Momo Ramos MD Narrative Exam tegaderm in place. edematous, slight erythema Wound Wound : Wound Location: Abdomen Appearance: Clean & Dry, Erythema Dressing: Dry A/P Problem List: (1) Incarcerated left inguinal hernia ICD Codes: K40.30 - Unilateral inguinal hernia, with obstruction, without gangrene, not specified as recurrent Status: Chronic Assessment and Plan s/p repair GIANT LIH adjust pain meds out of bed. Fady Grubbs MD Mar 10, 2017 10:47
[2017-03-10 12:00] VITALS: BP 134/76; PULSE 59; RESP 15; TEMP 98.1; O2SAT 91
--- NOTE | 2017-03-10 12:00 | HHI.PR ---
Subjective Remarks Follow-up left incarcerated inguinal hernia/pyelonephritis 03/08/17-patient seen and examined, he has been refusing all of his medications. Complains of back pain. Plan for left inguinal hernia repair tomorrow. 03/09/17-patient seen and examined, heading to the OR for hernia repair 03/10/17-patient seen and examined, requesting stronger pain medication secondary to pain otherwise no other issues. Objective Vitals Vital Signs Date Time Temp Pulse Resp B/P (MAP) Pulse Ox O2 Delivery O2 Flow Rate FiO2 03/10/17 08:00 97.9 58 14 138/79 (98) 91 03/10/17 01:25 99.6 03/10/17 00:00 101.2 77 16 127/79 (95) 92 03/09/17 20:00 100.1 78 16 152/85 (107) 93 03/09/17 16:24 97 Nasal Cannula 3.00 03/09/17 16:00 98.0 48 18 135/73 (93) 97 03/09/17 14:50 68 16 139/71 (93) 97 Nasal Cannula 3 03/09/17 14:45 97.6 72 16 133/67 (89) 98 Nasal Cannula 3 03/09/17 14:30 70 16 128/69 (88) 96 Nasal Cannula 3 03/09/17 14:15 97.5 72 18 126/66 (86) 95 Nasal Cannula 3 I/O 03/09/17 03/09/17 03/09/17 03/10/17 03/10/17 03/10/17 07:00 15:00 23:00 07:00 15:00 23:00 Intake Total 1100 ml 1393 ml Output Total 2500 ml 2800 ml 1450 ml 1050 ml Balance -2500 ml -1700 ml -57 ml -1050 ml Intake Oral 480 ml IV Total 913 ml Other 1100 ml Output Urine Total 2500 ml 2750 ml 1450 ml 1050 ml Estimated Blood Loss 50 ml # Bowel Movements 0 Result Diagram: 03/07/17 0522 Objective Remarks GENERAL: NAD SKIN: Warm and dry. HEAD: Normocephalic. EYES: No scleral icterus. No injection or drainage. NECK: Supple, trachea midline. No JVD or lymphadenopathy. CARDIOVASCULAR: Regular rate and rhythm without murmurs, gallops, or rubs. RESPIRATORY: Breath sounds equal bilaterally. No accessory muscle use. GASTROINTESTINAL: Abdomen soft, non-tender, nondistended. MUSCULOSKELETAL: No cyanosis, or edema. : inc c/d/i BACK: Nontender without obvious deformity. No CVA tenderness. Procedures Reduction and repair incarcerated sliding Left inguinal hernia with mesh A/P Problem List: (1) Schizophrenia ICD Code: F20.9 - Schizophrenia Status: Chronic (2) Incarcerated left inguinal hernia ICD Code: K40.30 - Unilateral inguinal hernia, with obstruction, without gangrene, not specified as recurrent Status: Chronic (3) Pyelonephritis ICD Code: N12 - Tubulo-interstitial nephritis, not specified as acute or chronic Status: Acute (4) Hydronephrosis due to obstruction of bladder ICD Code: N13.30 - Unspecified hydronephrosis; N32.0 - Bladder-neck obstruction Status: Acute (5) Cellulitis of scrotum ICD Code: N49.2 - Inflammatory disorders of scrotum Status: Acute Assessment and Plan 66 year-old man with 1. Left Inguinal Hernia: s/p Reduction and repair incarcerated sliding Left inguinal hernia with mesh 03/09/17. Management per general surgery 2. Schizophrenia: Disorganized/Paranoid Schizophrenia - appreciate input from psych and continue with Meehan Act 3 anytime this week. Bladder Herniation: urology recs to keep montez in place for now until issue hernia is definitively addressed; continue Flomax 4. Pyelonephritis: clinically improved, will de-escalate antibiotic by discontinuing vancomycin and continue Rocephin 5. Hydronephrosis: Bilateral. Secondary to bladder outlet obstruction from incarceration. Appreciate input from urology. Continue with Flomax 6. Scrotal erythema - improving 7. DVT Prophylaxis: SCD/teds. 8. Labile BP: Currently normotensive Ajit Phelan MD Mar 10, 2017 12:00
[2017-03-10 16:00] VITALS: BP 136/77; PULSE 76; RESP 17; TEMP 97.6; O2SAT 91
[2017-03-10] MEDS: MORPHINE SULFATE 30 MG TAB PO PRN (16:06)
[2017-03-10 20:00] VITALS: BP 135/74; PULSE 69; RESP 18; TEMP 98.7; O2SAT 91
[2017-03-10] MEDS: cefTRIAXone INJ 1,000 MG in SODIUM CHLORIDE 0.9% INJ 100 ML IV SCH (22:46)
[2017-03-11] VITALS: BP 142/74; PULSE 57; RESP 18; TEMP 98.8; O2SAT 90
[2017-03-11] MEDS: MORPHINE SULFATE 30 MG TAB PO PRN ×3 (00:07→20:34)
[2017-03-11 04:00] VITALS: BP 136/74; PULSE 59; RESP 18; O2SAT 90
[2017-03-11] MEDS: SODIUM CHLOR 0.9% 1000 ML INJ 1,000 ML IV SCH ×2 (06:42→16:23)
[2017-03-11 08:00] VITALS: BP 142/81; PULSE 59; RESP 14; TEMP 98; O2SAT 91
[2017-03-11] MEDS: TAMSULOSIN HCL 0.4 MG CAP PO SCH (08:22)
[2017-03-11] MEDS: NYSTATIN 100,000 U/GM PWD 15 GM BTL TOPICAL SCH ×2 (08:26→20:36)
[2017-03-11] MEDS: DOCUSATE SODIUM 50 MG/SENNA 8.6 MG TAB PO SCH ×2 (08:26→20:33)
[2017-03-11] MEDS: SODIUM CHLORIDE 0.9% FLUSH 10 ML FLUSH IV FLUSH SCH ×2 (08:27→20:32)
--- NOTE | 2017-03-11 11:32 | HHI.PR ---
Subjective Remarks Follow-up left incarcerated inguinal hernia/pyelonephritis 03/08/17-patient seen and examined, he has been refusing all of his medications. Complains of back pain. Plan for left inguinal hernia repair tomorrow. 03/09/17-patient seen and examined, heading to the OR for hernia repair 03/10/17-patient seen and examined, requesting stronger pain medication secondary to pain otherwise no other issues. 03/11/17-patient seen and examined; stable and no change. Denies any significant pain Objective Vitals Vital Signs Date Time Temp Pulse Resp B/P (MAP) Pulse Ox O2 Delivery O2 Flow Rate FiO2 03/11/17 10:15 Nasal Cannula 3.00 03/11/17 08:00 98.0 59 14 142/81 (101) 91 03/11/17 07:00 Room Air 03/11/17 04:00 59 18 136/74 (94) 90 03/11/17 02:00 Nasal Cannula 3.00 03/11/17 00:00 98.8 57 18 142/74 (96) 90 03/10/17 20:00 98.7 69 18 135/74 (94) 91 03/10/17 16:00 97.6 76 17 136/77 (96) 91 03/10/17 12:00 98.1 59 15 134/76 (95) 91 I/O 03/10/17 03/10/17 03/10/17 03/11/17 03/11/17 03/11/17 06:59 14:59 22:59 06:59 14:59 22:59 Intake Total 1628 ml 800 ml 3280 ml Output Total 1050 ml 1800 ml 1350 ml Balance -1050 ml 1628 ml -1000 ml 1930 ml Intake Oral 800 ml 480 ml IV Total 1628 ml 2800 ml Output Urine Total 1050 ml 1800 ml 1350 ml # Bowel Movements 0 Result Diagram: 03/07/17 0522 Objective Remarks GENERAL: NAD SKIN: Warm and dry. HEAD: Normocephalic. EYES: No scleral icterus. No injection or drainage. NECK: Supple, trachea midline. No JVD or lymphadenopathy. CARDIOVASCULAR: Regular rate and rhythm without murmurs, gallops, or rubs. RESPIRATORY: Breath sounds equal bilaterally. No accessory muscle use. GASTROINTESTINAL: Abdomen soft, non-tender, nondistended. MUSCULOSKELETAL: No cyanosis, or edema. : inc c/d/i BACK: Nontender without obvious deformity. No CVA tenderness. Procedures Reduction and repair incarcerated sliding Left inguinal hernia with mesh A/P Problem List: (1) Schizophrenia ICD Code: F20.9 - Schizophrenia Status: Chronic (2) Incarcerated left inguinal hernia ICD Code: K40.30 - Unilateral inguinal hernia, with obstruction, without gangrene, not specified as recurrent Status: Chronic (3) Pyelonephritis ICD Code: N12 - Tubulo-interstitial nephritis, not specified as acute or chronic Status: Acute (4) Hydronephrosis due to obstruction of bladder ICD Code: N13.30 - Unspecified hydronephrosis; N32.0 - Bladder-neck obstruction Status: Acute (5) Cellulitis of scrotum ICD Code: N49.2 - Inflammatory disorders of scrotum Status: Acute Assessment and Plan 66 year-old man with 1. Left Inguinal Hernia: s/p Reduction and repair incarcerated sliding Left inguinal hernia with mesh 03/09/17. Management per general surgery. Pain management accordingly 2. Schizophrenia: Disorganized/Paranoid Schizophrenia - appreciate input from psych and continue with Meehan Act 3 anytime this week. Bladder Herniation: urology recs to keep montez in place for now until issue hernia is definitively addressed; continue Flomax 4. Pyelonephritis: continue Rocephin 5. Hydronephrosis: Bilateral. Secondary to bladder outlet obstruction from incarceration. Appreciate input from urology. Continue with Flomax 6. Scrotal erythema - improving 7. DVT Prophylaxis: SCD/teds. 8. Labile BP: Currently normotensive Ajit Phelan MD Mar 11, 2017 11:32
[2017-03-11 12:00] VITALS: BP 126/73; PULSE 58; RESP 18; TEMP 98.8; O2SAT 91
[2017-03-11 16:00] VITALS: BP 163/88; PULSE 68; RESP 16; TEMP 98.5; O2SAT 91
--- NOTE | 2017-03-11 17:46 | HHI.PR ---
Subjective Subjective Notes "i have severe back pain" Objective Vitals/I&O Vital Signs Date Time Temp Pulse Resp B/P (MAP) Pulse Ox O2 Delivery O2 Flow Rate FiO2 03/11/17 16:00 98.5 68 16 163/88 (113) 91 03/11/17 10:15 Nasal Cannula 3.00 Labs Date/Time Source Procedure Growth Status 03/02/17 16:30 Urine Clean Catch Urine Culture - Final 10-50,000 CFU/ML MIXED CONI... Complete Radiology Last Impressions Renal Ultrasound 03/03/17 0000 Signed Impressions: Service Date/Time: Friday, March 03, 2017 09:16 - CONCLUSION: 1. Bilateral hydronephrosis. 2. Wall thickening within the urinary bladder. Ajit Mijares MD Abdomen/Pelvis CT 03/02/17 0000 Signed Impressions: Service Date/Time: Thursday, March 02, 2017 21:38 - CONCLUSION: 1. Partial reduction of the left inguinal hernia. The urinary bladder herniation persists and the herniated portion of the bladder is markedly thick walled, indurated and trabeculated, probable cystitis and/or incarceration. 2. Bilateral hydronephrosis/hydroureter again noted. Please see above. 3. Heterogeneous bilateral nephrograms worrisome for pyelonephritis, right worse than left. Momo Ramos MD Abdomen: Non-distended, Post-op tenderness A/P Problem List: (1) Incarcerated left inguinal hernia ICD Codes: K40.30 - Unilateral inguinal hernia, with obstruction, without gangrene, not specified as recurrent Status: Chronic Assessment and Plan 66yo male s/p Reduction and repair incarcerated sliding Left inguinal hernia with mesh, stable postop. incision clean, intact. continue pain control advance diet Sen Swift MD Mar 11, 2017 17:46
[2017-03-11 20:00] VITALS: BP 180/79; PULSE 70; RESP 18; TEMP 98.5; O2SAT 90
[2017-03-11] MEDS: cefTRIAXone INJ 1,000 MG in SODIUM CHLORIDE 0.9% INJ 100 ML IV SCH (20:32)
[2017-03-12] VITALS: BP 139/67; PULSE 54; RESP 18; TEMP 98.5; O2SAT 92
[2017-03-12] MEDS: SODIUM CHLOR 0.9% 1000 ML INJ 1,000 ML IV SCH ×3 (05:22→20:57)
[2017-03-12] MEDS: MORPHINE SULFATE 30 MG TAB PO PRN ×2 (05:22→16:36)
[2017-03-12 08:00] VITALS: BP 154/77; PULSE 55; RESP 16; TEMP 99.2; O2SAT 91
[2017-03-12] MEDS: NYSTATIN 100,000 U/GM PWD 15 GM BTL TOPICAL SCH ×2 (08:12→20:57)
[2017-03-12] MEDS: DOCUSATE SODIUM 50 MG/SENNA 8.6 MG TAB PO SCH ×2 (08:12→20:51)
[2017-03-12] MEDS: TAMSULOSIN HCL 0.4 MG CAP PO SCH (08:12)
[2017-03-12] MEDS: SODIUM CHLORIDE 0.9% FLUSH 10 ML FLUSH IV FLUSH SCH ×2 (08:12→20:51)
[2017-03-12 12:00] VITALS: BP 151/81; PULSE 55; RESP 15; TEMP 99.4; O2SAT 94
--- NOTE | 2017-03-12 12:20 | HHI.PR ---
Subjective Remarks Follow-up left incarcerated inguinal hernia/pyelonephritis 03/08/17-patient seen and examined, he has been refusing all of his medications. Complains of back pain. Plan for left inguinal hernia repair tomorrow. 03/09/17-patient seen and examined, heading to the OR for hernia repair 03/10/17-patient seen and examined, requesting stronger pain medication secondary to pain otherwise no other issues. 03/11/17-patient seen and examined; stable and no change. Denies any significant pain 03/12/17-patient seen and examined; he appears to be in better mood today. Reports pain manageable. No other issues. Objective Vitals Vital Signs Date Time Temp Pulse Resp B/P (MAP) Pulse Ox O2 Delivery O2 Flow Rate FiO2 03/12/17 08:15 Nasal Cannula 3.00 03/12/17 08:00 99.2 55 16 154/77 (102) 91 03/12/17 00:00 98.5 54 18 139/67 (91) 92 03/11/17 20:41 Nasal Cannula 3.00 03/11/17 20:00 98.5 70 18 180/79 (112) 90 03/11/17 16:00 98.5 68 16 163/88 (113) 91 I/O 03/11/17 03/11/17 03/11/17 03/12/17 03/12/17 03/12/17 07:00 15:00 23:00 07:00 15:00 23:00 Intake Total 3280 ml 686 ml 1700 ml 1200 ml Output Total 1350 ml 1500 ml 1800 ml Balance 1930 ml 686 ml 200 ml -600 ml Intake Oral 480 ml 1600 ml IV Total 2800 ml 686 ml 100 ml 1200 ml Output Urine Total 1350 ml 1500 ml 1800 ml # Bowel Movements 0 Objective Remarks GENERAL: NAD SKIN: Warm and dry. HEAD: Normocephalic. EYES: No scleral icterus. No injection or drainage. NECK: Supple, trachea midline. No JVD or lymphadenopathy. CARDIOVASCULAR: Regular rate and rhythm without murmurs, gallops, or rubs. RESPIRATORY: Breath sounds equal bilaterally. No accessory muscle use. GASTROINTESTINAL: Abdomen soft, non-tender, nondistended. MUSCULOSKELETAL: No cyanosis, or edema. : inc c/d/i BACK: Nontender without obvious deformity. No CVA tenderness. Procedures Reduction and repair incarcerated sliding Left inguinal hernia with mesh A/P Problem List: (1) Schizophrenia ICD Code: F20.9 - Schizophrenia Status: Chronic (2) Incarcerated left inguinal hernia ICD Code: K40.30 - Unilateral inguinal hernia, with obstruction, without gangrene, not specified as recurrent Status: Chronic (3) Pyelonephritis ICD Code: N12 - Tubulo-interstitial nephritis, not specified as acute or chronic Status: Acute (4) Hydronephrosis due to obstruction of bladder ICD Code: N13.30 - Unspecified hydronephrosis; N32.0 - Bladder-neck obstruction Status: Acute (5) Cellulitis of scrotum ICD Code: N49.2 - Inflammatory disorders of scrotum Status: Acute Assessment and Plan 66 year-old man with 1. Left Inguinal Hernia: s/p Reduction and repair incarcerated sliding Left inguinal hernia with mesh 03/09/17. Management per general surgery. Pain management accordingly 2. Schizophrenia: Disorganized/Paranoid Schizophrenia - appreciate input from psych and continue with [place] [employer]. Reconsult psychiatry 03/12/17 3 anytime this week. Bladder Herniation: urology recs to keep montez in place for now until issue hernia is definitively addressed; continue Flomax 4. Pyelonephritis: continue Rocephin 5. Hydronephrosis: Bilateral. Secondary to bladder outlet obstruction from incarceration. Appreciate input from urology. Continue with Flomax 6. Scrotal erythema - improving 7. DVT Prophylaxis: SCD/teds. 8. Labile BP: Currently normotensive Ajit Phelan MD Mar 12, 2017 12:20
[2017-03-12 16:00] VITALS: BP 161/95; PULSE 60; RESP 18; TEMP 100.2; O2SAT 97
--- NOTE | 2017-03-12 18:57 | HHI.PR ---
Subjective Subjective Notes Not very hungry today Objective Vitals/I&O Vital Signs Date Time Temp Pulse Resp B/P (MAP) Pulse Ox O2 Delivery O2 Flow Rate FiO2 03/12/17 16:00 100.2 60 18 161/95 (117) 97 03/12/17 08:15 Nasal Cannula 3.00 Labs Date/Time Source Procedure Growth Status 03/02/17 16:30 Urine Clean Catch Urine Culture - Final 10-50,000 CFU/ML MIXED CONI... Complete Radiology Last Impressions Renal Ultrasound 03/03/17 0000 Signed Impressions: Service Date/Time: Friday, March 03, 2017 09:16 - CONCLUSION: 1. Bilateral hydronephrosis. 2. Wall thickening within the urinary bladder. Ajit Mijares MD Abdomen/Pelvis CT 03/02/17 0000 Signed Impressions: Service Date/Time: Thursday, March 02, 2017 21:38 - CONCLUSION: 1. Partial reduction of the left inguinal hernia. The urinary bladder herniation persists and the herniated portion of the bladder is markedly thick walled, indurated and trabeculated, probable cystitis and/or incarceration. 2. Bilateral hydronephrosis/hydroureter again noted. Please see above. 3. Heterogeneous bilateral nephrograms worrisome for pyelonephritis, right worse than left. Momo Ramos MD Lungs: Clear Abdomen: Non-distended Extremities: No edema, Perfused A/P Problem List: (1) Incarcerated left inguinal hernia ICD Codes: K40.30 - Unilateral inguinal hernia, with obstruction, without gangrene, not specified as recurrent Status: Chronic Assessment and Plan Problem List: (1) Incarcerated left inguinal hernia ICD Codes: K40.30 - Unilateral inguinal hernia, with obstruction, without gangrene, not specified as recurrent Status: Chronic Assessment and Plan 66yo male s/p Reduction and repair incarcerated sliding Left inguinal hernia with mesh, stable postop. incision clean, intact. Very minimal erythema LEFT groin. continue pain control encourage PO's OOB D/C montez in next day or so Francis Alvarado MD Mar 12, 2017 18:57
[2017-03-12 20:00] VITALS: BP 147/70; PULSE 59; RESP 18; TEMP 99; O2SAT 96
[2017-03-12] MEDS: cefTRIAXone INJ 1,000 MG in SODIUM CHLORIDE 0.9% INJ 100 ML IV SCH (20:51)
[2017-03-13] VITALS: BP 130/72; PULSE 60; RESP 18; TEMP 99.8; O2SAT 96
[2017-03-13] MEDS: MORPHINE SULFATE 30 MG TAB PO PRN ×2 (03:44→16:26)
[2017-03-13 03:46] VITALS: TEMP 98.9
[2017-03-13 08:00] VITALS: BP 104/61; PULSE 63; RESP 16; TEMP 99.9; O2SAT 93
[2017-03-13] MEDS: DOCUSATE SODIUM 50 MG/SENNA 8.6 MG TAB PO SCH ×2 (09:00→21:00)
[2017-03-13] MEDS: SODIUM CHLORIDE 0.9% FLUSH 10 ML FLUSH IV FLUSH SCH ×2 (09:00→21:00)
[2017-03-13] MEDS: NYSTATIN 100,000 U/GM PWD 15 GM BTL TOPICAL SCH ×2 (09:00→21:00)
[2017-03-13] MEDS: SODIUM CHLOR 0.9% 1000 ML INJ 1,000 ML IV SCH ×3 (09:18→22:44)
[2017-03-13] MEDS: TAMSULOSIN HCL 0.4 MG CAP PO SCH (10:09)
--- NOTE | 2017-03-13 10:41 | MP ---
cc: JAMIR PINEDA M.D. DATE OF SURGERY 03/09/2017 PROCEDURE Left inguinal hernia repair with mesh. PREOPERATIVE DIAGNOSIS Gigantic left inguinal hernia, previously incarcerated. POSTOPERATIVE DIAGNOSIS Gigantic left inguinal hernia, previously incarcerated. ANESTHESIA LMA. SURGEON MD Christiano ESTIMATED BLOOD LOSS 50 mL. FLUIDS 1000 mL crystalloid. COMPLICATIONS None. DRAINS None. SPECIMEN None. PROCEDURE IN DETAIL The patient was taken to the holding area and the left side marked by the undersigned and confirmed by the patient. He was then taken to the operating room where he was placed on the operating table in the supine position. After an adequate level of anesthesia was achieved, the groin and genitals were prepped and draped in the field. Time-out was taken confirming the correct patient site and procedure to be performed. Incision was made in the left groin in a slightly oblique fashion and dissection carried down to the hernia sac. This was reduced after exposing and dissecting down to the external oblique fascia. This was opened in the direction of the fibers. The iliohypogastric nerve was identified as the external oblique fascia was dissected from the underlying tissue. This was left intact along its entire course. The hernia sac was then brought up and reduced from the scrotum into the groin. The spermatic cord structures were dissected off of the hernia sac and kept lateral to the area of dissection. Dissection was carried back to the internal ring and the hernia sac opened. The patient was noted to have a sliding hernia with a component of the sigmoid colon in the hernia and comprising a wall of the hernia sac. This required meticulous dissection and removal of a portion of the wall of the hernia sac with the colon to be able to return the colon into the abdominal cavity. Care was taken to use minimal use of electrocautery and careful judicious blunt dissection so that a large raw surface area was not created. With hemostasis assured, the sigmoid colon was returned to the abdominal cavity. The remaining hernia was seen to be comprised of the bladder which the patient had been noted to have incarcerated in the hernia sac when he had arrived in the emergency room earlier this week. This was reduced after dissecting back to the internal ring and placed more medially in the patient's abdominal cavity. When this had been accomplished, the hernia defect was assessed and was partially closed down with 2-0 Prolene sutures to prevent intraabdominal contents from extruding during the repair. A three x 6 inch piece of [employer] mesh was then brought up and transfixed to the pubic tubercle with a 2-0 Prolene suture. The mesh was then fixed to the inguinal ligament which was actually quite robust with a running 2-0 Prolene suture. The mesh was then slit longitudinally to allow for egress of the cord structures and the mesh was then fixed to the transversalis fascia with interrupted 2-0 Prolene sutures to complete the medial edge of the repair. Care was taken to place no sutures near the iliohypogastric nerve. The medial leaf of mesh was then transfixed to the inguinal ligament laterally to create a new internal ring. This allowed for egress of the cord structures but was small enough to minimize the risk of recurrent herniation through the newly created internal ring. Very little mesh was trimmed off so as to completely overlapped the weak floor in this patient. When this had been completed, the tissue was infiltrated with local anesthetic and the external oblique fascia closed with a running 3-0 Vicryl suture. Care was taken to exclude the underlying tissues from this closure. The subcutaneous tissue was closed with interrupted 3-0 Vicryl suture and the skin closed with 5-0 PDS in a running subcuticular fashion. The wound was dressed with Steri-Strips, Telfa and Tegaderm. The patient was extubated and taken back to the recovery room in stable condition. Sponge, needle and instrument counts were reported to be correct. The patient tolerated the procedure well. MD YANETH Orosco/WAI /12:43 PM /10:30 AM
--- NOTE | 2017-03-13 11:10 | HHI.PR ---
Subjective Remarks Follow-up left incarcerated inguinal hernia/pyelonephritis 03/08/17-patient seen and examined, he has been refusing all of his medications. Complains of back pain. Plan for left inguinal hernia repair tomorrow. 03/09/17-patient seen and examined, heading to the OR for hernia repair 03/10/17-patient seen and examined, requesting stronger pain medication secondary to pain otherwise no other issues. 03/11/17-patient seen and examined; stable and no change. Denies any significant pain 03/12/17-patient seen and examined; he appears to be in better mood today. Reports pain manageable. No other issues. 03/13/17-patient seen and examined, no acute event overnight.. Pain somehow control. Objective Vitals Vital Signs Date Time Temp Pulse Resp B/P (MAP) Pulse Ox O2 Delivery O2 Flow Rate FiO2 03/13/17 08:00 99.9 63 16 104/61 (75) 93 03/13/17 03:46 98.9 03/13/17 00:22 Nasal Cannula 3.00 03/13/17 00:00 99.8 60 18 130/72 (91) 96 03/12/17 20:00 99.0 59 18 147/70 (95) 96 03/12/17 16:00 100.2 60 18 161/95 (117) 97 03/12/17 12:00 99.4 55 15 151/81 (104) 94 I/O 03/12/17 03/12/17 03/12/17 03/13/17 03/13/17 03/13/17 07:00 15:00 23:00 07:00 15:00 23:00 Intake Total 1200 ml 421 ml 240 ml Output Total 1800 ml 3900 ml Balance -600 ml 421 ml -3660 ml Intake Oral 240 ml IV Total 1200 ml 421 ml Output Urine Total 1800 ml 3900 ml # Bowel Movements 0 Objective Remarks GENERAL: NAD SKIN: Warm and dry. HEAD: Normocephalic. EYES: No scleral icterus. No injection or drainage. NECK: Supple, trachea midline. No JVD or lymphadenopathy. CARDIOVASCULAR: Regular rate and rhythm without murmurs, gallops, or rubs. RESPIRATORY: Breath sounds equal bilaterally. No accessory muscle use. GASTROINTESTINAL: Abdomen soft, non-tender, nondistended. MUSCULOSKELETAL: No cyanosis, or edema. : inc c/d/i BACK: Nontender without obvious deformity. No CVA tenderness. Procedures Reduction and repair incarcerated sliding Left inguinal hernia with mesh A/P Problem List: (1) Schizophrenia ICD Code: F20.9 - Schizophrenia Status: Chronic (2) Incarcerated left inguinal hernia ICD Code: K40.30 - Unilateral inguinal hernia, with obstruction, without gangrene, not specified as recurrent Status: Chronic (3) Pyelonephritis ICD Code: N12 - Tubulo-interstitial nephritis, not specified as acute or chronic Status: Acute (4) Hydronephrosis due to obstruction of bladder ICD Code: N13.30 - Unspecified hydronephrosis; N32.0 - Bladder-neck obstruction Status: Acute (5) Cellulitis of scrotum ICD Code: N49.2 - Inflammatory disorders of scrotum Status: Acute Assessment and Plan 66 year-old man with 1. Left Inguinal Hernia: s/p Reduction and repair incarcerated sliding Left inguinal hernia with mesh 03/09/17. Management per general surgery. 2. Schizophrenia: Disorganized/Paranoid Schizophrenia - appreciate input from psych; patient was cleared by psych for discharge on 03/12/17 3 anytime this week. Bladder Herniation: urology recs to keep montez in place for now until issue hernia is definitively addressed; likely discharge Montez within the next 24-48 hours. continue Flomax 4. Pyelonephritis: continue Rocephin 5. Hydronephrosis: Bilateral. Secondary to bladder outlet obstruction from incarceration. Appreciate input from urology. Continue with Flomax 6. Scrotal erythema - improving 7. DVT Prophylaxis: SCD/teds. 8. Hypertension: Currently normotensive Ajit Phelan MD Mar 13, 2017 11:09
[2017-03-13 12:00] VITALS: BP 134/65; PULSE 64; RESP 18; TEMP 100.9; O2SAT 94
[2017-03-13 16:00] VITALS: BP 136/72; PULSE 64; RESP 17; TEMP 101.2; O2SAT 94
--- NOTE | 2017-03-13 18:06 | HHI.PR ---
Subjective Subjective Notes No complaints; no appetite Objective Vitals/I&O Vital Signs Date Time Temp Pulse Resp B/P (MAP) Pulse Ox O2 Delivery O2 Flow Rate FiO2 03/13/17 16:00 101.2 64 17 136/72 (93) 94 03/13/17 00:22 Nasal Cannula 3.00 Labs Date/Time Source Procedure Growth Status 03/02/17 16:30 Urine Clean Catch Urine Culture - Final 10-50,000 CFU/ML MIXED CONI... Complete Radiology Last Impressions Renal Ultrasound 03/03/17 0000 Signed Impressions: Service Date/Time: Friday, March 03, 2017 09:16 - CONCLUSION: 1. Bilateral hydronephrosis. 2. Wall thickening within the urinary bladder. Ajit Mijares MD Abdomen/Pelvis CT 03/02/17 0000 Signed Impressions: Service Date/Time: Thursday, March 02, 2017 21:38 - CONCLUSION: 1. Partial reduction of the left inguinal hernia. The urinary bladder herniation persists and the herniated portion of the bladder is markedly thick walled, indurated and trabeculated, probable cystitis and/or incarceration. 2. Bilateral hydronephrosis/hydroureter again noted. Please see above. 3. Heterogeneous bilateral nephrograms worrisome for pyelonephritis, right worse than left. Momo Ramos MD Narrative Exam Wound with less redness A/P Problem List: (1) Incarcerated left inguinal hernia ICD Codes: K40.30 - Unilateral inguinal hernia, with obstruction, without gangrene, not specified as recurrent Status: Chronic Assessment and Plan Problem List: (1) Incarcerated left inguinal hernia ICD Codes: K40.30 - Unilateral inguinal hernia, with obstruction, without gangrene, not specified as recurrent Status: Chronic Assessment and Plan 66yo male s/p Reduction and repair incarcerated sliding Left inguinal hernia with mesh, stable postop. incision clean, intact. Very minimal erythema LEFT groin. continue pain control encourage PO's OOB D/C montez in next day or so Francis Alvarado MD Mar 13, 2017 18:06
[2017-03-13 20:00] VITALS: BP 136/73; PULSE 67; RESP 20; TEMP 101.1; O2SAT 92
[2017-03-13] MEDS: cefTRIAXone INJ 1,000 MG in SODIUM CHLORIDE 0.9% INJ 100 ML IV SCH (21:00)
[2017-03-14] VITALS: BP 126/64; PULSE 60; RESP 20; TEMP 100.3; O2SAT 93
[2017-03-14] MEDS: MORPHINE SULFATE 30 MG TAB PO PRN ×2 (03:41→13:02)
[2017-03-14 04:00] VITALS: BP 124/64; PULSE 62; RESP 20; TEMP 100; O2SAT 93
[2017-03-14] MEDS: MORPHINE SULFATE 4 MG/ML INJ IV PRN (06:42)
[2017-03-14 08:00] VITALS: BP 118/59; PULSE 54; RESP 16; TEMP 98.5; O2SAT 94
[2017-03-14] MEDS: TAMSULOSIN HCL 0.4 MG CAP PO SCH (08:52)
[2017-03-14] MEDS: SODIUM CHLORIDE 0.9% FLUSH 10 ML FLUSH IV FLUSH SCH ×2 (08:53→20:49)
[2017-03-14] MEDS: DOCUSATE SODIUM 50 MG/SENNA 8.6 MG TAB PO SCH (08:53)
[2017-03-14] MEDS: NYSTATIN 100,000 U/GM PWD 15 GM BTL TOPICAL SCH ×2 (09:00→20:49)
[2017-03-14] MEDS ORDERED: TAMS5CAP PO (11:38)
[2017-03-14] MEDS ORDERED: HYDR-3516 PO (11:38)
[2017-03-14 12:00] VITALS: BP 111/64; PULSE 52; RESP 16; TEMP 98.2; O2SAT 95
--- NOTE | 2017-03-14 12:07 | HHI.PR ---
Subjective Remarks Follow-up left incarcerated inguinal hernia/pyelonephritis 03/08/17-patient seen and examined, he has been refusing all of his medications. Complains of back pain. Plan for left inguinal hernia repair tomorrow. 03/09/17-patient seen and examined, heading to the OR for hernia repair 03/10/17-patient seen and examined, requesting stronger pain medication secondary to pain otherwise no other issues. 03/11/17-patient seen and examined; stable and no change. Denies any significant pain 03/12/17-patient seen and examined; he appears to be in better mood today. Reports pain manageable. No other issues. 03/13/17-patient seen and examined, no acute event overnight.. Pain somehow control. 03/14/17-patient seen and examined, states he is fine and everything is okay, however refusing for exam Objective Vitals Vital Signs Date Time Temp Pulse Resp B/P (MAP) Pulse Ox O2 Delivery O2 Flow Rate FiO2 03/14/17 08:00 98.5 54 16 118/59 (78) 94 03/14/17 04:00 100.0 62 20 124/64 (84) 93 03/14/17 00:00 100.3 60 20 126/64 (84) 93 03/13/17 20:00 101.1 67 20 136/73 (94) 92 03/13/17 19:00 92 Nasal Cannula 3.00 03/13/17 16:00 101.2 64 17 136/72 (93) 94 I/O 03/13/17 03/13/17 03/13/17 03/14/17 03/14/17 03/14/17 06:59 14:59 22:59 06:59 14:59 22:59 Intake Total 240 ml 240 ml 360 ml Output Total 3900 ml 2450 ml 1300 ml Balance -3660 ml -2210 ml -940 ml Intake Oral 240 ml 240 ml 360 ml Output Urine Total 3900 ml 2450 ml 1300 ml # Bowel Movements 0 0 0 Objective Remarks GENERAL: NAD SKIN: Warm and dry. HEAD: Normocephalic. EYES: No scleral icterus. No injection or drainage. NECK: Supple, trachea midline. No JVD or lymphadenopathy. CARDIOVASCULAR: Regular rate and rhythm without murmurs, gallops, or rubs. RESPIRATORY: Breath sounds equal bilaterally. No accessory muscle use. GASTROINTESTINAL: Abdomen soft, non-tender, nondistended. MUSCULOSKELETAL: No cyanosis, or edema. : inc c/d/i BACK: Nontender without obvious deformity. No CVA tenderness. Procedures Reduction and repair incarcerated sliding Left inguinal hernia with mesh A/P Problem List: (1) Schizophrenia ICD Code: F20.9 - Schizophrenia Status: Chronic (2) Incarcerated left inguinal hernia ICD Code: K40.30 - Unilateral inguinal hernia, with obstruction, without gangrene, not specified as recurrent Status: Chronic (3) Pyelonephritis ICD Code: N12 - Tubulo-interstitial nephritis, not specified as acute or chronic Status: Acute (4) Hydronephrosis due to obstruction of bladder ICD Code: N13.30 - Unspecified hydronephrosis; N32.0 - Bladder-neck obstruction Status: Acute (5) Cellulitis of scrotum ICD Code: N49.2 - Inflammatory disorders of scrotum Status: Acute Assessment and Plan 66 year-old man with 1. Left Inguinal Hernia: s/p Reduction and repair incarcerated sliding Left inguinal hernia with mesh 03/09/17. Management per general surgery. 2. Schizophrenia: Disorganized/Paranoid Schizophrenia - appreciate input from psych; patient was cleared by psych for discharge on 03/12/17 3 Bladder Herniation: Perez removed and patient voiding. continue Flomax 4. Pyelonephritis: Resolved therefore will discontinue Rocephin 5. Hydronephrosis: Bilateral. Secondary to bladder outlet obstruction from incarceration. Appreciate input from urology. Continue with Flomax 6. Scrotal erythema - improving 7. DVT Prophylaxis: SCD/teds. 8. Hypertension: Currently normotensive Patient is now medically stable for discharge pending general surgery Ajit Phelan MD Mar 14, 2017 12:07
[2017-03-14 16:00] VITALS: BP 115/67; PULSE 54; RESP 16; TEMP 99.1; O2SAT 95
--- NOTE | 2017-03-14 17:32 | HHI.PR ---
Subjective Subjective Notes No complaints Objective Vitals/I&O Vital Signs Date Time Temp Pulse Resp B/P (MAP) Pulse Ox O2 Delivery O2 Flow Rate FiO2 03/14/17 16:00 99.1 54 16 115/67 (83) 95 03/13/17 19:00 Nasal Cannula 3.00 Labs Date/Time Source Procedure Growth Status 03/02/17 16:30 Urine Clean Catch Urine Culture - Final 10-50,000 CFU/ML MIXED CONI... Complete Radiology Last Impressions Renal Ultrasound 03/03/17 0000 Signed Impressions: Service Date/Time: Friday, March 03, 2017 09:16 - CONCLUSION: 1. Bilateral hydronephrosis. 2. Wall thickening within the urinary bladder. Ajit Mijares MD Abdomen/Pelvis CT 03/02/17 0000 Signed Impressions: Service Date/Time: Thursday, March 02, 2017 21:38 - CONCLUSION: 1. Partial reduction of the left inguinal hernia. The urinary bladder herniation persists and the herniated portion of the bladder is markedly thick walled, indurated and trabeculated, probable cystitis and/or incarceration. 2. Bilateral hydronephrosis/hydroureter again noted. Please see above. 3. Heterogeneous bilateral nephrograms worrisome for pyelonephritis, right worse than left. Momo Ramos MD Lungs: Clear Narrative Exam Wound with less redness Scrotum with moderate swelling; getting less every day. A/P Problem List: (1) Incarcerated left inguinal hernia ICD Codes: K40.30 - Unilateral inguinal hernia, with obstruction, without gangrene, not specified as recurrent Status: Chronic Assessment and Plan 66 year old male S/P LIH repair with mesh Remove dressing and trim suture tomorrow Discharge from acute care facility soon. Francis Alvarado MD Mar 14, 2017 17:32
[2017-03-14 20:00] VITALS: BP 127/65; PULSE 53; RESP 16; TEMP 98.3; O2SAT 96
[2017-03-15] VITALS: BP 134/71; PULSE 63; RESP 16; TEMP 97.3; O2SAT 96
[2017-03-15] MEDS: MORPHINE SULFATE 30 MG TAB PO PRN ×3 (00:07→16:45)
[2017-03-15 08:00] VITALS: BP 117/59; PULSE 83; RESP 19; TEMP 97.8; O2SAT 98
[2017-03-15] MEDS: NYSTATIN 100,000 U/GM PWD 15 GM BTL TOPICAL SCH ×2 (09:00→21:00)
[2017-03-15] MEDS: TAMSULOSIN HCL 0.4 MG CAP PO SCH (09:19)
[2017-03-15] MEDS: SODIUM CHLORIDE 0.9% FLUSH 10 ML FLUSH IV FLUSH SCH ×2 (09:19→21:20)
[2017-03-15] MEDS ORDERED: BISACODYL 10 MG SUPP RECTAL ONE (10:00)
[2017-03-15] MEDS: POLYETHYLENE GLYCOL 17 GM PKG PO ONE (10:45)
[2017-03-15] MEDS ORDERED: HALO10TA PO (10:57)
[2017-03-15] MEDS ORDERED: TRIH2 PO (10:57)
[2017-03-15] MEDS ORDERED: AMBI5TAB PO (10:57)
[2017-03-15] MEDS ORDERED: QUET1TAB8 PO ×2 (10:57)
--- NOTE | 2017-03-15 11:14 | HHI.PR ---
Subjective Subjective Notes Resting in bed Says he's been eating a lot of [place] No issues; pain controlled Objective Vitals/I&O Vital Signs Date Time Temp Pulse Resp B/P (MAP) Pulse Ox O2 Delivery O2 Flow Rate FiO2 03/15/17 08:00 97.8 83 19 117/59 (78) 98 03/14/17 20:50 Nasal Cannula 3.00 Labs Date/Time Source Procedure Growth Status 03/02/17 16:30 Urine Clean Catch Urine Culture - Final 10-50,000 CFU/ML MIXED CONI... Complete Radiology Last Impressions Renal Ultrasound 03/03/17 0000 Signed Impressions: Service Date/Time: Friday, March 03, 2017 09:16 - CONCLUSION: 1. Bilateral hydronephrosis. 2. Wall thickening within the urinary bladder. Ajit Mijares MD Abdomen/Pelvis CT 03/02/17 0000 Signed Impressions: Service Date/Time: Thursday, March 02, 2017 21:38 - CONCLUSION: 1. Partial reduction of the left inguinal hernia. The urinary bladder herniation persists and the herniated portion of the bladder is markedly thick walled, indurated and trabeculated, probable cystitis and/or incarceration. 2. Bilateral hydronephrosis/hydroureter again noted. Please see above. 3. Heterogeneous bilateral nephrograms worrisome for pyelonephritis, right worse than left. Momo Ramos MD Cardiovascular: Regular Lungs: Clear Abdomen: Non-distended, Non-tender Extremities: No edema Narrative Exam s/p LEFT inguinal hernia repair; stitch removed; SS in place A/P Problem List: (1) Incarcerated left inguinal hernia ICD Codes: K40.30 - Unilateral inguinal hernia, with obstruction, without gangrene, not specified as recurrent Status: Chronic Assessment and Plan 66 year old male with large LEFT inguinal hernia -POD6 open LEFT inguinal hernia repair -Regular diet -Pain controlled -Shower -OOB -GS clear for DC; Follow up with Dr. Alvarado in 10-14 days Attending Note - Dr. Alvarado Wound clean; incision healing well OK for discharge The exam, history, and the medical decision-making described in the above note were completed with the assistance of the mid-level provider. I reviewed and agree with the findings presented. I attest that I had a [id number] encounter with the patient on the same day, and personally performed and documented my assessment and findings in the medical record. Colleen Snyder Mar 15, 2017 11:14 Francis Alvarado MD Mar 16, 2017 09:41
--- NOTE | 2017-03-15 11:42 | HHI.FF ---
Face to Face Verification Diagnosis: (1) Incarcerated left inguinal hernia (2) Disorganized schizophrenia (3) Cellulitis Physical Therapy Order: Evaluate and Treat Home Health Nursing Order: Signs/symptoms of disease process Wound care and dressing changes Instructions: daily dressing change I have seen patient Rosalio PinedaJr on 03/15/17. My clinical findings support the need for the requested home health care services because: Deconditioned w/ increased weakness I certify that my clinical findings support that this patient is homebound because: Poor cardiac reserve Ajit Phelan MD Mar 15, 2017 11:42
[2017-03-15] MEDS ORDERED: DOCUSATE SODIUM 50 MG/SENNA 8.6 MG TAB PO PRN (11:45)
[2017-03-15 12:00] VITALS: BP 118/65; PULSE 55; RESP 19; TEMP 97.8; O2SAT 96
--- NOTE | 2017-03-15 12:09 | HHI.PR ---
Subjective Remarks Follow-up left incarcerated inguinal hernia/pyelonephritis 03/08/17-patient seen and examined, he has been refusing all of his medications. Complains of back pain. Plan for left inguinal hernia repair tomorrow. 03/09/17-patient seen and examined, heading to the OR for hernia repair 03/10/17-patient seen and examined, requesting stronger pain medication secondary to pain otherwise no other issues. 03/11/17-patient seen and examined; stable and no change. Denies any significant pain 03/12/17-patient seen and examined; he appears to be in better mood today. Reports pain manageable. No other issues. 03/13/17-patient seen and examined, no acute event overnight.. Pain somehow control. 03/14/17-patient seen and examined, states he is fine and everything is okay, however refusing for exam 03/15/17-patient seen and examined him a complains of constipation x several days duration however he has been refusing treatment Objective Vitals Vital Signs Date Time Temp Pulse Resp B/P (MAP) Pulse Ox O2 Delivery O2 Flow Rate FiO2 03/15/17 09:10 3.00 03/15/17 08:00 97.8 83 19 117/59 (78) 98 03/15/17 00:00 97.3 63 16 134/71 (92) 96 03/14/17 20:50 Nasal Cannula 3.00 03/14/17 20:00 98.3 53 16 127/65 (85) 96 03/14/17 16:00 99.1 54 16 115/67 (83) 95 I/O 03/14/17 03/14/17 03/14/17 03/15/17 03/15/17 03/15/17 07:00 15:00 23:00 07:00 15:00 23:00 Intake Total 360 ml 920 ml 0 ml Output Total 1300 ml 700 ml 550 ml Balance -940 ml 220 ml -550 ml 0 ml Intake Oral 360 ml 920 ml IV Total 0 ml Output Urine Total 1300 ml 700 ml 550 ml # Voids 1 2 # Bowel Movements 0 0 Imaging Last Impressions Renal Ultrasound 03/03/17 0000 Signed Impressions: Service Date/Time: Friday, March 03, 2017 09:16 - CONCLUSION: 1. Bilateral hydronephrosis. 2. Wall thickening within the urinary bladder. Ajit F. Tocci, MD Abdomen/Pelvis CT 03/02/17 0000 Signed Impressions: Service Date/Time: Thursday, March 02, 2017 21:38 - CONCLUSION: 1. Partial reduction of the left inguinal hernia. The urinary bladder herniation persists and the herniated portion of the bladder is markedly thick walled, indurated and trabeculated, probable cystitis and/or incarceration. 2. Bilateral hydronephrosis/hydroureter again noted. Please see above. 3. Heterogeneous bilateral nephrograms worrisome for pyelonephritis, right worse than left. Momo Ramos MD Objective Remarks GENERAL: NAD SKIN: Warm and dry. HEAD: Normocephalic. EYES: No scleral icterus. No injection or drainage. NECK: Supple, trachea midline. No JVD or lymphadenopathy. CARDIOVASCULAR: Regular rate and rhythm without murmurs, gallops, or rubs. RESPIRATORY: Breath sounds equal bilaterally. No accessory muscle use. GASTROINTESTINAL: Abdomen soft, non-tender, nondistended. MUSCULOSKELETAL: No cyanosis, or edema. : inc c/d/i BACK: Nontender without obvious deformity. No CVA tenderness. Procedures Reduction and repair incarcerated sliding Left inguinal hernia with mesh A/P Problem List: (1) Schizophrenia ICD Code: F20.9 - Schizophrenia Status: Chronic (2) Incarcerated left inguinal hernia ICD Code: K40.30 - Unilateral inguinal hernia, with obstruction, without gangrene, not specified as recurrent Status: Chronic (3) Pyelonephritis ICD Code: N12 - Tubulo-interstitial nephritis, not specified as acute or chronic Status: Acute (4) Hydronephrosis due to obstruction of bladder ICD Code: N13.30 - Unspecified hydronephrosis; N32.0 - Bladder-neck obstruction Status: Acute (5) Cellulitis of scrotum ICD Code: N49.2 - Inflammatory disorders of scrotum Status: Acute Assessment and Plan 66 year-old man with 1. Left Inguinal Hernia: s/p Reduction and repair incarcerated sliding Left inguinal hernia with mesh 03/09/17. Management per general surgery. 2. Schizophrenia: Disorganized/Paranoid Schizophrenia - appreciate input from psych; patient was cleared by psych for discharge on 03/12/17 3 Bladder Herniation: Perez removed and patient voiding. continue Flomax 4. Pyelonephritis: Resolved therefore will discontinue Rocephin 5. Hydronephrosis: Bilateral. Secondary to bladder outlet obstruction from incarceration. Appreciate input from urology. Continue with Flomax 6. Scrotal erythema - improving 7. DVT Prophylaxis: SCD/teds. 8. Hypertension: Currently normotensive 9. Constipation: Start stool softener Ajit Phelan MD Mar 15, 2017 12:09
--- NOTE | 2017-03-15 12:12 | HHI.DS ---
Discharge Summary Admission Date Mar 02, 2017 at 22:59 Discharge Date: Mar 15, 2017 Admitting Diagnosis [place] Act;? Incarcerated bladder; pyelonephritis; hydroureter (1) Schizophrenia ICD Code: F20.9 - Schizophrenia Status: Chronic (2) Incarcerated left inguinal hernia ICD Code: K40.30 - Unilateral inguinal hernia, with obstruction, without gangrene, not specified as recurrent Status: Chronic (3) Pyelonephritis ICD Code: N12 - Tubulo-interstitial nephritis, not specified as acute or chronic Status: Acute (4) Hydronephrosis due to obstruction of bladder ICD Code: N13.30 - Unspecified hydronephrosis; N32.0 - Bladder-neck obstruction Status: Acute (5) Cellulitis of scrotum ICD Code: N49.2 - Inflammatory disorders of scrotum Status: Acute Procedures Reduction and repair incarcerated sliding Left inguinal hernia with mesh Brief History - From Admission This is a 66-year-old male with a PMH of Schizophrenia, Hepatitis B and HTN who was brought to the ER under [place] Act for psychiatric evaluation as pt refusing to take medications or care for himself, also threatening to hurt staff members and residents at facility. Pt without complaints except for pain at hernia, otherwise does not provide much history. On arrival, BP 136/70, HR 61, O2 sat on her percent on 3 LNC, Temp 101.2. WBC 11.9. Chemistry essentially unremarkable except for GFR 66. Urine Drug Screen negative. Alcohol negative. UA positive for UTI. CT Abd/Pelvis w/ large left inguinal hernia containing small and large bowel as well as large portion of urinary bladder, concern for incarceration, hydronephrosis/hydroureter and edematous scrotal sac. Dr. Alvarado consulted by ER physician, recommended reduction of hernia which was completed successfully in the ER. Dr. Alonso w/ Urology also consulted. Repeat CT Abd/Pelvis w/ partial reduction of inguinal hernia however urinary bladder herniation persists. No surgical intervention from Dr. Alvarado's standpoint. Dr. Alonso will eval in am for further intervention. S/p Perez in ER, IV Abx and Urine Culture. Imaging Last Impressions Renal Ultrasound 03/03/17 0000 Signed Impressions: Service Date/Time: Friday, March 03, 2017 09:16 - CONCLUSION: 1. Bilateral hydronephrosis. 2. Wall thickening within the urinary bladder. Ajit Mijares MD Abdomen/Pelvis CT 03/02/17 0000 Signed Impressions: Service Date/Time: Thursday, March 02, 2017 21:38 - CONCLUSION: 1. Partial reduction of the left inguinal hernia. The urinary bladder herniation persists and the herniated portion of the bladder is markedly thick walled, indurated and trabeculated, probable cystitis and/or incarceration. 2. Bilateral hydronephrosis/hydroureter again noted. Please see above. 3. Heterogeneous bilateral nephrograms worrisome for pyelonephritis, right worse than left. Momo Ramos MD PE at Discharge GENERAL: NAD SKIN: Warm and dry. HEAD: Normocephalic. EYES: No scleral icterus. No injection or drainage. NECK: Supple, trachea midline. No JVD or lymphadenopathy. CARDIOVASCULAR: Regular rate and rhythm without murmurs, gallops, or rubs. RESPIRATORY: Breath sounds equal bilaterally. No accessory muscle use. GASTROINTESTINAL: Abdomen soft, non-tender, nondistended. MUSCULOSKELETAL: No cyanosis, or edema. : inc c/d/i BACK: Nontender without obvious deformity. No CVA tenderness. Hospital Course 1. Left Inguinal Hernia: s/p Reduction and repair incarcerated sliding Left inguinal hernia with mesh 03/09/17. 2. Schizophrenia: Disorganized/Paranoid Schizophrenia - he was initially admitted under [place] act, however this was lifted on 03/12/17 by psychiatry. 3 Bladder Herniation: Urology was consulted and a Perez was placed and patient was started on Flomax . Eventually Perez was discontinued. 4. Pyelonephritis: He was treated with Rocephin with monitoring of culture. Antibiotics were subsequently discontinued after patient completed treatment. 5. Hydronephrosis: Bilateral. Secondary to bladder outlet obstruction from incarceration. Appreciate input from urology. Treated with Flomax 6. Scrotal erythema -improved with IV antibiotic 7. DVT Prophylaxis: SCD/teds. 8. Hypertension:normotensive on no medication 9. Constipation: stool softener Pt Condition on Discharge: Stable Discharge Disposition: [facility] Discharge Time: > 30 minutes Discharge Instructions DIET: Follow Instructions for: Heart Healthy Diet Activities you can perform: Regular-No Restrictions Follow up Referrals: PCP Follow-up - 1 Week Psychiatry Adult Surgical - 10 Days with Francis Alvarado MD New Medications: Tamsulosin (Flomax) 0.4 Mg Cap 0.4 MG PO DAILY for Urinary Symptom Managemen, #30 CAP Continued Medications: Folic Acid (Folate) 1 Mg Tab 1 MG PO DAILY for Nutritional Supplement for 15 Days, TAB 1 Refill Haloperidol (Haloperidol) 10 Mg Tab 10 MG PO TID for Mental Health for 15 Days, #90 TAB 1 Refill (This prescription has been renewed) Continue Haldol by mouth at least until your next Haldol Decanoate injection. Talk with your outpatient provider about how best to taper Haldol by mouth. Hydrocodone-Acetaminophen (Hydrocodone-Acetaminophen) 5-325 mg Tab 1 TAB PO Q4H PRN for pain 6-10, #20 TAB 0 Refills (This prescription has been renewed) Quetiapine (Quetiapine) 100 Mg Tab 100 MG PO DAILY for Mental Health for 15 Days, #30 TAB 1 Refill (This prescription has been renewed) Quetiapine (Quetiapine) 100 Mg Tab 350 MG PO HS for Mental Health for 15 Days, #30 TAB 1 Refill (This prescription has been renewed) Thiamine (Vitamin B-1) 100 Mg Tab 100 MG PO DAILY for Nutritional Supplement for 15 Days, TAB 1 Refill Trihexyphenidyl (Trihexyphenidyl) 2 Mg Tab 2 MG PO DAILY@09,13,21 for Side effect management for 15 Days, TAB 1 Refill ( This prescription has been renewed) Zolpidem (Ambien) 5 Mg Tab 10 MG PO HS PRN for INSOMNIA for 15 Days, #10 TAB 1 Refill (This prescription has been renewed) [Lactulose Liq] () 30 ML SYRP 30 ML PO DAILY for Health for 15 Days, ML 1 Refill Discontinued Medications: Haloperidol Decanoate Inj (Haldol Decanoate Inj) 100 Mg/Ml Inj 100 MG IM Q28D for Schizophrenia, #1 VIAL 0 Refills This dose of Haldol Dec is due on 02/10/2017. Lactulose Liq (Lactulose Liq) 10 Gm/15 Ml Soln 30 ML PO DAILY for Hyperammonemia for 15 Days, ML 1 Refill Pontey,Ajit MD Mar 15, 2017 12:12
[2017-03-15 16:00] VITALS: BP 132/75; PULSE 66; RESP 19; TEMP 97.2; O2SAT 98
[2017-03-15 20:00] VITALS: BP 117/67; PULSE 62; RESP 17; TEMP 98.6; O2SAT 97
--- NOTE | 2017-03-15 21:59 | RADRPT ---
EXAM DATE/TIME: 03/15/2017 20:41 [facility] COMPARISON: No previous studies available for comparison. INDICATIONS : Bilateral leg swelling. MEDICAL HISTORY : Hypertension. Hepatitis B. Parkinson's. Schizophrenia. Violent behavior. Diabetes. SURGICAL HISTORY : Tonsillectomy. ENCOUNTER: Initial ACUITY: 2 day PAIN SCORE: 7/10 LOCATION: Bilateral legs. TECHNIQUE: Venous ultrasound of the left and right leg was performed from the inguinal ligament to the proximal calf. Real-time, color Doppler and spectral tracing, compression and augmentation techniques were us ed. FINDINGS: The patient demanded the exam be terminated when only the left common femoral vein and mid and upper femoral vein were examined. RIGHT LEG: There is normal compressibility of the deep venous system from the inguinal region to the proximal ca lf. No echogenic clot is seen in the lumen of the common femoral, femoral, popliteal, and posterior tibial veins. There is a normal response of the venous system to proximal and distal augmentation an d respiration. LEFT LEG: There is normal compressibility of the common femoral vein, and the upper and mid femoral vein. CONCLUSION: No DVT is seen in the right lower extremity or in the upper left thigh. The lower left thigh and knee region were not scanned. Momo Danielle MD on March 15, 2017 at 21:55 Board Certified Radiologist. This report was verified electronically.
[2017-03-16] VITALS: BP 126/67; PULSE 55; RESP 17; TEMP 98.1; O2SAT 98
[2017-03-16] MEDS: MORPHINE SULFATE 30 MG TAB PO PRN ×3 (02:13→18:37)
[2017-03-16 08:00] VITALS: BP 114/58; PULSE 66; RESP 19; TEMP 98.8; O2SAT 95
[2017-03-16] MEDS: TAMSULOSIN HCL 0.4 MG CAP PO SCH (08:00)
[2017-03-16] MEDS: SODIUM CHLORIDE 0.9% FLUSH 10 ML FLUSH IV FLUSH SCH ×2 (08:00→20:56)
[2017-03-16] MEDS: NYSTATIN 100,000 U/GM PWD 15 GM BTL TOPICAL SCH ×2 (08:01→20:56)
[2017-03-16 12:00] VITALS: BP 113/65; PULSE 61; RESP 19; TEMP 98.3; O2SAT 95
--- NOTE | 2017-03-16 12:04 | HHI.PR ---
Subjective Remarks Follow-up left incarcerated inguinal hernia/pyelonephritis 03/08/17-patient seen and examined, he has been refusing all of his medications. Complains of back pain. Plan for left inguinal hernia repair tomorrow. 03/09/17-patient seen and examined, heading to the OR for hernia repair 03/10/17-patient seen and examined, requesting stronger pain medication secondary to pain otherwise no other issues. 03/11/17-patient seen and examined; stable and no change. Denies any significant pain 03/12/17-patient seen and examined; he appears to be in better mood today. Reports pain manageable. No other issues. 03/13/17-patient seen and examined, no acute event overnight.. Pain somehow control. 03/14/17-patient seen and examined, states he is fine and everything is okay, however refusing for exam 03/15/17-patient seen and examined him a complains of constipation x several days duration however he has been refusing treatment 03/16/17-patient seen and examined, he has been refusing treatment as patient did not allowed for completion of left lower extremity Doppler to rule out DVT; since he is complaining of left lower extremity Objective Vitals Vital Signs Date Time Temp Pulse Resp B/P (MAP) Pulse Ox O2 Delivery O2 Flow Rate FiO2 03/16/17 08:00 98.8 66 19 114/58 (76) 95 03/16/17 00:00 98.1 55 17 126/67 (86) 98 03/15/17 21:20 Nasal Cannula 3.00 03/15/17 20:00 98.6 62 17 117/67 (84) 97 03/15/17 16:00 97.2 66 19 132/75 (94) 98 I/O 03/15/17 03/15/17 03/15/17 03/16/17 03/16/17 03/16/17 07:00 15:00 23:00 07:00 15:00 23:00 Intake Total 0 ml 1200 ml 240 ml 120 ml Output Total 550 ml 1560 ml Balance -550 ml 0 ml -360 ml 240 ml 120 ml Intake Oral 1200 ml 240 ml 120 ml IV Total 0 ml Output Urine Total 550 ml 1560 ml # Voids 2 3 3 # Bowel Movements 0 Imaging Last Impressions Lower Extremity Ultrasound 03/15/17 0000 Signed Impressions: Service Date/Time: February 20:41 - CONCLUSION: No DVT is seen in the right lower extremity or in the upper left thigh. The lower left thigh and knee region were not scanned. Momo Danielle MD Renal Ultrasound 03/03/17 0000 Signed Impressions: Service Date/Time: Friday, March 03, 2017 09:16 - CONCLUSION: 1. Bilateral hydronephrosis. 2. Wall thickening within the urinary bladder. Ajit Mijares MD Abdomen/Pelvis CT 03/02/17 0000 Signed Impressions: Service Date/Time: Thursday, March 02, 2017 21:38 - CONCLUSION: 1. Partial reduction of the left inguinal hernia. The urinary bladder herniation persists and the herniated portion of the bladder is markedly thick walled, indurated and trabeculated, probable cystitis and/or incarceration. 2. Bilateral hydronephrosis/hydroureter again noted. Please see above. 3. Heterogeneous bilateral nephrograms worrisome for pyelonephritis, right worse than left. Momo Ramos MD Objective Remarks GENERAL: NAD SKIN: Warm and dry. HEAD: Normocephalic. EYES: No scleral icterus. No injection or drainage. NECK: Supple, trachea midline. No JVD or lymphadenopathy. CARDIOVASCULAR: Regular rate and rhythm without murmurs, gallops, or rubs. RESPIRATORY: Breath sounds equal bilaterally. No accessory muscle use. GASTROINTESTINAL: Abdomen soft, non-tender, nondistended. MUSCULOSKELETAL: No cyanosis, or edema. : inc c/d/i BACK: Nontender without obvious deformity. No CVA tenderness. Procedures Reduction and repair incarcerated sliding Left inguinal hernia with mesh A/P Problem List: (1) Schizophrenia ICD Code: F20.9 - Schizophrenia Status: Chronic (2) Incarcerated left inguinal hernia ICD Code: K40.30 - Unilateral inguinal hernia, with obstruction, without gangrene, not specified as recurrent Status: Chronic (3) Pyelonephritis ICD Code: N12 - Tubulo-interstitial nephritis, not specified as acute or chronic Status: Acute (4) Hydronephrosis due to obstruction of bladder ICD Code: N13.30 - Unspecified hydronephrosis; N32.0 - Bladder-neck obstruction Status: Acute (5) Cellulitis of scrotum ICD Code: N49.2 - Inflammatory disorders of scrotum Status: Acute Assessment and Plan 66 year-old man with 1. Left Inguinal Hernia: s/p Reduction and repair incarcerated sliding Left inguinal hernia with mesh 03/09/17. Management per general surgery. 2. Schizophrenia: Disorganized/Paranoid Schizophrenia - appreciate input from psych; patient was cleared by psych for discharge on 03/12/17. Resume all antipsychotic medications 3 Bladder Herniation: Perez removed and patient voiding. continue Flomax 4. Pyelonephritis: Resolved ; s/p Rocephin 5. Hydronephrosis: Bilateral. Secondary to bladder outlet obstruction from incarceration. Appreciate input from urology. Continue with Flomax 6. Scrotal erythema - improving 7. DVT Prophylaxis: SCD/teds. 8. Hypertension: Currently normotensive 9. Constipation: continue with stool softener 10. Left lower extremity pain: Unable to complete Doppler left lower extremity as patient refused it Ajit Phelan MD Mar 16, 2017 12:04
[2017-03-16] MEDS: TRIHEXYPHENIDYL HCL 2 MG TAB PO SCH ×2 (13:00→20:55)
[2017-03-16] MEDS: HALOPERIDOL 10 MG TAB PO SCH ×2 (13:00→17:31)
[2017-03-16] MEDS: POLYETHYLENE GLYCOL 17 GM PKG PO SCH (14:14)
[2017-03-16 16:00] VITALS: BP 114/72; PULSE 68; RESP 19; TEMP 99.3; O2SAT 95
[2017-03-16 20:00] VITALS: BP 152/78; PULSE 75; RESP 17; TEMP 98.3; O2SAT 94
[2017-03-16] MEDS: QUEtiapine FUMARATE 100 MG TAB PO SCH (20:56)
[2017-03-17] VITALS: BP 126/72; PULSE 71; RESP 17; TEMP 97.9; O2SAT 94
[2017-03-17] MEDS ORDERED: SENNOSIDES 8.6 MG TAB PO PRN (05:30)
[2017-03-17] MEDS: MORPHINE SULFATE 30 MG TAB PO PRN (05:32)
[2017-03-17 08:00] VITALS: BP 158/82; PULSE 75; RESP 16; TEMP 98.7; O2SAT 91
[2017-03-17] MEDS: HALOPERIDOL 10 MG TAB PO SCH ×3 (09:00→17:44)
[2017-03-17] MEDS: SODIUM CHLORIDE 0.9% FLUSH 10 ML FLUSH IV FLUSH SCH ×2 (09:00→21:00)
[2017-03-17] MEDS: TRIHEXYPHENIDYL HCL 2 MG TAB PO SCH ×3 (09:00→21:48)
[2017-03-17] MEDS: QUEtiapine FUMARATE 100 MG TAB PO SCH ×2 (09:00→21:00)
[2017-03-17] MEDS: TAMSULOSIN HCL 0.4 MG CAP PO SCH (09:00)
[2017-03-17] MEDS: NYSTATIN 100,000 U/GM PWD 15 GM BTL TOPICAL SCH ×2 (09:00→21:00)
[2017-03-17] MEDS: POLYETHYLENE GLYCOL 17 GM PKG PO SCH (09:00)
[2017-03-17 12:00] VITALS: BP 92/61; PULSE 111; RESP 20; TEMP 98.3; O2SAT 93
--- NOTE | 2017-03-17 13:13 | HHI.PR ---
Subjective Remarks Patient seen and examined this morning. Vitals are stable. Afebrile. Patient stated he already had a doctor and did not want me to see him. I explained to him I was the covering physician then went on speaking non seismically. Had some nausea. Told nurse he is allergic to his seroquel and haloperidol so have not been taking. Objective Vital Signs Date Time Temp Pulse Resp B/P (MAP) Pulse Ox O2 Delivery O2 Flow Rate FiO2 03/17/17 12:00 98.3 111 20 92/61 (71) 93 03/17/17 08:00 98.7 75 16 158/82 (107) 91 03/17/17 00:00 97.9 71 17 126/72 (90) 94 03/16/17 21:10 Room Air 03/16/17 20:00 98.3 75 17 152/78 (102) 94 03/16/17 16:00 99.3 68 19 114/72 (86) 95 I/O 03/16/17 03/16/17 03/16/17 03/17/17 03/17/17 03/17/17 07:00 15:00 23:00 07:00 15:00 23:00 Intake Total 240 ml 120 ml 1240 ml 240 ml Output Total 2200 ml 450 ml Balance 240 ml 120 ml -960 ml -210 ml Intake Oral 240 ml 120 ml 1240 ml 240 ml IV Total 0 ml Output Urine Total 2200 ml 450 ml # Voids 3 # Bowel Movements 0 Imaging Last Impressions Lower Extremity Ultrasound 03/15/17 0000 Signed Impressions: Service Date/Time: February 20:41 - CONCLUSION: No DVT is seen in the right lower extremity or in the upper left thigh. The lower left thigh and knee region were not scanned. Momo Danielle MD Renal Ultrasound 03/03/17 0000 Signed Impressions: Service Date/Time: Friday, March 03, 2017 09:16 - CONCLUSION: 1. Bilateral hydronephrosis. 2. Wall thickening within the urinary bladder. Ajit Mijares MD Abdomen/Pelvis CT 03/02/17 0000 Signed Impressions: Service Date/Time: Thursday, March 02, 2017 21:38 - CONCLUSION: 1. Partial reduction of the left inguinal hernia. The urinary bladder herniation persists and the herniated portion of the bladder is markedly thick walled, indurated and trabeculated, probable cystitis and/or incarceration. 2. Bilateral hydronephrosis/hydroureter again noted. Please see above. 3. Heterogeneous bilateral nephrograms worrisome for pyelonephritis, right worse than left. Momo Ramos MD Other Results Exam documented by Dr. Phelan on 03/16, patient refused to be examined by me today "GENERAL: NAD SKIN: Warm and dry. HEAD: Normocephalic. EYES: No scleral icterus. No injection or drainage. NECK: Supple, trachea midline. No JVD or lymphadenopathy. CARDIOVASCULAR: Regular rate and rhythm without murmurs, gallops, or rubs. RESPIRATORY: Breath sounds equal bilaterally. No accessory muscle use. GASTROINTESTINAL: Abdomen soft, non-tender, nondistended. MUSCULOSKELETAL: No cyanosis, or edema. : inc c/d/i BACK: Nontender without obvious deformity. No CVA tenderness." A/P Problem List: (1) Schizophrenia ICD Code: F20.9 - Schizophrenia Status: Chronic (2) Cellulitis of scrotum ICD Code: N49.2 - Inflammatory disorders of scrotum Status: Acute (3) Incarcerated left inguinal hernia ICD Code: K40.30 - Unilateral inguinal hernia, with obstruction, without gangrene, not specified as recurrent Status: Chronic (4) Pyelonephritis ICD Code: N12 - Tubulo-interstitial nephritis, not specified as acute or chronic Status: Acute Assessment and Plan 66-year-old male with Left Inguinal Hernia: s/p Reduction and repair incarcerated sliding Left inguinal hernia with mesh 03/09/17. Cleared by general surgery on 03/15/2017. Schizophrenia: Disorganized/Paranoid Schizophrenia - appreciate input from psych; patient was cleared by psych for discharge on 03/12/17. Resume all antipsychotic medications Bladder Herniation: Voiding without issues, continue Flomax Pyelonephritis: Resolved ; s/p Rocephin Hydronephrosis: Bilateral. Secondary to bladder outlet obstruction from incarceration. Appreciate input from urology. Continue with Flomax Scrotal erythema - improving DVT Prophylaxis: SCD/teds. Hypertension: Currently normotensive Constipation: continue with stool softener Left lower extremity pain: Unable to complete Doppler left lower extremity as patient refused it Discharge Planning Has been cleared for SNF, [facility] with home health, orders placed 03/15. Placement is pending. Amanda Darnell MD Mar 17, 2017 13:13
[2017-03-17 16:00] VITALS: BP 104/76; PULSE 110; RESP 20; TEMP 97; O2SAT 94
--- NOTE | 2017-03-17 20:13 | HHI.PR ---
Subjective Subjective Notes "go away, I'm eating" Objective Vitals/I&O Vital Signs Date Time Temp Pulse Resp B/P (MAP) Pulse Ox O2 Delivery O2 Flow Rate FiO2 03/17/17 16:00 97.0 110 20 104/76 (85) 94 03/16/17 21:10 Room Air 03/16/17 08:15 3.00 Labs Date/Time Source Procedure Growth Status 03/02/17 16:30 Urine Clean Catch Urine Culture - Final 10-50,000 CFU/ML MIXED CONI... Complete Radiology Last Impressions Renal Ultrasound 03/03/17 0000 Signed Impressions: Service Date/Time: Friday, March 03, 2017 09:16 - CONCLUSION: 1. Bilateral hydronephrosis. 2. Wall thickening within the urinary bladder. Ajit Mijares MD Abdomen/Pelvis CT 03/02/17 0000 Signed Impressions: Service Date/Time: Thursday, March 02, 2017 21:38 - CONCLUSION: 1. Partial reduction of the left inguinal hernia. The urinary bladder herniation persists and the herniated portion of the bladder is markedly thick walled, indurated and trabeculated, probable cystitis and/or incarceration. 2. Bilateral hydronephrosis/hydroureter again noted. Please see above. 3. Heterogeneous bilateral nephrograms worrisome for pyelonephritis, right worse than left. Momo Ramos MD A/P Problem List: (1) Incarcerated left inguinal hernia ICD Codes: K40.30 - Unilateral inguinal hernia, with obstruction, without gangrene, not specified as recurrent Status: Chronic Assessment and Plan 66yo male s/p Reduction and repair incarcerated sliding Left inguinal hernia with mesh, stable. no new complaints refused exam today due to eating will follow intermittently Sen Arrington MD Mar 17, 2017 20:13
[2017-03-18] VITALS: BP 104/64; PULSE 81; RESP 20; TEMP 98.9; O2SAT 95
[2017-03-18 08:00] VITALS: BP 116/62; PULSE 55; RESP 18; TEMP 97.6; O2SAT 93
[2017-03-18] MEDS: SODIUM CHLORIDE 0.9% FLUSH 10 ML FLUSH IV FLUSH SCH ×2 (08:51→21:00)
[2017-03-18] MEDS: QUEtiapine FUMARATE 100 MG TAB PO SCH ×2 (08:52→21:29)
[2017-03-18] MEDS: TAMSULOSIN HCL 0.4 MG CAP PO SCH (08:52)
[2017-03-18] MEDS: TRIHEXYPHENIDYL HCL 2 MG TAB PO SCH ×3 (08:52→21:29)
[2017-03-18] MEDS: HALOPERIDOL 10 MG TAB PO SCH ×3 (08:52→16:43)
[2017-03-18] MEDS: NYSTATIN 100,000 U/GM PWD 15 GM BTL TOPICAL SCH ×2 (08:52→21:00)
[2017-03-18] MEDS: POLYETHYLENE GLYCOL 17 GM PKG PO SCH (08:52)
--- NOTE | 2017-03-18 09:58 | HHI.PR ---
Subjective Remarks Patient seen and examined this morning. Vitals are stable. Afebrile. Patient refused to have me evaluate him yesterday. Also refused evaluation by surgeon yesterday. He is laying in bed comfortably, asked if it was time for lunch, when I replied no he began speaking non sensically. He allowed me to listen to his heart but would not let me examine his groin and abdomen, Objective Vital Signs Date Time Temp Pulse Resp B/P (MAP) Pulse Ox O2 Delivery O2 Flow Rate FiO2 03/18/17 08:00 97.6 55 18 116/62 (80) 93 03/18/17 00:00 98.9 81 20 104/64 (77) 95 03/17/17 16:00 97.0 110 20 104/76 (85) 94 03/17/17 12:00 98.3 111 20 92/61 (71) 93 I/O 03/17/17 03/17/17 03/17/17 03/18/17 03/18/17 03/18/17 07:00 15:00 23:00 07:00 15:00 23:00 Intake Total 240 ml 500 ml 480 ml Output Total 450 ml 400 ml 1175 ml Balance -210 ml 100 ml -695 ml Intake Oral 240 ml 500 ml 480 ml Output Urine Total 450 ml 400 ml 1175 ml # Bowel Movements 0 Imaging Last Impressions Lower Extremity Ultrasound 03/15/17 0000 Signed Impressions: Service Date/Time: February 20:41 - CONCLUSION: No DVT is seen in the right lower extremity or in the upper left thigh. The lower left thigh and knee region were not scanned. Momo Danielle MD Renal Ultrasound 03/03/17 0000 Signed Impressions: Service Date/Time: Friday, March 03, 2017 09:16 - CONCLUSION: 1. Bilateral hydronephrosis. 2. Wall thickening within the urinary bladder. Ajit Mijares MD Abdomen/Pelvis CT 03/02/17 0000 Signed Impressions: Service Date/Time: Thursday, March 02, 2017 21:38 - CONCLUSION: 1. Partial reduction of the left inguinal hernia. The urinary bladder herniation persists and the herniated portion of the bladder is markedly thick walled, indurated and trabeculated, probable cystitis and/or incarceration. 2. Bilateral hydronephrosis/hydroureter again noted. Please see above. 3. Heterogeneous bilateral nephrograms worrisome for pyelonephritis, right worse than left. Momo Ramos MD Other Results Limited exam due to patient refusing complete exam General: well appearing, nad Heart: RRR, no murmurs Lungs: anterior breath sounds are clear Neuro: does not respond appropriately A/P Problem List: (1) Schizophrenia ICD Code: F20.9 - Schizophrenia Status: Chronic (2) Cellulitis of scrotum ICD Code: N49.2 - Inflammatory disorders of scrotum Status: Acute (3) Incarcerated left inguinal hernia ICD Code: K40.30 - Unilateral inguinal hernia, with obstruction, without gangrene, not specified as recurrent Status: Chronic (4) Pyelonephritis ICD Code: N12 - Tubulo-interstitial nephritis, not specified as acute or chronic Status: Acute Assessment and Plan 66-year-old male with Left Inguinal Hernia: s/p Reduction and repair incarcerated sliding Left inguinal hernia with mesh 03/09/17. Cleared by general surgery on 03/15/2017. Schizophrenia: Disorganized/Paranoid Schizophrenia - appreciate input from psych; patient was cleared by psych for discharge on 03/12/17. Resume all antipsychotic medications, patient refuses Seroquel and haloperidol. Bladder Herniation: Voiding without issues, continue Flomax Pyelonephritis: Resolved ; s/p Rocephin Hydronephrosis: Bilateral. Secondary to bladder outlet obstruction from incarceration. Appreciate input from urology. Continue with Flomax Scrotal erythema - improving DVT Prophylaxis: SCD/teds. Hypertension: Currently normotensive Constipation: continue with stool softener Left lower extremity pain: Unable to complete Doppler left lower extremity as patient refused it Discharge Planning Has been cleared for SNF, [facility] with home health, orders placed 03/15. Placement is pending. Amanda Darnell MD Mar 18, 2017 09:58
--- NOTE | 2017-03-18 10:20 | HHI.FPPN ---
Addendum to progress note ADDENDUM Reason for addendum: Additonal documentation Additional information Nurse reported that the patient was complaining of pain on his left hip. He previously said to a [employer] his leg hurt making it hard for him to walk. I re- visted the patient with nurse. He initially refused the exam, and then said I could see his hip. There was no redness or obvious deformity. There was no pain ilicited with palpation. He refused to move any of his legs to asses mobility and became loud and angry. Will order an x-ray due to reported complaints and inability to fully asses the hip. Amanda Darnell MD Mar 18, 2017 10:20
[2017-03-18 12:00] VITALS: BP 101/58; PULSE 56; RESP 17; TEMP 97.2; O2SAT 95
[2017-03-18 16:00] VITALS: BP 120/72; PULSE 76; RESP 19; TEMP 96.4; O2SAT 96
[2017-03-18 20:00] VITALS: BP 110/80; PULSE 86; RESP 19; TEMP 98.7; O2SAT 91
[2017-03-18] MEDS: MORPHINE SULFATE 30 MG TAB PO PRN (21:41)
[2017-03-18 22:00] VITALS: BP 137/81; PULSE 107; RESP 19; TEMP 97.8; O2SAT 90
[2017-03-19] VITALS: BP 125/88; PULSE 104; RESP 19; TEMP 96.3; O2SAT 93
[2017-03-19 04:00] VITALS: BP 113/76; PULSE 90; RESP 19; TEMP 96.3; O2SAT 93
--- NOTE | 2017-03-19 07:35 | HHI.PR ---
Subjective Remarks Patient seen and examined this morning. Vitals are stable. Afebrile. Per nurse, fell yesterday at 9pm. Unclear how. States he was unable to understand at the time so history is unclear. Refused to let me examine him and attempted to grab me. Objective Vital Signs Date Time Temp Pulse Resp B/P (MAP) Pulse Ox O2 Delivery O2 Flow Rate FiO2 03/19/17 04:00 96.3 90 19 113/76 (88) 93 03/19/17 00:00 96.3 104 19 125/88 (100) 93 03/18/17 22:00 97.8 107 19 137/81 (99) 90 03/18/17 20:00 98.7 86 19 110/80 (90) 91 03/18/17 16:00 96.4 76 19 120/72 (88) 96 03/18/17 12:00 97.2 56 17 101/58 (72) 95 03/18/17 08:00 97.6 55 18 116/62 (80) 93 I/O 03/18/17 03/18/17 03/18/17 03/19/17 03/19/17 03/19/17 07:00 15:00 23:00 07:00 15:00 23:00 Intake Total 480 ml 1420 ml 100 ml Output Total 1175 ml 750 ml Balance -695 ml 670 ml 100 ml Intake Oral 480 ml 1420 ml 100 ml Output Urine Total 1175 ml 750 ml # Voids 1 1 # Bowel Movements 0 2 1 Imaging Last Impressions Lower Extremity Ultrasound 03/15/17 0000 Signed Impressions: Service Date/Time: February 20:41 - CONCLUSION: No DVT is seen in the right lower extremity or in the upper left thigh. The lower left thigh and knee region were not scanned. Momo Danielle MD Renal Ultrasound 03/03/17 0000 Signed Impressions: Service Date/Time: Friday, March 03, 2017 09:16 - CONCLUSION: 1. Bilateral hydronephrosis. 2. Wall thickening within the urinary bladder. Ajit Mijarse MD Abdomen/Pelvis CT 03/02/17 0000 Signed Impressions: Service Date/Time: Thursday, March 02, 2017 21:38 - CONCLUSION: 1. Partial reduction of the left inguinal hernia. The urinary bladder herniation persists and the herniated portion of the bladder is markedly thick walled, indurated and trabeculated, probable cystitis and/or incarceration. 2. Bilateral hydronephrosis/hydroureter again noted. Please see above. 3. Heterogeneous bilateral nephrograms worrisome for pyelonephritis, right worse than left. Momo Ramos MD Objective Remarks General: laying on stretcher, does not appear to be in distress Mouth: mucous membranes dry Cardiovascular: appears warm and well perfused Pulm: no increased work of breathing A/P Problem List: (1) Schizophrenia ICD Code: F20.9 - Schizophrenia Status: Chronic (2) Cellulitis of scrotum ICD Code: N49.2 - Inflammatory disorders of scrotum Status: Acute (3) Incarcerated left inguinal hernia ICD Code: K40.30 - Unilateral inguinal hernia, with obstruction, without gangrene, not specified as recurrent Status: Chronic (4) Pyelonephritis ICD Code: N12 - Tubulo-interstitial nephritis, not specified as acute or chronic Status: Acute Assessment and Plan 66-year-old male with Left Inguinal Hernia: s/p Reduction and repair incarcerated sliding Left inguinal hernia with mesh 03/09/17. Cleared by general surgery on 03/15/2017. Schizophrenia: Disorganized/Paranoid Schizophrenia - appreciate input from psych; patient was cleared by psych for discharge on 03/12/17. Resume all antipsychotic medications, patient refuses Seroquel and haloperidol. Bladder Herniation: Voiding without issues, continue Flomax Pyelonephritis: Resolved ; s/p Rocephin Hydronephrosis: Bilateral. Secondary to bladder outlet obstruction from incarceration. Appreciate input from urology. Continue with Flomax Scrotal erythema - improving DVT Prophylaxis: SCD/teds. Hypertension: Currently normotensive Constipation: continue with stool softener Left lower extremity pain: Unable to complete Doppler left lower extremity as patient refused it. XRAY hip ordered yesterday, still pending. Discharge Planning Family at bedside. Patient brother are looking into placement. Was previously at [facility], but needs SNF placement first. [place] has refused to accept patient back. Case management is working on the case. Amanda Darnell MD Mar 19, 2017 07:35
[2017-03-19 08:00] VITALS: BP 113/73; PULSE 102; RESP 18; TEMP 97.8; O2SAT 93
[2017-03-19] MEDS: TAMSULOSIN HCL 0.4 MG CAP PO SCH (08:07)
[2017-03-19] MEDS: HALOPERIDOL 10 MG TAB PO SCH ×3 (08:07→16:48)
[2017-03-19] MEDS: TRIHEXYPHENIDYL HCL 2 MG TAB PO SCH ×3 (08:07→21:28)
[2017-03-19] MEDS: QUEtiapine FUMARATE 100 MG TAB PO SCH ×2 (08:07→21:28)
[2017-03-19] MEDS: POLYETHYLENE GLYCOL 17 GM PKG PO SCH (08:07)
[2017-03-19] MEDS: NYSTATIN 100,000 U/GM PWD 15 GM BTL TOPICAL SCH ×2 (08:07→21:29)
[2017-03-19] MEDS: SODIUM CHLORIDE 0.9% FLUSH 10 ML FLUSH IV FLUSH SCH ×2 (09:00→21:28)
--- NOTE | 2017-03-19 11:47 | RADRPT ---
EXAM DATE/TIME: 03/19/2017 11:17 [place] COMPARISON: No previous studies available for comparison. INDICATIONS : Pain difficulty moving. MEDICAL HISTORY : None. SURGICAL HISTORY : None. ENCOUNTER: Initial ACUITY: 2 days PAIN SCORE: Non-responsive. LOCATION: Left hip. FINDINGS: Examination of the left hip was performed with AP Pelvis. The primary and secondary trabecular patte rn of the femoral neck is intact. The hip joint is of normal width without significant sclerosis or bony hypertrophy. The acetabulum is grossly intact. CONCLUSION: No acute disease. Chris Alfred MD on March 19, 2017 at 11:44 Board Certified Radiologist. This report was verified electronically.
--- NOTE | 2017-03-19 12:21 | HHI.FPPN ---
Addendum to progress note ADDENDUM Reason for addendum: Additonal documentation Additional information In summary this is a serum male who presented to the hospital with left inguinal incarcerated hernia, he is status post repair on at bedtime . He has been cleared by general surgery on 03/15. Since this time the patient's schizophrenia has waxed and waned. He was evaluated by psychiatry on at bedtime 28 and was cleared. Since this time the patient intermittently refuses his medications, specifically Seroquel and haloperidol stating that he is allergic. Since my time of seeing the patient he is refused to be seen and examined by myself and the general surgeon. It was reported by the nurse that he had decreased mobilization and had complained of some hip pain, so an x-ray was ordered. I discussed the case with case management director, and the patient's brother who is his power of compliance attorney. The patient previously was at [facility] needs either SNF placement first or needs to be independently ambulatory. [facility] has refused to accept the patient. I've requested for PT to come and evaluate the patient once again. If the patient refuses to participate in a PT eval and to resume that point to have psych reevaluate him for competency. The discharge order was placed by both the primary team and by surgery on March 15 , but has remained here due to placement. Amanda Darnell MD Mar 19, 2017 12:21
[2017-03-19 16:00] VITALS: BP 116/68; PULSE 96; RESP 16; TEMP 96.3; O2SAT 94
[2017-03-20 08:00] VITALS: BP 155/70; PULSE 68; RESP 18; TEMP 97.3; O2SAT 94
[2017-03-20] MEDS: POLYETHYLENE GLYCOL 17 GM PKG PO SCH (09:00)
[2017-03-20] MEDS: SODIUM CHLORIDE 0.9% FLUSH 10 ML FLUSH IV FLUSH SCH ×2 (09:00→21:00)
[2017-03-20] MEDS: TAMSULOSIN HCL 0.4 MG CAP PO SCH (09:15)
[2017-03-20] MEDS: TRIHEXYPHENIDYL HCL 2 MG TAB PO SCH ×3 (09:16→21:00)
[2017-03-20] MEDS: QUEtiapine FUMARATE 100 MG TAB PO SCH ×2 (09:16→21:00)
[2017-03-20] MEDS: NYSTATIN 100,000 U/GM PWD 15 GM BTL TOPICAL SCH ×2 (09:16→21:00)
[2017-03-20] MEDS: HALOPERIDOL 10 MG TAB PO SCH ×4 (09:16→17:46)
[2017-03-20 12:00] VITALS: BP 131/78; PULSE 73; RESP 18; TEMP 97.3; O2SAT 95
--- NOTE | 2017-03-20 14:23 | HHI.PR ---
Subjective Remarks Follow-up left incarcerated inguinal hernia/schizophrenia 03/20/17-patient seen however refuse that I examine him. Decreased urine output , however patient refusing bladder scan or Perez. Objective Vitals Vital Signs Date Time Temp Pulse Resp B/P (MAP) Pulse Ox O2 Delivery O2 Flow Rate FiO2 03/20/17 08:00 97.3 68 18 155/70 (98) 94 03/19/17 16:00 96.3 96 16 116/68 (84) 94 I/O 03/19/17 03/19/17 03/19/17 03/20/17 03/20/17 03/20/17 07:00 15:00 23:00 07:00 15:00 23:00 Intake Total 100 ml 0 ml 0 ml Balance 100 ml 0 ml 0 ml Intake Oral 100 ml 0 ml 0 ml # Voids 1 2 2 # Bowel Movements 1 1 1 Objective Remarks Was not performed Procedures Reduction and repair incarcerated sliding Left inguinal hernia with mesh A/P Problem List: (1) Schizophrenia ICD Code: F20.9 - Schizophrenia Status: Chronic (2) Incarcerated left inguinal hernia ICD Code: K40.30 - Unilateral inguinal hernia, with obstruction, without gangrene, not specified as recurrent Status: Chronic (3) Pyelonephritis ICD Code: N12 - Tubulo-interstitial nephritis, not specified as acute or chronic Status: Acute (4) Hydronephrosis due to obstruction of bladder ICD Code: N13.30 - Unspecified hydronephrosis; N32.0 - Bladder-neck obstruction Status: Acute (5) Cellulitis of scrotum ICD Code: N49.2 - Inflammatory disorders of scrotum Status: Acute Assessment and Plan 66 year-old man with 1. Left Inguinal Hernia: s/p Reduction and repair incarcerated sliding Left inguinal hernia with mesh 03/09/17. Management per general surgery. 2. Schizophrenia: Disorganized/Paranoid Schizophrenia - appreciate input from psych; will reconsult psychiatry as patient with more disorganized speech and paranoia 3 Bladder Herniation: Perez removed and patient voiding. continue Flomax 4. Pyelonephritis: Resolved ; s/p Rocephin 5. Hydronephrosis: Bilateral. Secondary to bladder outlet obstruction from incarceration. Appreciate input from urology. Continue with Flomax 6. Scrotal erythema - improving 7. DVT Prophylaxis: SCD/teds. 8. Hypertension: Currently normotensive 9. Constipation: continue with stool softener Ajit Phelan MD Mar 20, 2017 14:23
[2017-03-20 16:00] VITALS: BP 155/97; PULSE 73; RESP 16; TEMP 97.8; O2SAT 96
[2017-03-20 20:00] VITALS: BP 130/65; PULSE 69; RESP 18; TEMP 97.6; O2SAT 95
[2017-03-21] VITALS: BP 145/61; PULSE 54; RESP 18; TEMP 99.9; O2SAT 94
[2017-03-21] MEDS: HALOPERIDOL 10 MG TAB PO SCH ×2 (07:42→13:34)
[2017-03-21] MEDS: SODIUM CHLORIDE 0.9% FLUSH 10 ML FLUSH IV FLUSH SCH (07:42)
[2017-03-21] MEDS: TRIHEXYPHENIDYL HCL 2 MG TAB PO SCH ×2 (07:42→13:34)
[2017-03-21] MEDS: TAMSULOSIN HCL 0.4 MG CAP PO SCH (07:42)
[2017-03-21] MEDS: QUEtiapine FUMARATE 100 MG TAB PO SCH (07:42)
[2017-03-21] MEDS: NYSTATIN 100,000 U/GM PWD 15 GM BTL TOPICAL SCH (07:42)
[2017-03-21] MEDS: POLYETHYLENE GLYCOL 17 GM PKG PO SCH (07:42)
[2017-03-21 08:00] VITALS: BP 141/80; PULSE 56; RESP 18; TEMP 96.9; O2SAT 94
--- NOTE | 2017-03-21 11:39 | HHI.PYPN ---
Subjective Remarks Patient was seen in the medical floor for psychiatric reevaluation, patient disorganized, guarded and oppositional, he says that he cannot talk to me and give me any information "because I don't know you are, maybe you're running this investigation". When I asked the patient to be more specific he says "you' re an informant and you know it". Patient says that today [birth year] his birthday [birth year]", but when he is asked about the date and place he answers appropriately. As per nurses, patient has been talking to himself, times very loud, difficult to redirect, refusing medications and to speak with medical team. Review of Systems Other No somatic complaints Objective Alert: Yes [place]: Person, Place Mood: Agitated, Oppositional Affect: Labile Memory Intact: Immediate, Recent Hallucinations: Other (patient is internally preoccupied) Delusions: Yes Delusion Type: Paranoid Suicidal: Ideation (no SI) Homicidal: Ideation (no HI) Insight/Judgment Poor Labs Date/Time Source Procedure Growth Status 03/02/17 16:30 Urine Clean Catch Urine Culture - Final 10-50,000 CFU/ML MIXED CONI... Complete Vitals/IOs Vital Signs Date Time Temp Pulse Resp B/P (MAP) Pulse Ox O2 Delivery O2 Flow Rate FiO2 03/21/17 08:00 96.9 56 18 141/80 (100) 94 03/20/17 22:15 Room Air Intake and Output 03/21/17 03/21/17 03/21/17 07:59 15:59 23:59 Output Total 575 ml Balance -575 ml Assessment & Plan Problem List: (1) Adjustment disorder with disturbance of conduct ICD Codes: F43.24 - Adjustment disorder with disturbance of conduct Status: Acute (2) Disorganized schizophrenia ICD Codes: F20.1 - Disorganized schizophrenia Status: Acute Assessment & Plan: On psychiatric evaluation today patient presents with acute psychosis, very disorganized, tangential, paranoid, internally stimulated and poor contact with reality. He seems to be oriented 3, but oppositional and resistant. As per nurses patient has not been cooperating in the floor, at times agitated and hostile. Given the level of psychosis and due to his past psychiatric history of schizophrenia, patient will be transferred to the med psych unit for psychiatric stabilization and to continue medical treatment. We' ll continue current psychotropic regimen. Add Haldol 5 mg IM every 8 hours when necessary aggressive behavior and agitation. Assessment & Plan Estimated LOS: days Justification for Cont. Inpt. Patient is acutely psychotic, needs psychiatric hospitalization for stabilization Larry Templeton MD Mar 21, 2017 11:39
[2017-03-21 12:00] VITALS: BP 129/66; PULSE 61; RESP 17; TEMP 96.3; O2SAT 97
--- NOTE | 2017-03-21 12:47 | HHI.PR ---
Subjective Remarks Follow-up left incarcerated inguinal hernia/schizophrenia 03/20/17-patient seen however refuse that I examine him. Decreased urine output , however patient refusing bladder scan or Perez. 03/21/17-patient seen and examined, very psychotic and disorganized speech. Perez was reinstated yesterday secondary to urinary retention Objective Vitals Vital Signs Date Time Temp Pulse Resp B/P (MAP) Pulse Ox O2 Delivery O2 Flow Rate FiO2 03/21/17 08:00 96.9 56 18 141/80 (100) 94 03/21/17 00:00 99.9 54 18 145/61 (89) 94 03/20/17 22:15 Room Air 03/20/17 20:00 97.6 69 18 130/65 (86) 95 03/20/17 16:00 97.8 73 16 155/97 (116) 96 I/O 03/20/17 03/20/17 03/20/17 03/21/17 03/21/17 03/21/17 06:59 14:59 22:59 06:59 14:59 22:59 Intake Total 0 ml 480 ml Output Total 575 ml Balance 0 ml 480 ml -575 ml Intake Oral 0 ml 480 ml Output Urine Total 575 ml Bladder Scan Volume Amount 300 ml # Voids 2 # Bowel Movements 1 Imaging Last Impressions Hip and Pelvis X-Ray 03/19/17 0000 Signed Impressions: Service Date/Time: Sunday, March 19, 2017 11:17 - CONCLUSION: No acute disease. Chris Alfred MD Lower Extremity Ultrasound 03/15/17 0000 Signed Impressions: Service Date/Time: February 20:41 - CONCLUSION: No DVT is seen in the right lower extremity or in the upper left thigh. The lower left thigh and knee region were not scanned. Momo Danielle MD Renal Ultrasound 03/03/17 0000 Signed Impressions: Service Date/Time: Friday, March 03, 2017 09:16 - CONCLUSION: 1. Bilateral hydronephrosis. 2. Wall thickening within the urinary bladder. Ajit Mijares MD Abdomen/Pelvis CT 03/02/17 0000 Signed Impressions: Service Date/Time: Thursday, March 02, 2017 21:38 - CONCLUSION: 1. Partial reduction of the left inguinal hernia. The urinary bladder herniation persists and the herniated portion of the bladder is markedly thick walled, indurated and trabeculated, probable cystitis and/or incarceration. 2. Bilateral hydronephrosis/hydroureter again noted. Please see above. 3. Heterogeneous bilateral nephrograms worrisome for pyelonephritis, right worse than left. Momo Ramos MD Objective Remarks GENERAL: NAD SKIN: Warm and dry. HEAD: Normocephalic. EYES: No scleral icterus. No injection or drainage. NECK: Supple, trachea midline. No JVD or lymphadenopathy. CARDIOVASCULAR: Regular rate and rhythm without murmurs, gallops, or rubs. RESPIRATORY: Breath sounds equal bilaterally. No accessory muscle use. GASTROINTESTINAL: Abdomen soft, non-tender, nondistended. MUSCULOSKELETAL: No cyanosis, or edema. BACK: Nontender without obvious deformity. No CVA tenderness. Procedures Reduction and repair incarcerated sliding Left inguinal hernia with mesh A/P Problem List: (1) Schizophrenia ICD Code: F20.9 - Schizophrenia Status: Chronic (2) Incarcerated left inguinal hernia ICD Code: K40.30 - Unilateral inguinal hernia, with obstruction, without gangrene, not specified as recurrent Status: Chronic (3) Pyelonephritis ICD Code: N12 - Tubulo-interstitial nephritis, not specified as acute or chronic Status: Acute (4) Hydronephrosis due to obstruction of bladder ICD Code: N13.30 - Unspecified hydronephrosis; N32.0 - Bladder-neck obstruction Status: Acute (5) Cellulitis of scrotum ICD Code: N49.2 - Inflammatory disorders of scrotum Status: Acute Assessment and Plan 66 year-old man with 1. Left Inguinal Hernia: s/p Reduction and repair incarcerated sliding Left inguinal hernia with mesh 03/09/17. Management per general surgery. 2. Schizophrenia: Disorganized/Paranoid Schizophrenia - appreciate input from psych, Haldol 5 mg IM every 8 when necessary was added and patient will be discharged to med psych 03/21/17 3 Bladder Herniation: continue Flomax 4. Pyelonephritis: Resolved ; s/p Rocephin 5. Hydronephrosis: Bilateral. Secondary to bladder outlet obstruction from incarceration. Appreciate input from urology. Perez inserted 03/20/17. Continue with Flomax 6. Scrotal erythema - improving 7. DVT Prophylaxis: SCD/teds. 8. Hypertension: Currently normotensive 9. Constipation: continue with stool softener Ajit Phelan MD Mar 21, 2017 12:47
--- NOTE | 2017-03-21 12:54 | HHI.DS ---
Discharge Summary Admission Date Mar 02, 2017 at 22:59 Discharge Date: Mar 21, 2017 Admitting Diagnosis M[place]han Act;? Incarcerated bladder; pyelonephritis; hydroureter (1) Schizophrenia ICD Code: F20.9 - Schizophrenia Status: Chronic (2) Incarcerated left inguinal hernia ICD Code: K40.30 - Unilateral inguinal hernia, with obstruction, without gangrene, not specified as recurrent Status: Chronic (3) Pyelonephritis ICD Code: N12 - Tubulo-interstitial nephritis, not specified as acute or chronic Status: Acute (4) Hydronephrosis due to obstruction of bladder ICD Code: N13.30 - Unspecified hydronephrosis; N32.0 - Bladder-neck obstruction Status: Acute (5) Cellulitis of scrotum ICD Code: N49.2 - Inflammatory disorders of scrotum Status: Acute Procedures Reduction and repair incarcerated sliding Left inguinal hernia with mesh Brief History - From Admission This is a 66-year-old male with a PMH of Schizophrenia, Hepatitis B and HTN who was brought to the ER under Meehan Act for psychiatric evaluation as pt refusing to take medications or care for himself, also threatening to hurt staff members and residents at facility. Pt without complaints except for pain at hernia, otherwise does not provide much history. On arrival, BP 136/70, HR 61, O2 sat on her percent on 3 LNC, Temp 101.2. WBC 11.9. Chemistry essentially unremarkable except for GFR 66. Urine Drug Screen negative. Alcohol negative. UA positive for UTI. CT Abd/Pelvis w/ large left inguinal hernia containing small and large bowel as well as large portion of urinary bladder, concern for incarceration, hydronephrosis/hydroureter and edematous scrotal sac. Dr. Alvarado consulted by ER physician, recommended reduction of hernia which was completed successfully in the ER. Dr. Alonso w/ Urology also consulted. Repeat CT Abd/Pelvis w/ partial reduction of inguinal hernia however urinary bladder herniation persists. No surgical intervention from Dr. Alvarado's standpoint. Dr. Alonso will eval in am for further intervention. S/p Perez in ER, IV Abx and Urine Culture. PE at Discharge GENERAL: NAD SKIN: Warm and dry. HEAD: Normocephalic. EYES: No scleral icterus. No injection or drainage. NECK: Supple, trachea midline. No JVD or lymphadenopathy. CARDIOVASCULAR: Regular rate and rhythm without murmurs, gallops, or rubs. RESPIRATORY: Breath sounds equal bilaterally. No accessory muscle use. GASTROINTESTINAL: Abdomen soft, non-tender, nondistended. MUSCULOSKELETAL: No cyanosis, or edema. BACK: Nontender without obvious deformity. No CVA tenderness. Hospital Course Patient initially admitted secondary to Left Inguinal Hernia for which general surgery was consulted and he underwent Reduction and repair incarcerated sliding Left inguinal hernia with mesh 03/09/17. Due to bladder herniation as well as hydronephrosis, urology was consulted and patient was treated with Flomax. Was also treated for pyelonephritis with IV antibiotics which she completed. However secondary to disorganized paranoia due to schizophrenia psychiatry was consulted and initially Meehan act was lifted and patient was cleared for discharge by psychiatry. However, secondary to acute psychosis and disorganized speech psychiatry was reconsulted on 03/20/17 and recommended discharge to med psych. He was started on Haldol 5 mg IM every 8 when necessary 03/21/17. Pt Condition on Discharge: Fair Discharge Disposition: Disc to Psych Care Fac Discharge Time: > 30 minutes Discharge Instructions DIET: Follow Instructions for: Heart Healthy Diet Activities you can perform: Regular-No Restrictions Follow up Referrals: PCP Follow-up - 1 Week Psychiatry Adult Surgical - 10 Days with Francis Alvarado MD New Medications: Tamsulosin (Flomax) 0.4 Mg Cap 0.4 MG PO DAILY for Urinary Symptom Managemen, #30 CAP Continued Medications: Folic Acid (Folate) 1 Mg Tab 1 MG PO DAILY for Nutritional Supplement for 15 Days, TAB 1 Refill Haloperidol (Haloperidol) 10 Mg Tab 10 MG PO TID for Mental Health for 15 Days, #90 TAB 1 Refill (This prescription has been renewed) Continue Haldol by mouth at least until your next Haldol Decanoate injection. Talk with your outpatient provider about how best to taper Haldol by mouth. Hydrocodone-Acetaminophen (Hydrocodone-Acetaminophen) 5-325 mg Tab 1 TAB PO Q4H PRN for pain 6-10, #20 TAB 0 Refills (This prescription has been renewed) Quetiapine (Quetiapine) 100 Mg Tab 100 MG PO DAILY for Mental Health for 15 Days, #30 TAB 1 Refill (This prescription has been renewed) Quetiapine (Quetiapine) 100 Mg Tab 350 MG PO HS for Mental Health for 15 Days, #30 TAB 1 Refill (This prescription has been renewed) Thiamine (Vitamin B-1) 100 Mg Tab 100 MG PO DAILY for Nutritional Supplement for 15 Days, TAB 1 Refill Trihexyphenidyl (Trihexyphenidyl) 2 Mg Tab 2 MG PO DAILY@09,13,21 for Side effect management for 15 Days, TAB 1 Refill ( This prescription has been renewed) Zolpidem (Ambien) 5 Mg Tab 10 MG PO HS PRN for INSOMNIA for 15 Days, #10 TAB 1 Refill (This prescription has been renewed) [Lactulose Liq] () 30 ML SYRP 30 ML PO DAILY for Health for 15 Days, ML 1 Refill Discontinued Medications: Haloperidol Decanoate Inj (Haldol Decanoate Inj) 100 Mg/Ml Inj 100 MG IM Q28D for Schizophrenia, #1 VIAL 0 Refills This dose of Haldol Dec is due on 02/10/2017. Lactulose Liq (Lactulose Liq) 10 Gm/15 Ml Soln 30 ML PO DAILY for Hyperammonemia for 15 Days, ML 1 Refill Ajit Phelan MD Mar 21, 2017 12:54
== END 2017-03-21 15:12 | DRG 351 ==
LOC: NEDAMB 15:03 → NEDA 22:59 → N07B 03-03 01:28 → N07A 03-19 13:31
PROVIDERS: ADMIT Hospitalist; ATTEND Hospitalist
PROC: 0T9B70Z Drainage of Bladder with Drainage Device, Via Natural or Artificial Opening (ICD-10-PCS; principal; 2017-03-02)
PROC: 0YU60JZ Supplement Left Inguinal Region with Synthetic Substitute, Open Approach (ICD-10-PCS; 2017-03-11)
DX: K40.30 Unilateral inguinal hernia, with obstruction, without gangrene, not specified as recurrent (principal); N12 Tubulo-interstitial nephritis, not specified as acute or chronic; F20.1 Disorganized schizophrenia; G20 Parkinson's disease; B19.10 Unspecified viral hepatitis B without hepatic coma; F23 Brief psychotic disorder; N32.0 Bladder-neck obstruction; N32.89 Other specified disorders of bladder; E11.9 Type 2 diabetes mellitus without complications; I10 Essential (primary) hypertension; Z91.19 Patient's noncompliance with other medical treatment and regimen; N49.2 Inflammatory disorders of scrotum; Z91.14 Patient's other noncompliance with medication regimen; Z87.891 Personal history of nicotine dependence; R39.12 Poor urinary stream; Z86.14 Personal history of Methicillin resistant Staphylococcus aureus infection; M54.9 Dorsalgia, unspecified; K59.00 Constipation, unspecified; M25.552 Pain in left hip; F43.24 Adjustment disorder with disturbance of conduct
CPT/HCPCS: 49999; 51702; 73502; 74176; 74177; 76775; 80053; 80202; 80307; 81001; 82565; 85025; 87086; 93970; 96372; 96374; 99152; 99153; C1781; J0690; J0696; J1630; J2060; J2250; J2270; J2405; J2710; J3010; J3370; J7030; J7040; J7050; J7120; Q9967

== ENCOUNTER 2017-03-21 15:45 | Inpatient (IN) | payer MEDICARE, OTHER ==
[~2017-03-21 15:45] MED LIST changes: -HALO100P IM; -LACT10SO PO; +TAMS5CAP PO
[2017-03-21] MEDS ORDERED: MAGNESIUM HYDROXIDE SUSP 30 ML CUP PO PRN (16:30)
[2017-03-21] MEDS: NICOTINE 21 MG/24 HR PATCH T-DERMAL SCH (16:30)
[2017-03-21] MEDS ORDERED: LORazepam 2 MG/ML VIAL IM PRN ×2 (16:30)
[2017-03-21] MEDS: TAMSULOSIN HCL 0.4 MG CAP PO SCH (16:30)
[2017-03-21] MEDS ORDERED: ALUMINUM/MAGNESIUM/SIMETH 30 ML CUP PO PRN (16:30)
[2017-03-21] MEDS: QUEtiapine FUMARATE 100 MG TAB PO SCH ×2 (16:30→20:40)
[2017-03-21] MEDS: REMOVE OLD PATCH T-DERMAL SCH (16:44)
[2017-03-21] MEDS ORDERED: PILL SPLITTER OTHER PRN (16:45)
[2017-03-21] MEDS: LORazepam 1 MG TAB PO PRN (18:02)
[2017-03-21] MEDS: ZOLPIDEM TARTRATE 5 MG TAB PO PRN (20:39)
[2017-03-21] MEDS: TRIHEXYPHENIDYL HCL 2 MG TAB PO SCH (20:40)
[2017-03-22 05:02] VITALS: BP 142/95; PULSE 53; RESP 15; TEMP 97.5; O2SAT 94
[2017-03-22] MEDS: TAMSULOSIN HCL 0.4 MG CAP PO SCH (08:31)
[2017-03-22] MEDS: NICOTINE 21 MG/24 HR PATCH T-DERMAL SCH (08:31)
[2017-03-22] MEDS: QUEtiapine FUMARATE 100 MG TAB PO SCH ×2 (08:31→21:00)
[2017-03-22] MEDS: TRIHEXYPHENIDYL HCL 2 MG TAB PO SCH ×3 (08:31→21:00)
[2017-03-22] MEDS: REMOVE OLD PATCH T-DERMAL SCH (08:32)
--- NOTE | 2017-03-22 14:04 | HHI.HP ---
Provisional Diagnosis Admission Date Mar 21, 2017 at 15:45 [place] I. Schizophrenia [place] II. Deferred [place] III. HTN, Hepatitis B, currently: Incarcerated left inguinal hernia, Pyelonephritis, hydronephrosis due to obstruction of bladder, cellulitis of scrotum Certification of Person's Competence To Provide Express and Informed Consent I have personally examined Rosalio PinedaJr , a person being served at [facility] on, Mar 22, 2017 13:48. Express and informed consent means consent voluntarily given in writing, by a competent person, after sufficient explanation and disclosure of the subject matter involved to enable the person to make a knowing and willful decision without any element of force, fraud, deceit, duress, or other form of constraint or coercion. This person is 18 years of age or older, is not now known to be incompetent to consent to treatment with a guardian advocate, and does not have a health care surrogate or proxy currently making medical treatment decisions. I have found this person to be one of the following: [] Competent to provide express and informed consent, as defined above, for voluntary admission to this facility and is competent to provide express and informed consent for treatment. He/she has the consistent capacity to make well reasoned, willful, and knowing decisions concerning his or her medical or mental health treatment. The person fully and consistently understands the purpose of the admission for examination/placement and is fully capable of personally exercising all rights assured [place] Incompetent to provide express and informed consent to voluntary admission, and this is incompetent to provide express and informed consent to treatment. The person must be transferred to involuntary status and a petition for a guardian advocate filed with the Circuit Court. [X] Refusing to provide express and informed consent to voluntary admission but is competent to provide express and informed consent for treatment. The person must be discharged or transferred to involuntary status. Form shall be completed within 24 hours of a person's arrival at the receiving facility and filed in the clinical record of each person: 1. Admitted on a voluntary basis 2. Permitted to provide express and informed consent to his/her own treatment 3. Allowed to transfer from involuntary to voluntary status 4. Prior to permitting a person to consent to his or her own treatment after having been previously found incompetent to consent to treatment. History of Present Illness Capacity: Has Capacity HPI Patient is a 66 y/o man, domiciled at [facility], secondary history of schizophrenia, previous psychiatric hospitalizations, multiple psychotropics , well known by this service, who was brought to the ED under Meehan Act for psychiatric evaluation as per report was threatening to others which psychiatry was consulted for evaluation and currently on the medical floor due inguinal hernia. After discussion with nursing staff, patient has with no behavioral dyscontrol recently.Patient was seen on the medical floor, lying on hospital bed , noted to be irritable and guarded and superficially cooperative with interview. Patient alert and oriented to person, date (month), and person but not to situation. Patient states that he was brought here to the hospital after staff at his residence called EMS. Patient states that he mostly resides in his room because of difficulty with ambulation and doesnt understand why EMT was called. Patient mentions that this is the 2-3rd time he has been sent to the hospital. When informed of the Meehan act he states Its a lie!. Patient reports his mood lately being stable, no problems with sleep, concentration, some decreased energy, denies feeling sad or depressed, denies any perceptual disturbances or manic symptoms. Patient is a poor historian and superficially cooperative with interview. Patient is NPO and perseverative on asking for water. Patient is seen today for psychiatric evaluation in [facility], patient is disorganized, guarded and oppositional, he says that he cannot talk to me and give me any information "because I don't know you are, maybe you're running this investigation". When I asked the patient to be more specific he says "you' re an informant and you know it". Patient says that today is his birthday "[birth year]", but when he is asked about the date and place he answers appropriately. As per nurses, patient has been talking to himself, times very loud, difficult to redirect, refusing medications and to speak with medical team. Review of Systems Constitutional: DENIES: Diaphoretic episodes, Fatigue, Fever, Weight gain, Weight loss, Chills, Dizziness, Change in appetite, Night Sweats Endocrine: DENIES: Heat/cold intolerance, Polydipsia, Polyuria, Polyphagia Eyes: DENIES: Blurred vision, Diplopia, Eye inflammation, Eye pain, Vision loss , Photosensitivity, Double Vision Ears, nose, mouth, throat: DENIES: Tinnitus, Hearing loss, Vertigo, Nasal discharge, Oral lesions, Throat pain, Hoarseness, Ear Pain, Running Nose, Epistaxis, Sinus Pain, Toothache, Odynophagia Respiratory: DENIES: Apneas, Cough, Snoring, Wheezing, Hemoptysis, Sputum production, Shortness of breath Cardiovascular: DENIES: Chest pain, Palpitations, Syncope, Dyspnea on Exertion , PND, Lower Extremity Edema, Orthopnea, Claudication Gastrointestinal: DENIES: Abdominal pain, Black stools, Bloody stools, Constipation, Diarrhea, Nausea, Vomiting, Difficulty Swallowing, Anorexia Musculoskeletal: DENIES: Joint pain, Muscle aches, Stiffness, Joint Swelling, Back pain, Neck pain Integumentary: DENIES: Abnormal pigmentation, Nail changes, Pruritus, Rash Hematologic/lymphatic: DENIES: Bruising, Lymphadenopathy Immunologic/allergic: DENIES: Eczema, Urticaria Neurologic: DENIES: Abnormal gait, Headache, Localized weakness, Paresthesias, Seizures, Speech Problems, Tremor, Poor Balance Psychiatric: DENIES: Anxiety, Confusion, Mood changes, Depression, Hallucinations, Agitation, Suicidal Ideation, Homicidal Ideation, Delusions Past Psych History Violence risk - self (6 mos) Increased danger to self and others Past Family Social History Coded Allergies: tetanus toxoid, adsorbed (Unverified Allergy, Severe, swelling, 03/02/17) Per SHANNON Aguilar, [facility] [phone] & Jolie, (Admin?) [facility]. Active Scripts Zolpidem (Ambien) 5 Mg Tab, 10 MG PO HS Y for INSOMNIA for 15 Days, #10 TAB 1 Refill Prov:Ajit Phelan MD 03/15/17 Trihexyphenidyl (Trihexyphenidyl) 2 Mg Tab, 2 MG PO DAILY@09,13,21 for Side effect management for 15 Days, TAB 1 Refill Prov:Ajit Phelan MD 03/15/17 Quetiapine (Quetiapine) 100 Mg Tab, 350 MG PO HS for Mental Health for 15 Days, #30 TAB 1 Refill Prov:Ajit Phelan MD 03/15/17 Quetiapine (Quetiapine) 100 Mg Tab, 100 MG PO DAILY for Mental Health for 15 Days, #30 TAB 1 Refill Prov:Ajit Phelan MD 03/15/17 Haloperidol (Haloperidol) 10 Mg Tab, 10 MG PO TID for Mental Health for 15 Days , #90 TAB 1 Refill Continue Haldol by mouth at least until your next Haldol Decanoate injection. Talk with your outpatient provider about how best to taper Haldol by mouth. Prov:Ajit Phelan MD 03/15/17 Tamsulosin (Flomax) 0.4 Mg Cap, 0.4 MG PO DAILY for Urinary Symptom Managemen, # 30 CAP Prov:Ajit Phelan MD 03/14/17 Hydrocodone-Acetaminophen (Hydrocodone-Acetaminophen) 5-325 mg Tab, 1 TAB PO Q4H Y for pain 6-10, #20 TAB 0 Refills Prov:Ajit Phelan MD 03/14/17 [Lactulose] 30 ML SYRP No Conflict Check, 30 ML PO DAILY for Health for 15 Days , ML 1 Refill Prov:Tyrel Yap MD 01/18/17 Thiamine (Vitamin B-1) 100 Mg Tab, 100 MG PO DAILY for Nutritional Supplement for 15 Days, TAB 1 Refill Prov:Tyrel Yap MD 10/24/16 Folic Acid (Folate) 1 Mg Tab, 1 MG PO DAILY for Nutritional Supplement for 15 Days, TAB 1 Refill Prov:Tyrel Yap MD 10/24/16 Discontinued Scripts Haloperidol Decanoate Inj (Haldol Decanoate Inj) 100 Mg/Ml Inj, 100 MG IM Q28D for Schizophrenia, #1 VIAL 0 Refills This dose of Haldol Dec is due on 02/10/2017. Prov:Tyrel Yap MD 01/18/17 Lactulose Liq (Lactulose Liq) 10 Gm/15 Ml Soln, 30 ML PO DAILY for Hyperammonemia for 15 Days, ML 1 Refill Prov:Tyrel Yap MD 10/24/16 Current Medications Medications (Trade) Dose Ordered Sig/Marce Route Start Time Stop Time Status Last Admin (Ativan) 1 mg Q6H PRN PO 03/21/17 16:30 03/21/17 18:02 (Ativan Inj) 1 mg Q6H PRN IM 03/21/17 16:30 (Ativan) 0.5 mg Q12H PRN PO 03/21/17 16:30 (Ativan Inj) 0.5 mg Q12H PRN IM 03/21/17 16:30 (Tylenol) 650 mg Q4H PRN PO 03/21/17 16:30 (Milk Of Magnesia Liq) 30 ml DAILY PRN PO 03/21/17 16:30 (Mag-Al Plus Susp Liq) 30 ml Q6H PRN PO 03/21/17 16:30 (Habitrol 21 Mg Patch.24 Hr) 1 patch DAILY T-DERMAL 03/21/17 16:30 03/22/17 08:31 (SEROquel) 100 mg DAILY PO 03/21/17 16:30 03/22/17 08:31 (SEROquel) 350 mg HS PO 03/21/17 21:00 03/21/17 20:40 (Flomax) 0.4 mg DAILY PO 03/21/17 16:30 03/22/17 08:31 (Artane) 2 mg DAILY@09,13,21 PO 03/21/17 21:00 03/22/17 13:00 (Ambien) 10 mg HS PRN PO 03/21/17 16:30 03/21/17 20:39 (Pill Splitter) 1 ea UNSCH PRN OTHER 03/21/17 16:45 Miscellaneous Information 1 DAILY T-DERMAL 03/21/17 16:44 03/22/17 08:32 Social History Single, unemployed, domiciled at [facility]. Physical Exam Vital Signs Vital Signs Date Time Temp Pulse Resp B/P (MAP) Pulse Ox O2 Delivery O2 Flow Rate FiO2 03/22/17 05:02 97.5 53 15 142/95 (111) 94 I/O 03/22/17 03/22/17 03/23/17 08:00 16:00 00:00 Intake Total 960 ml Output Total 1000 ml Balance -1000 ml 960 ml Mental Status Examination Appearance man, disheveled, poor hygiene, looks older than his stated age, uncooperative, disorder Speech: Incoherent Orientation: Person, Place, Time Memory: Unremarkable Thought Process: Loose Association, Tangential Thought Content: Derealization, Paranoid Hallucination Type: None Attention and Concentration: Good Suicidal Ideation: No Previous Suicide Attempts: No Homicidal Ideation: No Previous Homicide Attempts: No Judgment: Poor Affect: Irritable Mood: Angry Motor Activity: Normal gait Assessment & Plan Problem List: (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 He seems to be oriented 3, but oppositional and resistant. As per nurses patient has not been cooperating in the floor, at times agitated and hostile. Given the level of psychosis and due to his past psychiatric history of schizophrenia, patient needs to continue psychiatric hospitalization for stabilization and safety. We'll continue current psychotropic regimen. Add Haldol 5 mg IM every 8 hours when necessary aggressive behavior and agitation. harm reduction worker intervention for collateral information, psychosocial assessment, to start a safe discharge plan. Assessment & Plan Estimated LOS: Larry Amezquita MD Mar 22, 2017 14:04
--- NOTE | 2017-03-22 15:14 | PD.PSY.CON ---
Provisional Diagnosis Admission Date Mar 21, 2017 at 15:45 Grant I. 1. Schizophrenia, disorganized type, acute exacerbation Grant II. Deferred History of Present Illness Service Psychiatry Consult Requested By Dr. Templeton Reason for Consult Second opinion for involuntary psychiatric hospitalization Primary Care Physician Unknown HPI From Dr. Templeton's H&P: Patient is a 66 y/o man, domiciled at [facility], secondary history of schizophrenia, previous psychiatric hospitalizations, multiple psychotropics , well known by this service, who was brought to the ED under [employer] [place] for psychiatric evaluation as per report was threatening to others which psychiatry was consulted for evaluation and currently on the medical floor due inguinal hernia. After discussion with nursing staff, patient has with no behavioral dyscontrol recently.Patient was seen on the medical floor, lying on hospital bed , noted to be irritable and guarded and superficially cooperative with interview. Patient alert and oriented to person, date (month), and person but not to situation. Patient states that he was brought here to the hospital after staff at his residence called EMS. Patient states that he mostly resides in his room because of difficulty with ambulation and doesnt understand why EMT was called. Patient mentions that this is the 2-3rd time he has been sent to the hospital. When informed of the Meehan act he states Its a lie!. Patient reports his mood lately being stable, no problems with sleep, concentration, some decreased energy, denies feeling sad or depressed, denies any perceptual disturbances or manic symptoms. Patient is a poor historian and superficially cooperative with interview. Patient is NPO and perseverative on asking for water. Patient is seen today for psychiatric evaluation in [facility], patient is disorganized, guarded and oppositional, he says that he cannot talk to me and give me any information "because I don't know you are, maybe you're running this investigation". When I asked the patient to be more specific he says "you' re an informant and you know it". Patient says that today is his birthday "[birth year]", but when he is asked about the date and place he answers appropriately. As per nurses, patient has been talking to himself, times very loud, difficult to redirect, refusing medications and to speak with medical team. On my examination today: Patient seen and examined with nurse. Chart reviewed. Patient well known to me from previous psychiatric hospitalizations. He was most recently hospitalized under my care from the end of November through the beginning of January of this year. Case discussed with nursing staff. On my examination today, the patient presents as irritable, oppositional and disorganized. Paranoia noted. He appears internally stimulated. He says he is not hallucinating but then gesticulates at something on the wall where I can see nothing. He declines to answer regarding SI/HI and in any event seems unreliable to contract for safety. Psychiatric interview is limited because patient is fairly oppositional and disorganized. I am unable to obtain past psychiatric, family, chem dep or social history for the same reason. Review of Systems ROS Limitations: Uncooperative, Psychotic, Poor Historian Other Limited ROS because of above Past Family Social History Coded Allergies: tetanus toxoid, adsorbed (Unverified Allergy, Severe, swelling, 03/02/17) Per SHANNON Aguilar, Gisselle Dixonge [phone] & Jolie, (Admin?) Gisselle Torres. Past Medical History See EMR Active Scripts Zolpidem (Ambien) 5 Mg Tab, 10 MG PO HS Y for INSOMNIA for 15 Days, #10 TAB 1 Refill Prov:Ajit Phelan MD 03/15/17 Trihexyphenidyl (Trihexyphenidyl) 2 Mg Tab, 2 MG PO DAILY@09,13,21 for Side effect management for 15 Days, TAB 1 Refill Prov:Ajit Phelan MD 03/15/17 Quetiapine (Quetiapine) 100 Mg Tab, 350 MG PO HS for Mental Health for 15 Days, #30 TAB 1 Refill Prov:Ajit Phelan MD 03/15/17 Quetiapine (Quetiapine) 100 Mg Tab, 100 MG PO DAILY for Mental Health for 15 Days, #30 TAB 1 Refill Prov:Ajit Phelan MD 03/15/17 Haloperidol (Haloperidol) 10 Mg Tab, 10 MG PO TID for Mental Health for 15 Days , #90 TAB 1 Refill Continue Haldol by mouth at least until your next Haldol Decanoate injection. Talk with your outpatient provider about how best to taper Haldol by mouth. Prov:Ajit Phelan MD 03/15/17 Tamsulosin (Flomax) 0.4 Mg Cap, 0.4 MG PO DAILY for Urinary Symptom Managemen, # 30 CAP Prov:Ajit Phelan MD 03/14/17 Hydrocodone-Acetaminophen (Hydrocodone-Acetaminophen) 5-325 mg Tab, 1 TAB PO Q4H Y for pain 6-10, #20 TAB 0 Refills Prov:Ajit Phelan MD 03/14/17 [Lactulose] 30 ML SYRP No Conflict Check, 30 ML PO DAILY for Health for 15 Days , ML 1 Refill Prov:Tyrel Yap MD 01/18/17 Thiamine (Vitamin B-1) 100 Mg Tab, 100 MG PO DAILY for Nutritional Supplement for 15 Days, TAB 1 Refill Prov:Tyrel Yap MD 10/24/16 Folic Acid (Folate) 1 Mg Tab, 1 MG PO DAILY for Nutritional Supplement for 15 Days, TAB 1 Refill Prov:Tyrel Yap MD 10/24/16 Discontinued Scripts Haloperidol Decanoate Inj (Haldol Decanoate Inj) 100 Mg/Ml Inj, 100 MG IM Q28D for Schizophrenia, #1 VIAL 0 Refills This dose of Haldol Dec is due on 02/10/2017. Prov:Tyrel Yap MD 01/18/17 Lactulose Liq (Lactulose Liq) 10 Gm/15 Ml Soln, 30 ML PO DAILY for Hyperammonemia for 15 Days, ML 1 Refill Prov:Tyrel Yap MD 10/24/16 Current Medications Medications (Trade) Dose Ordered Sig/Marce Route Start Time Stop Time Status Last Admin (Ativan) 1 mg Q6H PRN PO 03/21/17 16:30 03/21/17 18:02 (Ativan Inj) 1 mg Q6H PRN IM 03/21/17 16:30 (Ativan) 0.5 mg Q12H PRN PO 03/21/17 16:30 (Ativan Inj) 0.5 mg Q12H PRN IM 03/21/17 16:30 (Tylenol) 650 mg Q4H PRN PO 03/21/17 16:30 (Milk Of Magnesia Liq) 30 ml DAILY PRN PO 03/21/17 16:30 (Mag-Al Plus Susp Liq) 30 ml Q6H PRN PO 03/21/17 16:30 (Habitrol 21 Mg Patch.24 Hr) 1 patch DAILY T-DERMAL 03/21/17 16:30 03/22/17 08:31 (SEROquel) 100 mg DAILY PO 03/21/17 16:30 03/22/17 08:31 (SEROquel) 350 mg HS PO 03/21/17 21:00 03/21/17 20:40 (Flomax) 0.4 mg DAILY PO 03/21/17 16:30 03/22/17 08:31 (Artane) 2 mg DAILY@,,21 PO 03/21/17 21:00 03/22/17 13:00 (Ambien) 10 mg HS PRN PO 03/21/17 16:30 03/21/17 20:39 (Pill Splitter) 1 ea UNSCH PRN OTHER 03/21/17 16:45 Miscellaneous Information 1 DAILY T-DERMAL 03/21/17 16:44 03/22/17 08:32 Patient's Strengths (min. 2) In monitored setting. Verbally fluent. Physical Exam Physical exam completed by hospitalist prior to transfer to the inpatient psychiatric unit. On my examination today, the patient appears to be in no acute physical distress. Possibly some oral dyskinesias but no other motoric abnormalities appreciated. Labs and vitals reviewed: Vital Signs Vital Signs Date Time Temp Pulse Resp B/P (MAP) Pulse Ox O2 Delivery O2 Flow Rate FiO2 03/22/17 05:02 97.5 53 15 142/95 (111) 94 I/O 03/22/17 03/22/17 03/22/17 07:59 15:59 23:59 Intake Total 960 ml Output Total 1000 ml Balance -1000 ml 960 ml Lab Results Item Value Date Time White Blood Count 10.7 TH/MM3 03/03/1718 Hemoglobin 11.3 GM/DL L 03/03/1718 Platelet Count 350 TH/MM3 03/03/1718 Sodium Level 141 MEQ/L 03/03/1718 Potassium Level 3.5 MEQ/L 03/03/1718 Chloride Level 109 MEQ/L H # 03/03/1718 Carbon Dioxide Level 24.1 MEQ/L 03/03/1718 Blood Urea Nitrogen 24 MG/DL H 03/03/17 0618 Creatinine 0.67 MG/DL 03/07/17 0522 Aspartate Amino Transf (AST/SGOT) 33 U/L 03/03/17 0618 Alanine Aminotransferase (ALT/SGPT) 36 U/L 03/03/17 0618 Alkaline Phosphatase 139 U/L H 03/03/17 0618 Mental Status Examination Motor exam as above Appearance Better groomed than I have seen him in the past Speech: Other (rambling) Orientation: Person, Place Memory: Unremarkable (not formally assessed) Thought Process: Other (Disorganized) Thought Content: Paranoid Language some neologisms Fund of Knowledge Seems approximately average Hallucination Type: None (denies AVH but appears internally preoccupied) Attention and Concentration: Easily Distracted Suicidal Ideation: No Previous Suicide Attempts: No Homicidal Ideation: No Previous Homicide Attempts: No Insight: Poor Judgment: Poor Affect: Irritable, Other (dysphoric) Mood: Angry Assessment & Plan Problem List: (1) Disorganized schizophrenia ICD Codes: F20.1 - Disorganized schizophrenia Status: Acute Assessment & Plan Given the circumstances of the patient's presentation here and his presentation on my examination today, I concur with Dr. Templeton that the patient meets criteria for involuntary psychiatric hospitalization under the Meehan act. Patient is known to me and appears to be decompensated with respect to his recent baseline. I have completed the second opinion paperwork. Further care as per Dr. Templeton. Thank you very much for this consultation. Signing off. Tyrel Yap MD Mar 22, 2017 15:13
[2017-03-22 18:08] VITALS: BP 145/80; PULSE 65; RESP 16; TEMP 97.7; O2SAT 94
[2017-03-23 03:14] VITALS: BP 115/68; PULSE 75; RESP 15; TEMP 97.9; O2SAT 94
[2017-03-23] MEDS: REMOVE OLD PATCH T-DERMAL SCH (09:00)
[2017-03-23] MEDS: QUEtiapine FUMARATE 100 MG TAB PO SCH ×2 (09:30→22:06)
[2017-03-23] MEDS: TRIHEXYPHENIDYL HCL 2 MG TAB PO SCH ×3 (09:30→22:05)
[2017-03-23] MEDS: TAMSULOSIN HCL 0.4 MG CAP PO SCH (09:30)
[2017-03-23] MEDS: NICOTINE 21 MG/24 HR PATCH T-DERMAL SCH (09:31)
[2017-03-23] MEDS ORDERED: HALOPERIDOL LACTATE 5 MG/ML AMP IM PRN (09:45)
--- NOTE | 2017-03-23 09:45 | HHI.PYPN ---
Subjective Remarks Patient seen today for psychiatric reevaluation, he was found sleeping, easily aroused, reports feeling okay, patient doesn't know the reason of his hospitalization. He becomes very disorganized, tangential with marked loosening of associations. Patient has been usually compliant with medications. I educated the patient about the importance of being compliant with medications, patient agrees with taking his medication as long "you are not giving Haldol". No agitation or aggressive behavior reported. Review of Systems Other No somatic complaints Objective Alert: Yes [place]: Person, Place, Date Mood: Angry, Oppositional Affect: Restricted Memory Intact: Comment (not able to be fully assessed) Hallucinations: Other (patient denies) Delusions: Yes Delusion Type: Paranoid Suicidal: Ideation (no SI) Homicidal: Ideation (no HI) Insight/Judgment Poor Vitals/IOs Vital Signs Date Time Temp Pulse Resp B/P (MAP) Pulse Ox O2 Delivery O2 Flow Rate FiO2 03/23/17 03:14 97.9 75 15 115/68 (84) 94 Intake and Output 03/23/17 03/23/17 03/23/17 07:59 15:59 23:59 Intake Total 0 ml 480 ml Output Total 1400 ml Balance -1400 ml 480 ml Assessment & Plan Problem List: (1) Disorganized schizophrenia ICD Codes: F20.1 - Disorganized schizophrenia Status: Acute Assessment & Plan: Patient continues to show symptomatology of acute psychosis consisting in disorganized behavior and speech, tangentiality, loosening of associations and paranoia. He has been partially compliant with medications. He was widely educated about the importance of taking his medications. We'll continue current psychotropic regimen. At Haldol 5 mg every 8 hours when necessary aggressive behavior and agitation. Will order an EKG for QTC interval baseline. Assessment & Plan Estimated LOS: days Justification for Cont. Inpt. Patient is acutely psychotic and needs psychiatric hospitalization for stabilization. Larry Templeton MD Mar 23, 2017 09:45
--- NOTE | 2017-03-23 13:10 | PD.CONS ---
HPI Service [facility] Consult Requested By Dr. Zarate Reason for Consult Medical management Primary Care Physician Unknown Diagnoses: History of Present Illness 66-year-old male with a medical history significant for schizophrenia, hepatitis B and hypertension initially was admitted to the hospital for left inguinal incarcerated hernia. He is status post repair. The patient also had bladder herniation and urinary retention. In addition to pyelonephritis. He was treated under the guidance of urology. He has a Perez catheter in place. He remains very disorganized and schizophrenic. He was discharged to the med psych unit. On my evaluation today, the patient remains very disorganized. I' m unable to obtain any history from him. History obtained from extensive review of the chart. Discussed with RN. Perez with sediments. Afebrile. No complaint of abdominal discomfort. Review of Systems ROS Limitations: Clinical Condition, Uncooperative, Psychotic Constitutional: DENIES: Fever, Chills Past Family Social History Allergies: Coded Allergies: tetanus toxoid, adsorbed (Unverified Allergy, Severe, swelling, 03/02/17) Per SHANNON Aguilar, Gisselle Torres [phone] & Jolie, (Admin?) Gisselle Torres. Past Medical History Per extensive review of the EMR Schizophrenia, Hepatitis B, urinary retention and HTN Past Surgical History Extensive review of the EMR Inguinal hernia repair Tonsillectomy Reported Medications Reported Meds & Active Scripts Active Ambien (Zolpidem Tartrate) 5 Mg Tab 10 Mg PO HS PRN 15 Days Trihexyphenidyl (Trihexyphenidyl HCl) 2 Mg Tab 2 Mg PO DAILY@09,13,21 15 Days Quetiapine (Quetiapine Fumarate) 100 Mg Tab 350 Mg PO HS 15 Days Quetiapine (Quetiapine Fumarate) 100 Mg Tab 100 Mg PO DAILY 15 Days Haloperidol 10 Mg Tab 10 Mg PO TID 15 Days Continue Haldol by mouth at least until your next Haldol Decanoate injection. Talk with your outpatient provider about how best to taper Haldol by mouth. Flomax (Tamsulosin HCl) 0.4 Mg Cap 0.4 Mg PO DAILY Hydrocodone-Acetaminophen 5-325 mg Tab 1 Tab PO Q4H PRN [Lactulose Liq] 30 ML Syrp 30 Ml PO DAILY 15 Days Vitamin B-1 (Thiamine HCl) 100 Mg Tab 100 Mg PO DAILY 15 Days Folate (Folic Acid) 1 Mg Tab 1 Mg PO DAILY 15 Days Family History Unable to obtain Social History Unable to obtain Physical Exam Vital Signs Vital Signs Date Time Temp Pulse Resp B/P (MAP) Pulse Ox O2 Delivery O2 Flow Rate FiO2 03/23/17 03:14 97.9 75 15 115/68 (84) 94 03/22/17 18:08 97.7 65 16 145/80 (101) 94 Physical Exam Limited exam as patient is refusing. GENERAL: Patient is in no acute distress. Nonsensical statements. CARDIOVASCULAR: Regular rate and rhythm without murmurs, gallops, or rubs. RESPIRATORY: Clear to auscultation. Breath sounds equal bilaterally. No wheezes , rales, or rhonchi. GASTROINTESTINAL: Abdomen soft, non-tender, nondistended. MUSCULOSKELETAL: Extremities without clubbing, cyanosis, or edema. Negative Homans sign bilaterally. NEUROLOGICAL: Awake and alert. Disorganized speech. Assessment and Plan Assessment and Plan 66-year-old male with significant paranoid schizophrenia status post left inguinal hernia repair. Patient also with bladder herniation and pyelonephritis. He completed treatment for pyelonephritis and has an indwelling Perez catheter. Patient is medically stable. He will need follow- up outpatient with urology and routine postoperative follow-up with general surgery. Clear from a medical standpoint for discharge to psychiatry. Left Inguinal Hernia: s/p Reduction and repair incarcerated sliding Left inguinal hernia with mesh 03/09/17. Schizophrenia: Disorganized/Paranoid Schizophrenia -plan per psychiatry. History of Bladder Herniation/urinary retention: Continue Perez catheter. Advised RN to change the Perez. Outpatient follow-up with urology. Jenna Abbasi MD Mar 23, 2017 13:10
[2017-03-23 18:03] VITALS: BP 116/87; PULSE 88; RESP 16; TEMP 97.3; O2SAT 94
[2017-03-24] MEDS: REMOVE OLD PATCH T-DERMAL SCH (09:00)
[2017-03-24] MEDS: NICOTINE 21 MG/24 HR PATCH T-DERMAL SCH (09:00)
[2017-03-24] MEDS: TRIHEXYPHENIDYL HCL 2 MG TAB PO SCH ×3 (09:51→21:06)
[2017-03-24] MEDS: QUEtiapine FUMARATE 100 MG TAB PO SCH ×2 (09:51→21:07)
[2017-03-24] MEDS: TAMSULOSIN HCL 0.4 MG CAP PO SCH (09:51)
--- NOTE | 2017-03-24 11:15 | HHI.PYPN ---
Subjective Remarks Met with patient, reviewed labs and discuss case with mental health tech. Patient remains easily confused and agitated. Review of Systems Except as stated in HPI: all other systems reviewed are Neg Objective Alert: Yes [place]: Person, Place, Date Mood: Angry, Oppositional Affect: Restricted Memory Intact: Comment (not able to be fully assessed) Hallucinations: Other (patient denies) Delusions: Yes Delusion Type: Paranoid Suicidal: Ideation (no SI) Homicidal: Ideation (no HI) Insight/Judgment Impaired Vitals/IOs Vital Signs Date Time Temp Pulse Resp B/P (MAP) Pulse Ox O2 Delivery O2 Flow Rate FiO2 03/23/17 18:03 97.3 88 16 116/87 (97) 94 Intake and Output 03/24/17 03/24/17 03/24/17 07:59 15:59 23:59 Output Total 1100 ml Balance -1100 ml Assessment & Plan Problem List: (1) Disorganized schizophrenia ICD Codes: F20.1 - Disorganized schizophrenia Status: Acute Assessment & Plan Estimated LOS: days continue to evaluate patient's medications for efficacy and tolerability. Justification for Cont. Inpt. Unable to care for self. Khoa Paz MD Mar 24, 2017 11:15
[2017-03-24 18:15] VITALS: BP 110/73; PULSE 88; RESP 18; TEMP 97.7; O2SAT 96
[2017-03-25 06:39] VITALS: BP 150/70; PULSE 64; RESP 18; TEMP 99; O2SAT 96
[2017-03-25] MEDS: REMOVE OLD PATCH T-DERMAL SCH (09:00)
[2017-03-25] MEDS: TAMSULOSIN HCL 0.4 MG CAP PO SCH (09:27)
[2017-03-25] MEDS: NICOTINE 21 MG/24 HR PATCH T-DERMAL SCH (09:27)
[2017-03-25] MEDS: TRIHEXYPHENIDYL HCL 2 MG TAB PO SCH ×3 (09:27→22:28)
[2017-03-25] MEDS: QUEtiapine FUMARATE 100 MG TAB PO SCH ×2 (09:27→22:28)
--- NOTE | 2017-03-25 12:54 | HHI.PYPN ---
Subjective Remarks Patient seen, case discussed with staff and medications reviewed. Patient remains paranoid. However he is calm and cooperative at this time. It appears he needs more time for the medications to work. Review of Systems Except as stated in HPI: all other systems reviewed are Neg Objective Alert: Yes [place]: Person, Place, Date Mood: Angry, Oppositional Affect: Restricted Memory Intact: Comment (not able to be fully assessed) Hallucinations: Other (patient denies) Delusions: Yes Delusion Type: Paranoid Suicidal: Ideation (no SI) Homicidal: Ideation (no HI) Insight/Judgment Impaired Vitals/IOs Vital Signs Date Time Temp Pulse Resp B/P (MAP) Pulse Ox O2 Delivery O2 Flow Rate FiO2 03/25/17 06:39 99.0 64 18 150/70 (96) 96 Intake and Output 03/25/17 03/25/17 03/25/17 07:59 15:59 23:59 Output Total 1000 ml Balance -1000 ml Assessment & Plan Problem List: (1) Disorganized schizophrenia ICD Codes: F20.1 - Disorganized schizophrenia Status: Acute Assessment & Plan Estimated LOS: days continue current antipsychotic medication. Evaluate for efficacy and tolerability. Justification for Cont. Inpt. Unable to care for self and threatening towards others. Khoa Paz MD Mar 25, 2017 12:54
[2017-03-25 16:14] VITALS: PULSE 64; RESP 19; TEMP 97.7; O2SAT 98
[2017-03-25] MEDS: ZOLPIDEM TARTRATE 5 MG TAB PO PRN (22:29)
[2017-03-26 06:00] VITALS: BP 124/64; PULSE 60; RESP 17; TEMP 98.2; O2SAT 97
--- NOTE | 2017-03-26 07:01 | HHI.PYPN ---
Subjective Remarks Patient seen and examined. Chart reviewed. Case d/w RN: No behavioral issues overnight. Per RN, some scrotal swelling. On my exam, patient calm. Remains a little disorganized and paranoid. Denies side effects from medications. No physical complaints. Review of Systems ROS Limitations: Psychotic, Poor Historian Except as stated in HPI: all other systems reviewed are Neg Objective Alert: Yes [place]: Person, Place, Date Mood: Calm Affect: Blunted Memory Intact: Comment (Not formally assessed) Hallucinations: Other (No AVH) Delusions: Yes Delusion Type: Paranoid Suicidal: Ideation (No SI) Homicidal: Ideation (No HI) Insight/Judgment Poor Remarks No motor abnormalities noted. No hand tremor, no cogwheeling, no other signs of EPS. Fairly disheveled. Thought process disorganized. Labs Labs reviewed. No recent labs. Vitals/IOs Vital Signs Date Time Temp Pulse Resp B/P (MAP) Pulse Ox O2 Delivery O2 Flow Rate FiO2 03/26/17 06:00 98.2 60 17 124/64 (84) 97 Intake and Output 03/26/17 03/26/17 03/27/17 08:00 16:00 00:00 Output Total 1000 ml Balance -1000 ml Assessment & Plan Problem List: (1) Disorganized schizophrenia ICD Codes: F20.1 - Disorganized schizophrenia Status: Acute Assessment & Plan Titrate nighttime dose of Seroquel to 400 mg to target ongoing psychosis. Consult to gen surg to follow up on scrotal swelling as pt is s/p hernia repair. Continue other medications and care as ordered. Continue to monitor on the inpatient unit. Justification for Cont. Inpt. Med changes. Risk for decompensation. Discharge Planning Per Dr. Templeton. Tyrel Yap MD Mar 26, 2017 07:01
[2017-03-26] MEDS: REMOVE OLD PATCH T-DERMAL SCH (09:00)
[2017-03-26] MEDS: TAMSULOSIN HCL 0.4 MG CAP PO SCH (10:05)
[2017-03-26] MEDS: QUEtiapine FUMARATE 100 MG TAB PO SCH (10:05)
[2017-03-26] MEDS: TRIHEXYPHENIDYL HCL 2 MG TAB PO SCH ×2 (10:05→20:35)
[2017-03-26] MEDS: NICOTINE 21 MG/24 HR PATCH T-DERMAL SCH (10:06)
--- NOTE | 2017-03-26 12:01 | PD.CAR.PN ---
CVT Progress Note Subjective/Hospital Course: Patient is a schizophrenic 66-year-old male who underwent herniorrhaphy on the sliding incarcerated inguinal hernia containing urinary bladder on 09 of March. Since then patient did well and now he knows noted to have enlargement of the scrotum with some tenderness in the cord These changes are common of the surgery of this nature because there is a large open space that has to fill with something and it is usually interstitial peritoneal fluid that will fill the sac in the dependent position Patient needs to have some warm compresses placed At this point there is no surgical intervention required I'll discuss this with Dr. Arrington who is covering for this service Objective: Vital Signs Date Time Temp Pulse Resp B/P (MAP) Pulse Ox O2 Delivery O2 Flow Rate FiO2 03/26/17 06:00 98.2 60 17 124/64 (84) 97 03/25/17 16:14 97.7 64 19 98 Francis Cuevas MD Mar 26, 2017 12:00
[2017-03-26] MEDS: ZOLPIDEM TARTRATE 5 MG TAB PO PRN (20:34)
[2017-03-26] MEDS: QUEtiapine FUMARATE 200 MG TAB PO SCH (20:34)
[2017-03-27] MEDS: LORazepam 1 MG TAB PO PRN (03:38)
[2017-03-27 06:00] VITALS: BP 134/65; PULSE 52; RESP 16; TEMP 95.8; O2SAT 99
[2017-03-27] MEDS: REMOVE OLD PATCH T-DERMAL SCH (09:00)
[2017-03-27] MEDS: NICOTINE 21 MG/24 HR PATCH T-DERMAL SCH (09:09)
[2017-03-27] MEDS: TRIHEXYPHENIDYL HCL 2 MG TAB PO SCH ×3 (09:12→20:30)
[2017-03-27] MEDS: TAMSULOSIN HCL 0.4 MG CAP PO SCH (09:13)
[2017-03-27] MEDS: QUEtiapine FUMARATE 100 MG TAB PO SCH (09:13)
--- NOTE | 2017-03-27 09:23 | HHI.PR ---
Subjective Subjective Notes No issues Objective Vitals/I&O Vital Signs Date Time Temp Pulse Resp B/P (MAP) Pulse Ox O2 Delivery O2 Flow Rate FiO2 03/27/17 06:00 95.8 52 16 134/65 (88) 99 A/P Assessment and Plan As stated in patient's previous notes, he had follow up and sutures removed prior to discharge. No need for further follow up, unless patient develops problems, such as drainage/infection. Appreciate Dr. Cuevas assistance and input. Francis Alvarado MD Mar 27, 2017 09:23
--- NOTE | 2017-03-27 09:58 | HHI.PYPN ---
Subjective Remarks Patient was seen today for psychiatric reevaluation along with nurse in charge Jessica, patient was in the recreational area of the 2500 units. Patient reports feeling better, reports good mood, good sleep at night, good level of concentration. Patient is actually oriented in time and place, he knows that he isn't [place], he knows he [place] and he knows that the president the country is Trump. However, patient is a little bit disorganized, with loosening of associations, but he is more redirectable than previous days. He she is compliant with his medications, no significant side effects. Patient denies distress, denies pain in scrotal area. Denies suicidal and homicidal ideation, he denies visual and auditory hallucinations. No agitation or aggressive behavior reported by nurses. Review of Systems Other no somatic complaints Objective Alert: Yes [place]: Person, Place, Date Mood: Calm Affect: Blunted Memory Intact: Comment (Not formally assessed) Hallucinations: Other (No AVH) Delusions: Yes Delusion Type: Paranoid Suicidal: Ideation (No SI) Homicidal: Ideation (No HI) Insight/Judgment fair Vitals/IOs Vital Signs Date Time Temp Pulse Resp B/P (MAP) Pulse Ox O2 Delivery O2 Flow Rate FiO2 03/27/17 06:00 95.8 52 16 134/65 (88) 99 Intake and Output 03/27/17 03/27/17 03/28/17 08:00 16:00 00:00 Output Total 550 ml Balance -550 ml Assessment & Plan Problem List: (1) Disorganized schizophrenia ICD Codes: F20.1 - Disorganized schizophrenia Status: Acute Assessment & Plan: Labs reviewed, surgical follow-up note reviewed and appreciated. Patient shows a mild to moderate response to psychotropics. Since Dr. Yap just increased Seroquel to 400 mg at bedtime today Will continue current psychotropic regimen. Assessment & Plan Estimated LOS: days Justification for Cont. Inpt. Patient remains psychotic, with an increased chance to decompensate at a lower level of care. Larry Templeton MD Mar 27, 2017 09:57
[2017-03-27 14:15] LABS: ANION GAP 7 MEQ/L (5-15); BICARBONATE 25.1 MEQ/L (21.0-32.0); BLOOD UREA NITROGEN 22 MG/DL (7-18); CHLORIDE 104 MEQ/L (98-107); GLOMERULAR FILTRATION RATE 114 ML/MIN (>89); POTASSIUM 4.5 MEQ/L (3.5-5.1); SODIUM (NA) 136 MEQ/L (136-145)
[2017-03-27 14:20] LABS: LDL CHOLESTEROL 74 MG/DL (0-99)
[2017-03-27 16:07] LABS: HEMOGLOBIN A1a 0.9 %; HEMOGLOBIN A1b 2.1 %; HEMOGLOBIN Ao 83.8 %; HEMOGLOBIN LA1C 2.3 %; HEMOGLOBIN P3 4.1 %
[2017-03-27 17:40] VITALS: BP 111/68; PULSE 64; RESP 18; TEMP 97.7
[2017-03-27] MEDS: QUEtiapine FUMARATE 200 MG TAB PO SCH (20:30)
[2017-03-27] MEDS: LORazepam 0.5 MG TAB PO PRN (20:30)
[2017-03-27] MEDS: ZOLPIDEM TARTRATE 5 MG TAB PO PRN (20:31)
[2017-03-28] MEDS: ACETAMINOPHEN 325 MG TAB PO PRN (04:10)
[2017-03-28 06:18] VITALS: BP 114/58; PULSE 55; RESP 16; TEMP 97.8; O2SAT 97
[2017-03-28] MEDS: NICOTINE 21 MG/24 HR PATCH T-DERMAL SCH (09:00)
[2017-03-28] MEDS: REMOVE OLD PATCH T-DERMAL SCH (09:00)
[2017-03-28] MEDS: TAMSULOSIN HCL 0.4 MG CAP PO SCH (09:00)
[2017-03-28] MEDS: TRIHEXYPHENIDYL HCL 2 MG TAB PO SCH ×3 (09:17→20:58)
[2017-03-28] MEDS: QUEtiapine FUMARATE 100 MG TAB PO SCH (09:17)
--- NOTE | 2017-03-28 14:40 | HHI.PYPN ---
Subjective Remarks The patient is seen today for psychiatric reevaluation along with nurse in charge Jessica. Case was widely discussed with nurse and social sciences chair Priya. She was found in the recreational area of the 2500 unit. Patient is cooperative, but disorganized and kind of intrusive. He reports feeling okay, denies depressive symptoms, denies anxiety, denies perceptual disturbances, denies suicidal and homicidal ideation. Patient is partially oriented, used to confabulates and also uses multiple neologisms in his conversation. Patient is able to answer most of our questions, but he usually after answering the questions becomes tangential. No agitation or aggressive behavior has been reported. Patient is compliant with his medications, no significant side effects reported. Review of Systems Other No somatic complaints Objective Alert: Yes [place]: Person, Place, Date Mood: Calm Affect: Blunted Memory Intact: Comment (Not formally assessed) Hallucinations: Other (No AVH) Delusions: Yes Delusion Type: Paranoid Suicidal: Ideation (No SI) Homicidal: Ideation (No HI) Insight/Judgment Poor Vitals/IOs Vital Signs Date Time Temp Pulse Resp B/P (MAP) Pulse Ox O2 Delivery O2 Flow Rate FiO2 03/28/17 06:18 97.8 55 16 114/58 (76) 97 Intake and Output 03/28/17 03/28/17 03/29/17 08:00 16:00 00:00 Intake Total 0 ml Output Total 4300 ml Balance -4300 ml Assessment & Plan Problem List: (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 Today we will increase Seroquel to 500 mg at bedtime. Extensive psychoeducation, supportive motivation provided. We'll start coordinating a safe discharge. Assessment & Plan Estimated LOS: days Justification for Cont. Inpt. Patient has an elevator risk to decompensate and become even more psychotic at a lower level of care. Larry Templeton MD Mar 28, 2017 14:40
[2017-03-28 17:31] VITALS: BP 99/53; PULSE 71; RESP 18; TEMP 97.7; O2SAT 96
[2017-03-28] MEDS: QUEtiapine FUMARATE 200 MG TAB PO SCH (21:01)
[2017-03-29 06:45] VITALS: BP 103/61; PULSE 71; RESP 16; TEMP 98.7; O2SAT 100
[2017-03-29] MEDS: TRIHEXYPHENIDYL HCL 2 MG TAB PO SCH ×2 (08:43→13:26)
[2017-03-29] MEDS: TAMSULOSIN HCL 0.4 MG CAP PO SCH (08:50)
[2017-03-29] MEDS: QUEtiapine FUMARATE 100 MG TAB PO SCH (08:50)
[2017-03-29] MEDS: NICOTINE 21 MG/24 HR PATCH T-DERMAL SCH (08:50)
[2017-03-29] MEDS: REMOVE OLD PATCH T-DERMAL SCH (08:51)
[2017-03-29] MEDS: ACETAMINOPHEN 325 MG TAB PO PRN (13:38)
--- NOTE | 2017-03-29 15:06 | HHI.PYPN ---
Subjective Remarks Patient seen today for psychiatric reevaluation, found in the recreational area of 2500 unit. Patient is cooperative, a little bit irritable, disorganized, with frequent use of neologisms and incoherent speech, but redirectable and able to answer most of our questions. He reports good mood, denies depressive symptoms, denies anhedonia, he denies suicidal and homicidal ideation. He denies visual and auditory hallucinations at this moment. Patient has been compliant with his medications, no significant side effects. No agitation, behavioral dysregulation or aggression reported. Patient is fully oriented 3, no attention deficit. Review of Systems Other No somatic complaints Objective Alert: Yes [place]: Person, Place, Date Mood: Calm Affect: Blunted Memory Intact: Comment (Not formally assessed) Hallucinations: Other (No AVH) Delusions: Yes Delusion Type: Paranoid Suicidal: Ideation (No SI) Homicidal: Ideation (No HI) Insight/Judgment Poor Vitals/IOs Vital Signs Date Time Temp Pulse Resp B/P (MAP) Pulse Ox O2 Delivery O2 Flow Rate FiO2 03/29/17 06:45 98.7 71 16 103/61 (75) 100 Intake and Output 03/29/17 03/29/17 03/30/17 08:00 16:00 00:00 Intake Total 0 ml 480 ml Output Total 500 ml Balance -500 ml 480 ml Assessment & Plan Problem List: (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 Medication was increased yesterday. Today will monitor closely mood and behavior. Will order a EKG for QTC baseline. Assessment & Plan Estimated LOS: days Justification for Cont. Inpt. A she is acutely psychotic and is to continue psychiatric hospitalization for stabilization. Larry Templeton MD Mar 29, 2017 15:06
[2017-03-29 18:02] VITALS: BP 119/62; PULSE 69; RESP 18; TEMP 98.1; O2SAT 99
[2017-03-30 05:34] VITALS: BP 105/68; PULSE 84; RESP 17; TEMP 97
[2017-03-30] MEDS: TAMSULOSIN HCL 0.4 MG CAP PO SCH (08:50)
[2017-03-30] MEDS: TRIHEXYPHENIDYL HCL 2 MG TAB PO SCH ×4 (08:50→20:07)
[2017-03-30] MEDS: QUEtiapine FUMARATE 100 MG TAB PO SCH ×2 (08:54→14:28)
[2017-03-30] MEDS: NICOTINE 21 MG/24 HR PATCH T-DERMAL SCH (08:55)
[2017-03-30] MEDS: REMOVE OLD PATCH T-DERMAL SCH (08:55)
--- NOTE | 2017-03-30 14:51 | HHI.PYPN ---
Subjective Remarks Patient was seen today for psychiatric evaluation, patient at the beginning was irritable, loud, stating that he doesn't want to talk to me "because you are the one who is keeping me here and I don't like you. I told you that I am not psychotic, I am neurotic". However, patient was able to be the escalated verbally. He reports that he has been doing fine. He denies depressive symptoms, he denies anxiety, he denies visual and auditory hallucinations. He denies suicidal and homicidal ideation. Patient becomes disorganized and tangential but he can be answer questions appropriately. He is oriented 3, compliant with his medications. Review of Systems Other No somatic complaints Objective Alert: Yes [place]: Person, Place, Date Mood: Calm Affect: Blunted Memory Intact: Comment (Not formally assessed) Hallucinations: Other (No AVH) Delusions: Yes Delusion Type: Paranoid Suicidal: Ideation (No SI) Homicidal: Ideation (No HI) Insight/Judgment Poor Vitals/IOs Vital Signs Date Time Temp Pulse Resp B/P (MAP) Pulse Ox O2 Delivery O2 Flow Rate FiO2 03/30/17 05:34 97.0 84 17 105/68 (80) 03/29/17 18:02 99 Intake and Output 03/30/17 03/30/17 03/31/17 08:00 16:00 00:00 Output Total 2000 ml Balance -2000 ml Assessment & Plan Problem List: (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 Extensive support, psychoeducation and motivation provided. Laboratories reviewed Assessment & Plan Estimated LOS: days Justification for Cont. Inpt. Patient has an elevated risk to decompensate at a lower level of care. Larry Templeton MD Mar 30, 2017 14:51
[2017-03-30] MEDS: QUEtiapine FUMARATE 200 MG TAB PO SCH ×3 (20:07→20:41)
[2017-03-31 06:17] VITALS: BP 109/67; PULSE 66; RESP 16; TEMP 98; O2SAT 96
[2017-03-31] MEDS: TAMSULOSIN HCL 0.4 MG CAP PO SCH (08:29)
[2017-03-31] MEDS: QUEtiapine FUMARATE 100 MG TAB PO SCH (08:29)
[2017-03-31] MEDS: TRIHEXYPHENIDYL HCL 2 MG TAB PO SCH ×3 (08:29→21:07)
[2017-03-31] MEDS: REMOVE OLD PATCH T-DERMAL SCH (08:36)
[2017-03-31] MEDS: NICOTINE 21 MG/24 HR PATCH T-DERMAL SCH (08:37)
--- NOTE | 2017-03-31 15:16 | HHI.PYPN ---
Subjective Remarks Patient was seen and case discussed nursing. Patient remains oppositional and rude. However he is easily redirected. Remains largely not cooperative with interview. No physical or verbal outbursts per staff. Eating and sleeping well per nursing. Insight remains poor. 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 Inpt. Patient would decompensate in a less restrictive setting Linus Webb DO Mar 31, 2017 15:15
[2017-03-31 18:20] VITALS: BP 117/62; PULSE 80; RESP 18; TEMP 98.7; O2SAT 98
[2017-03-31] MEDS: QUEtiapine FUMARATE 200 MG TAB PO SCH (21:05)
[2017-03-31] MEDS: ZOLPIDEM TARTRATE 5 MG TAB PO PRN (21:07)
[2017-03-31] MEDS: ACETAMINOPHEN 325 MG TAB PO PRN (21:40)
[2017-04-01 05:31] VITALS: BP 105/57; PULSE 57; RESP 18; TEMP 97.5; O2SAT 95
[2017-04-01] MEDS: QUEtiapine FUMARATE 100 MG TAB PO SCH (08:57)
[2017-04-01] MEDS: TRIHEXYPHENIDYL HCL 2 MG TAB PO SCH ×3 (08:57→21:30)
[2017-04-01] MEDS: REMOVE OLD PATCH T-DERMAL SCH (09:00)
[2017-04-01] MEDS: TAMSULOSIN HCL 0.4 MG CAP PO SCH (09:00)
[2017-04-01] MEDS: NICOTINE 21 MG/24 HR PATCH T-DERMAL SCH (09:00)
--- NOTE | 2017-04-01 14:59 | HHI.PYPN ---
Subjective Remarks Patient was seen and case discussed with nursing. Patient is pleasant and cooperative with exam. Alert and oriented 2. Continues to be seclusive to self with paranoid and disorganized thought process. Hyperverbal, loose associations. No outbursts today. 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 Inpt. Patient will decompensate in a less restrictive setting Linus Webb DO Apr 01, 2017 14:59
[2017-04-01 18:25] VITALS: BP 152/67; PULSE 74; RESP 17; TEMP 97.6; O2SAT 99
[2017-04-01] MEDS: ACETAMINOPHEN 325 MG TAB PO PRN (21:29)
[2017-04-01] MEDS: ZOLPIDEM TARTRATE 5 MG TAB PO PRN (21:29)
[2017-04-01] MEDS: QUEtiapine FUMARATE 200 MG TAB PO SCH (21:29)
[2017-04-02 05:22] VITALS: BP 102/62; PULSE 60; RESP 17; TEMP 97.2; O2SAT 96
[2017-04-02] MEDS: NICOTINE 21 MG/24 HR PATCH T-DERMAL SCH (09:00)
[2017-04-02] MEDS: QUEtiapine FUMARATE 100 MG TAB PO SCH (09:00)
[2017-04-02] MEDS: REMOVE OLD PATCH T-DERMAL SCH (09:00)
[2017-04-02] MEDS: TAMSULOSIN HCL 0.4 MG CAP PO SCH (09:00)
[2017-04-02] MEDS: TRIHEXYPHENIDYL HCL 2 MG TAB PO SCH ×3 (09:00→22:01)
--- NOTE | 2017-04-02 14:07 | HHI.PYPN ---
Subjective Remarks Patient was seen and case discussed with nursing. Patient is irritable, rude, and his difficulty following the conversation. He refused his morning medications. Per nursing, he had a visual hallucinations of a white poodle in his room. 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 Inpt. Patient would decompensate in a less restrictive setting Linus Webb DO Apr 02, 2017 14:07
[2017-04-02 18:24] VITALS: BP 120/80; PULSE 97; RESP 20; TEMP 98.6; O2SAT 98
[2017-04-02] MEDS: QUEtiapine FUMARATE 200 MG TAB PO SCH (21:41)
[2017-04-03 05:58] VITALS: BP 121/59; PULSE 75; RESP 16; TEMP 98.2; O2SAT 99
[2017-04-03] MEDS: REMOVE OLD PATCH T-DERMAL SCH (09:00)
[2017-04-03] MEDS: NICOTINE 21 MG/24 HR PATCH T-DERMAL SCH (09:00)
[2017-04-03] MEDS: TAMSULOSIN HCL 0.4 MG CAP PO SCH (09:04)
[2017-04-03] MEDS: QUEtiapine FUMARATE 100 MG TAB PO SCH (09:04)
[2017-04-03] MEDS: TRIHEXYPHENIDYL HCL 2 MG TAB PO SCH ×3 (09:04→20:51)
--- NOTE | 2017-04-03 11:55 | HHI.PYPN ---
Subjective Remarks Patient seen today for psychiatric reevaluation along with medical student Alina, patient is sitting in a chair in recreational area of the unit, eating his breakfast, at the beginning irritable, kind of verbally hostile, but redirectable. Patient said that he feels okay, he says that he has been having neck pain and he was "morphine", she repeatedly says that he is no psychotic "I am neurotic". As per nurses patient has been episodically agitated, but he is usually verbally redirected. He is compliant with his medications, no significant side effects. Review of Systems Musculoskeletal: COMPLAINS OF: Neck pain Other He complains of neck pain. 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 Inpt. She needs to continue psychiatric hospitalization for stabilization. Larry Templeton MD Apr 03, 2017 11:55
[2017-04-03 18:46] VITALS: BP 101/58; PULSE 73; RESP 18; TEMP 97.9; O2SAT 96
[2017-04-03] MEDS: QUEtiapine FUMARATE 200 MG TAB PO SCH ×2 (20:51→21:00)
[2017-04-03] MEDS: ZOLPIDEM TARTRATE 5 MG TAB PO PRN (20:58)
[2017-04-03] MEDS: ACETAMINOPHEN 325 MG TAB PO PRN (20:58)
[2017-04-04 06:01] VITALS: BP 128/70; PULSE 55; RESP 16; TEMP 98.1; O2SAT 98
[2017-04-04] MEDS: TAMSULOSIN HCL 0.4 MG CAP PO SCH ×2 (08:53→20:56)
[2017-04-04] MEDS: TRIHEXYPHENIDYL HCL 2 MG TAB PO SCH ×3 (08:53→20:56)
[2017-04-04] MEDS: QUEtiapine FUMARATE 100 MG TAB PO SCH ×2 (08:53→08:55)
[2017-04-04] MEDS: NICOTINE 21 MG/24 HR PATCH T-DERMAL SCH (09:00)
[2017-04-04] MEDS: REMOVE OLD PATCH T-DERMAL SCH (09:00)
--- NOTE | 2017-04-04 13:59 | HHI.PYPN ---
Subjective Remarks Age was seen today for psychiatric reevaluation in the geriatric psychiatric unit, he was also sent this morning in [place], patient continues to be disorganized, irritable, with loosening of associations, but redirectable. Patient denies suicidal and homicidal ideation, he denies visual and auditory hallucinations. Patient can be quite irritable and verbally hostile, but no agitation or aggressive behavior reported. The patient has been compliant with medications,medical side effects reported. Review of Systems Other No somatic complaints Objective Alert: Yes [place]: Person, Place, Date Mood: Angry, Oppositional Affect: Labile Memory Intact: Comment (Not formally assessed) Hallucinations: Visual (poodle in his room) Delusions: Yes Delusion Type: Paranoid Suicidal: Ideation (No SI) Homicidal: Ideation (No HI) Insight/Judgment Poor Vitals/IOs Vital Signs Date Time Temp Pulse Resp B/P (MAP) Pulse Ox O2 Delivery O2 Flow Rate FiO2 04/04/17 06:01 98.1 55 16 128/70 (89) 98 Intake and Output 04/04/17 04/04/17 04/05/17 08:00 16:00 00:00 Intake Total 720 ml Output Total 1450 ml Balance -1450 ml 720 ml Assessment & Plan Problem List: (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 Assessment & Plan Estimated LOS: days Justification for Cont. Inpt. A she has a high risk to decompensate at a lower level of care. Larry Templeton MD Apr 04, 2017 13:59
[2017-04-04 16:45] VITALS: BP 123/74; PULSE 89; RESP 18; TEMP 97.9; O2SAT 97
--- NOTE | 2017-04-04 18:31 | MB ---
cc: MARITA MONTAÑO HARRY DATE OF CONSULTATION 04/04/2017 HISTORY Mr. Pineda is a pleasant 66-year-old schizophrenic who is a poor historian also who was admitted back in late February for a schizophrenic episode and also was found to have a large left inguinal hernia involving the urinary bladder. This was repaired by Dr. Alvarado with mesh placement and he has continued to have a Perez catheter in. He was started on Flomax 0.[address] q.h[address]s. by Dr. Kessler on his initial consultation and when he was admitted back in the end of February. Apparently according to the nursing staff he did fail a void trial approximately one week ago. He also is not ambulating very much and this would also help him to be able to urinate more freely. He denies any constipation. PAST MEDICAL HISTORY His medical history includes: 1. Schizophrenia. 2. Hepatitis B. 3. Hypertension. PAST SURGICAL HISTORY Notable for tonsillectomy. FAMILY HISTORY Denies any diabetes or heart disease. SOCIAL HISTORY There is a history of tobacco usage. Negative for alcohol or drugs. REVIEW OF SYSTEMS Denies chest pain or shortness of breath. Denies abdominal pain. Denies gait disturbances, bleeding disorders, skin lesions. The remaining review of systems were performed and are negative. PHYSICAL EXAMINATION VITAL SIGNS: Today 96.3, heart rate 61, respiratory rate 17, 129/66 is his blood pressure. 97% on room air. GENERAL: He is well-developed, well-nourished 66-year-old male in no acute distress. HEAD, EARS, EYES, NOSE, AND THROAT: Normocephalic, atraumatic. Pupils equal round, reactive to light. Extraocular movements intact. NECK: Supple. HEART: Regular rate and rhythm. LUNGS: clear. ABDOMEN: Soft, nontender, nondistended. Perez catheter is in place. EXTREMITIES: Show no cyanosis, clubbing or edema. LABORATORY FINDINGS BMP sodium 137, potassium 4.5, chloride 104, CO2 25.1, BUN 29, creatinine 0.69, glucose of 144. IMAGING Renal bladder ultrasound from 03/03 showed bilateral hydronephrosis with wall thickening of the urinary bladder. A right upper pole kidney cyst was 2.2 cm in size. ASSESSMENT A 66-year-old male admitted with schizophrenia and recent left inguinal hernia repair involving the bladder with a history lower urinary tract symptoms currently on Flomax. We will double Flomax to 0.4 mg p.o. q.h.s. and attempt a void trial in the a.m. We will determine if further intervention is needed after the void trial. Thank you for the consult and allowing me to participate in the care of this patient. Marita RODRIGUEZ /5:36 PM /6:12 PM
[2017-04-04] MEDS: ZOLPIDEM TARTRATE 5 MG TAB PO PRN (20:56)
[2017-04-04] MEDS: QUEtiapine FUMARATE 200 MG TAB PO SCH (20:56)
[2017-04-05 06:14] VITALS: BP 96/52; PULSE 64; RESP 16; TEMP 97.1; O2SAT 98
[2017-04-05] MEDS: REMOVE OLD PATCH T-DERMAL SCH (09:00)
[2017-04-05] MEDS: NICOTINE 21 MG/24 HR PATCH T-DERMAL SCH (10:44)
[2017-04-05] MEDS: QUEtiapine FUMARATE 100 MG TAB PO SCH ×2 (10:44→10:48)
[2017-04-05] MEDS: TRIHEXYPHENIDYL HCL 2 MG TAB PO SCH ×3 (10:45→22:03)
[2017-04-05] MEDS: TAMSULOSIN HCL 0.4 MG CAP PO SCH ×2 (10:45→22:03)
--- NOTE | 2017-04-05 16:26 | HHI.PYPN ---
Subjective Remarks She was seen today for psychiatric evaluation, patient continues to be disorganized, stating that he is not psychotic "I am neurotic". Patient denies depressive symptoms, he says that he is mostly happy, at times becomes mad with the nurses "because they don't treat me as an special human being". He has been compliant with his medications, no significant side effects reported. Patient is oriented 3. No agitation or aggressive behavior reported. She was seen by urology, the retired the catheter and the patient is now in a voiding trial. Review of Systems Other No somatic complaints Objective Alert: Yes [place]: Person, Place, Date Mood: Angry, Oppositional Affect: Labile Memory Intact: Comment (Not formally assessed) Hallucinations: Visual (poodle in his room) Delusions: Yes Delusion Type: Paranoid Suicidal: Ideation (No SI) Homicidal: Ideation (No HI) Insight/Judgment Poor Vitals/IOs Vital Signs Date Time Temp Pulse Resp B/P (MAP) Pulse Ox O2 Delivery O2 Flow Rate FiO2 04/05/17 06:14 97.1 64 16 96/52 (67) 98 Intake and Output 04/05/17 04/05/17 04/06/17 08:00 16:00 00:00 Output Total 1000 ml Balance -1000 ml Assessment & Plan Problem List: (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 Urology consult appreciated. I will consult physical therapy to assess level of function. Assessment & Plan Estimated LOS: days Justification for Cont. Inpt. Patient has an elevated risk to decompensate at a lower level of care. Larry Templeton MD Apr 05, 2017 16:26
[2017-04-05] MEDS: ZOLPIDEM TARTRATE 5 MG TAB PO PRN (22:17)
[2017-04-06 06:26] VITALS: BP 107/59; PULSE 78; RESP 16; TEMP 98.3
[2017-04-06] MEDS: TAMSULOSIN HCL 0.4 MG CAP PO SCH ×3 (09:00→22:05)
[2017-04-06] MEDS: REMOVE OLD PATCH T-DERMAL SCH (09:00)
[2017-04-06] MEDS: TRIHEXYPHENIDYL HCL 2 MG TAB PO SCH ×3 (09:40→22:05)
[2017-04-06] MEDS: NICOTINE 21 MG/24 HR PATCH T-DERMAL SCH (09:44)
--- NOTE | 2017-04-06 15:59 | HHI.PYPN ---
Subjective Remarks The patient is seen today for psychiatric reevaluation along with medical student Alina, patient is found in his bed, complaining of abdominal distention, discomfort for in the lower abdomen. He says that he has been going to the bathroom, urinating just a little bit. He denies suicidal or homicidal ideation, he denies visual and auditory hallucinations. Patient has been compliant with his medications. Review of Systems Gastrointestinal: COMPLAINS OF: Abdominal pain Objective Alert: Yes [place]: Person, Place, Date Mood: Angry, Oppositional Affect: Labile Memory Intact: Comment (Not formally assessed) Hallucinations: Visual (poodle in his room) Delusions: Yes Delusion Type: Paranoid Suicidal: Ideation (No SI) Homicidal: Ideation (No HI) Insight/Judgment Fair Vitals/IOs Vital Signs Date Time Temp Pulse Resp B/P (MAP) Pulse Ox O2 Delivery O2 Flow Rate FiO2 04/06/17 06:26 98.3 78 16 107/59 (75) 04/05/17 06:14 98 Intake and Output 04/06/17 04/06/17 04/06/17 07:59 15:59 23:59 Intake Total 480 ml Balance 480 ml Assessment & Plan Problem List: (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 Assessment & Plan Estimated LOS: days Justification for Cont. Inpt. Patient has an elevated risk to decompensate at a lower level of care. Larry Templeton MD Apr 06, 2017 15:59
[2017-04-06] MEDS: QUEtiapine FUMARATE 200 MG TAB PO SCH ×3 (21:00→22:07)
[2017-04-07 06:13] VITALS: BP 105/62; PULSE 65; RESP 18; TEMP 98.1; O2SAT 95
[2017-04-07] MEDS: TRIHEXYPHENIDYL HCL 2 MG TAB PO SCH ×2 (08:48→21:32)
[2017-04-07] MEDS: TAMSULOSIN HCL 0.4 MG CAP PO SCH ×2 (08:49→21:31)
[2017-04-07] MEDS: QUEtiapine FUMARATE 100 MG TAB PO SCH (08:49)
[2017-04-07] MEDS: REMOVE OLD PATCH T-DERMAL SCH (08:52)
[2017-04-07] MEDS: NICOTINE 21 MG/24 HR PATCH T-DERMAL SCH (08:52)
--- NOTE | 2017-04-07 16:27 | HHI.PYPN ---
Subjective Remarks Pt seen and discussed with staff. property staff accountant report that pt has refused urine scan but has been urinating throughout the day without trouble. He has been refusing medications including seroquel. He told RN that he had been poisoned with a blueberry muffin and tells author, "Im internally poisoned by external poison..GREAT JOB DOC!" Objective Alert: Yes [place]: Person, Place, Date Mood: Oppositional, Other (irritable) Affect: Labile Memory Intact: Comment (Not formally assessed) Hallucinations: Other (none elicited) Delusions: Yes Delusion Type: Paranoid Suicidal: Ideation (No SI) Homicidal: Ideation (No HI) Insight/Judgment poor Vitals/IOs Vital Signs Date Time Temp Pulse Resp B/P (MAP) Pulse Ox O2 Delivery O2 Flow Rate FiO2 04/07/17 06:13 98.1 65 18 105/62 (76) 95 Intake and Output 04/07/17 04/07/17 04/08/17 08:00 16:00 00:00 Intake Total 240 ml 120 ml Balance 240 ml 120 ml Assessment & Plan Problem List: (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 Estimated LOS: days Justification for Cont. Inpt. impairments in reality testing and self care Claudette Vivas MD Apr 07, 2017 16:27
[2017-04-07] MEDS: LORazepam 0.5 MG TAB PO PRN (17:03)
[2017-04-07 18:00] VITALS: BP 109/68; PULSE 62; RESP 16; TEMP 98.3; O2SAT 96
[2017-04-07] MEDS: ZOLPIDEM TARTRATE 5 MG TAB PO PRN (21:35)
[2017-04-08] MEDS: TAMSULOSIN HCL 0.4 MG CAP PO SCH ×2 (08:33→21:00)
[2017-04-08] MEDS: QUEtiapine FUMARATE 100 MG TAB PO SCH (08:33)
[2017-04-08] MEDS: TRIHEXYPHENIDYL HCL 2 MG TAB PO SCH ×2 (08:33→22:10)
[2017-04-08] MEDS: NICOTINE 21 MG/24 HR PATCH T-DERMAL SCH (08:35)
[2017-04-08] MEDS: REMOVE OLD PATCH T-DERMAL SCH (08:36)
--- NOTE | 2017-04-08 10:24 | HHI.PYPN ---
Subjective Remarks Pt seen and discussed with staff. He continues to refuse flomax and seroquel, stating that he does not need it. He states that he is not going to take medications "or anything else you use". He is paranoid and believes that he is being poisoned. 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 Continue current tx plan. Estimated LOS: days Justification for Cont. Inpt. impairments in reality testing and self-care Claudette Vivas MD Apr 08, 2017 10:24
[2017-04-08] MEDS: QUEtiapine FUMARATE 200 MG TAB PO SCH (21:00)
[2017-04-09 06:50] VITALS: BP 112/76; PULSE 91; RESP 18; TEMP 98.1; O2SAT 95
[2017-04-09] MEDS: REMOVE OLD PATCH T-DERMAL SCH (09:00)
[2017-04-09] MEDS: TRIHEXYPHENIDYL HCL 2 MG TAB PO SCH ×2 (09:00→21:53)
[2017-04-09] MEDS: NICOTINE 21 MG/24 HR PATCH T-DERMAL SCH (09:00)
[2017-04-09] MEDS: TAMSULOSIN HCL 0.4 MG CAP PO SCH ×2 (09:00→21:00)
[2017-04-09] MEDS: QUEtiapine FUMARATE 100 MG TAB PO SCH (09:00)
--- NOTE | 2017-04-09 10:08 | HHI.PYPN ---
Subjective Remarks On psychiatric evaluation today the patient is found a recreational area of the unit, sitting down in his chair having breakfast. Patient is superficially cooperative, no agitated, a little bit disorganized. Patient says that he had a good weekend, "but you know they have a prisoner here". As per nursing charge patient has been taking his medications on and off, he refused Seroquel last night. I discussed with the patient the convenience and importance of being compliant with his medication, patient says that he will consider to take his medication "if I feel that he needed". Patient is fully oriented 3, no attention deficit, no fluctuation of consciousness. Review of Systems Other No somatic complaints Objective Alert: Yes [place]: Person, Place, Date Mood: Oppositional, Other (irritable) Affect: Labile Memory Intact: Comment (Not formally assessed) Hallucinations: Other (none elicited) Delusions: Yes Delusion Type: Paranoid Suicidal: Ideation (No SI) Homicidal: Ideation (No HI) Insight/Judgment Poor Vitals/IOs Vital Signs Date Time Temp Pulse Resp B/P (MAP) Pulse Ox O2 Delivery O2 Flow Rate FiO2 04/09/17 06:50 98.1 91 18 112/76 (88) 95 Intake and Output 04/09/17 04/09/17 04/10/17 08:00 16:00 00:00 Intake Total 840 ml Output Total 300 ml Balance 540 ml Assessment & Plan Problem List: (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 We'll continue current psychotropic regimen. Assessment & Plan Estimated LOS: days Justification for Cont. Inpt. Patient is acutely psychotic, partially compliant with medications, he needs to continue psychiatric hospitalization for stabilization Larry Templeton MD Apr 09, 2017 10:08
[2017-04-09 17:12] VITALS: BP 104/64; PULSE 79; RESP 18; TEMP 97.6; O2SAT 97
[2017-04-09] MEDS: QUEtiapine FUMARATE 200 MG TAB PO SCH (21:00)
[2017-04-10 06:00] VITALS: BP 95/55; PULSE 66; RESP 18; TEMP 98.3; O2SAT 96
[2017-04-10] MEDS: TRIHEXYPHENIDYL HCL 2 MG TAB PO SCH ×2 (09:00→21:00)
[2017-04-10] MEDS: REMOVE OLD PATCH T-DERMAL SCH (09:00)
[2017-04-10] MEDS: QUEtiapine FUMARATE 100 MG TAB PO SCH (09:00)
[2017-04-10] MEDS: NICOTINE 21 MG/24 HR PATCH T-DERMAL SCH (09:00)
[2017-04-10] MEDS: TAMSULOSIN HCL 0.4 MG CAP PO SCH ×2 (09:00→21:00)
--- NOTE | 2017-04-10 15:52 | HHI.PYPN ---
Subjective Remarks Patient was seen today for psychiatric reevaluation, patient was found in his bed, sleeping, but easily arousable. Patient states that he has been sleeping more than usual in the last days, however he reports good mood, good appetite, level of concentration, he denies depressive symptoms, he denies suicidal and homicidal ideation, he denies visual and auditory hallucinations. Patient has been compliant with medications, no agitation or aggressive behavior reported. Review of Systems Other No somatic complaints Objective Alert: Yes [place]: Person, Place, Date Mood: Oppositional, Other (irritable) Affect: Labile Memory Intact: Comment (Not formally assessed) Hallucinations: Other (none elicited) Delusions: Yes Delusion Type: Paranoid Suicidal: Ideation (No SI) Homicidal: Ideation (No HI) Insight/Judgment Poor Vitals/IOs Vital Signs Date Time Temp Pulse Resp B/P (MAP) Pulse Ox O2 Delivery O2 Flow Rate FiO2 04/10/17 06:00 98.3 66 18 95/55 (68) 96 Intake and Output 04/10/17 04/10/17 04/11/17 08:00 16:00 00:00 Intake Total 720 ml 680 ml Balance 720 ml 680 ml Assessment & Plan Problem List: (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 Assessment & Plan Estimated LOS: days Justification for Cont. Inpt. Patient has an increased risk to decompensate at a lower level of care. Larry Templeton MD Apr 10, 2017 15:52
[2017-04-10 18:09] VITALS: BP 105/66; PULSE 56; RESP 18; TEMP 97.4; O2SAT 97
[2017-04-10] MEDS: QUEtiapine FUMARATE 200 MG TAB PO SCH (21:00)
[2017-04-11 05:43] VITALS: BP 115/57; PULSE 60; RESP 16; TEMP 97.3
[2017-04-11] MEDS: REMOVE OLD PATCH T-DERMAL SCH (09:00)
[2017-04-11] MEDS: TAMSULOSIN HCL 0.4 MG CAP PO SCH ×3 (09:31→21:00)
[2017-04-11] MEDS: QUEtiapine FUMARATE 100 MG TAB PO SCH ×2 (09:31→09:36)
[2017-04-11] MEDS: TRIHEXYPHENIDYL HCL 2 MG TAB PO SCH ×3 (09:32→21:00)
--- NOTE | 2017-04-11 14:21 | PD.TTN ---
Patient Problems 1. Discharge planning 2. Medication compliance 3. Knowledge deficit 4. Lack of coping skills Progress Toward Goals Provider Present: Dr. Jenna Templeton Provider Input: Pt is stable and appears at baseline and is dischargeable Psychiatric Counselors Present: Priya Schmitz LCSW Psych Therapist Input: Facility assessed pt paperwork is pending Level II State Assessment for NH placement, they will come visit pt this week pt has been more active and compliant since discharge is approaching Priya Schmitz LCSW Apr 11, 2017 14:20
--- NOTE | 2017-04-11 15:43 | HHI.PYPN ---
Subjective Remarks Patient was seen today for psychiatric reevaluation, patient was discussed in treatment team, patient continues to present at baseline, at times disorganized and tangential, but usually redirectable and cooperative. He denies visual and auditory hallucinations, suicidal and homicidal ideation. Patient is fully oriented 3, compliant with his medications, no significant side effects. Review of Systems Other Patient doesn't have any somatic complaints Objective Alert: Yes [place]: Person, Place, Date Mood: Oppositional, Other (irritable) Affect: Labile Memory Intact: Comment (Not formally assessed) Hallucinations: Other (none elicited) Delusions: Yes Delusion Type: Paranoid Suicidal: Ideation (No SI) Homicidal: Ideation (No HI) Insight/Judgment Poor Vitals/IOs Vital Signs Date Time Temp Pulse Resp B/P (MAP) Pulse Ox O2 Delivery O2 Flow Rate FiO2 04/11/17 05:43 97.3 60 16 115/57 (76) 04/10/17 18:09 97 Intake and Output 04/11/17 04/11/17 04/12/17 08:00 16:00 00:00 Intake Total 240 ml 960 ml Balance 240 ml 960 ml Assessment & Plan Problem List: (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 Inpt. Patient will continue psychiatric hospitalization due to the risk of decompensation at a lower level of care. Larry Templeton MD Apr 11, 2017 15:43
[2017-04-11 18:28] VITALS: BP 118/60; PULSE 77; RESP 18; TEMP 97.7; O2SAT 77
[2017-04-11] MEDS: QUEtiapine FUMARATE 200 MG TAB PO SCH (21:00)
[2017-04-12 05:49] VITALS: BP 113/68; PULSE 85; RESP 17; TEMP 99.3
[2017-04-12] MEDS: REMOVE OLD PATCH T-DERMAL SCH (09:00)
[2017-04-12] MEDS: TRIHEXYPHENIDYL HCL 2 MG TAB PO SCH ×2 (09:42→20:42)
[2017-04-12] MEDS: TAMSULOSIN HCL 0.4 MG CAP PO SCH ×2 (09:42→20:42)
--- NOTE | 2017-04-12 15:57 | HHI.PYPN ---
Subjective Remarks Patient is seen today for psychiatric evaluation, patient is in bed, sleepy, but arousable. He reports good mood, good appetite, good level of concentration , he feels safe in the unit, denies paranoia, denies perceptual disturbances. He denies suicidal and homicidal ideation. Patient complains of daytime sedation and poor energy. He is completely oriented 3. Review of Systems Other No somatic complaints Objective Alert: Yes [place]: Person, Place, Date Mood: Angry, Other (irritable) Affect: Labile Memory Intact: Comment (Not formally assessed) Hallucinations: Other (none elicited) Delusions: Yes Delusion Type: Paranoid Suicidal: Ideation (No SI) Homicidal: Ideation (No HI) Insight/Judgment Poor Vitals/IOs Vital Signs Date Time Temp Pulse Resp B/P (MAP) Pulse Ox O2 Delivery O2 Flow Rate FiO2 04/12/17 05:49 99.3 85 17 113/68 (83) 04/11/17 18:28 77 Intake and Output 04/12/17 04/12/17 04/13/17 08:00 16:00 00:00 Intake Total 240 ml Balance 240 ml Assessment & Plan Problem List: (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 Discontinue the 100 mg in the morning to avoid the sedation. Assessment & Plan Estimated LOS: days Justification for Cont. Inpt. Patient has an increased chance to decompensate at a lower level of care. Larry Templeton MD Apr 12, 2017 15:57
[2017-04-12 18:05] VITALS: BP 119/56; PULSE 69; RESP 17; TEMP 98.2; O2SAT 98
[2017-04-12] MEDS: QUEtiapine FUMARATE 200 MG TAB PO SCH (20:42)
[2017-04-12] MEDS: ZOLPIDEM TARTRATE 5 MG TAB PO PRN (20:42)
[2017-04-13 06:00] VITALS: BP 92/66; PULSE 67; RESP 18; TEMP 98.2
[2017-04-13] MEDS: REMOVE OLD PATCH T-DERMAL SCH (09:00)
[2017-04-13] MEDS: TRIHEXYPHENIDYL HCL 2 MG TAB PO SCH ×2 (09:20→20:38)
[2017-04-13] MEDS: TAMSULOSIN HCL 0.4 MG CAP PO SCH ×2 (09:21→20:37)
--- NOTE | 2017-04-13 11:29 | HHI.PYPN ---
Subjective Remarks On psychiatric evaluation today patient is found walking in the hill, he is more alert, more cooperative, he reports good mood, he says that he had a good breakfast this morning. Patient seems to be less sedated today than yesterday. Reports lower abdominal pain. However he says that he is urinating and defecating without a problem. He denies suicidal and homicidal ideation, he denies visual and auditory hallucinations. He is oriented 3. Comply with medication, no significant side effects. Review of Systems Other No somatic complaints Objective Alert: Yes [place]: Person, Place, Date Mood: Angry, Other (irritable) Affect: Labile Memory Intact: Comment (Not formally assessed) Hallucinations: Other (none elicited) Delusions: Yes Delusion Type: Paranoid Suicidal: Ideation (No SI) Homicidal: Ideation (No HI) Insight/Judgment Fair Vitals/IOs Vital Signs Date Time Temp Pulse Resp B/P (MAP) Pulse Ox O2 Delivery O2 Flow Rate FiO2 04/13/17 06:00 98.2 67 18 92/66 (75) 04/12/17 18:05 98 Intake and Output 04/13/17 04/13/17 04/14/17 08:00 16:00 00:00 Intake Total 1560 ml Balance 1560 ml Assessment & Plan Problem List: (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 Inpt. Patient has an increased chance to decompensate at a lower level of care. Larry Templeton MD Apr 13, 2017 11:29
[2017-04-13] MEDS ORDERED: ACETAMINOPHEN 325 MG TAB PO PRN (17:30)
[2017-04-13] MEDS: IBUPROFEN 400 MG TAB PO PRN ×2 (18:35→18:39)
[2017-04-13] MEDS: QUEtiapine FUMARATE 200 MG TAB PO SCH (20:37)
[2017-04-13] MEDS: ZOLPIDEM TARTRATE 5 MG TAB PO PRN (20:38)
[2017-04-14] MEDS: IBUPROFEN 400 MG TAB PO PRN (00:22)
[2017-04-14 05:59] VITALS: BP 98/59; PULSE 60; RESP 17; TEMP 97.4; O2SAT 96
[2017-04-14] MEDS: REMOVE OLD PATCH T-DERMAL SCH (09:00)
[2017-04-14] MEDS: TAMSULOSIN HCL 0.4 MG CAP PO SCH ×2 (09:36→20:21)
[2017-04-14] MEDS: TRIHEXYPHENIDYL HCL 2 MG TAB PO SCH ×2 (09:36→20:21)
--- NOTE | 2017-04-14 14:12 | HHI.PYPN ---
Subjective Remarks Patient was seen and case discussed with nursing. Patient is excited about possible discharge next week. Is more sensible compared to her last meeting. No irritability was noticed today. 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 Inpt. Patient will decompensate in a less restrictive setting Linus Webb DO Apr 14, 2017 14:12
[2017-04-14] MEDS: QUEtiapine FUMARATE 200 MG TAB PO SCH (20:20)
[2017-04-15 05:14] VITALS: BP 114/77; PULSE 102; RESP 18; TEMP 97.7
[2017-04-15] MEDS: TRIHEXYPHENIDYL HCL 2 MG TAB PO SCH ×2 (08:42→21:06)
[2017-04-15] MEDS: TAMSULOSIN HCL 0.4 MG CAP PO SCH ×2 (08:42→21:06)
[2017-04-15] MEDS: REMOVE OLD PATCH T-DERMAL SCH (09:00)
--- NOTE | 2017-04-15 12:59 | HHI.PYPN ---
Subjective Remarks Patient was seen and case discussed with nursing. Patient is pleasant and cooperative with exam. Behaving well on the unit. Continues to respond to internal stimuli. Compliant with medications Objective Alert: Yes [place]: Person, Place Mood: Other (mildly irritable) Affect: Labile Memory Intact: Comment (Not formally assessed) Hallucinations: Other (none elicited) Delusions: Yes Delusion Type: Paranoid (vigilance) Suicidal: Ideation (No SI) Homicidal: Ideation (No HI) Insight/Judgment Poor Vitals/IOs Vital Signs Date Time Temp Pulse Resp B/P (MAP) Pulse Ox O2 Delivery O2 Flow Rate FiO2 04/15/17 05:14 97.7 102 18 114/77 (89) 04/14/17 05:59 96 Intake and Output 04/15/17 04/15/17 04/16/17 08:00 16:00 00:00 Intake Total 600 ml Balance 600 ml Assessment & Plan Problem List: (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 Inpt. Patient would decompensate in a less restrictive setting Linus Webb DO Apr 15, 2017 12:59
[2017-04-15 17:01] VITALS: PULSE 82; TEMP 98.6
[2017-04-15] MEDS: IBUPROFEN 400 MG TAB PO PRN (17:17)
[2017-04-15] MEDS: QUEtiapine FUMARATE 200 MG TAB PO SCH (21:06)
[2017-04-16 05:18] VITALS: BP 102/55; PULSE 53; RESP 16; TEMP 97.5
[2017-04-16] MEDS: TAMSULOSIN HCL 0.4 MG CAP PO SCH ×2 (08:29→21:31)
[2017-04-16] MEDS: TRIHEXYPHENIDYL HCL 2 MG TAB PO SCH ×2 (08:29→21:31)
[2017-04-16] MEDS: REMOVE OLD PATCH T-DERMAL SCH (09:00)
--- NOTE | 2017-04-16 15:21 | HHI.PYPN ---
Subjective Remarks She is seen today for psychiatric reevaluation, patient is irritable, kind of incoherent, but redirectable. He says that he does not like to be called "Mr. Pineda was my father". He reports good mood, denies depression, denies anxiety, denies suicidal and homicidal ideation, he denies visual and auditory hallucinations. His pain, distress, able to sleeping at night, he is compliant with medications, no significant side effects. He is fully oriented 3. Objective Alert: Yes [place]: Person, Place Mood: Other (mildly irritable) Affect: Labile Memory Intact: Comment (Not formally assessed) Hallucinations: Other (none elicited) Delusions: Yes Delusion Type: Paranoid (vigilance) Suicidal: Ideation (No SI) Homicidal: Ideation (No HI) Insight/Judgment Poor Vitals/IOs Vital Signs Date Time Temp Pulse Resp B/P (MAP) Pulse Ox O2 Delivery O2 Flow Rate FiO2 04/16/17 05:18 97.5 53 16 102/55 (71) 04/14/17 05:59 96 Intake and Output 04/16/17 04/16/17 04/17/17 08:00 16:00 00:00 Intake Total 120 ml 240 ml Balance 120 ml 240 ml Assessment & Plan Problem List: (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 Inpt. Patient has an elevator risk to decompensate at a lower level of care. Larry Templeton MD Apr 16, 2017 15:21
[2017-04-16 18:00] VITALS: BP 116/73; PULSE 67; RESP 18; TEMP 97.1; O2SAT 95
[2017-04-16] MEDS: IBUPROFEN 400 MG TAB PO PRN (21:29)
[2017-04-16] MEDS: QUEtiapine FUMARATE 200 MG TAB PO SCH (21:31)
[2017-04-17 06:00] VITALS: BP 101/66; PULSE 73; RESP 18; TEMP 97; O2SAT 98
[2017-04-17] MEDS: REMOVE OLD PATCH T-DERMAL SCH (09:00)
[2017-04-17] MEDS ORDERED: TRIH2 PO (09:09)
[2017-04-17] MEDS ORDERED: QUET1TAB9 PO (09:09)
[2017-04-17] MEDS ORDERED: TAMS5CAP PO (09:09)
[2017-04-17] MEDS: TRIHEXYPHENIDYL HCL 2 MG TAB PO SCH (09:50)
[2017-04-17] MEDS: IBUPROFEN 400 MG TAB PO PRN (09:50)
[2017-04-17] MEDS: TAMSULOSIN HCL 0.4 MG CAP PO SCH (09:50)
--- NOTE | 2017-04-17 12:16 | HHI.DS ---
Psychiatry Discharge Summary Inpatient Psychiatric care?: Yes Advance Directive: No Reason Not Provided: Due to Patient Condition Mental Health AdvanceDirective: No Health Care Proxy: No Admission Admission Date Mar 21, 2017 at 15:45 Admission Diagnosis: (1) Disorganized schizophrenia ICD Code: F20.1 - Disorganized schizophrenia Brief History From Dr. Templeton's H&P: Patient is a 66 y/o man, domiciled at [facility], secondary history of schizophrenia, previous psychiatric hospitalizations, multiple psychotropics , well known by this service, who was brought to the ED under Tasqe Act for psychiatric evaluation as per report was threatening to others which psychiatry was consulted for evaluation and currently on the medical floor due inguinal hernia. After discussion with nursing staff, patient has with no behavioral dyscontrol recently.Patient was seen on the medical floor, lying on hospital bed , noted to be irritable and guarded and superficially cooperative with interview. Patient alert and oriented to person, date (month), and person but not to situation. Patient states that he was brought here to the hospital after staff at his residence called EMS. Patient states that he mostly resides in his room because of difficulty with ambulation and doesnt understand why EMT was called. Patient mentions that this is the 2-3rd time he has been sent to the hospital. When informed of the Meehan act he states Its a lie!. Patient reports his mood lately being stable, no problems with sleep, concentration, some decreased energy, denies feeling sad or depressed, denies any perceptual disturbances or manic symptoms. Patient is a poor historian and superficially cooperative with interview. Patient is NPO and perseverative on asking for water. Patient is seen today for psychiatric evaluation in [facility], patient is disorganized, guarded and oppositional, he says that he cannot talk to me and give me any information "because I don't know you are, maybe you're running this investigation". When I asked the patient to be more specific he says "you' re an informant and you know it". Patient says that today is his birthday [birth year]", but when he is asked about the date and place he answers appropriately. As per nurses, patient has been talking to himself, times very loud, difficult to redirect, refusing medications and to speak with medical team. On my examination today: Patient seen and examined with nurse. Chart reviewed. Patient well known to me from previous psychiatric hospitalizations. He was most recently hospitalized under my care from the end of November through the beginning of January of this year. Case discussed with nursing staff. On my examination today, the patient presents as irritable, oppositional and disorganized. Paranoia noted. He appears internally stimulated. He says he is not hallucinating but then gesticulates at something on the wall where I can see nothing. He declines to answer regarding SI/HI and in any event seems unreliable to contract for safety. Psychiatric interview is limited because patient is fairly oppositional and disorganized. I am unable to obtain past psychiatric, family, chem dep or social history for the same reason. Tobacco Use In Past 30 Days: Refused To Answer Alcohol Use: Never Hospital Course Patient was admitted in the psychiatric unit due to disorganized behavior, tangential and incoherent thought process, paranoia. Psychiatric and psychosocial assessment were performed. Safety measures were taken. Patient was restarted in his outpatient medications. Medications were titrated as needed. During this hospitalization also Seroquel was added and titrated up to 500 mg at bedtime. Patient showed a very good response to this medication. Patient reached baseline, a baseline patient is can of disorganized, a little paranoid and incoherent. But, most of the time he could make sense of his completely oriented 3. No episodes of aggressive behavior, agitation reported. She was compliant with his medication most of the time, sometimes he needed some encouragement. At the moment of discharge patient is a baseline, no depression, no anxiety, no kassi or florid psychosis present. Results Blood Pressure 101 / 66 Vital Signs Date Time Temp Pulse Resp B/P (MAP) Pulse Ox O2 Delivery O2 Flow Rate FiO2 04/17/17 06:00 97.0 73 18 101/66 (78) 98 Laboratory Results Test 03/27/17 12:22 Cholesterol Level 143 MG/DL (120-200) HDL Cholesterol 43.0 MG/DL (40.0-60.0) Hemoglobin A1c 6.1 % (4.3-6.0) LDL Cholesterol 74 MG/DL (0-99) Triglycerides Level 132 MG/DL (42-150) Summary of Procedures None Pending results at discharge: No Medications # of Antipsychotic meds at D/C: 2 Approp Antipsych med options 1 - Minimum of three failed multiple trials of monotherapy. 2 - Documented plan to taper to monotherapy due to previous use of multiple meds OR cross-taper in progress at D/C. 3 - Documentation of augmentation of Clozapine. 4 - Justification other than those listed in allowable values 1-3, document here : Discharge Discharge Date: Apr 17, 2017 Discharge Diagnosis: (1) Disorganized schizophrenia ICD Code: F20.1 - Disorganized schizophrenia Status: Acute Mental Status Exam at [facility], long hair, calm, superficially cooperative. Speech is at times incoherent, mumbling. Affect is irritable, mood "Fine". Thought processes logical, linear, at times incoherent and disorganized. Thought content is devoid of suicidal ideation, homicidal ideation, visual and auditory hallucinations. No paranoia or delusion same at this moment. Impulse control, judgment and insight are fair. Cognition is intact. Pt Condition on Discharge: Stable Discharge Disposition: RACHEL with [facility] Discharge Instructions Diet Instructions: Heart Healthy Diet Activities you can perform: Weight Bearing as Louise Scheduled Appointment: Facility will schedule all follow up appts. Discharge Time > 30 minutes Discharge/Advance Care Plan Health Problems: (1) Disorganized schizophrenia Goals to promote your health * To prevent worsening of your condition and complications * To maintain your health at the optimal level Directions to meet your goals Take your medications as prescribed Follow your dietary instruction Follow activity as directed Keep your appointments as scheduled Take your immunizations and boosters as scheduled If your symptoms worsen call your PCP, if no PCP go to Urgent Care Center or Emergency Room For 05/02 questions related to your inpatient stay or results of tests pending at discharge, please contact Dr. Larry Templeton at Smoking is Dangerous to Your Health. Avoid second hand smoking Larry Templeton MD Apr 17, 2017 12:16
== END 2017-04-17 13:00 | DRG 885 ==
LOC: H4EA 15:45 → HCPC 03-23 08:00 → H4EA 03-23 08:05 → H250 03-23 14:30
PROVIDERS: ADMIT Psychiatry & Neurology Psychiatry; ATTEND Psychiatry & Neurology Psychiatry
DX: F20.1 Disorganized schizophrenia (principal); B19.10 Unspecified viral hepatitis B without hepatic coma; I10 Essential (primary) hypertension; F20.0 Paranoid schizophrenia; M43.6 Torticollis; N50.89 Other specified disorders of the male genital organs; R33.9 Retention of urine, unspecified; Z87.891 Personal history of nicotine dependence; R14.0 Abdominal distension (gaseous)
CPT/HCPCS: 80048; 80061; 83036

== ENCOUNTER 2017-11-06 11:49 | Inpatient (IN) | payer MEDICARE, OTHER ==
[~2017-11-06] VITALS: Ht 180.3 cm; Wt 82.0 kg
[~2017-11-06 11:49] MED LIST changes: +QUET1TAB9 PO
[2017-11-06 11:54] VITALS: BP 112/68; PULSE 76; RESP 18; TEMP 98.7; O2SAT 97
--- NOTE | 2017-11-06 12:19 | PD ---
HPI Chief Complaint: Psychiatric Symptoms Time Seen by Provider: 11:56 Travel History International Travel<30 days: No Contact w/Intl Traveler<30days: No Traveled to known affect area: No History of Present Illness HPI 67-year-old male who presents to the ED for evaluation of Meehan act. Patient was Meehan acted secondary to not taking his medications and been noncompliant. Patient apparently been also agitated. Patient has a known history of paranoid schizophrenia and has been hospitalized for similar in the past. He denies any falls or injuries. He states that he will "not talk to me." Very limited history obtained from him as patient himself will not collaborate with me. All the report I got was obtained from the paperwork from the facility where he states that. Patient appears to have a chronic wound to his nose. Patient denies any symptoms and the only thing he asked for his for "water but not bottled water ". Denies any suicidal homicidal ideation. She does appear to be somewhat psychotic at this time so history is very limited. PFSH Past Medical History Arthritis: No Asthma: No Autoimmune Disease: No Blood Disorders: No Anxiety: No Depression: No Heart Rhythm Problems: No Cancer: No Cardiovascular Problems: No High Cholesterol: No Chemotherapy: No Chest Pain: No Congestive Heart Failure: No COPD: No Cerebrovascular Accident: No Diabetes: Yes Diminished Hearing: No Endocrine: Yes Gastrointestinal Disorders: Yes (hep b) GERD: No Glaucoma: No Genitourinary: No Headaches: No Hepatitis: Yes (hx. of hep B per medical record) Hiatal Hernia: No Hypertension: Yes Immune Disorder: No Implanted Vascular Access Dvce: No Kidney Stones: No Musculoskeletal: No Neurologic: Yes (parkinsons disease) Parkinson's Disease: Yes Psychiatric: Yes (schizophrenia) Reproductive: No Respiratory: No Migraines: No Myocardial Infarction: No Radiation Therapy: No Renal Failure: No Schizophrenia: Yes (PARANOID) Seizures: No Sickle Cell Disease: No Sleep Apnea: No Thyroid Disease: No Ulcer: No Past Surgical History Abdominal Surgery: No AICD: No Arteriovenous Shunt: No Cardiac Surgery: No Ear Surgery: No Endocrine Surgery: No Eye Surgery: No Genitourinary Surgery: No Gynecologic Surgery: No Insulin Pump: No Joint Replacement: No Neurologic Surgery: No Oral Surgery: No Pacemaker: No Thoracic Surgery: No Tonsillectomy: Yes Other Surgery: Yes (tonsillectomy) Social History Alcohol Use: No Tobacco Use: Yes (ONE PPD) Substance Use: No Allergies-Medications (Allergen,Severity, Reaction): Coded Allergies: tetanus toxoid, adsorbed (Unverified Allergy, Severe, swelling, 03/02/17) Per SHANNON Aguilar, Gisselle Torres [phone] & Jolie, (Admin?) Gisselle Torres. Reported Meds & Prescriptions Reported Meds & Active Scripts Active Trihexyphenidyl (Trihexyphenidyl HCl) 2 Mg Tab 1 Mg PO BID Quetiapine (Quetiapine Fumarate) 200 Mg Tab 500 Mg PO HS 30 Days Flomax (Tamsulosin HCl) 0.4 Mg Cap 0.4 Mg PO Q12HR 30 Days Ambien (Zolpidem Tartrate) 5 Mg Tab 10 Mg PO HS PRN 15 Days Trihexyphenidyl (Trihexyphenidyl HCl) 2 Mg Tab 2 Mg PO DAILY@09,13,21 15 Days Quetiapine (Quetiapine Fumarate) 100 Mg Tab 350 Mg PO HS 15 Days Quetiapine (Quetiapine Fumarate) 100 Mg Tab 100 Mg PO DAILY 15 Days Haloperidol 10 Mg Tab 10 Mg PO TID 15 Days Continue Haldol by mouth at least until your next Haldol Decanoate injection. Talk with your outpatient provider about how best to taper Haldol by mouth. Flomax (Tamsulosin HCl) 0.4 Mg Cap 0.4 Mg PO DAILY Hydrocodone-Acetaminophen 5-325 mg Tab 1 Tab PO Q4H PRN [Lactulose Liq] 30 ML Syrp 30 Ml PO DAILY 15 Days Vitamin B-1 (Thiamine HCl) 100 Mg Tab 100 Mg PO DAILY 15 Days Folate (Folic Acid) 1 Mg Tab 1 Mg PO DAILY 15 Days Review of Systems ROS Limitations: Uncooperative, Psychotic Except as stated in HPI: all other systems reviewed are Neg Physical Exam Exam Limitations: Poor Historian, Psychotic Narrative GENERAL: SKIN: Warm and dry. HEAD: Atraumatic. Normocephalic. EYES: Pupils equal and round. No scleral icterus. No injection or drainage. ENT: No nasal bleeding or discharge. Mucous membranes pink and moist. Tongue is midline. No uvula deviation. NECK: Trachea midline. No JVD. CARDIOVASCULAR: Regular rate and rhythm. No murmurs, S3, S4. RESPIRATORY: No accessory muscle use. Clear to auscultation. Breath sounds equal bilaterally. GASTROINTESTINAL: Abdomen soft, non-tender, nondistended. Hepatic and splenic margins not palpable. MUSCULOSKELETAL: Extremities without clubbing, cyanosis, or edema. No obvious deformities. Full range of motion of the upper and lower extremities bilaterally. 2+ pulses bilaterally. NEUROLOGICAL: Awake and alert. No obvious cranial nerve deficits. Motor grossly within normal limits. Five out of 5 muscle strength in the arms and legs. Normal speech. PSYCHIATRIC: Psychotic mood and affect; insight and judgment limited Data Data Last Documented VS Vital Signs Date Time Temp Pulse Resp B/P (MAP) Pulse Ox O2 Delivery O2 Flow Rate FiO2 11/06/17 11:54 98.7 76 18 112/68 (83) 97 Orders Orders Complete Blood Count With Diff (11/06/17 11:56) Comprehensive Metabolic Panel (11/06/17 11:56) Thyroid Stimulating Hormone (11/06/17 11:56) Urinalysis - C+S If Indicated (11/06/17 11:56) Psych Screen (11/06/17 11:56) Drug Screen, Random Urine (11/06/17 11:56) Alcohol (Ethanol) (11/06/17 11:56) Salicylates (Aspirin) (11/06/17 11:56) Tylenol (Acetaminophen) (11/06/17 11:56) MDM Medical Decision Making Medical Screen Exam Complete: Yes Emergency Medical Condition: Yes Medical Record Reviewed: Yes Differential Diagnosis Depression versus suicidal ideation versus anxiety versus adjustment disorder versus mood disorder versus bipolar disorder versus schizophrenia versus paranoid disorder versus psychosis versus substance abuse versus alcohol abuse versus alcohol induced psychosis versus homicidality addition versus cutting versus personality disorder Narrative Course 67-year-old male that presents to the ED for evaluation of psych. Patient was properly examined and was found to have signs and symptoms consistent appears to be psychiatric in nature. No significant medical distress. Cannot really get any history from the patient as patient is not cooperative with me. Labs were drawn. Patient will be medically clear pending labs. Mental health screening was discussed with the patient. Diagnosis Primary Impression: Schizophrenia Qualified Codes: F20.9 - Schizophrenia, unspecified Julio C Shipman Nov 06, 2017 12:19
[2017-11-06 12:35] VITALS: BP 131/80; PULSE 70; RESP 18; TEMP 97.9; O2SAT 98
[2017-11-06 12:36] LABS: AUTOMATED NEUTROPHIL # 4.7 TH/MM3 (1.8-7.7); BASOPHIL # 0.1 TH/MM3 (0-0.2); BASOPHIL % 0.8 % (0.0-2.0); EOSINOPHIL # 0.2 TH/MM3 (0-0.4); EOSINOPHIL % 2.5 % (0.0-4.0); HEMATOCRIT 37.4 % (39.0-51.0); HEMOGLOBIN 12.5 GM/DL (13.0-17.0); LYMPH % 26.5 % (9.0-44.0); LYMPHOCYTE # 2.1 TH/MM3 (1.0-4.8); MEAN CELL VOLUME 98.2 FL (80.0-100.0); MEAN CORPUSCULAR HEMOGLOBIN 32.9 PG (27.0-34.0); MEAN CORPUSCULAR HGB CONC 33.5 % (32.0-36.0); MEAN PLATELET VOLUME 7.5 FL (7.0-11.0); MONOCYTE # 0.8 TH/MM3 (0-0.9); NEUT % 60.2 % (16.0-70.0); PLATELET COUNT 343 TH/MM3 (150-450); RED BLOOD COUNT 3.81 MIL/MM3 (4.50-5.90); RED CELL DISTRIBUTION WIDTH 13.5 % (11.6-17.2); WHITE BLOOD COUNT 7.8 TH/MM3 (4.0-11.0)
[2017-11-06] MEDS ORDERED: HALOPERIDOL LACTATE 5 MG/ML AMP IM ONE (12:45)
[2017-11-06] MEDS ORDERED: LORazepam 2 MG/ML VIAL IM ONE (12:45)
[2017-11-06 12:57] LABS: ALBUMIN 3.9 GM/DL (3.4-5.0); ALT (GPT) 20 U/L (12-78); AST (GOT) 18 U/L (15-37); BICARBONATE 25.8 MEQ/L (21.0-32.0); BLOOD UREA NITROGEN 6 MG/DL (7-18); CALCIUM 8.9 MG/DL (8.5-10.1); CHLORIDE 97 MEQ/L (98-107); CREATININE 0.74 MG/DL (0.60-1.30); GLOMERULAR FILTRATION RATE 105 ML/MIN (>89); GLUCOSE,RANDOM 118 MG/DL (74-106); SODIUM (NA) 132 MEQ/L (136-145)
[2017-11-06 13:03] LABS: ACETAMINOPHEN LESS THAN 2.0 MCG/ML (10.0-30.0); ALKALINE PHOSPHATASE 119 U/L (45-117); TOTAL BILIRUBIN ADULT 0.3 MG/DL (0.2-1.0); TOTAL PROTEIN 7.9 GM/DL (6.4-8.2)
[2017-11-06 13:07] VITALS: BP 117/73; PULSE 54; RESP 18; O2SAT 97
--- NOTE | 2017-11-06 14:06 | PD ---
Physical Exam Date Seen by Provider: Nov 06, 2017 Narrative This patient was initially seen and evaluated Howard Shipman PA-C. Please see his note for full details of the H&P. The patient presented to us as a Meehan Act. Data Data Last Documented VS Vital Signs Date Time Temp Pulse Resp B/P (MAP) Pulse Ox O2 Delivery O2 Flow Rate FiO2 11/06/17 13:07 54 18 117/73 (88) 97 Room Air 11/06/17 12:35 97.9 Orders Orders Complete Blood Count With Diff (11/06/17 11:56) Comprehensive Metabolic Panel (11/06/17 11:56) Thyroid Stimulating Hormone (11/06/17 11:56) Urinalysis - C+S If Indicated (11/06/17 11:56) Psych Screen (11/06/17 11:56) Drug Screen, Random Urine (11/06/17 11:56) Alcohol (Ethanol) (11/06/17 11:56) Salicylates (Aspirin) (11/06/17 11:56) Tylenol (Acetaminophen) (11/06/17 11:56) Haloperidol Inj (Haldol Inj) (11/06/17 12:45) Lorazepam Inj (Ativan Inj) (11/06/17 12:45) Restraints Violent (11/06/17 12:38) Labs Laboratory Tests Test 11/06/17 12:00 White Blood Count 7.8 TH/MM3 Red Blood Count 3.81 MIL/MM3 Hemoglobin 12.5 GM/DL Hematocrit 37.4 % Mean Corpuscular Volume 98.2 FL Mean Corpuscular Hemoglobin 32.9 PG Mean Corpuscular Hemoglobin Concent 33.5 % Red Cell Distribution Width 13.5 % Platelet Count 343 TH/MM3 Mean Platelet Volume 7.5 FL Neutrophils (%) (Auto) 60.2 % Lymphocytes (%) (Auto) 26.5 % Monocytes (%) (Auto) 10.0 % Eosinophils (%) (Auto) 2.5 % Basophils (%) (Auto) 0.8 % Neutrophils # (Auto) 4.7 TH/MM3 Lymphocytes # (Auto) 2.1 TH/MM3 Monocytes # (Auto) 0.8 TH/MM3 Eosinophils # (Auto) 0.2 TH/MM3 Basophils # (Auto) 0.1 TH/MM3 CBC Comment DIFF FINAL Differential Comment Blood Urea Nitrogen 6 MG/DL Creatinine 0.74 MG/DL Random Glucose 118 MG/DL Total Protein 7.9 GM/DL Albumin 3.9 GM/DL Calcium Level 8.9 MG/DL Alkaline Phosphatase 119 U/L Aspartate Amino Transf (AST/SGOT) 18 U/L Alanine Aminotransferase (ALT/SGPT) 20 U/L Total Bilirubin 0.3 MG/DL Sodium Level 132 MEQ/L Potassium Level 4.0 MEQ/L Chloride Level 97 MEQ/L Carbon Dioxide Level 25.8 MEQ/L Anion Gap 9 MEQ/L Estimat Glomerular Filtration Rate 105 ML/MIN Thyroid Stimulating Hormone 3rd Gen 1.540 uIU/ML Salicylates Level 4.5 MG/DL Acetaminophen Level LESS THAN 2.0 MCG/ML Ethyl Alcohol Level LESS THAN 3 MG/DL MDM Supervised Visit with NADEEN: Yes Narrative Course CBC & BMP Diagram 11/06/17 12:00 Total Protein 7.9, Albumin 3.9, Calcium Level 8.9, Alkaline Phosphatase 119 H, Aspartate Amino Transf (AST/SGOT) 18, Alanine Aminotransferase (ALT/SGPT) 20, Total Bilirubin 0.3 TSH 1.54 Tox screen has a salicylate level of 4.5. This patient is medically clear for psychiatric admission. Diagnosis Primary Impression: Schizophrenia Qualified Codes: F20.9 - Schizophrenia, unspecified Condition: Stable Janae Carter MD Nov 06, 2017 14:06
[2017-11-06] MEDS ORDERED: IBUPROFEN 600 MG TAB PO ONE (16:00)
[2017-11-06 16:12] LABS: BACTERIA, URINE MOD /hpf; BILIRUBIN, URINE NEG (NEG); BLOOD, URINE NEG (NEG); GLUCOSE,URINE NEG (NEG); KETONE, URINE NEG (NEG); NITRITE,URINE POS (NEG); PH, URINE 6.5 (5.0-8.5); URINE COLOR LIGHT-YELLOW (YELLW/STRAW); URINE LEUKOCYTE ESTERASE NEG (NEG)
[2017-11-06] MEDS ORDERED: LEXA10TA PO (21:00)
[2017-11-06] MEDS ORDERED: HALO5TAB PO (21:00)
[2017-11-06] MEDS ORDERED: TRAM50TA PO (21:00)
[2017-11-06] MEDS ORDERED: HALO100P IM (21:00)
[2017-11-06] MEDS ORDERED: LORA-392 PO (21:00)
[2017-11-06] MEDS ORDERED: FIBE625T PO (21:00)
[2017-11-06] MEDS ORDERED: diphenhydrAMINE HCL 50 MG CAP PO PRN (22:45)
[2017-11-06] MEDS ORDERED: MAGNESIUM HYDROXIDE SUSP 30 ML CUP PO PRN (22:45)
[2017-11-06] MEDS ORDERED: NICOTINE 21 MG/24 HR PATCH T-DERMAL PRN (22:45)
[2017-11-06] MEDS ORDERED: ALUMINUM/MAGNESIUM/SIMETH 30 ML CUP PO PRN (22:45)
[2017-11-06] MEDS ORDERED: REMOVE OLD PATCH T-DERMAL PRN (23:00)
--- NOTE | 2017-11-07 08:33 | HHI.HP ---
Provisional Diagnosis Admission Date Nov 06, 2017 at 22:35 [place] I. 1. Schizophrenia, disorganized type, acute exacerbation [place] II. Deferred Certification of Person's Competence To Provide Express and Informed Consent I have personally examined Rosalio Pineda Jr , a person being served at [facility] on, Nov 07, 2017 08:33. Express and informed consent means consent voluntarily given in writing, by a competent person, after sufficient explanation and disclosure of the subject matter involved to enable the person to make a knowing and willful decision without any element of force, fraud, deceit, duress, or other form of constraint or coercion. This person is 18 years of age or older, is not now known to be incompetent to consent to treatment with a guardian advocate, and does not have a health care surrogate or proxy currently making medical treatment decisions. I have found this person to be one of the following: [] Competent to provide express and informed consent, as defined above, for voluntary admission to this facility and is competent to provide express and informed consent for treatment. He/she has the consistent capacity to make well reasoned, willful, and knowing decisions concerning his or her medical or mental health treatment. The person fully and consistently understands the purpose of the admission for examination/placement and is fully capable of personally exercising all rights [place] [x] Incompetent to provide express and informed consent to voluntary admission, and this is incompetent to provide express and informed consent to treatment. The person must be transferred to involuntary status and a petition for a guardian advocate filed with the Circuit Court. [] Refusing to provide express and informed consent to voluntary admission but is competent to provide express and informed consent for treatment. The person must be discharged or transferred to involuntary status. Form shall be completed within 24 hours of a person's arrival at the receiving facility and filed in the clinical record of each person: 1. Admitted on a voluntary basis 2. Permitted to provide express and informed consent to his/her own treatment 3. Allowed to transfer from involuntary to voluntary status 4. Prior to permitting a person to consent to his or her own treatment after having been previously found incompetent to consent to treatment. History of Present Illness Capacity: Lacks Capacity Psych Chief Complaint: Psychosis, agitation HPI Mr. Pineda is a 67 year-old male with a history of schizophrenia who presents under a Meehan Act alleging aggressive behavior at his facility. Medication nonadherence is alleged. Documentation from facility, including MAR, reviewed. Patient is well-known to the psychiatric service here from multiple previous psychiatric admissions for decompensated psychosis. Reviewing the electronic medical record, I note that the patient was admitted most recently last March under Dr. Templeton. Patient seen and examined with nurse. Chart reviewed. Case discussed with nursing staff. On my examination today, the patient is oppositional and negativistic. He has the covers pulled over his head and conducts the interview in this fashion despite my request that he uncover himself. He tells me "I'm not gonna uncover my ugly mug." He is sarcastic. When I introduce myself, he replies "Oh, rafael!" He purports to have no idea why he has been brought into the facility. He denies AVH. He denies SI/HI but is likely not reliable to contract for safety. Affect is dysphoric. Thought process is tangential. Patient is unable to tolerate extended interview and dismisses us after a brief time. No acute physical complaints. I am unable to obtain any meaningful past psychiatric, family, chemical dependency or social history from the patient because of his degree of psychiatric impairment and uncooperativeness at present. I have spoken with the patient's brother Deandre at [phone]. Deandre will serve as health care surrogate. He notes that he saw the patient most recently a week and a half ago, and the patient seemed to be doing well. He suspects that, as in the past, the patient has become nonadherent with medications. He provides consent for medications and is in agreement with the treatment plan as outlined below. Review of Systems ROS Limitations: Uncooperative, Psychotic, Poor Historian Except as stated in HPI: all other systems reviewed are Neg Past Family Social History Coded Allergies: tetanus toxoid, adsorbed (Unverified Allergy, Severe, swelling, 03/02/17) Per SHANNON Aguilar, Gisselle Torres [phone] & Jolie, (Admin?) Gisselle Torres. Past Medical History See electronic medical record Active Scripts Quetiapine (Quetiapine) 200 Mg Tab, 500 MG PO HS for health for 30 Days, #30 TAB Prov:Larry Templeton MD 04/17/17 Tamsulosin (Flomax) 0.4 Mg Cap, 0.4 MG PO Q12HR for health for 30 Days, CAP Prov:Larry Templeton MD 04/17/17 Trihexyphenidyl (Trihexyphenidyl) 2 Mg Tab, 2 MG PO DAILY@09,13,21 for Side effect management for 15 Days, TAB 1 Refill Prov:Ajit Phelan MD 03/15/17 Reported Medications Lorazepam (Ativan) 0.5 Mg Tab, 0.5 MG PO TID Y for ANXIETY AND/OR AGITATION, TAB 0 Refills 11/06/17 Calcium Polycarbophil (Fibercon) 625 Mg Tab, 625 MG PO DAILY Y for CONSTIPATION , TAB 0 Refills 11/06/17 Haloperidol Decanoate Inj (Haldol Decanoate Inj) 100 Mg/Ml Inj, 100 MG IM Q21D for Schizophrenia, #1 VIAL 0 Refills 11/06/17 Tramadol (Tramadol) 50 Mg Tab, 50 MG PO Q8H Y for PAIN, TAB 0 Refills 11/06/17 Escitalopram (Lexapro) 10 Mg Tab, 10 MG PO DAILY, #30 TAB 0 Refills 11/06/17 Haloperidol (Haloperidol) 5 Mg Tab, 5 MG PO TID, TAB 0 Refills 11/06/17 Discontinued Scripts Trihexyphenidyl (Trihexyphenidyl) 2 Mg Tab, 1 MG PO BID for health, #60 TAB Prov:Larry Templeton MD 04/17/17 Zolpidem (Ambien) 5 Mg Tab, 10 MG PO HS Y for INSOMNIA for 15 Days, #10 TAB 1 Refill Prov:Ajit Phelan MD 03/15/17 Quetiapine (Quetiapine) 100 Mg Tab, 350 MG PO HS for Mental Health for 15 Days, #30 TAB 1 Refill Prov:Ajit Phelan MD 03/15/17 Quetiapine (Quetiapine) 100 Mg Tab, 100 MG PO DAILY for Mental Health for 15 Days, #30 TAB 1 Refill Prov:Ajit Phelan MD 03/15/17 Haloperidol (Haloperidol) 10 Mg Tab, 10 MG PO TID for Mental Health for 15 Days , #90 TAB 1 Refill Continue Haldol by mouth at least until your next Haldol Decanoate injection. Talk with your outpatient provider about how best to taper Haldol by mouth. Prov:Ajit Phelan MD 03/15/17 Tamsulosin (Flomax) 0.4 Mg Cap, 0.4 MG PO DAILY for Urinary Symptom Managemen, # 30 CAP Prov:Ajit Phelan MD 03/14/17 Hydrocodone-Acetaminophen (Hydrocodone-Acetaminophen) 5-325 mg Tab, 1 TAB PO Q4H Y for pain 6-10, #20 TAB 0 Refills Prov:Ajit Phelan MD 03/14/17 [Lactulose] 30 ML SYRP No Conflict Check, 30 ML PO DAILY for Health for 15 Days , ML 1 Refill Prov:Tyrel Yap MD 01/18/17 Thiamine (Vitamin B-1) 100 Mg Tab, 100 MG PO DAILY for Nutritional Supplement for 15 Days, TAB 1 Refill Prov:Tyrel Yap MD 10/24/16 Folic Acid (Folate) 1 Mg Tab, 1 MG PO DAILY for Nutritional Supplement for 15 Days, TAB 1 Refill Prov:Tyrel Yap MD 10/24/16 Current Medications Medications (Trade) Dose Ordered Sig/Marce Route Start Time Stop Time Status Last Admin (Flomax) 0.4 mg Q12HR PO 11/07/17 09:00 (Benadryl) 50 mg HS PRN PO 11/06/17 22:45 (Tylenol) 650 mg Q4H PRN PO 11/06/17 22:45 (Milk Of Magnesia Liq) 30 ml DAILY PRN PO 11/06/17 22:45 (Mag-Al Plus Susp Liq) 30 ml Q6H PRN PO 11/06/17 22:45 (Habitrol 21 Mg Patch.24 Hr) 1 patch DAILY PRN T-DERMAL 11/06/17 22:45 Miscellaneous Information 1 DAILY PRN T-DERMAL 11/06/17 23:00 Patient's Strengths (min. 2) Supportive brother. In a monitored setting. Physical Exam Physical exam completed by ED provider. On my examination today, the patient appears to be in no acute physical distress. No motor abnormalities noted. Labs and vitals reviewed: Vital Signs Vital Signs Date Time Temp Pulse Resp B/P (MAP) Pulse Ox O2 Delivery O2 Flow Rate FiO2 11/06/17 13:07 54 18 117/73 (88) 97 Room Air 11/06/17 12:35 97.9 Lab Results Test 11/06/17 12:00 11/06/17 15:40 White Blood Count 7.8 TH/MM3 Red Blood Count 3.81 MIL/MM3 Hemoglobin 12.5 GM/DL Hematocrit 37.4 % Mean Corpuscular Volume 98.2 FL Mean Corpuscular Hemoglobin 32.9 PG Mean Corpuscular Hemoglobin Concent 33.5 % Red Cell Distribution Width 13.5 % Platelet Count 343 TH/MM3 Mean Platelet Volume 7.5 FL Neutrophils (%) (Auto) 60.2 % Lymphocytes (%) (Auto) 26.5 % Monocytes (%) (Auto) 10.0 % Eosinophils (%) (Auto) 2.5 % Basophils (%) (Auto) 0.8 % Neutrophils # (Auto) 4.7 TH/MM3 Lymphocytes # (Auto) 2.1 TH/MM3 Monocytes # (Auto) 0.8 TH/MM3 Eosinophils # (Auto) 0.2 TH/MM3 Basophils # (Auto) 0.1 TH/MM3 CBC Comment DIFF FINAL Differential Comment Blood Urea Nitrogen 6 MG/DL Creatinine 0.74 MG/DL Random Glucose 118 MG/DL Total Protein 7.9 GM/DL Albumin 3.9 GM/DL Calcium Level 8.9 MG/DL Alkaline Phosphatase 119 U/L Aspartate Amino Transf (AST/SGOT) 18 U/L Alanine Aminotransferase (ALT/SGPT) 20 U/L Total Bilirubin 0.3 MG/DL Sodium Level 132 MEQ/L Potassium Level 4.0 MEQ/L Chloride Level 97 MEQ/L Carbon Dioxide Level 25.8 MEQ/L Anion Gap 9 MEQ/L Estimat Glomerular Filtration Rate 105 ML/MIN Thyroid Stimulating Hormone 3rd Gen 1.540 uIU/ML Salicylates Level 4.5 MG/DL Acetaminophen Level LESS THAN 2.0 MCG/ML Ethyl Alcohol Level LESS THAN 3 MG/DL Urine Color LIGHT-YELLOW Urine Turbidity CLEAR Urine pH 6.5 Urine Specific [place] 1.002 Urine Protein NEG mg/dL Urine Glucose (UA) NEG mg/dL Urine Ketones NEG mg/dL Urine Occult Blood NEG Urine Nitrite POS Urine Bilirubin NEG Urine Urobilinogen LESS THAN 2.0 MG/DL Urine Leukocyte Esterase NEG Urine RBC 1 /hpf Urine WBC 3 /hpf Urine Bacteria MOD /hpf Microscopic Urinalysis Comment CULTURE INDICATED Urine Opiates Screen NEG Urine Barbiturates Screen NEG Urine Amphetamines Screen NEG Urine Benzodiazepines Screen NEG Urine Cocaine Screen NEG Urine Cannabinoids Screen NEG Date/Time Source Procedure Growth Status 11/06/17 15:40 Urine Random Urine Urine Culture Pending Worksheet Anemia is chronic and improved versus baseline. Hyponatremia has been an issue for the patient in the past. BMP, hemoglobin A1c and lipid panel ordered this morning are listed as "in process." Mental Status Examination Appearance: Disheveled Consciousness: Alert Orientation: Person, Place (At least) Motor Activity: Other (No motor abnormalities noted) Speech: Unremarkable Language: Other (Rambling) Fund of Knowledge: Inadequate Attention and Concentration: Inadequate Memory: Impaired (Psychosis interferes) Mood: Other (Dysphoric) Affect: Other (Restricted) Thought Process & Associations: Tangential Thought Content: Bizarre thinking, Delusional Hallucination Type: None Delusion Type: Paranoid Suicidal Ideation: No (Unreliable to contract for safety) Suicidal Plan: No Suicidal Intention: No Homicidal Ideation: No (Unreliable to contract for safety) Homicidal Plan: No Homicidal Intention: No Insight: Poor Judgment: Poor Assessment & Plan Problem List: (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 On my examination today, the patient appears to be decompensated with respect to his psychotic illness, and medication nonadherence is suspected. I will plan to admit the patient to the inpatient psychiatric unit for safety, observation and stabilization. Admit inpatient. Involuntary status. I have completed first opinion. Consult for second opinion. Request healthcare surrogate and guardian advocate. I will resume patient's outpatient psychotropic medications including Haldol 5 mg 3 times daily on the Lexapro 10 mg daily, Seroquel 500 mg at bedtime and Artane 2 mg 3 times daily. I will instruct the nurse to obtain the last date of Haldol Decanoate administration. We might consider titrating the dose of Haldol decanoate to provide better control of symptoms when it is next due. I will additionally provide Haldol by injection should the patient refuse oral Haldol as well as additional Artane as needed for EPS, Ativan as needed for anxiety and Ambien as needed for sleep. Follow-up BMP, hemoglobin A1c and lipid panel. PT eval. Falls precautions. Vitals every shift. Counselor to see. Disposition planning. Estimated length of stay: 7-9 days. Discharge Planning Pending psychiatric stabilization. Request HC Surrog/Guard Advoc?: Yes Tyrel Yap MD Nov 07, 2017 08:33
[2017-11-07] MEDS: TAMSULOSIN HCL 0.4 MG CAP PO SCH ×2 (08:51→20:02)
[2017-11-07] MEDS ORDERED: HALOPERIDOL LACTATE 5 MG/ML AMP IM PRN (11:00)
[2017-11-07] MEDS ORDERED: TRIHEXYPHENIDYL HCL 2 MG TAB PO PRN (11:15)
[2017-11-07] MEDS ORDERED: PILL SPLITTER OTHER PRN (12:00)
[2017-11-07] MEDS: HALOPERIDOL 5 MG TAB PO SCH ×2 (12:19→17:01)
[2017-11-07] MEDS: TRIHEXYPHENIDYL HCL 2 MG TAB PO SCH ×2 (12:19→20:01)
--- NOTE | 2017-11-07 13:21 | PD.PSY.CON ---
Provisional Diagnosis Admission Date Nov 06, 2017 at 22:35 [place] I. 1. Schizophrenia, disorganized type, acute exacerbation [place] II. Deferred History of Present Illness Service Psychiatry Consult Requested By Psychiatry Reason for Consult Second opinion Primary Care Physician No Primary Care Physician HPI Mr. Pineda is a 67 year-old male with a history of schizophrenia who presents under a Meehan Act alleging aggressive behavior at his facility. Medication nonadherence is alleged. Documentation from facility, including MAR, reviewed. Patient is well-known to the psychiatric service here from multiple previous psychiatric admissions for decompensated psychosis. Reviewing the electronic medical record, I note that the patient was admitted most recently last March under Dr. Templeton. Patient seen and examined with nurse. Chart reviewed. Case discussed with nursing staff. On my examination today, the patient is oppositional and negativistic. He has the covers pulled over his head and conducts the interview in this fashion despite my request that he uncover himself. He tells me "I'm not gonna uncover my ugly mug." He is sarcastic. When I introduce myself, he replies "Oh, rfaael!" He purports to have no idea why he has been brought into the facility. He denies AVH. He denies SI/HI but is likely not reliable to contract for safety. Affect is dysphoric. Thought process is tangential. Patient is unable to tolerate extended interview and dismisses us after a brief time. No acute physical complaints. The patient is a 67 years old man with schizophrenia, who was brought to the hospital on the Meehan act due to aggressive behavior in his residential facility. Patient was seen today for second opinion. The patient was very oppositional, resistant and refused to talk to me. Past Family Social History Coded Allergies: tetanus toxoid, adsorbed (Unverified Allergy, Severe, swelling, 03/02/17) Per SHANNON Aguilar, Gisselle Torres [phone] & Jolie, (Admin?) Gisselle Torres. Active Scripts Quetiapine (Quetiapine) 200 Mg Tab, 500 MG PO HS for health for 30 Days, #30 TAB Prov:Larry Templeton MD 04/17/17 Tamsulosin (Flomax) 0.4 Mg Cap, 0.4 MG PO Q12HR for health for 30 Days, CAP Prov:Larry Templeton MD 04/17/17 Trihexyphenidyl (Trihexyphenidyl) 2 Mg Tab, 2 MG PO DAILY@09,13,21 for Side effect management for 15 Days, TAB 1 Refill Prov:Ajit Phelan MD 03/15/17 Reported Medications Lorazepam (Ativan) 0.5 Mg Tab, 0.5 MG PO TID Y for ANXIETY AND/OR AGITATION, TAB 0 Refills 11/06/17 Calcium Polycarbophil (Fibercon) 625 Mg Tab, 625 MG PO DAILY Y for CONSTIPATION , TAB 0 Refills 11/06/17 Haloperidol Decanoate Inj (Haldol Decanoate Inj) 100 Mg/Ml Inj, 100 MG IM Q21D for Schizophrenia, #1 VIAL 0 Refills 11/06/17 Tramadol (Tramadol) 50 Mg Tab, 50 MG PO Q8H Y for PAIN, TAB 0 Refills 11/06/17 Escitalopram (Lexapro) 10 Mg Tab, 10 MG PO DAILY, #30 TAB 0 Refills 11/06/17 Haloperidol (Haloperidol) 5 Mg Tab, 5 MG PO TID, TAB 0 Refills 11/06/17 Discontinued Scripts Trihexyphenidyl (Trihexyphenidyl) 2 Mg Tab, 1 MG PO BID for health, #60 TAB Prov:Larry Templeton MD 04/17/17 Zolpidem (Ambien) 5 Mg Tab, 10 MG PO HS Y for INSOMNIA for 15 Days, #10 TAB 1 Refill Prov:Ajit Phelan MD 03/15/17 Quetiapine (Quetiapine) 100 Mg Tab, 350 MG PO HS for Mental Health for 15 Days, #30 TAB 1 Refill Prov:Ajit Phelan MD 03/15/17 Quetiapine (Quetiapine) 100 Mg Tab, 100 MG PO DAILY for Mental Health for 15 Days, #30 TAB 1 Refill Prov:Ajit Phelan MD 03/15/17 Haloperidol (Haloperidol) 10 Mg Tab, 10 MG PO TID for Mental Health for 15 Days , #90 TAB 1 Refill Continue Haldol by mouth at least until your next Haldol Decanoate injection. Talk with your outpatient provider about how best to taper Haldol by mouth. Prov:Ajit Phelan MD 03/15/17 Tamsulosin (Flomax) 0.4 Mg Cap, 0.4 MG PO DAILY for Urinary Symptom Managemen, # 30 CAP Prov:Ajit Phelan MD 03/14/17 Hydrocodone-Acetaminophen (Hydrocodone-Acetaminophen) 5-325 mg Tab, 1 TAB PO Q4H Y for pain 6-10, #20 TAB 0 Refills Prov:Ajit Phlean MD 03/14/17 [Lactulose] 30 ML SYRP No Conflict Check, 30 ML PO DAILY for Health for 15 Days , ML 1 Refill Prov:Tyrel Yap MD 01/18/17 Thiamine (Vitamin B-1) 100 Mg Tab, 100 MG PO DAILY for Nutritional Supplement for 15 Days, TAB 1 Refill Prov:Tyrel Yap MD 10/24/16 Folic Acid (Folate) 1 Mg Tab, 1 MG PO DAILY for Nutritional Supplement for 15 Days, TAB 1 Refill Prov:Tyrel Yap MD 10/24/16 Current Medications Medications (Trade) Dose Ordered Sig/Marce Route Start Time Stop Time Status Last Admin (Flomax) 0.4 mg Q12HR PO 11/07/17 09:00 11/07/17 08:51 (Tylenol) 650 mg Q4H PRN PO 11/06/17 22:45 (Milk Of Magnesia Liq) 30 ml DAILY PRN PO 11/06/17 22:45 (Mag-Al Plus Susp Liq) 30 ml Q6H PRN PO 11/06/17 22:45 (Habitrol 21 Mg Patch.24 Hr) 1 patch DAILY PRN T-DERMAL 11/06/17 22:45 Miscellaneous Information 1 DAILY PRN T-DERMAL 11/06/17 23:00 (Lexapro) 10 mg DAILY PO 11/08/17 09:00 (Haldol) 5 mg TID PO 11/07/17 13:00 (SEROquel) 500 mg HS PO 11/07/17 21:00 (Artane) 2 mg DAILY@09,13,21 PO 11/07/17 13:00 11/07/17 12:19 (Haldol Inj) 5 mg TID PRN IM 11/07/17 11:00 11/07/17 12:28 (Ambien) 5 mg HS PRN PO 11/07/17 21:00 (Artane) 2 mg Q12HR PRN PO 11/07/17 11:15 (Pill Splitter) 1 ea UNSCH PRN OTHER 11/07/17 12:00 Patient's Strengths (min. 2) Supportive brother. In a monitored setting. Physical Exam Vital Signs Vital Signs Date Time Temp Pulse Resp B/P (MAP) Pulse Ox O2 Delivery O2 Flow Rate FiO2 11/06/17 13:07 54 18 117/73 (88) 97 Room Air 11/06/17 12:35 97.9 Lab Results Test 11/06/17 15:40 Urine Color LIGHT-YELLOW Urine Turbidity CLEAR Urine pH 6.5 Urine Specific [place] 1.002 Urine Protein NEG mg/dL Urine Glucose (UA) NEG mg/dL Urine Ketones NEG mg/dL Urine Occult Blood NEG Urine Nitrite POS Urine Bilirubin NEG Urine Urobilinogen LESS THAN 2.0 MG/DL Urine Leukocyte Esterase NEG Urine RBC 1 /hpf Urine WBC 3 /hpf Urine Bacteria MOD /hpf Microscopic Urinalysis Comment CULTURE INDICATED Urine Opiates Screen NEG Urine Barbiturates Screen NEG Urine Amphetamines Screen NEG Urine Benzodiazepines Screen NEG Urine Cocaine Screen NEG Urine Cannabinoids Screen NEG Date/Time Source Procedure Growth Status 11/06/17 15:40 Urine Random Urine Urine Culture - Preliminary Gram Negative Gerardo Resulted Mental Status Examination Appearance: Disheveled Consciousness: Alert Orientation: Person, Place (At least) Motor Activity: Other (No motor abnormalities noted) Speech: Unremarkable Language: Other (Rambling) Fund of Knowledge: Inadequate Attention and Concentration: Inadequate Memory: Impaired (Psychosis interferes) Mood: Other (Dysphoric) Affect: Other (Restricted) Thought Process & Associations: Tangential Thought Content: Bizarre thinking, Delusional Hallucination Type: None Delusion Type: Paranoid Suicidal Ideation: No (Unreliable to contract for safety) Suicidal Plan: No Suicidal Intention: No Homicidal Ideation: No (Unreliable to contract for safety) Homicidal Plan: No Homicidal Intention: No Insight: Poor Judgment: Poor Assessment & Plan Problem List: (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
[2017-11-07] MEDS: NITROFURANTOIN MONOHYD MACROCR 100 MG CAP PO SCH (17:01)
[2017-11-07] MEDS: QUEtiapine FUMARATE 200 MG TAB PO SCH (20:01)
[2017-11-07] MEDS ORDERED: ZOLPIDEM TARTRATE 5 MG TAB PO PRN (21:00)
[2017-11-08] MEDS: ESCITALOPRAM OXALATE 10 MG TAB PO SCH (07:43)
[2017-11-08] MEDS: TRIHEXYPHENIDYL HCL 2 MG TAB PO SCH ×3 (07:43→21:00)
[2017-11-08] MEDS: HALOPERIDOL 5 MG TAB PO SCH ×3 (07:43→17:53)
[2017-11-08] MEDS: TAMSULOSIN HCL 0.4 MG CAP PO SCH ×2 (07:44→21:00)
[2017-11-08] MEDS: NITROFURANTOIN MONOHYD MACROCR 100 MG CAP PO SCH (07:44)
--- NOTE | 2017-11-08 10:36 | HHI.PYPN ---
Subjective Chief Complaint: Psychosis, agitation Remarks Patient seen and examined with nurse. Chart reviewed. Case discussed with nursing staff. On my examination today, the patient exhibits somatic preoccupation. He tells me that "I have uremia coming on." When I ask him why he believes this to be the case, he tells me "because they took away half my apple drinks." I do note some cups on his floor. He remains irascible and oppositional. Asking for "a 10cc morphine injection." No side effects from medications. No physical complaints. Review of Systems ROS Limitations: Psychotic, Poor Historian Except as stated in HPI: all other systems reviewed are Neg Mental Status Examination Appearance: Disheveled Consciousness: Alert Orientation: Person, Place (At least) Motor Activity: Other (No abnormal motor movements noted) Speech: Unremarkable Language: Other (Remains fairly rambling) Fund of Knowledge: Inadequate Attention and Concentration: Inadequate Memory: Impaired (Psychosis interferes) Mood: Irritable, Other (Dysphoric) Affect: Irritable, Other (Restricted) Thought Process & Associations: Disorganized (At times), Tangential Thought Content: Bizarre thinking, Delusional Hallucination Type: None Delusion Type: Paranoid Suicidal Ideation: No (No SI voiced) Homicidal Ideation: No (No HI voiced) Insight: Poor Judgment: Poor Results Labs Date/Time Source Procedure Growth Status 11/06/17 15:40 Urine Random Urine Urine Culture - Preliminary Gram Negative Gerrado Resulted Labs reviewed. Urine culture growing out pseudomonas aeruginosa sensitive to Cipro and Levaquin among other agents. 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 Continue Haldol, Seroquel and other psychotropics as ordered. If condition unchanged tomorrow, we will plan to titrate the Haldol. Discontinue Macrobid and initiate Levaquin 250 mg daily 3 days. Continue to monitor on high acuity unit. Continue other medications and care as ordered. Justification for Cont. Inpt. Impairment in reality construction. Risk for decompensation in less restrictive environment. Discharge Planning Pending psychiatric stabilization Request HC Surrog/Guard Advoc?: Yes Tyrel Yap MD Nov 08, 2017 10:36
[2017-11-08] MEDS: ACETAMINOPHEN 325 MG TAB PO PRN (15:51)
[2017-11-08] MEDS: LEVOFLOXACIN 250 MG TAB PO SCH (17:56)
[2017-11-08] MEDS: QUEtiapine FUMARATE 200 MG TAB PO SCH (21:00)
--- NOTE | 2017-11-09 08:13 | HHI.PYPN ---
Subjective Chief Complaint: Psychosis, agitation Remarks Patient seen and examined with nurse. Chart reviewed. Case discussed with nursing staff. Patient refused Seroquel yesterday evening. Case discussed in treatment team. Counselor notes that the patient can return to his facility once stable. On my examination today, the patient presents as sarcastic and irritable. Thought process somewhat disorganized. Remains internally stimulated. Denies SI or HI. No side effects from medications. No physical complaints. Review of Systems ROS Limitations: Psychotic, Poor Historian Except as stated in HPI: all other systems reviewed are Neg Mental Status Examination Appearance: Disheveled Consciousness: Alert Orientation: Person, Place (At least) Motor Activity: Other (No motoric abnormalities noted.) Speech: Unremarkable Language: Other (Rambling) Fund of Knowledge: Inadequate Attention and Concentration: Inadequate Memory: Impaired (Psychosis interferes) Mood: Irritable Affect: Irritable Thought Process & Associations: Disorganized (At times), Tangential Thought Content: Bizarre thinking, Delusional Hallucination Type: Other (Internally stimulated) Delusion Type: Paranoid Suicidal Ideation: No Homicidal Ideation: No Insight: Poor Judgment: Poor Results Labs Date/Time Source Procedure Growth Status 11/06/17 15:40 Urine Random Urine Urine Culture - Final Pseudomonas Aeruginosa Complete Labs reviewed Vitals/IOs Vital Signs Date Time Temp Pulse Resp B/P (MAP) Pulse Ox O2 Delivery O2 Flow Rate FiO2 11/06/17 13:07 54 18 117/73 (88) 97 Room Air 11/06/17 12:35 97.9 Assessment & Plan Problem List: (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 Last dose of Haldol Dec 100mg IM was on 10/31, and he gets this q21d. To consider booster dose of Haldol Dec prior to discharge. Continue to monitor on high acuity unit. Continue other medications and care as ordered. Justification for Cont. Inpt. Med changes. Impairment in reality construction. Risk for decompensation in less restrictive environment. Discharge Planning Pending psychiatric stabilization. Request HC Surrog/Guard Advoc?: Yes Tyrel Yap MD Nov 09, 2017 08:13
[2017-11-09] MEDS: TRIHEXYPHENIDYL HCL 2 MG TAB PO SCH ×3 (09:00→20:49)
[2017-11-09] MEDS: HALOPERIDOL 5 MG TAB PO SCH ×3 (09:00→20:49)
[2017-11-09] MEDS: ESCITALOPRAM OXALATE 10 MG TAB PO SCH (09:00)
[2017-11-09] MEDS: TAMSULOSIN HCL 0.4 MG CAP PO SCH ×2 (09:00→20:50)
--- NOTE | 2017-11-09 13:27 | PD.TTN ---
Patient Problems 1. Discharge planning 2. Medication compliance 3. Knowledge deficit 4. Lack of coping skills Progress Toward Goals Provider Present: Dr. Jon Duarte, Dr. Roxane Yap Provider Input: Dr. Yap's met to discuss patient's medication, treatment plan, and discharge. Patient continues to meet criteria, adjusting medication. isolates to self. Nurse(s) Input: Patient's nurse reports patient is non compliant with medication. sarcastic, irriatable and somatic Psychiatric Counselors Present: Alina Benson [facility] Psych Therapist Input: Patient presents irritiable, somatic, paranoid, will continue with treatment. Group Spec/RT/OT/VANCE Present: Sen Savage OT Group Spec/RT/OT/VANCE Input: Can not tolerate groups Alina Benson [facility] Nov 09, 2017 13:27
[2017-11-09] MEDS: ACETAMINOPHEN 325 MG TAB PO PRN ×2 (16:49→20:50)
[2017-11-09 17:43] VITALS: TEMP 97.6
[2017-11-09] MEDS: QUEtiapine FUMARATE 200 MG TAB PO SCH (20:49)
[2017-11-10] MEDS: HALOPERIDOL 5 MG TAB PO SCH ×3 (09:00→21:00)
[2017-11-10] MEDS: ESCITALOPRAM OXALATE 10 MG TAB PO SCH (09:22)
[2017-11-10] MEDS: TRIHEXYPHENIDYL HCL 2 MG TAB PO SCH ×3 (09:22→21:30)
[2017-11-10] MEDS: TAMSULOSIN HCL 0.4 MG CAP PO SCH ×2 (09:22→21:30)
[2017-11-10] MEDS: HALOPERIDOL LACTATE 5 MG/ML AMP IM PRN ×3 (09:41→21:50)
[2017-11-10] MEDS: ACETAMINOPHEN 325 MG TAB PO PRN ×3 (11:04→21:46)
--- NOTE | 2017-11-10 13:50 | HHI.PYPN ---
Subjective Chief Complaint: Psychosis, agitation Remarks Reviewed electronic medical record discussed case with staff. Nurse reports patient refused his p.o. Haldol this morning and had to be given an IM. She states that he seems to be doing "a little bit better". Follow-up performed day room with patient sitting in chair. His speech is garbled, hard under stand , and disorganized. Unable to adequately assess him as patient kept going off on tangents concerning his name and his sexual drive. Mental Status Examination Appearance: Disheveled Consciousness: Alert Orientation: Person, Place (At least) Motor Activity: Other (No motoric abnormalities noted.) Speech: Unremarkable Language: Other (Rambling) Fund of Knowledge: Inadequate Attention and Concentration: Inadequate Memory: Impaired (Psychosis interferes) Mood: Irritable Affect: Irritable Thought Process & Associations: Disorganized (At times), Tangential Thought Content: Bizarre thinking, Delusional Hallucination Type: Other (Internally stimulated) Delusion Type: Paranoid Suicidal Ideation: No Homicidal Ideation: No Insight: Poor Judgment: Poor Results Labs Date/Time Source Procedure Growth Status 11/06/17 15:40 Urine Random Urine Urine Culture - Final Pseudomonas Aeruginosa Complete Vitals/IOs Vital Signs Date Time Temp Pulse Resp B/P (MAP) Pulse Ox O2 Delivery O2 Flow Rate FiO2 11/09/17 17:43 97.6 11/06/17 13:07 54 18 117/73 (88) 97 Room Air Assessment & Plan Problem List: (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 Patient still refusing oral Haldol. Continue with injections as needed. Days Justification for Cont. Inpt. Moving this patient to a lower level of care would likely result in decompensation. Request HC Surrog/Guard Advoc?: Yes Glenny Su Nov 10, 2017 13:50
[2017-11-10] MEDS: LEVOFLOXACIN 250 MG TAB PO SCH (18:13)
[2017-11-10] MEDS: QUEtiapine FUMARATE 200 MG TAB PO SCH (21:30)
[2017-11-11] MEDS: ACETAMINOPHEN 325 MG TAB PO PRN ×3 (07:03→20:43)
[2017-11-11] MEDS: HALOPERIDOL 5 MG TAB PO SCH ×2 (09:00→21:00)
[2017-11-11] MEDS: ESCITALOPRAM OXALATE 10 MG TAB PO SCH (09:53)
[2017-11-11] MEDS: TRIHEXYPHENIDYL HCL 2 MG TAB PO SCH ×3 (09:54→20:41)
[2017-11-11] MEDS: HALOPERIDOL LACTATE 5 MG/ML AMP IM PRN ×2 (09:54→20:42)
[2017-11-11] MEDS: TAMSULOSIN HCL 0.4 MG CAP PO SCH ×2 (09:54→20:41)
--- NOTE | 2017-11-11 10:04 | HHI.PYPN ---
Subjective Chief Complaint: Psychosis, agitation Remarks Reviewed electronic medical record and discussed case with staff. Staff reports patient still refuses his oral Haldol and was given an IM injection this morning. Follow-up conducted in patient's room. Patient remains pleasantly confused and disorganized with garbled speech. Mental Status Examination Appearance: Disheveled Consciousness: Alert Orientation: Person, Place (At least) Motor Activity: Other (No motoric abnormalities noted.) Speech: Unremarkable Language: Other (Rambling) Fund of Knowledge: Inadequate Attention and Concentration: Inadequate Memory: Impaired (Psychosis interferes) Mood: Irritable Affect: Irritable Thought Process & Associations: Disorganized (At times), Tangential Thought Content: Bizarre thinking, Delusional Hallucination Type: Other (Internally stimulated) Delusion Type: Paranoid Suicidal Ideation: No Homicidal Ideation: No Insight: Poor Judgment: Poor Results Labs Date/Time Source Procedure Growth Status 11/06/17 15:40 Urine Random Urine Urine Culture - Final Pseudomonas Aeruginosa Complete Vitals/IOs Vital Signs Date Time Temp Pulse Resp B/P (MAP) Pulse Ox O2 Delivery O2 Flow Rate FiO2 11/09/17 17:43 97.6 Intake and Output 11/11/17 11/11/17 11/12/17 08:00 16:00 00:00 Intake Total 360 ml Balance 360 ml Assessment & Plan Problem List: (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 Attending psychiatrist will reevaluate tomorrow. Days Justification for Cont. Inpt. Moving this patient to a lower level of care would likely result in decompensation Request HC Surrog/Guard Advoc?: Yes Glenny Su Nov 11, 2017 10:04
[2017-11-11] MEDS: QUEtiapine FUMARATE 200 MG TAB PO SCH (20:40)
[2017-11-12] MEDS: HALOPERIDOL 5 MG TAB PO SCH ×2 (08:29→20:47)
[2017-11-12] MEDS: TRIHEXYPHENIDYL HCL 2 MG TAB PO SCH ×3 (08:29→20:46)
[2017-11-12] MEDS: TAMSULOSIN HCL 0.4 MG CAP PO SCH ×2 (08:29→20:47)
[2017-11-12] MEDS: ESCITALOPRAM OXALATE 10 MG TAB PO SCH (08:30)
--- NOTE | 2017-11-12 09:15 | HHI.PYPN ---
Subjective Chief Complaint: Psychosis, agitation Remarks Patient seen and examined with nurse. Chart reviewed. Case discussed with nursing staff. Patient refusing oral Haldol per nursing. Otherwise unchanged. On my exam, patient remains somewhat disorganized and disheveled. He does have a slightly brighter affect remains oppositional overall. Insight into mental illness is poor and the patient notes "psychosis; no, that is not my diagnosis. I have a neurosis." No SI or HI. No side effects from medications. No physical complaints. Review of Systems ROS Limitations: Psychotic, Poor Historian Except as stated in HPI: all other systems reviewed are Neg Mental Status Examination Appearance: Disheveled Consciousness: Alert Orientation: Person, Place (At least) Motor Activity: Other (No abnormal motor movements noted although patient does refuse physical exam) Speech: Unremarkable Language: Other (A little more focused but overall fairly rambling still) Fund of Knowledge: Inadequate Attention and Concentration: Inadequate Memory: Impaired (Psychosis interferes) Mood: Oppositional Affect: Irritable Thought Process & Associations: Disorganized (At times), Tangential Thought Content: Bizarre thinking, Delusional Hallucination Type: Other (Remain somewhat internally stimulated) Delusion Type: Paranoid Suicidal Ideation: No Homicidal Ideation: No Insight: Poor Judgment: Poor Results Labs Date/Time Source Procedure Growth Status 11/06/17 15:40 Urine Random Urine Urine Culture - Final Pseudomonas Aeruginosa Complete Labs reviewed Vitals/IOs Vital Signs Date Time Temp Pulse Resp B/P (MAP) Pulse Ox O2 Delivery O2 Flow Rate FiO2 11/11/17 17:33 11/09/17 17:43 97.6 Assessment & Plan Problem List: (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 Continue other psychotropics as ordered. Patient ended up receiving only a single dose of Levaquin, and so I will order to further doses to complete course of treatment for Pseudomonas UTI. Continue to monitor on the inpatient unit. Continue other medications and care as ordered. Justification for Cont. Inpt. Med changes. Risk for decompensation in less restrictive environment. Impairment in reality construction. Discharge Planning Pending psychiatric stabilization, return to facility with outpatient follow-up. Request HC Surrog/Guard Advoc?: Yes Tyrel Yap MD Nov 12, 2017 09:15
[2017-11-12] MEDS: ACETAMINOPHEN 325 MG TAB PO PRN ×2 (12:36→16:59)
[2017-11-12] MEDS: LEVOFLOXACIN 250 MG TAB PO SCH (16:00)
[2017-11-12] MEDS: QUEtiapine FUMARATE 200 MG TAB PO SCH (20:49)
[2017-11-13] MEDS: ACETAMINOPHEN 325 MG TAB PO PRN ×4 (01:17→22:00)
[2017-11-13] MEDS: HALOPERIDOL 5 MG TAB PO SCH ×2 (09:00→20:13)
[2017-11-13] MEDS: LEVOFLOXACIN 250 MG TAB PO SCH (09:38)
[2017-11-13] MEDS: ESCITALOPRAM OXALATE 10 MG TAB PO SCH (09:38)
[2017-11-13] MEDS: TRIHEXYPHENIDYL HCL 2 MG TAB PO SCH ×3 (09:38→20:12)
[2017-11-13] MEDS: HALOPERIDOL LACTATE 5 MG/ML AMP IM PRN (09:38)
[2017-11-13] MEDS: TAMSULOSIN HCL 0.4 MG CAP PO SCH ×2 (09:38→20:12)
[2017-11-13] MEDS: QUEtiapine FUMARATE 100 MG TAB PO SCH (09:38)
--- NOTE | 2017-11-13 10:16 | PD.TTN ---
Patient Problems 1. Discharge planning 2. Medication compliance 3. Knowledge deficit 4. Lack of coping skills Progress Toward Goals Provider Present: Dr. Jon Duarte, Dr. Roxane Yap Provider Input: 11/13/17 - Patient continues to isolate to his room. Dr. Yap's met to discuss patient's medication, treatment plan, and discharge. Patient continues to meet criteria, adjusting medication. isolates to self. Nurse(s) Input: 11/13/17 - Patient's nurse reports patient is non compliant with medication. sarcastic, irriatable and somatic Psychiatric Counselors Present: Alina Benson [facility] Psych Therapist Input: 11/13/17 - Patient typically stays in his room and has limited interaction with peers and staff. Patient presents irritiable, somatic, paranoid, will continue with treatment. Group Spec/RT/OT/VANCE Present: Sen Savage OT, RAJIV Crawford Group Spec/RT/OT/VANCE Input: 11/13/17 - Patient refuses to attend groups. Can not tolerate groups Discharge Plan [facility] Documentation Scribe: ALETHA Alanis Date Resolved: November 13, 2017 Myla CadeEliza November 13, 2017 10:16
--- NOTE | 2017-11-13 12:25 | HHI.PYPN ---
Subjective Chief Complaint: Psychosis, agitation Remarks Patient seen and examined with nurse. Chart reviewed. Case discussed with nursing staff. Patient continues to refuse oral Haldol in general. On my exam , patient remains irritable, disorganized, disheveled. He is unable to tolerate extended interview and storms out of the room after a brief conversation. No side effects from medications. No physical complaints. Review of Systems ROS Limitations: Psychotic, Poor Historian Except as stated in HPI: all other systems reviewed are Neg Mental Status Examination Appearance: Disheveled Consciousness: Alert Orientation: Person, Place (At least) Motor Activity: Other (No motoric abnormalities noted) Speech: Unremarkable Language: Other (A little more focused but overall fairly rambling still) Fund of Knowledge: Inadequate Attention and Concentration: Inadequate Memory: Impaired (Psychosis interferes) Mood: Oppositional Affect: Irritable Thought Process & Associations: Disorganized Thought Content: Bizarre thinking, Delusional Hallucination Type: Other (Internally preoccupied) Delusion Type: Paranoid Suicidal Ideation: No Homicidal Ideation: No Insight: Poor Judgment: Poor Results Labs Date/Time Source Procedure Growth Status 11/06/17 15:40 Urine Random Urine Urine Culture - Final Pseudomonas Aeruginosa Complete Labs reviewed. Updated BMP reveals improvement in hyponatremia. 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 Continue Haldol and other psychotropics as ordered, although it is not clear that the patient is deriving any benefit from the Haldol. To consider tapering/ discontinuing the Haldol. I am loath to do so at this time until we see some benefit from Seroquel for fear that the patient will experience even more severe psychotic decompensation of Haldol dose is decreased. Continue to monitor on high acuity unit. Continue other medications and care as ordered. Justification for Cont. Inpt. Impairment in self-care. Impairment in reality construction. Risk for decompensation in less restrictive environment. Discharge Planning Pending stabilization Request HC Surrog/Guard Advoc?: Yes Tyrel Yap MD November 13, 2017 12:25
[2017-11-13 15:32] LABS: BICARBONATE 30.1 MEQ/L (21.0-32.0); CALCIUM 9.1 MG/DL (8.5-10.1); CREATININE 0.77 MG/DL (0.60-1.30)
[2017-11-13] MEDS: QUEtiapine FUMARATE 200 MG TAB PO SCH (20:12)
[2017-11-14] MEDS: TRIHEXYPHENIDYL HCL 2 MG TAB PO SCH ×3 (08:01→20:04)
[2017-11-14] MEDS: ESCITALOPRAM OXALATE 10 MG TAB PO SCH (08:01)
[2017-11-14] MEDS: QUEtiapine FUMARATE 100 MG TAB PO SCH (08:01)
[2017-11-14] MEDS: HALOPERIDOL 5 MG TAB PO SCH ×2 (08:01→20:04)
[2017-11-14] MEDS: TAMSULOSIN HCL 0.4 MG CAP PO SCH ×2 (08:01→20:04)
[2017-11-14] MEDS: LEVOFLOXACIN 250 MG TAB PO SCH (08:01)
[2017-11-14] MEDS: ACETAMINOPHEN 325 MG TAB PO PRN ×2 (09:19→16:16)
--- NOTE | 2017-11-14 13:32 | HHI.PYPN ---
Subjective Chief Complaint: Psychosis, agitation Remarks Patient seen and examined with nurse. Chart reviewed. Case discussed with nursing staff. Patient reportedly requesting Ativan for anxiety. Nursing staff notes that the patient is making more sense in conversation although he remains somewhat disorganized. Patient is medication compliant. Case discussed in treatment team. On my examination today, the patient does indeed seem more relevant in conversation. He tells me "keep me on what you got me on today" referring to his psychotropics. The patient seems to believe these are treating him well. He denies any SI or HI. Denies any AVH. No side effects from medications. No acute physical complaints. Review of Systems ROS Limitations: Psychotic, Poor Historian Except as stated in HPI: all other systems reviewed are Neg Mental Status Examination Appearance: Disheveled Consciousness: Alert Orientation: Person, Place Motor Activity: Other (No abnormal motor movements noted) Speech: Unremarkable Language: Other (A little more focused but overall fairly rambling still) Fund of Knowledge: Inadequate Attention and Concentration: Inadequate Memory: Impaired Mood: Other (Calmer) Affect: Other (Less irritable) Thought Process & Associations: Other (More organized today) Thought Content: Other (More appropriate overall with some residual delusions) Hallucination Type: None Delusion Type: Paranoid (Decreasing) Suicidal Ideation: No Homicidal Ideation: No Insight: Poor Judgment: Poor Results Labs Test 11/13/17 14:42 Blood Urea Nitrogen 12 MG/DL Creatinine 0.77 MG/DL Random Glucose 88 MG/DL Calcium Level 9.1 MG/DL Sodium Level 135 MEQ/L Potassium Level 4.3 MEQ/L Chloride Level 98 MEQ/L Carbon Dioxide Level 30.1 MEQ/L Anion Gap 7 MEQ/L Estimat Glomerular Filtration Rate 100 ML/MIN Date/Time Source Procedure Growth Status 11/06/17 15:40 Urine Random Urine Urine Culture - Final Pseudomonas Aeruginosa Complete Labs reviewed Vitals/IOs Vital Signs Date Time Temp Pulse Resp B/P (MAP) Pulse Ox O2 Delivery O2 Flow Rate FiO2 11/13/17 23:00 18 11/11/17 17:33 Assessment & Plan Problem List: (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 I will continue Seroquel titration, increasing the morning dose to 200 mg. Continue other psychotropics as ordered for now, but to consider tapering Haldol dose if Seroquel seems more efficacious overall. Continue to monitor on the inpatient unit. Continue other medications and care as ordered. Justification for Cont. Inpt. Med changes. Risk for decompensation in less restrictive environment. Discharge Planning Pending psychiatric stabilization. [place] tomorrow. Request HC Surrog/Guard Advoc?: Yes Tyrel Yap MD November 14, 2017 13:32
[2017-11-14] MEDS ORDERED: LORazepam 2 MG/ML VIAL IM PRN (13:45)
[2017-11-14] MEDS: QUEtiapine FUMARATE 200 MG TAB PO SCH (20:04)
[2017-11-15] MEDS: ACETAMINOPHEN 325 MG TAB PO PRN ×3 (05:22→15:09)
[2017-11-15 06:08] VITALS: BP 92/53; PULSE 66; RESP 16; TEMP 97.6; O2SAT 8; O2SAT 98
--- NOTE | 2017-11-15 08:20 | HHI.PYPN ---
Subjective Chief Complaint: Psychosis, agitation Remarks Patient seen and examined with nurse. Chart reviewed. Case discussed with nursing staff who reports that the patient seems to be clearing some. He did allow vitals to be taken this morning. On my examination today, the patient is fairly calm and pleasant. His thought process does indeed seem more organized today. He is hopeful to be returned to his assisted living facility soon. Mild ongoing irritability but overall much improved. No side effects from medications. No physical complaints. Review of Systems ROS Limitations: Psychotic, Poor Historian Except as stated in HPI: all other systems reviewed are Neg Mental Status Examination Appearance: Disheveled Consciousness: Alert Orientation: Person, Place Motor Activity: Other (No motoric abnormalities noted) Speech: Unremarkable Language: Other (Again somewhat more focused and relevant) Fund of Knowledge: Inadequate Attention and Concentration: Inadequate Memory: Impaired Mood: Other (Calm with only mild irritability) Affect: Blunt Thought Process & Associations: Other (Somewhat more organized today) Thought Content: Other (Fairly appropriate overall) Hallucination Type: None Delusion Type: None Suicidal Ideation: No Homicidal Ideation: No Insight: Poor Judgment: Poor Results Labs Date/Time Source Procedure Growth Status 11/06/17 15:40 Urine Random Urine Urine Culture - Final Pseudomonas Aeruginosa Complete Labs reviewed Vitals/IOs Vital Signs Date Time Temp Pulse Resp B/P (MAP) Pulse Ox O2 Delivery O2 Flow Rate FiO2 11/15/17 06:08 97.6 66 16 92/53 (66) 8 Assessment & Plan Problem List: (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 Continue Seroquel as ordered. Continue Haldol and Lexapro as ordered. Patient would next be due for Haldol Dec injection on 11/21. Given that patient seems to have derived most benefit to titration of Seroquel, I will hold off on administering booster dose of Haldol Dec, and slow taper of Haldol might even be considered on outpatient basis. Continue to monitor on the inpatient unit. Continue other medications and care as ordered. Justification for Cont. Inpt. Risk for decompensation in less restrictive environment. Discharge Planning Possible return to facility tomorrow or after the weekend. I will discussed with counselor. Request HC Surrog/Guard Advoc?: Yes Tyrel Yap MD November 15, 2017 08:20
[2017-11-15] MEDS: HALOPERIDOL 5 MG TAB PO SCH ×2 (08:28→20:52)
[2017-11-15] MEDS: TAMSULOSIN HCL 0.4 MG CAP PO SCH ×2 (08:28→20:32)
[2017-11-15] MEDS: TRIHEXYPHENIDYL HCL 2 MG TAB PO SCH ×3 (08:28→20:34)
[2017-11-15] MEDS: ESCITALOPRAM OXALATE 10 MG TAB PO SCH (08:29)
[2017-11-15] MEDS: LORazepam 1 MG TAB PO PRN ×2 (08:29→16:32)
[2017-11-15] MEDS: QUEtiapine FUMARATE 100 MG TAB PO SCH (08:29)
[2017-11-15 18:00] VITALS: BP 146/67; PULSE 44; RESP 18; TEMP 97.8; O2SAT 100
[2017-11-15] MEDS: HALOPERIDOL LACTATE 5 MG/ML AMP IM PRN (20:53)
[2017-11-15] MEDS: QUEtiapine FUMARATE 200 MG TAB PO SCH (20:53)
[2017-11-16] MEDS: ACETAMINOPHEN 325 MG TAB PO PRN ×3 (03:48→17:54)
[2017-11-16 05:52] VITALS: BP 124/72; PULSE 74; RESP 17; TEMP 97.6; O2SAT 97
[2017-11-16] MEDS: HALOPERIDOL 5 MG TAB PO SCH ×2 (08:35→21:32)
[2017-11-16] MEDS: QUEtiapine FUMARATE 100 MG TAB PO SCH (08:35)
[2017-11-16] MEDS: ESCITALOPRAM OXALATE 10 MG TAB PO SCH (08:36)
[2017-11-16] MEDS: TAMSULOSIN HCL 0.4 MG CAP PO SCH ×2 (08:36→21:32)
[2017-11-16] MEDS: TRIHEXYPHENIDYL HCL 2 MG TAB PO SCH ×3 (08:36→21:32)
--- NOTE | 2017-11-16 15:58 | HHI.PYPN ---
Subjective Chief Complaint: Psychosis, agitation Remarks Patient seen and examined. Chart reviewed. Case discussed with nursing staff. Case discussed with counselor. Patient's home facility reportedly wants the patient held over the weekend. On my examination today, the patient is sitting in the day area. He has a small Bible and a blank piece of paper and appears to be preparing to make notes. He remains a little bit irritable and says "I am a little busy now." Thought process much more organized versus admission. No SI or HI. Does not want an extended interview saying "you are wasting my time" and returning to his task. No side effects from medications. No physical complaints. Review of Systems ROS Limitations: Poor Historian Except as stated in HPI: all other systems reviewed are Neg Mental Status Examination Appearance: Disheveled Consciousness: Alert Orientation: Person, Place Motor Activity: Other (No abnormal motor movements noted) Speech: Unremarkable Language: Other (Again somewhat more focused and relevant) Fund of Knowledge: Inadequate Attention and Concentration: Inadequate Memory: Impaired Mood: Other (Mild irritability) Affect: Blunt Thought Process & Associations: Other (More organized) Thought Content: Other (Fairly appropriate overall) Hallucination Type: None Delusion Type: None Suicidal Ideation: No (No SI voiced) Homicidal Ideation: No (No HI voiced) Insight: Poor Judgment: Poor Results Labs Date/Time Source Procedure Growth Status 11/06/17 15:40 Urine Random Urine Urine Culture - Final Pseudomonas Aeruginosa Complete Labs reviewed Vitals/IOs Vital Signs Date Time Temp Pulse Resp B/P (MAP) Pulse Ox O2 Delivery O2 Flow Rate FiO2 11/16/17 05:52 97.6 74 17 124/72 (89) 97 Intake and Output 11/16/17 11/16/17 11/17/17 08:00 16:00 00:00 Intake Total 240 ml Balance 240 ml Assessment & Plan Problem List: (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 Continue other psychotropics as ordered. Continue other medications and care as ordered. Justification for Cont. Inpt. Med changes. Discharge Planning Anticipate discharge to facility after the weekend Request HC Surrog/Guard Advoc?: Yes Tyrel Yap MD November 16, 2017 15:57
[2017-11-16 16:37] VITALS: BP 106/58; PULSE 57; RESP 17; TEMP 96.5; O2SAT 96
[2017-11-16] MEDS: QUEtiapine FUMARATE 200 MG TAB PO SCH (21:32)
[2017-11-17 06:34] VITALS: BP 134/68; PULSE 50; RESP 20; TEMP 98.1; O2SAT 100
[2017-11-17] MEDS: ESCITALOPRAM OXALATE 10 MG TAB PO SCH (08:05)
[2017-11-17] MEDS: TRIHEXYPHENIDYL HCL 2 MG TAB PO SCH ×3 (08:05→21:02)
[2017-11-17] MEDS: TAMSULOSIN HCL 0.4 MG CAP PO SCH ×2 (08:05→21:02)
[2017-11-17] MEDS: HALOPERIDOL 5 MG TAB PO SCH ×2 (09:00→21:02)
[2017-11-17] MEDS: QUEtiapine FUMARATE 100 MG TAB PO SCH (09:00)
[2017-11-17] MEDS: HALOPERIDOL LACTATE 5 MG/ML AMP IM PRN (09:08)
[2017-11-17] MEDS: ACETAMINOPHEN 325 MG TAB PO PRN ×2 (10:14→17:06)
--- NOTE | 2017-11-17 14:36 | HHI.PYPN ---
Subjective Chief Complaint: Psychosis, agitation Remarks Patient was seen and case discussed with nursing. Patient remains oppositional. Irritable during the interview. Speech is rambling and he is paranoid that I will incriminate him and sabotage his discharge. No outbursts. He remains selective and oppositional with medications Mental Status Examination Appearance: Disheveled Consciousness: Alert Orientation: Person, Place Motor Activity: Other (No abnormal motor movements noted) Speech: Unremarkable Language: Other (Again somewhat more focused and relevant) Fund of Knowledge: Inadequate Attention and Concentration: Inadequate Memory: Impaired Mood: Other (Mild irritability) Affect: Blunt Thought Process & Associations: Other (More organized) Thought Content: Other (Fairly appropriate overall) Hallucination Type: None Delusion Type: None Suicidal Ideation: No (No SI voiced) Homicidal Ideation: No (No HI voiced) Insight: Poor Judgment: Poor Results Labs Date/Time Source Procedure Growth Status 11/06/17 15:40 Urine Random Urine Urine Culture - Final Pseudomonas Aeruginosa Complete Vitals/IOs Vital Signs Date Time Temp Pulse Resp B/P (MAP) Pulse Ox O2 Delivery O2 Flow Rate FiO2 11/17/17 06:34 98.1 50 20 134/68 (90) 100 Assessment & Plan Problem List: (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 Inpt. Patient would decompensate in a less restrictive setting Request HC Surrog/Guard Advoc?: Yes Linus Wbeb DO November 17, 2017 14:35
[2017-11-17 18:13] VITALS: BP 107/54; PULSE 50; RESP 18; TEMP 97.8; O2SAT 98
[2017-11-17] MEDS: QUEtiapine FUMARATE 200 MG TAB PO SCH (21:02)
[2017-11-18] MEDS: HALOPERIDOL 5 MG TAB PO SCH ×3 (08:44→21:00)
[2017-11-18] MEDS: TRIHEXYPHENIDYL HCL 2 MG TAB PO SCH ×4 (08:44→21:00)
[2017-11-18] MEDS: TAMSULOSIN HCL 0.4 MG CAP PO SCH ×3 (08:44→21:00)
[2017-11-18] MEDS: QUEtiapine FUMARATE 100 MG TAB PO SCH (08:44)
[2017-11-18] MEDS: ESCITALOPRAM OXALATE 10 MG TAB PO SCH (08:44)
--- NOTE | 2017-11-18 14:46 | HHI.PYPN ---
Subjective Chief Complaint: Psychosis, agitation Remarks Patient was seen and case discussed with nursing. Patient remains irritable throughout the interview. He is oppositional with care and selective with his medications. Refuses vital signs this morning Mental Status Examination Appearance: Disheveled Consciousness: Alert Orientation: Person, Place Motor Activity: Other (No abnormal motor movements noted) Speech: Unremarkable Language: Other (Again somewhat more focused and relevant) Fund of Knowledge: Inadequate Attention and Concentration: Inadequate Memory: Impaired Mood: Other (Mild irritability) Affect: Blunt Thought Process & Associations: Other (More organized) Thought Content: Other (Fairly appropriate overall) Hallucination Type: None Delusion Type: None Suicidal Ideation: No (No SI voiced) Suicidal Plan: No Suicidal Intention: No Homicidal Ideation: No (No HI voiced) Homicidal Plan: No Homicidal Intention: No Insight: Poor Judgment: Poor Results Labs Date/Time Source Procedure Growth Status 11/06/17 15:40 Urine Random Urine Urine Culture - Final Pseudomonas Aeruginosa Complete Vitals/IOs Vital Signs Date Time Temp Pulse Resp B/P (MAP) Pulse Ox O2 Delivery O2 Flow Rate FiO2 11/17/17 18:13 97.8 50 18 107/54 (71) 98 Intake and Output 11/18/17 11/18/17 11/19/17 08:00 16:00 00:00 Intake Total 360 ml Balance 360 ml Assessment & Plan Problem List: (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 Inpt. Patient would decompensate in a less restrictive setting Request HC Surrog/Guard Advoc?: Yes Linus Webb DO November 18, 2017 14:46
[2017-11-18] MEDS: ACETAMINOPHEN 325 MG TAB PO PRN (17:04)
[2017-11-18 17:09] VITALS: BP 106/68; PULSE 68; RESP 14; TEMP 98.3; O2SAT 98
[2017-11-18] MEDS: QUEtiapine FUMARATE 200 MG TAB PO SCH ×2 (20:37→21:00)
[2017-11-19 07:08] VITALS: BP 99/51; PULSE 50; RESP 20; TEMP 98; O2SAT 96
[2017-11-19] MEDS: TRIHEXYPHENIDYL HCL 2 MG TAB PO SCH ×3 (09:00→20:59)
[2017-11-19] MEDS: HALOPERIDOL 5 MG TAB PO SCH ×2 (09:08→20:59)
[2017-11-19] MEDS: ESCITALOPRAM OXALATE 10 MG TAB PO SCH (09:08)
[2017-11-19] MEDS: TAMSULOSIN HCL 0.4 MG CAP PO SCH ×2 (09:08→20:59)
[2017-11-19] MEDS: QUEtiapine FUMARATE 100 MG TAB PO SCH (09:08)
--- NOTE | 2017-11-19 10:12 | HHI.PYPN ---
Subjective Chief Complaint: Psychosis, agitation Remarks Patient seen and examined with nurse. Chart reviewed. Case discussed with nursing staff who reports patient is calmer but continues to intermittently refuse medications. Case discussed with counselor who notes that representatives from patient's facility will be out to evaluate him later today. On my examination today, the patient asks to be returned to his facility. He remains a little bit irritable and oppositional. I have discussed with the patient that his behavior, including periodic medication refusal acts against to his stated desire to return to his facility. No side effects from medications. No physical complaints. Review of Systems ROS Limitations: Poor Historian Except as stated in HPI: all other systems reviewed are Neg Mental Status Examination Appearance: Disheveled Consciousness: Alert Orientation: Person, Place Motor Activity: Other (No motor abnormalities noted) Speech: Unremarkable Language: Other (Mildly rambling) Fund of Knowledge: Inadequate Attention and Concentration: Inadequate Memory: Impaired Mood: Oppositional, Irritable (Mild) Affect: Blunt Thought Process & Associations: Circumstantial Thought Content: Preoccupations Hallucination Type: None Delusion Type: None Suicidal Ideation: No Homicidal Ideation: No Insight: Poor Judgment: Poor Results Labs Date/Time Source Procedure Growth Status 11/06/17 15:40 Urine Random Urine Urine Culture - Final Pseudomonas Aeruginosa Complete Labs reviewed Vitals/IOs Vital Signs Date Time Temp Pulse Resp B/P (MAP) Pulse Ox O2 Delivery O2 Flow Rate FiO2 11/19/17 07:08 98.0 50 20 99/51 (67) 96 Assessment & Plan Problem List: (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 Continue current psychotropics as ordered. Patient will be due for booster dose of Haldol decanoate on Sunday of this week, and we might consider administering a larger dose at that time. Continue to monitor on the inpatient unit. Continue other medications and care as ordered. Justification for Cont. Inpt. High risk for decompensation in less restrictive environment. Discharge Planning Return to facility once psychiatrically stable. Request HC Surrog/Guard Advoc?: Yes Tyrel Yap MD November 19, 2017 10:12
[2017-11-19] MEDS: ACETAMINOPHEN 325 MG TAB PO PRN (15:37)
[2017-11-19 17:06] VITALS: BP 102/54; PULSE 56; RESP 18; TEMP 97.9; O2SAT 96
[2017-11-19] MEDS: QUEtiapine FUMARATE 200 MG TAB PO SCH (20:59)
[2017-11-20] MEDS: TRIHEXYPHENIDYL HCL 2 MG TAB PO SCH ×2 (08:44→12:45)
[2017-11-20] MEDS: ESCITALOPRAM OXALATE 10 MG TAB PO SCH (08:44)
[2017-11-20] MEDS: TAMSULOSIN HCL 0.4 MG CAP PO SCH (08:44)
[2017-11-20] MEDS: QUEtiapine FUMARATE 100 MG TAB PO SCH (08:44)
[2017-11-20] MEDS: HALOPERIDOL 5 MG TAB PO SCH (08:44)
[2017-11-20] MEDS ORDERED: HALO100I IM (09:55)
[2017-11-20] MEDS ORDERED: QUET1TAB8 PO (09:55)
[2017-11-20] MEDS ORDERED: HALO5TAB PO (09:55)
--- NOTE | 2017-11-20 09:56 | HHI.DS ---
Psychiatry Discharge Summary Inpatient Psychiatric care?: Yes Advance Directive: No Reason Not Provided: DOES NOT HAVE Mental Health AdvanceDirective: No Health Care Proxy: No Admission Admission Date Nov 06, 2017 at 22:35 Admission Diagnosis: (1) Disorganized schizophrenia ICD Code: F20.1 - Disorganized schizophrenia Brief History Mr. Pineda is a 67 year-old male with a history of schizophrenia who presents under a [place] Act alleging aggressive behavior at his facility. Medication nonadherence is alleged. Documentation from facility, including MAR, reviewed. Patient is well-known to the psychiatric service here from multiple previous psychiatric admissions for decompensated psychosis. Reviewing the electronic medical record, I note that the patient was admitted most recently last March under Dr. Templeton. Patient seen and examined with nurse. Chart reviewed. Case discussed with nursing staff. On my examination today, the patient is oppositional and negativistic. He has the covers pulled over his head and conducts the interview in this fashion despite my request that he uncover himself. He tells me "I'm not gonna uncover my ugly mug." He is sarcastic. When I introduce myself, he replies "Oh, rafael!" He purports to have no idea why he has been brought into the facility. He denies AVH. He denies SI/HI but is likely not reliable to contract for safety. Affect is dysphoric. Thought process is tangential. Patient is unable to tolerate extended interview and dismisses us after a brief time. No acute physical complaints. The patient is a 67 years old man with schizophrenia, who was brought to the hospital on the Mee[place] act due to aggressive behavior in his residential facility. Patient was seen today for second opinion. The patient was very oppositional, resistant and refused to talk to me. Tobacco Use In Past 30 Days: No Tobacco Past 30 Days Alcohol Use: Never Hospital Course Patient was admitted to a locked, inpatient psychiatric unit. Appropriate precautions were in place throughout patient's hospital stay. Patient was seen and examined on the unit by psychiatry and also visited by counselor. Psychotropic medications were adjusted. Patient had improvement in presenting psychiatric symptomatology during the course of his hospital stay. There was no evidence of any suicidality or homicidality on the inpatient unit. Self- care improved with the benefit of psychopharmacologic treatment. Patient's behavior improved over the course of his hospital stay. Collateral information was obtained from the patient's brother and referring facility. On the day of discharge: Patient seen and examined with nurse and counselor. Chart reviewed. Case discussed with nursing staff. Case discussed in treatment team. Counselor reports that patient's facility sent representatives to evaluate the patient yesterday afternoon, and they reportedly found the patient improved and are comfortable accepting him back today. On my examination today, the patient is pleased to be returning to his facility today. He denies any suicidal or homicidal ideation, intent or plan. I can elicit no mood symptoms. He does exhibit some oppositionality that is a component of his chronic baseline. He denies any audiovisual hallucinations. I can elicit no delusional material. Insight into mental illness remains fairly poor and the patient continues to insist that he has a neurosis and not a psychotic illness. No side effects from medications. I have spoken with patient's brother on day of discharge regarding plan for return to facility as well as to obtain consent for Haldol Decanoate, to be administered prior to discharge today. Suicide and violence risk assessment on day of discharge both suggest lower imminent risk from mental illness, and the patient's level of function is adequate for planned level of outpatient care. Patient has maximized benefit from this inpatient psychiatric hospital stay. He will be discharged today to facility with psychiatric follow-up as arranged by counselor. Patient is also to follow up with primary care. Patient to return to psychiatric emergency room for any concerning psychiatric symptoms as part of a general safety plan. Results Blood Pressure 102 / 54 Vital Signs Date Time Temp Pulse Resp B/P (MAP) Pulse Ox O2 Delivery O2 Flow Rate FiO2 11/19/17 17:06 97.9 56 18 102/54 (70) 96 Laboratory Tests Test 11/06/17 12:00 11/06/17 15:40 11/13/17 14:42 White Blood Count 7.8 TH/MM3 Red Blood Count 3.81 MIL/MM3 Hemoglobin 12.5 GM/DL Hematocrit 37.4 % Mean Corpuscular Volume 98.2 FL Mean Corpuscular Hemoglobin 32.9 PG Mean Corpuscular Hemoglobin Concent 33.5 % Red Cell Distribution Width 13.5 % Platelet Count 343 TH/MM3 Mean Platelet Volume 7.5 FL Neutrophils (%) (Auto) 60.2 % Lymphocytes (%) (Auto) 26.5 % Monocytes (%) (Auto) 10.0 % Eosinophils (%) (Auto) 2.5 % Basophils (%) (Auto) 0.8 % Neutrophils # (Auto) 4.7 TH/MM3 Lymphocytes # (Auto) 2.1 TH/MM3 Monocytes # (Auto) 0.8 TH/MM3 Eosinophils # (Auto) 0.2 TH/MM3 Basophils # (Auto) 0.1 TH/MM3 CBC Comment DIFF FINAL Differential Comment Blood Urea Nitrogen 6 MG/DL 12 MG/DL Creatinine 0.74 MG/DL 0.77 MG/DL Random Glucose 118 MG/DL 88 MG/DL Total Protein 7.9 GM/DL Albumin 3.9 GM/DL Calcium Level 8.9 MG/DL 9.1 MG/DL Alkaline Phosphatase 119 U/L Aspartate Amino Transf (AST/SGOT) 18 U/L Alanine Aminotransferase (ALT/SGPT) 20 U/L Total Bilirubin 0.3 MG/DL Sodium Level 132 MEQ/L 135 MEQ/L Potassium Level 4.0 MEQ/L 4.3 MEQ/L Chloride Level 97 MEQ/L 98 MEQ/L Carbon Dioxide Level 25.8 MEQ/L 30.1 MEQ/L Thyroid Stimulating Hormone 3rd Gen 1.540 uIU/ML Salicylates Level 4.5 MG/DL Acetaminophen Level LESS THAN 2.0 MCG/ML Ethyl Alcohol Level LESS THAN 3 MG/DL Urine Color LIGHT-YELLOW Urine Turbidity CLEAR Urine pH 6.5 Urine Specific [place] 1.002 Urine Protein NEG mg/dL Urine Glucose (UA) NEG mg/dL Urine Ketones NEG mg/dL Urine Occult Blood NEG Urine Nitrite POS Urine Bilirubin NEG Urine Urobilinogen LESS THAN 2.0 MG/DL Urine Leukocyte Esterase NEG Urine RBC 1 /hpf Urine WBC 3 /hpf Urine Bacteria MOD /hpf Microscopic Urinalysis Comment CULTURE INDICATED Urine Opiates Screen NEG Urine Barbiturates Screen NEG Urine Amphetamines Screen NEG Urine Benzodiazepines Screen NEG Urine Cocaine Screen NEG Urine Cannabinoids Screen NEG Anion Gap 7 MEQ/L Estimat Glomerular Filtration Rate 100 ML/MIN Summary of Procedures None done Imaging None done Pending results at discharge: No Medications # of Antipsychotic meds at D/C: 2 Appropriate >1 Antipsych meds?: 4 Approp Antipsych med options 1 - Minimum of three failed multiple trials of monotherapy. 2 - Documented plan to taper to monotherapy due to previous use of multiple meds OR cross-taper in progress at D/C. 3 - Documentation of augmentation of Clozapine. 4 - Justification other than those listed in allowable values 1-3, document here : Required multiple antipsychotics for stabilization Discharge Discharge Date: November 20, 2017 Discharge Diagnosis: (1) Disorganized schizophrenia Diagnosis: Principal (Stabilized) ICD Code: F20.1 - Disorganized schizophrenia Status: Acute Pt Condition on Discharge: Stable Discharge Disposition: [facility] Discharge Instructions Diet Instructions: As Tolerated, No Restrictions Activities you can perform: Weight Bearing as Louise Scheduled Appointment: As per counselors notes New Orders: BASIC METABOLIC PROF - 1 Week CBC WITH DIFF - 1 Week New Medications: Haloperidol Decanoate Inj (Haloperidol Decanoate Inj) 100 Mg/Ml Inj 100 MG IM Q21D for Mental Health, #2 VIAL 0 Refills This dose of Haldol Decanoate is due on 12/11/2017. Haloperidol (Haloperidol) 5 Mg Tab 10 MG PO BID for Mental Health for 15 Days, #60 TAB 1 Refill Quetiapine (Quetiapine) 100 Mg Tab 300 MG PO DAILY for Mental Health for 15 Days, #45 TAB 1 Refill Continued Medications: Calcium Polycarbophil (Fibercon) 625 Mg Tab 625 MG PO DAILY PRN for CONSTIPATION, TAB 0 Refills Escitalopram (Lexapro) 10 Mg Tab 10 MG PO DAILY, #30 TAB 0 Refills Lorazepam (Ativan) 0.5 Mg Tab 0.5 MG PO TID PRN for ANXIETY AND/OR AGITATION, TAB 0 Refills Quetiapine (Quetiapine) 200 Mg Tab 500 MG PO HS for health for 30 Days, #30 TAB Tamsulosin (Flomax) 0.4 Mg Cap 0.4 MG PO Q12HR for health for 30 Days, CAP Trihexyphenidyl (Trihexyphenidyl) 2 Mg Tab 2 MG PO DAILY@09,13,21 for Side effect management for 15 Days, TAB 1 Refill Discontinued Medications: Haloperidol (Haloperidol) 5 Mg Tab 5 MG PO TID, TAB 0 Refills Haloperidol Decanoate Inj (Haldol Decanoate Inj) 100 Mg/Ml Inj 100 MG IM Q21D for Schizophrenia, #1 VIAL 0 Refills Tramadol (Tramadol) 50 Mg Tab 50 MG PO Q8H PRN for PAIN, TAB 0 Refills Discharge Time <= 30 minutes Mental Status Examination Appearance: Other (Grooming improved versus admission) Consciousness: Alert Orientation: Person, Place Motor Activity: Other (No abnormal motor movements noted) Speech: Unremarkable Language: Other (Mildly rambling) Fund of Knowledge: Inadequate Attention and Concentration: Inadequate Memory: Impaired Mood: Oppositional (Mild) Affect: Blunt Thought Process & Associations: Circumstantial Thought Content: Other (Fairly appropriate today) Hallucination Type: None Delusion Type: None Suicidal Ideation: No Suicidal Plan: No Suicidal Intention: No Homicidal Ideation: No Homicidal Plan: No Homicidal Intention: No Insight: Poor (Chronic condition) Judgment: Poor (Chronic condition) Discharge/Advance Care Plan Health Problems: (1) Disorganized schizophrenia Goals to promote your health * To prevent worsening of your condition and complications * To maintain your health at the optimal level Directions to meet your goals Take your medications as prescribed Follow your dietary instruction Follow activity as directed Keep your appointments as scheduled Take your immunizations and boosters as scheduled If your symptoms worsen call your PCP, if no PCP go to Urgent Care Center or Emergency Room For 05/02 questions related to your inpatient stay or results of tests pending at discharge, please contact Dr. Tyrel Yap at Smoking is Dangerous to Your Health. Avoid second hand smoking Tyrel Yap MD November 20, 2017 09:55
[2017-11-20] MEDS ORDERED: HALOPERIDOL DECANOATE 50 MG/ML VIAL IM SCH (10:00)
== END 2017-11-20 14:35 | DRG 885 ==
LOC: NEPD 11:49 → NEDA 22:35 → H270 11-07 00:43
PROVIDERS: ADMIT Psychiatry & Neurology Psychiatry; ATTEND Psychiatry & Neurology Psychiatry
DX: F20.1 Disorganized schizophrenia (principal); E87.1 Hypo-osmolality and hyponatremia; N39.0 Urinary tract infection, site not specified; B96.5 Pseudomonas (aeruginosa) (mallei) (pseudomallei) as the cause of diseases classified elsewhere; Z91.14 Patient's other noncompliance with medication regimen
CPT/HCPCS: 80048; 80053; 80307; 81001; 84443; 85025; 87077; 87086; 87186; 96372; J1630; J2060